=== PATIENT | male | born 1940 | race Caucasian/White ===

== ENCOUNTER → 2018-01-29 08:19 | Outpatient (CLI) | payer OTHER, MEDICARE, SELFPAY ==
[2018-01-29 09:31] LABS: Add Manual Diff / Slide Review NO; Basophils Percent Auto 0.6 % (0-2); Eosinophils Percent Auto 3.2 % (2-4); Hematocrit 37.9 % (41-53); Hemoglobin 12.8 g/dL (13.5-17.5); Lymphocytes Percent Auto 26.1 % (25-40); Mean Corpuscular HGB Conc 33.8 % (30-36); Mean Corpuscular Hemoglobin 30.3 PG (26-34); Mean Corpuscular Volume 89.8 fL (80-100); Monocytes Percent Auto 11.2 % (3-14); Neutrophils Absolute Auto 2600 /uL (3000-5900); Neutrophils Percent Auto 58.9 % (50-75); Platelet Count 194 X10^3/uL (150-400); Red Blood Cell Count 4.22 X10^6/uL (4.5-5.9); Red Cell Distribution Width 12.7 % (11.6-14.8); White Blood Cell Count 4.4 X10^3/uL (4.5-11.0)
[2018-01-29 09:43] LABS: Alanine Aminotransferase 31 IU/L (21-72); Albumin 4.2 g/dL (3.5-5.0); Albumin Globulin Ratio 1.6 (1.0-2.8); Alkaline Phosphatase 63 U/L (38-126); Aspartate Aminotransferase 31 IU/L (17-59); Bilirubin Total 0.7 mg/dL (0.2-1.3); Blood Urea Nitrogen 21 mg/dL (9-20); Calcium 9.4 mg/dL (8.4-10.2); Carbon Dioxide 33 mmol/L (22-32); Chloride 101 mmol/L (98-107); Cholesterol 160 mg/dL (140-199); Estimated Glomerular Filt Rate > 60.0 mL/min (>60); Globulin 2.7 g/dL (1.7-4.1); Glucose 90 mg/dL (80-110); HDL Cholesterol 40 mg/dL (40-60); HEMOLYSIS < 15 (0-50); LDL Cholesterol Calculated 93 mg/dL (<100); Potassium 4.2 mmol/L (3.4-5.1); Sodium 141 mmol/L (137-145); Total Protein 6.9 g/dL (6.3-8.2); Triglycerides 136 mg/dL (35-150)
[2018-01-29 10:58] LABS: TSH w/ Reflex to FT4 2.87 uIU/mL (0.47-4.68)
== END ==
PROVIDERS: PCP Family Medicine; Visit Provider Family Medicine
DX: E78.5 Hyperlipidemia, unspecified (principal); R97.20 Elevated prostate specific antigen [PSA]
CPT/HCPCS: 36415; 80053; 80061; 84443; 85025

== ENCOUNTER → 2018-03-11 11:38 | Outpatient (CLI) | payer OTHER, SELFPAY ==
--- NOTE | 2018-03-11 11:43 | DI.RAD.S_ITS ---
PROCEDURE: XR SHOULDER RT MIN 2V INDICATIONS: pain TECHNIQUE: 3 views of the shoulder were acquired. COMPARISON: None. FINDINGS: Bones: No fractures or dislocations. No suspicious bony lesions. Visualized ribs appear intact. Soft tissues: No suspicious soft tissue calcifications. IMPRESSION: Moderate a.c. joint osteoarthritis, mild glenohumeral joint osteoarthritis, no trauma found. Dictated by: Rosalino Orellana M.D. on 03/11/2018 at 12:26 Approved by: Rosalino Orellana M.D. on 03/11/2018 at 12:27
== END ==
PROVIDERS: Family Provider Family Medicine; PCP Family Medicine; Visit Provider Family Medicine
DX: R97.20 Elevated prostate specific antigen [PSA] (principal)
CPT/HCPCS: 36415; 73030; G0103

== ENCOUNTER → 2018-06-13 11:15 | Outpatient (CLI) | payer OTHER, SELFPAY ==
[2018-06-17 14:45] LABS: PSA Free % 27 % (calc) (> 25); PSA, Total 4.5 ng/mL (< 4.1)
== END ==
PROVIDERS: PCP Family Medicine; Visit Provider Family Medicine
DX: R97.20 Elevated prostate specific antigen [PSA] (principal)
CPT/HCPCS: 36415; 84153; 84154

== ENCOUNTER → 2019-02-27 10:53 | Outpatient (CLI) | payer OTHER, SELFPAY ==
[2019-02-27 11:18] LABS: Add Manual Diff / Slide Review NO; Basophils Absolute Auto 0 /uL (0-100); Basophils Percent Auto 0.9 % (0-2); Eosinophils Absolute Auto 200 /uL (0-450); Eosinophils Percent Auto 4.1 % (2-4); Hematocrit 39.9 % (41-53); Hemoglobin 13.4 g/dL (13.5-17.5); Lymphocytes Absolute Auto 1000 /uL (1100-4500); Mean Corpuscular HGB Conc 33.6 % (30-36); Mean Corpuscular Volume 89.2 fL (80-100); Monocytes Absolute Auto 400 /uL (0-900); Monocytes Percent Auto 8.9 % (3-14); Neutrophils Absolute Auto 2500 /uL (1500-7000); Neutrophils Percent Auto 61.1 % (50-75); Platelet Count 195 X10^3/uL (150-400); Red Blood Cell Count 4.47 X10^6/uL (4.5-5.9); Red Cell Distribution Width 12.9 % (11.6-14.8)
[2019-02-27 11:33] LABS: Alanine Aminotransferase 25 IU/L (21-72); Albumin 4.3 g/dL (3.5-5.0); Albumin Globulin Ratio 1.4 (1.0-2.8); Alkaline Phosphatase 74 U/L (38-126); Aspartate Aminotransferase 30 IU/L (17-59); Bilirubin Total 0.8 mg/dL (0.2-1.3); Blood Urea Nitrogen 19 mg/dL (9-20); Calcium 9.4 mg/dL (8.4-10.2); Carbon Dioxide 27 mmol/L (22-32); Chloride 104 mmol/L (98-107); Cholesterol 155 mg/dL (140-199); Estimated Glomerular Filt Rate > 60.0 mL/min (>60); Glucose 106 mg/dL (80-110); HDL Cholesterol 39 mg/dL (40-60); HEMOLYSIS < 15 (0-50); LDL Cholesterol Calculated 87 mg/dL (<100); Potassium 4.2 mmol/L (3.4-5.1); Sodium 142 mmol/L (137-145); Total Protein 7.3 g/dL (6.3-8.2); Triglycerides 144 mg/dL (35-150)
[2019-02-27 12:02] LABS: Prostate Specific Antigen 3.87 ng/mL (0.10-4.00)
[2019-02-27 12:16] LABS: Thyroid Stimulating Hormone 2.58 uIU/mL (0.47-4.68)
== END ==
PROVIDERS: PCP Family Medicine; Visit Provider Family Medicine
DX: E78.5 Hyperlipidemia, unspecified (principal); R97.20 Elevated prostate specific antigen [PSA]; Z13.0 Encounter for screening for diseases of the blood and blood-forming organs and certain disorders involving the immune mechanism; Z13.1 Encounter for screening for diabetes mellitus; Z13.220 Encounter for screening for lipoid disorders; Z13.6 Encounter for screening for cardiovascular disorders; Z87.898 Personal history of other specified conditions
CPT/HCPCS: 36415; 80053; 80061; 84153; 84443; 85025

== ENCOUNTER → 2019-05-26 12:07 | Outpatient (CLI) | payer OTHER, SELFPAY | PROVIDERS: PCP Family Medicine; Visit Provider Physician Assistant | DX: J02.9 Acute pharyngitis, unspecified (principal) | CPT/HCPCS: 87070 ==

== ENCOUNTER → 2019-06-02 14:50 | Outpatient (CLI) | payer OTHER, SELFPAY | PROVIDERS: PCP Family Medicine; Visit Provider Family Medicine | DX: Z01.83 Encounter for blood typing (principal); Z71.84 Encounter for health counseling related to travel | CPT/HCPCS: 36415; 86850; 86900; 86901 ==

== ENCOUNTER → 2019-07-16 16:31 | Outpatient (CLI) | payer OTHER, SELFPAY ==
--- NOTE | 2019-07-16 16:33 | DI.MRI.S_ITS ---
PROCEDURE: MR HEAD/BRAIN WO CON INDICATIONS: tremor TECHNIQUE: Non-contrast axial T1 spin echo, axial T2 fast spin echo, sagittal and axial FLAIR, coronal T2 fast spin echo, axial gradient echo, axial diffusion and ADC through the brain. COMPARISON: None. FINDINGS: Image quality: Excellent. CSF spaces: Ventricles are within normal limits for size, and slightly prominent on the left than on the right. This degree of asymmetry is considered to be in normal physiologic limits. Basal cisterns are patent. No extra-axial fluid collections. Brain: No intracranial bleeds or mass effects. There is cerebral volume loss for age. There are periventricular and deep white matter chronic small vessel ischemic changes. Brainstem appears normal. Diffusion-weighted images show no acute ischemic insults. No chronic ischemic insults. Normal intravascular flow voids are present. Skull and face: Calvarial bone marrow is normal in signal. Orbits are normal. Sinuses: Sinuses and mastoids are clear. IMPRESSION: Unremarkable intracranial study for age, yet without an imaging explanation for the patient's presenting history of tremor. Note is made of age-appropriate brain parenchymal volume loss and chronic small vessel ischemic changes. Dictated by: Douglas Teran M.D. on 07/16/2019 at 16:56 Approved by: Douglas Teran M.D. on 07/16/2019 at 16:57
== END ==
PROVIDERS: PCP Family Medicine; Visit Provider Family Medicine
DX: G25.0 Essential tremor (principal)
CPT/HCPCS: 70551

== ENCOUNTER 2019-09-01 12:57 | Emergency (ER) | payer OTHER, SELFPAY ==
[2019-09-01 13:09] VITALS: BP 131/69; PULSE 74; RESP 18; TEMP 36.8; O2SAT 95
--- NOTE | 2019-09-01 13:19 | ED_ITS ---
HPI - General Adult General Chief complaint: Abdominal Pain Stated complaint: 'very sore stomach' Time Seen by Provider: 09/01/19 13:11 Source: patient Mode of arrival: Ambulatory Limitations: no limitations History of Present Illness HPI narrative: 79-year-old male with a prior history of a bowel obstruction. This was several years ago. He stated that he did not have surgery for it. He states that last evening while he was having dinner started to have lower abdominal pain. Worsened throughout the night and actually got bad enough that he had to go sit in a recliner this morning. Head is since ?eased up ?somewhat. He attempted to contact his primary provider this morning in the office told him to come into the emergency department. He states that it feels very similar to his prior history of a bowel obstruction. No urinary symptoms. Has not had a bowel movement since the symptoms started. Is still passing flatus. Nausea no vomiting. Related Data Home Medications Medication Instructions Recorded Confirmed aspirin 81 mg PO DAILY #0 01/23/11 09/01/19 multivitamin 1 tab PO DAILY #0 01/23/11 09/01/19 PreserVision AREDS-2 1 cap PO DAILY #0 08/18/12 09/01/19 vitamin E 400 unit PO DAILY #0 08/18/12 09/01/19 citalopram 20 mg PO DAILY 09/01/19 09/01/19 fluticasone propionate [Flonase 1 spray INTRANASAL BEDTIME 09/01/19 09/01/19 Allergy Relief] lansoprazole 30 mg PO BID 09/01/19 09/01/19 primidone 50 - 250 mg PO BEDTIME 09/01/19 09/01/19 simvastatin [Zocor] 20 mg PO DAILY 09/01/19 09/01/19 Allergies Allergy/AdvReac Type Severity Reaction Status Date / Time No Known Drug Allergies Allergy Unverified 08/03/19 10:04 Review of Systems Constitutional Constitutional: Denies fever(s) Cardiovascular Cardiovascular: Denies chest pain and Denies dyspnea Respiratory Respiratory: Denies dyspnea Gastrointestinal Gastrointestinal: Reports abdominal pain, Reports nausea and Denies vomiting Genitourinary Genitourinary: Denies dysuria Integumentary/Breasts Skin/Breast: Denies lesions and Denies rash Neurologic Neurologic: Denies behavioral changes Psychiatric Psychiatric: Denies behavioral changes Hematologic/Lymphatic Hematologic/Lymphatic: Denies easy bleeding and Denies easy bruising Patient History Medical History Anemia (Chronic) Chicken pox (Resolved) Depression (Chronic) Fractures (Chronic ~1961) Measles (Resolved) Mumps (Resolved) Surgical History (Updated 02/10/18 @ 23:08 by Sybil Kruger) Anesthesia (Resolved) History of sinus surgery (Resolved ~2006) History of third molar tooth extraction (~1979) Melanoma (Chronic ~1977) Status post colonoscopy (~2010) Status post colonoscopy (~2013) Family History (Updated 01/10/15 @ 00:00 by Conversion Provider) Brother Age: 83 Cancer Father Cancer Heart disease Hypertension Mother Heart disease High cholesterol Macular degeneration Osteoporosis Grandmother Cancer Sister Cancer Sister Age: 80 Macular degeneration Grandfather No problems noted. Social History Smoking Status: Never smoker Smoking Status: Never smoker alcohol intake frequency: 0-2 drinks per day Exam Initial Vital Signs Initial Vital Signs: Vital Signs Temperature 98.3 F 09/01/19 13:09 Pulse Rate 74 09/01/19 13:09 Respiratory Rate 18 09/01/19 13:09 Blood Pressure 131/69 09/01/19 13:09 Pulse Oximetry 95 09/01/19 13:09 Const General: cooperative and comfortable Limitations: mental status not altered Resp Effort & Inspection: normal respiratory effort Auscultation: clear to auscultation bilaterally Cardio Rate: regular rate Rhythm: regular rhythm GI Inspection: non-distended Palpation: soft, No firm and tender (Bilateral lower abdomen) Skin Lesions: no lesions Rashes: no rashes Neuro General: alert and awake Cognition: normal cognition Speech: speech normal Extrem General: normal to inspection and capillary refill normal Psych Appearance: grossly normal and well kempt Scores GCS Jose R coma scale eye opening: Spontaneous Jose R coma scale verbal response: Orientated Kerens coma scale motor response: Obey commands Jose R coma scale total score: 15 Course Orders Ordered: ED Orders 09/01/19 13:20 CT abdomen pelvis w con Stat 09/01/19 13:50 Complete Blood Count AUTO DIFF Stat Comprehensive Metabolic Panel Stat Lactate (Lactic Acid) Stat Lipase Stat Discontinued Medications Sodium Chloride (Normal Saline 0.9%) 1,000 mls @ 1,000 mls/hr IV BOLUS ONE Stop: 09/01/19 14:18 Last Infusion: 09/01/19 15:19 Dose: 0 mls/hr Documented by: Admin: 09/01/19 14:17 Dose: 1,000 mls/hr Documented by: MOODY Vital Signs Vital signs: Vital Signs - 8 hr 09/01/19 13:09 09/01/19 15:13 09/01/19 16:21 Temperature 98.3 F 98.4 F Pulse Rate 64 65 Pulse Rate [Right] 74 Respiratory Rate 18 16 14 Blood Pressure [Left Arm] 131/69 119/63 125/72 Pulse Oximetry 95 95 96 Medical Decision Making Lab Data Lab results reviewed: Yes I reviewed the patient's lab results. Result diagrams: 09/01/19 13:50 09/01/19 13:50 Labs: Lab Results 09/01/19 09/01/19 09/01/19 Range/Units 13:50 13:50 13:50 WBC 5.5 (4.5-11.0) X10^3/uL RBC 4.51 (4.5-5.9) X10^6/uL Hgb 13.7 (13.5-17.5) g/dL Hct 40.9 L (41-53) % MCV 90.7 (80-100) fL MCH 30.5 (26-34) PG MCHC 33.6 (30-36) % RDW 13.2 (11.6-14.8) % Plt Count 207 (150-400) X10^3/uL Neut % (Auto) 79.9 H (50-75) % Lymph % (Auto) 10.3 L (25-40) % [place] % (Auto) 9.3 (3-14) % Eos % (Auto) 0.1 L (2-4) % Baso % (Auto) 0.4 (0-2) % Neut # (Auto) 4400 (8395-7263) /uL Lymph # (Auto) 600 L (8754-1670) /uL [place] # (Auto) 500 (0-900) /uL Eos # (Auto) 0 (0-450) /uL Baso # (Auto) 0 (0-100) /uL Sodium 142 (137-145) mmol/L Potassium 4.1 (3.4-5.1) mmol/L Chloride 104 (98-107) mmol/L Carbon Dioxide 30 (22-32) mmol/L BUN 16 (9-20) mg/dL Creatinine 1.00 (0.66-1.25) mg/dL Estimated GFR > 60.0 (>60) mL/min BUN/Creatinine Ratio 16.0 (6-22) Glucose 132 H (80-110) mg/dL Lactate 1.2 (0.7-2.1) mmol/L Calcium 9.4 (8.4-10.2) mg/dL Total Bilirubin 0.4 (0.2-1.3) mg/dL AST 43 (17-59) IU/L ALT 24 (<50) IU/L Alkaline Phosphatase 68 (38-126) U/L Total Protein 7.2 (6.3-8.2) g/dL Albumin 4.2 (3.5-5.0) g/dL Globulin 3.0 (1.7-4.1) g/dL Albumin/Globulin Ratio 1.4 (1.0-2.8) Lipase 24 (23-300) U/L Imaging Data CT scan - abdomen/pelvis: Radiologist's Impression: [place] [address] CT Scan Report Signed Patient: Blair Olguin LMR#: [id number] : 2Acct:[id number] Age/Sex: 79 / MDate of Service: 09/01/19 Loc: ED Accession Number: [id number] Procedure: CT abdomen pelvis w con Ordering Provider: Krishna Corey D.O. PROCEDURE: CT ABDOMEN PELVIS W CON INDICATIONS: Lower abdominal pain with history of obstruction TECHNIQUE: After the administration of intravenous contrast, 5 mm thick sections acquired from the diaphragm to the symphysis. 5 mm coronal and sagittal reformats were acquired. For radiation dose reduction, the following was used: automated exposure control, adjustment of mA and/or kV according to patient size. COMPARISON: [facility], CT, CT-IVP, 01/26/2011, 10:56. [facility], CT, ABDOMEN/PELVIS WITH CONTRAST, 03/27/2017, 22:22. FINDINGS: Image quality: Excellent. ABDOMEN: Lung bases: Nodular opacity in the left upper lobe inferiorly measuring approximately 7 x 5 mm, (3/2). Mild dependent atelectasis. Heart size is normal. Solid organs: Liver is normal in size and enhancement. Trace fluid adjacent to the liver, (09/11). Gallbladder is unremarkable. Biliary system is non dilated. Pancreas enhances normally. Spleen is normal in size and enhancement. Left adrenal nodule measuring 1 cm, (2), remotely 1 cm in March 2017. This is mildly increa sed in size compared to 2011 where it measured 7 mm and less than 10 Hounsfield units and is most compatible with a benign adenoma. No nodule the right. Kidneys demonstrate normal size and enhancement, without hydronephrosis. Peritoneum and bowel: Small bowel obstruction with a transition point in the mid lower abdomen involving the ileum, (). This is adjacent to a patulous loop of bowel with an air-fluid level. There is a small volume of free fluid in the pelvis. The stomach is mildly distended with fluid. There is liquid stool contents in the splenic flexure. The colon is mostly decompressed. The appendix is probably identified and is normal in caliber. Nodes and vessels: No retroperitoneal or mesenteric adenopathy by size criteria. Aorta and inferior vena cava are normal in size. Miscellaneous: No ventral hernias. PELVIS: Genitourinary: Bladder wall thickness is normal. Miscellaneous: Small bilateral fat containing inguinal hernias. Bones: No suspicious bony lesions. L1 and L4 compression fractures are unchanged. IMPRESSION: 1. Small bowel obstruction with transition point in the ileum in the mid lower abdomen. Small volume of intra-abdominal fluid is likely reactive. No pneumoperitoneum. 2. Left upper lobe pulmonary nodule with a mean diameter of 7 mm. -Followup chest CT in 3 months is recommended. If the patient has a significant history of smoking, recommend CT of the chest on a nonemergent basis to further evaluate the entire lung parenchyma. Comment: Findings were discussed with Krishna Corey at the time of dictation. Dictated by: Aquilino Sauceda M.D. on 09/01/2019 at 14:52 Approved by: Aquilino Sauceda M.D. on 09/01/2019 at 15:09 MDM Narrative Medical decision making narrative: Patient's lactate and white blood cell count unremarkable. CT scan does show a small bowel obstruction. Patient states he has just slight nausea but no vomiting. Required no nausea or pain medication. There was also finding of an incidental left-sided pulmonary nodule. I did discuss this with the patient and his . Radiology recommended a repeat CT scan in 3 months. I did tell the patient this. They both expressed understanding and agreement. I did discuss the case with Dr. Woodard. We did discuss the initial CT report. Dr. Woodard thought that given the CT report that the patient would most likely need admitted and surgical intervention. The hospital was full at the time. We did discuss with administration whether not we should transfer the patient. The decision was made to keep the patient here at the hospital. Dr. Woodard then reviewed the CT scan and evaluated the patient. He stated that he did not think given the patient's history and physic al in his review of the CT scan that this was a bowel obstruction. He was more concerned that this was potentially a enteritis/gastritis. The patient did recently return from [facility]. Patient did not have white count. Normal lactate. Has not had any vomiting. Dr. Woodard seemed to think this was more concerning for gastritis. Dr. Woodard was okay with the patient going home. I also feel that it is not unreasonable to send the patient home given his clinical presentation. The patient his for okay with going home. They were given strict return precautions. Expressed understanding and agreement. Discharge Plan Departure Patient Disposition: Home Clinical Impression: Incidental lung nodule, > 3mm and < 8mm, Enteritis Admit Date/Time: 09/01/19 17:26 Admit Provider: Misha Woodard
[2019-09-01 14:03] LABS: Add Manual Diff / Slide Review NO; Basophils Absolute Auto 0 /uL (0-100); Basophils Percent Auto 0.4 % (0-2); Eosinophils Absolute Auto 0 /uL (0-450); Eosinophils Percent Auto 0.1 % (2-4); Hematocrit 40.9 % (41-53); Hemoglobin 13.7 g/dL (13.5-17.5); Lymphocytes Absolute Auto 600 /uL (1100-4500); Lymphocytes Percent Auto 10.3 % (25-40); Mean Corpuscular HGB Conc 33.6 % (30-36); Mean Corpuscular Hemoglobin 30.5 PG (26-34); Mean Corpuscular Volume 90.7 fL (80-100); Monocytes Absolute Auto 500 /uL (0-900); Monocytes Percent Auto 9.3 % (3-14); Neutrophils Absolute Auto 4400 /uL (1500-7000); Neutrophils Percent Auto 79.9 % (50-75); Platelet Count 207 X10^3/uL (150-400); Red Blood Cell Count 4.51 X10^6/uL (4.5-5.9); Red Cell Distribution Width 13.2 % (11.6-14.8); White Blood Cell Count 5.5 X10^3/uL (4.5-11.0)
[2019-09-01 14:13] LABS: Lactate (Lactic Acid) 1.2 mmol/L (0.7-2.1)
[2019-09-01 14:14] LABS: Alanine Aminotransferase 24 IU/L (<50); Albumin 4.2 g/dL (3.5-5.0); Albumin Globulin Ratio 1.4 (1.0-2.8); Alkaline Phosphatase 68 U/L (38-126); Aspartate Aminotransferase 43 IU/L (17-59); Bilirubin Total 0.4 mg/dL (0.2-1.3); Blood Urea Nitrogen 16 mg/dL (9-20); Calcium 9.4 mg/dL (8.4-10.2); Carbon Dioxide 30 mmol/L (22-32); Chloride 104 mmol/L (98-107); Estimated Glomerular Filt Rate > 60.0 mL/min (>60); Glucose 132 mg/dL (80-110); HEMOLYSIS < 15 (0-50); Lipase 24 U/L (23-300); Potassium 4.1 mmol/L (3.4-5.1); Sodium 142 mmol/L (137-145); Total Protein 7.2 g/dL (6.3-8.2)
[2019-09-01] MEDS: SODIUM CHLORIDE 0.9% 1,000 ML 1000 ML IV (14:17)
[2019-09-01 15:13] VITALS: BP 119/63; PULSE 64; RESP 16; TEMP 36.9; O2SAT 95
[2019-09-01 16:21] VITALS: BP 125/72; PULSE 65; RESP 14; O2SAT 96
--- NOTE | 2019-09-01 18:03 | PM.CN ---
History of Present Illness Consult details Date Patient Seen: 09/01/19 Time Patient Seen: 18:07 Chief complaint: 'very sore stomach' Narrative: This is a 79-year-old male who return from [facility] 2 days ago with mild abdominal pain. He has left upper quadrant tenderness, mild nausea no vomiting is passing gas and having episodes of occasional diarrhea. He underwent a CT in the emergency room which demonstrates a possible small bowel obstruction with a transition point. It also demonstrates air and stool within the colon. No prior abdominal surgery. Last oral intake was 9:00 p.m. 08/31. No history of coronary artery disease, valvular disease, arrhythmia, peripheral vascular disease, diabetes, stroke, pulmonary or renal insufficiency. They are a nonsmoker and not on anticoagulation. Meds Home Medications and Allergies Home Medications Medication Instructions Recorded Confirmed Type aspirin 81 mg PO DAILY #0 01/23/11 09/01/19 History multivitamin 1 tab PO DAILY #0 01/23/11 09/01/19 History PreserVision AREDS-2 1 cap PO DAILY #0 08/18/12 09/01/19 History vitamin E 400 unit PO DAILY #0 08/18/12 09/01/19 History citalopram 20 mg PO DAILY 09/01/19 09/01/19 History fluticasone propionate [Flonase 1 spray INTRANASAL BEDTIME 09/01/19 09/01/19 History Allergy Relief] lansoprazole 30 mg PO BID 09/01/19 09/01/19 History primidone 50 - 250 mg PO BEDTIME 09/01/19 09/01/19 History simvastatin [Zocor] 20 mg PO DAILY 09/01/19 09/01/19 History Allergies Allergy/AdvReac Type Severity Reaction Status Date / Time No Known Drug Allergies Allergy Unverified 08/03/19 10:04 Review of Systems Review of Systems Narrative: A 10 point review of systems is negative except as noted in the HPI Exam Vital Signs (past 8 hours): - 09/01/19 13:09 09/01/19 15:13 09/01/19 16:21 Temperature 98.3 F 98.4 F Pulse Rate 64 65 Pulse Rate [Right] 74 Respiratory Rate 18 16 14 Blood Pressure [Left Arm] 131/69 119/63 125/72 Pulse Oximetry 95 95 96 Oxygen Delivery Method Room Air Narrative Exam Narrative: General-no acute distress, well nourished HEENT-moist mucous membranes, no scleral icterus Neck-supple, no lymphadenopathy Chest- non labored respirations, clear to auscultation bilaterally Cardiac-regular rate no peripheral edema Abdomen-soft, mildly tender left upper quadrant, no peritonitis nondistended Extremities-warm, well perfused Neurological-alert and oriented, no focal deficits Objective Labs Result Diagrams: 09/01/19 13:50 09/01/19 13:50 Labs: Laboratory Results - last 24 hr 09/01/19 09/01/19 09/01/19 13:50 13:50 13:50 WBC 5.5 RBC 4.51 Hgb 13.7 Hct 40.9 L MCV 90.7 MCH 30.5 MCHC 33.6 RDW 13.2 Plt Count 207 Neut % (Auto) 79.9 H Lymph % (Auto) 10.3 L [place] % (Auto) 9.3 Eos % (Auto) 0.1 L Baso % (Auto) 0.4 Neut # (Auto) 4400 Lymph # (Auto) 600 L [place] # (Auto) 500 Eos # (Auto) 0 Baso # (Auto) 0 Sodium 142 Potassium 4.1 Chloride 104 Carbon Dioxide 30 BUN 16 Creatinine 1.00 Estimated GFR > 60.0 BUN/Creatinine Ratio 16.0 Glucose 132 H Lactate 1.2 Calcium 9.4 Total Bilirubin 0.4 AST 43 ALT 24 Alkaline Phosphatase 68 Total Protein 7.2 Albumin 4.2 Globulin 3.0 Albumin/Globulin Ratio 1.4 Lipase 24 Assessment & Plan Assessment and plan (1) Gastroenteritis: Current visit: Yes Status: Acute Assessment & Plan narrative: 79-year-old male with no prior abdominal surgery returns from [facility] 2 days ago with gastroenteritis. A CT performed in the emergency room today demonstrated a possible small bowel obstruction. I reviewed the CT personally it demonstrates mild dilated loops of small bowel with possible transition point no free fluid and air and stool within the colon. Laboratory studies, white blood cell count 5 creatinine 1.0 lactic acid 1.2. He is passing flatus and having diarrhea. I do not believe is clinical pictures consistent with a true small-bowel obstruction inspected and this more likely represents gastroenteritis. I recommended that he receive a diet, fluid resuscitation and anti emetics. Surgical intervention is not indicated at this time.
[2019-09-01 18:16] VITALS: BP 126/68
== END 2019-09-01 18:20 | disposition home or self-care (01) ==
LOC: ED 17:12 → AC 17:31
PROVIDERS: Emergency Provider Emergency Medicine; PCP Family Medicine; Referring Provider Emergency Medicine
DX: R91.1 Solitary pulmonary nodule (principal); K52.9 Noninfective gastroenteritis and colitis, unspecified
CPT/HCPCS: 36415; 74177; 80053; 83605; 83690; 85025; 96360; 99284; Q9967

== ENCOUNTER → 2019-11-25 08:58 | Outpatient (CLI) | payer OTHER, SELFPAY ==
[2019-11-25 09:26] LABS: BUN Creatinine Ratio 20.2 (6-22); Blood Urea Nitrogen 18 mg/dL (9-20); Calcium 9.4 mg/dL (8.4-10.2); Carbon Dioxide 29 mmol/L (22-32); Chloride 103 mmol/L (98-107); Estimated Glomerular Filt Rate > 60.0 mL/min (>60); Glucose 98 mg/dL (80-110); HEMOLYSIS < 15 (0-50); Potassium 4.5 mmol/L (3.4-5.1); Sodium 139 mmol/L (137-145)
--- NOTE | 2019-11-25 10:06 | DI.CT.S_ITS ---
PROCEDURE: CT CHEST W CON INDICATIONS: abnormal prior CT; left upper lobe nodule TECHNIQUE: After the administration of intravenous contrast, 5 mm thick sections acquired from the pulmonary apices to the posterior costophrenic angles. 1 mm axial lung, 5 mm thick coronal and sagittal reformats and 7 mm axial MIP were acquired. For radiation dose reduction, the following was used: automated exposure control, adjustment of mA and/or kV according to patient size. COMPARISON: [facility], CT, CT-IVP, 01/26/2011, 10:56. [facility], CT, ABDOMEN/PELVIS WITH CONTRAST, 09/01/2012, 9:54. [facility], CT, ABDOMEN/PELVIS WITH CONTRAST, 03/27/2017, 22:22. [facility], CT, CT ABDOMEN PELVIS W CON, 09/01/2019, 14:15. FINDINGS: Image quality: Excellent. Lungs and pleura: No acute air space opacities. The focal radiodensity previously identified within the left upper lobe on CT scanning 09/01/19 is better visualized, appears triangular, and has a maximal dimension of 8 mm as was previously the case. It is located near the anterior pleural surface of the mid left chest. It is currently best seen on series 3 image 187. No pleural effusions or pneumothorax. Central and peripheral airways are patent and normal in caliber. Mediastinum: Heart size is normal. No pericardial effusion. No mediastinal or hilar adenopathy by size criteria. Thoracic aorta and central pulmonary arteries are normal in size. Esophagus is normal in caliber. No hiatal hernia. Bones and chest wall: No suspicious bony lesions. No vertebral body compression fractures. No axillary or supraclavicular adenopathy by size criteria. Thyroid gland appears normal. Abdomen: Visualized upper abdominal solid organs appear normal. Upper abdominal bowel loops are normal in caliber. IMPRESSION: 1. The prior CT scanning of the abdomen included portion of the lung bases within which at the left upper lobe inferiorly a small triangular 8mm maximal dimension radiodensity was seen. The prior CT for reference was 09/01/19. No definite change has developed over the prior 3 months. No new lesion is seen elsewhere. A followup noncontrast CT scan of the chest in 12 months is recommended to confirm stability of appearance over time. 2. No adenopathy found. No acute disease identified. Dictated by: Rosalino Orellana M.D. on 11/25/2019 at 10:39 Approved by: Rosalino Orellana M.D. on 11/25/2019 at 10:47
== END ==
PROVIDERS: PCP Family Medicine; Referring Provider Family Medicine; Visit Provider Family Medicine
DX: Z01.812 Encounter for preprocedural laboratory examination (principal); R91.1 Solitary pulmonary nodule
CPT/HCPCS: 36415; 71260; 80048; Q9967

== ENCOUNTER → 2019-12-18 13:38 | Outpatient (CLI) | payer OTHER, SELFPAY ==
[2019-12-20 07:49] LABS: COVID19 Sendout Not Detected (Not Detect)
== END ==
PROVIDERS: PCP Family Medicine; Visit Provider Physician Assistant
DX: Z01.818 Encounter for other preprocedural examination (principal)
CPT/HCPCS: 87635

== ENCOUNTER 2019-12-21 08:49 | Day surgery (SDC) | payer OTHER, SELFPAY ==
[2019-12-21 08:55] VITALS: BP 137/66; PULSE 66; RESP 16; TEMP 36.5; O2SAT 99; BMI 25.6
[2019-12-21] MEDS: LACTATED RINGERS 1,000 ML 200 ML IV (09:21)
--- NOTE | 2019-12-21 09:27 | PM.PREOP ---
Pre-operative Note COVID-19 COVID-19 status: Negative Result date/Date tested (Pos, Neg/Pending): 12/18/19 Interval Note History & Physical reviewed/Exam performed by Physician: Yes Changes to H&P: No ASA Class (for procedural sedation): II
[2019-12-21] MEDS: MIDAZOLAM 5 MG/5 ML VIAL IV (10:09)
[2019-12-21] MEDS: fentaNYL 250 MCG/5 ML INJ IV (10:10)
--- NOTE | 2019-12-21 10:35 | PM.OP.ENDO ---
Operative Date/Time/Diagnoses Date of procedure: 12/21/19 Time of procedure: 10:35 Pre-op diagnosis: colon cancer screening Post-op diagnosis: same Procedure & Clinicians Study performed: colonoscopy Same procedure as scheduled: Yes Indications: 79M with change in recent bowel habits presents for colorectal cancer screening Surgeon: Misha Woodard Procedure Notes SCOAP/Timeout: performed Procedure in detail: Patient placed in left lateral decubitus position. Time out was performed. Procedural sedation was administered with Versed and Fentanyl. A rectal exam demonstrated no external hemorrhoids no internal masses. Colonoscopy scope was placed into the rectum and advanced through the colon to the cecum. The ileocecal valve was identified. The scope was then slowly withdrawn examining colon thoroughly in all directions. The colonoscopy was notable for the following 1. Sigmoid diverticulosis 2. No masses or polyps 3. Quality of prep fair Scope withdrawal time: 6 Sedation minutes: 24 Findings: diverticulosis Specimen(s): none sent Complications: none Impression: Diverticulosis Post-procedure Recommendations: Colonscopy in 10 years Disposition: same day surgery
[2019-12-21 10:38] VITALS: BP 124/59; PULSE 63; RESP 18; TEMP 36.2; O2SAT 96
[2019-12-21 10:41] VITALS: BP 114/64; PULSE 58; RESP 15; O2SAT 94
[2019-12-21 10:46] VITALS: BP 127/69; PULSE 61; RESP 16; TEMP 36.6; O2SAT 96
[2019-12-21 11:42] VITALS: BP 125/64; PULSE 56; RESP 16; TEMP 36.8; O2SAT 95
== END 2019-12-21 11:13 | disposition home or self-care (01) ==
PROVIDERS: PCP Family Medicine; Referring Provider Surgery; Visit Provider Surgery
PROC: 0DJD8ZZ Inspection of Lower Intestinal Tract, Via Natural or Artificial Opening Endoscopic (ICD-10-PCS; CPT 45378; principal; 2019-12-21 10:00)
DX: K57.30 Diverticulosis of large intestine without perforation or abscess without bleeding (principal)
CPT/HCPCS: 45378; 99152; J2250; J3010

== ENCOUNTER → 2020-02-15 10:08 | Outpatient (CLI) | payer OTHER, SELFPAY ==
--- NOTE | 2020-02-15 | DI.US.S_ITS ---
PROCEDURE: US SOFT TISSUE HEAD AND NECK INDICATIONS: MID POSTERIOR NECK LUMP TECHNIQUE: Real-time scanning was performed of the neck region of interest, with image documentation. COMPARISON: None. FINDINGS: 2.0 x 1.4 x 1.7 cm a vascular, complex rounded subcutaneous soft tissue mass corresponding to the palpable abnormality. There appears to be a track anteriorly to the skin surface. IMPRESSION: Findings suspicious for epidermoid inclusion cyst. Consider dermatology consultation. Dictated by: Diogo DE LOS SANTOS Interpreted: Braeden Lund MD on 02/15/2020 at 10:52 Approved by: Braeden Lund M.D. on 02/15/2020 at 11:04
== END ==
PROVIDERS: PCP Family Medicine; Referring Provider Psychiatry & Neurology Neurology; Visit Provider Psychiatry & Neurology Neurology
DX: R22.1 Localized swelling, mass and lump, neck (principal)
CPT/HCPCS: 76536

== ENCOUNTER → 2020-03-16 10:09 | Outpatient (CLI) | payer OTHER, SELFPAY ==
[2020-03-16 11:52] LABS: Blood Urea Nitrogen 24 mg/dL (9-20); Calcium 9.3 mg/dL (8.4-10.2); Carbon Dioxide 32 mmol/L (22-32); Chloride 102 mmol/L (98-107); Cholesterol 173 mg/dL (140-199); Estimated Glomerular Filt Rate > 60.0 mL/min (>60); Glucose 92 mg/dL (80-110); HDL Cholesterol 44 mg/dL (40-60); HEMOLYSIS < 15 (0-50); LDL Cholesterol Calculated 102 mg/dL (<100); Potassium 4.7 mmol/L (3.4-5.1); Sodium 138 mmol/L (137-145); Triglycerides 137 mg/dL (35-150)
[2020-03-16 12:20] LABS: Prostate Specific Antigen Scrn 3.49 ng/mL (0.1-4.0)
== END ==
PROVIDERS: PCP Family Medicine; Referring Provider Family Medicine; Visit Provider Family Medicine
DX: Z13.220 Encounter for screening for lipoid disorders (principal); Z13.6 Encounter for screening for cardiovascular disorders; R97.20 Elevated prostate specific antigen [PSA]
CPT/HCPCS: 36415; 80048; 80061; G0103

== ENCOUNTER → 2020-05-06 08:46 | Outpatient (CLI) | payer OTHER, SELFPAY ==
[2020-05-07 06:31] LABS: COVID19 Sendout Not Detected (Not Detect)
== END ==
PROVIDERS: PCP Family Medicine; Visit Provider Physician Assistant
DX: Z11.59 Encounter for screening for other viral diseases (principal)
CPT/HCPCS: 87635

== ENCOUNTER 2020-05-09 07:27 | Day surgery (SDC) | payer OTHER, SELFPAY ==
[2020-05-06 08:10] VITALS: BMI 26.4
[2020-05-09] VITALS (8 sets, daily range): BP systolic 127–157; BP diastolic 63–80; PULSE 18–85; RESP 13–20; TEMP 36–37; O2SAT 94–98; BMI 25.7
--- NOTE | 2020-05-09 | PATH_ITS ---
[facility] Accession Number: [id number] . 01 Material submitted: . neck - NECK CYST . 01 Diagnosis: Neck, Excision: Epidermal inclusion cyst. MRV 05/12/2020 0936 Local . 01 Electronically signed: . Chandra Herrera MD, Dermatopathologist NPI- [id number] . 01 Gross description: . The specimen is received in formalin, labeled neck cyst and consists of a 2.5 x 2.0 x 2.0 cm agustin-white cyst, which is inked blue, and sectioned to reveal a agustin-white friable material within the cyst. A liability claims representative section is submitted in cassette A1. ([id number]) /[facility] 05/10/2020 1741 Local . 01 Pathologist provided ICD-10: L72.0 . 01 CPT . 432862 Performed at: [address] [facility] [facility], [place], [place] [id number] MD Yoshi Bunn MD Phone: [phone]
--- NOTE | 2020-05-09 08:01 | PM.HP.1 ---
History of Present Illness History of Present Illness Date Patient Seen: 05/09/20 Time Patient Seen: 08:01 Chief complaint: SEBACEOUS CYST EXCISION Narrative: Patient is gentleman here for removal of a large cyst mass on his posterior neck Patient History Medical History Anemia (Chronic) Arthritis (Acute) Bowel obstruction (Acute) Chicken pox (Resolved) Depression (Chronic) Diverticulosis (Acute) Fractures (Chronic ~1961) GERD (gastroesophageal reflux disease) (Acute) Measles (Resolved) Mumps (Resolved) Sinus drainage (Acute) TIA (transient ischemic attack) (Acute) Surgical History Anesthesia (Resolved) History of sinus surgery (Resolved ~2006) History of third molar tooth extraction (~1979) Melanoma (Chronic ~1977) Status post colonoscopy (~2010) Status post colonoscopy (~2013) Family & Social History Family History Brother Age: 84 Cancer Father Cancer Heart disease Hypertension Mother Heart disease High cholesterol Macular degeneration Osteoporosis Grandmother Cancer Sister Cancer Sister Age: 81 Macular degeneration Grandfather No problems noted. Social History: household members spouse Tobacco & Substance use: Tobacco type cigarettes Smoking Status Former smoker alcohol intake current alcohol intake frequency 0-2 drinks per day Substance Use Type does not use Meds Home Medications and Allergies Home Medications Medication Instructions Recorded Confirmed Type aspirin 81 mg PO DAILY #0 01/23/11 05/09/20 History multivitamin 1 tab PO DAILY #0 01/23/11 05/09/20 History vit C,V-Ch-ybivk-lutein-zeaxan 1 tab PO DAILY #0 08/18/12 05/09/20 History [PreserVision AREDS-2] vitamin E 400 unit PO DAILY #0 08/18/12 05/09/20 History fluticasone propionate [Flonase 2 spray INTRANASAL BEDTIME 09/01/19 05/09/20 History Allergy Relief] citalopram 20 mg tablet 20 mg PO DAILY #90 tab 03/18/20 05/09/20 Rx lansoprazole 30 mg capsule,delayed 30 mg PO BID #180 cap 03/18/20 05/09/20 Rx release primidone 50 mg tablet 300 mg PO BEDTIME #180 tab 03/18/20 05/09/20 Rx simvastatin 20 mg tablet 20 mg PO DAILY #90 tab 03/18/20 05/09/20 Rx Allergies Allergy/AdvReac Type Severity Reaction Status Date / Time No Known Drug Allergies Allergy Verified 04/06/20 13:37 Review of Systems Review of Systems ROS: Yes All systems reviewed with the patient and are negative except as otherwise documented Exam Vital Signs (past 8 hours): - 05/09/20 07:45 Temperature 96.8 F L Pulse Rate 73 Respiratory Rate 16 Blood Pressure 157/80 H Pulse Oximetry 98 Oxygen Delivery Method Room Air Narrative Exam Narrative: Mass posterior midline neck near hairline and below. Measures about 6 by 4cm. No redness or tenderness. Lungs are clear to auscultation no rales or rhonchi heart regular rate and rhythm no murmur gallop no nodes felt neck or supraclavicular areas. Assessment & Plan Assessment and plan (1) Neck mass: Problem details: Will proceed to excision. I have discussed it with him risks of bleeding infection recurrence discussed. Status: Acute
--- NOTE | 2020-05-09 08:05 | PM.PREOP ---
Pre-operative Note COVID-19 COVID-19 status: Negative Result date/Date tested (Pos, Neg/Pending): 05/06/20 Interval Note History & Physical reviewed/Exam performed by Physician: Yes Changes to H&P: No
[2020-05-09] MEDS: LACTATED RINGERS 1,000 ML 42 ML IV (08:10)
[2020-05-09] MEDS: FAMOTIDINE 20 MG/50 ML PIGGYBACK 200 MG IV (08:25)
[2020-05-09] MEDS: CEFAZOLIN 2 GM/100 ML FROZ.PIGGY IV (08:31)
--- NOTE | 2020-05-09 08:55 | SUR.OPER ---
Prone on padded OR bed, head in foam head support, gel chest rolls, gel pad under knees, pillow under lower legs, toes free of pressure, right arm secured on padded arm boards at <90 degrees abduction, left arm tucked at side. Safety belt at thigh.
[2020-05-09] MEDS: BUPIVACAINE 0.5% (PF) VIAL 30 ML INJ (08:58)
--- NOTE | 2020-05-09 09:27 | P.OP_ITS ---
Operative Date/Time/Diagnoses Date of procedure: 05/09/20 Time of procedure: 09:28 Pre-op diagnosis: Mass posterior neck Post-op diagnosis: same (Appeared to be a sebaceous cyst clinically larger than the actual cyst which measured 3 x 2 cm) Procedure & Clinicians Procedure: Excision mass neck (cyst) Same procedure as scheduled: Yes Indications: Symptomatic mass posterior neck Surgeon: Karthik King Click Yes if Unassisted: Yes Anesthesia Type: General Operative Notes Findings: Will circumscribed cystic mass removed intact Closure Type: primary Specimen(s): other (Mass) Prosthetic devices, grafts, tissues, transplants, or devices: None Estimated Blood Loss (mL): 5 Blood products transfused: none Procedure in detail: The patient underwent general endotracheal anesthesia on his stretcher. He was then flipped prone with appropriate padding and prepped and draped in the usual fashion. Local anesthetic was infiltrated over the mass and in a field block fashion around it. Incision was made over top of it and carried down level the mass. It appeared to be a classic sebaceous cysts that was well circumscribed. I dissected it out from surrounding structures and removed it. Cautery was used to control any bleeding. The wound was irrigated and local anesthetic was infiltrated. Subcu was closed with interrupted 3 0 Vicryl. The skin was closed running 4 0 Vicryl subcuticular stitch and Steri- Strips. Dressing was applied the patient was flipped back onto his stretcher extubated and taken recovery room good condition. Complications: none Post-operative Condition: stable Disposition: PACU
--- NOTE | 2020-05-09 13:39 | SUR.PHASEII ---
Spoke with Dr King re: dressing. Per , pt to remove outer dressing including tegaderm and telfa in 2 days and to leave steristrips. Pt allowed to shower after dressing removed. Instructed pt and and they acknowledeged understanding of this plan.
== END 2020-05-09 10:27 | disposition home or self-care (01) ==
PROVIDERS: PCP Family Medicine; Referring Provider Family Medicine; Visit Provider Specialist
PROC: (CPT 11426; principal; 2020-05-09 08:45)
DX: K21.9 Gastro-esophageal reflux disease without esophagitis (principal); L72.0 Epidermal cyst; D64.9 Anemia, unspecified; Z86.73 Personal history of transient ischemic attack (TIA), and cerebral infarction without residual deficits
CPT/HCPCS: 11426; 12042; J0330; J0690; J1100; J2405; J2704; J3010

== ENCOUNTER → 2020-08-09 16:24 | Outpatient (CLI) | payer OTHER, SELFPAY ==
--- NOTE | 2020-08-09 16:26 | DI.RAD.S_ITS ---
PROCEDURE: XR FOOT RT MIN 3V INDICATIONS: pain/injury, r/o fracture TECHNIQUE: <<3 3 views of the foot were acquired. COMPARISON: [facility], , FOOT 3V RIGHT, 08/18/2012, 14:25. FINDINGS: Bones: No acute fractures or dislocations. There is a corticated ossicle adjacent to the cuboid, most likely an accessory ossicle (os perineum). There is moderate degenerative joint disease at multiple interphalangeal joints. Soft tissues: No tibiotalar joint effusion. Achilles tendon appears normal. IMPRESSION: No acute osseous abnormalities. Dictated by: Angel Eric M.D. on 08/09/2020 at 16:53 Approved by: Anegl Eric M.D. on 08/09/2020 at 16:57
== END ==
PROVIDERS: PCP Family Medicine; Referring Provider Physician Assistant; Visit Provider Physician Assistant
DX: M79.671 Pain in right foot (principal); M19.071 Primary osteoarthritis, right ankle and foot
CPT/HCPCS: 73630

== ENCOUNTER → 2020-12-26 13:12 | Outpatient (CLI) | payer OTHER, SELFPAY ==
--- NOTE | 2020-12-26 13:21 | DI.CT.S_ITS ---
PROCEDURE: CT CHEST WO CON INDICATIONS: 1 yr f/u nodule TECHNIQUE: Noncontrast 2.0-2.5 mm thick sections acquired from the pulmonary apices to the posterior costophrenic angles. 7 mm thick axial MIP and 5 mm coronal and sagittal reformats were then acquired. A low radiation dose technique was utilized. COMPARISON: [facility], CT, CT ABDOMEN PELVIS W CON, 09/01/2019, 14:15. [facility], CT, CT CHEST W CON, 11/25/2019, 10:06. FINDINGS: Image quality: Diagnostic, given the low radiation dose technique. Lungs and pleura: Unchanged appearance of 8 mm nodule seen in the subpleural lingula image 194/3. Mediastinum: Heart size is normal. Mild coronary calcification. No pericardial effusion. No mediastinal adenopathy by size criteria. Thoracic aorta and central pulmonary arteries are normal in size. Esophagus is normal in caliber. No hiatal hernia. Bones and chest wall: Mild L1 compression fracture is noted, chronic and unchanged. Thyroid unremarkable Abdomen: Visualized upper abdomen solid organs and bowel loops appear normal in the absence of contrast. IMPRESSION: Overall, no interval change in 8 mm subpleural lingular pulmonary nodule, which is encouraging however recommend definitive follow-up with additional CT chest in 1 year. Fleischner Society criteria for SOLID lung nodule followup. Nodule size (mm)Low-risk patientHigh-risk patient<6 (single or multiple)No routine followup.Optional CT at 12 months. 6-8 (single or multiple)CT at 6-12 months, then optional CT at 18-24 mo.CT at 6-12 months, then CT at 18-24 months. >8 (single)CT at 3 months, PET-CT, or biopsy. Same as for low-risk pts. >8 (multiple)CT at 3-6 months, then optional CT at 18-24 mo.CT at 3-6 months, then CT at 18-24 months. Fleischner Society criteria for SUB-SOLID lung nodule followup. Solitary pure ground-glass nodules<6 mm (ground glass or part solid)No followup needed. 6 mm or larger (ground glass)CT at 6-12 months to confirm persistence, then CT every 2 years until 5 years.6 mm or larger (part solid)CT at 3-6 months to confirm persistence, then annual CT until 5 years if unchanged and solid component remains <6 mm. Multiple sub-solid nodules<6 mmCT at 3-6 months, then CT consider at 2 & 4 years for high risk patients. [address] at 3-6 months. Subsequent management based on most suspicious lesions. Recommendations do not apply to lung cancer screening, patients with immunosuppression, or patients with known primary cancer. Dictated by: Willie Chou M.D. on 12/26/2020 at 14:02 Approved by: Willie Chou M.D. on 12/26/2020 at 14:13
== END ==
PROVIDERS: PCP Family Medicine; Referring Provider Family Medicine; Visit Provider Family Medicine
DX: R91.1 Solitary pulmonary nodule (principal); R13.10 Dysphagia, unspecified; I25.10 Atherosclerotic heart disease of native coronary artery without angina pectoris
CPT/HCPCS: 71250

== ENCOUNTER → 2020-12-27 10:13 | Outpatient (CLI) | payer OTHER, SELFPAY ==
--- NOTE | 2020-12-27 | DI.RAD.S_ITS ---
PROCEDURE: FL BARIUM SWALLOW W SPEECH INDICATIONS: RECOMMENDED BY COMMUNITY SPEECH EVAL COMPARISON: TECHNIQUE: Examination was conducted in conjunction with speech pathology per standard protocol. In the lateral projection, filming was performed of the patient swallowing. AP projection filming may also be performed with patient swallowing. COMPARISON: [facility], , BARIUM SWALLOW, 12/27/2011, 8:23. FINDINGS: Function: The oral preparatory phase appears normal, with proper containment. The subsequent oral propulsive phase and pharyngeal phase appear normal except for presence of retention of barium at the esophageal introitus, which cleared predominantly with a single additional swallow. Thicker barium material passed more efficiently through this area, and transit through the esophagus into the gastric lumen was normal. Specifically, the esophageal phase of swallowing also appear normal with all proffered substances. No laryngotracheal penetration or aspiration. No pathologic vallecular pooling. Morphology: No cricopharyngeal bar is identified. No cervical esophageal webs. No Zenker's diverticulum. No strictures. IMPRESSION: Delayed passage of thin and intermediate thickness liquid barium at the esophageal introitus, normal passage of thick barium material through this area. No penetration or aspiration seen. Normal passage of barium material through the esophagus into the gastric lumen. Please also refer to the dedicated speech therapy swallowing evaluation report which will be independently generated. Dictated by: Rosalino Orellana M.D. on 12/27/2020 at 12:14 Approved by: Rosalino Orellana M.D. on 12/27/2020 at 12:17
--- NOTE | 2020-12-27 13:43 | ST.SWALLOW ---
Visit Care Team Role Provider Type David Saucedo MD Primary Care Provider Physician Referring Provider Specialty: Family Practice Address: [address] [place] [address], [id number] Email: [email or web address] Attending Provider Speech Therapist Specialty: Speech Therapy Address: Phone: Fax: Email: ST Modified Barium Swallow Study ANIMAL ASSISTANT Modified Barium Swallow Study Start: 12/27/20 18:01 Freq: Status: Active Protocol: Document 12/27/20 18:01 WENCESLAO (Rec: 12/27/20 18:10 WENCESLAO [id number]) Modified Barium Swallow Study Total Time Visit Start Time 10:30 Visit Stop Time 11:00 Total Visit Minutes [address] López Rea Reason for Referral Dysphagia: Recommendation by ANIMAL ASSISTANT at community swallow screening Setting Setting Outpatient Care Patient Information Identification Type Name,ID Card Patient History The pt is a 80-yr-old male known to this ANIMAL ASSISTANT from the community. He attended an [facility] swallow screening event in November and reported frequent coughing and sticking sensation in throat with oral intake. He had experienced one serious choking episode that was alarming to him. MBSS was recommended for thorough evaluation of swallow. Significant PMHx includes essential tremor, TIA, hiatal hernia, diverticulosis, and long history of GERD. Subjective Observations The pt arrived on time, was seated in fluoroscopy chair and informed of procedure details. Pt consented to procedure and provided case history. No changes in complaints and no additional significant choking episodes since he was seen for the swallow screen in November. Patient Positioning Position View Lat-A/P Imaging Lateral View Textures Administered Trials Presented Thin Liquid via Spoon,Thin Liquid via Cup,[place] Liquid via Spoon,[place] Liquid via Cup,Honey Liquid via Spoon, Dysphagia Blenderized Textures ,Regular Textures Oral Phase Source: MBSIMP (TM) (C) Bolus Specific Scoring Grid Lip Closure No Impairment (WNL) Tongue Control During Bolus Hold No Impairment (WNL) Bolus Prep/Mastication No Impairment (WNL) Bolus Transport/Lingual Motion No Impairment (WNL) Oral Residue Mild Impairment Residue Clearing WFL Nasal Regurgitation No Additional Oral Phase Observations Oral Peripheral Exam: Symmetrical features WNL of strength, coordination and ROM . Minimal facial and lingual tremor noted consistent with essential tremor diagnosis. Pt has complete natural dentition in good condition. Trace to mild oral residue was noted to escape to vallecula post-swallow. Remaining oral residue cleared with subsequent swallow. Pharyngeal Phase Source: MBSIMP (TM) (C) Bolus Specific Scoring Grid Delayed Initiation of Pharyngeal Swallow Yes: Escape as far as pyriform sinuses; liquid greater than solids Soft Palate Elevation No Impairment (WNL) Tongue Base Strength/Range of Motion Moderate Impairment Residue Along the Tongue Base Yes Clearance of Residue Along Tongue Base WFL Laryngeal Elevation No Impairment (WNL) Anterior Hyoid Movement Moderate Impairment Epiglottic Range of Motion No Impairment (WNL) Vallecular Residue Yes Clearance of Vallecular Residue Moderate Impairment Laryngeal Vestibular Closure WFL Pharyngeal Stripping Wave Mild Impairment Posterior Pharyngeal Wall Residue Yes: Trace to mild Clearance of Posterior Pharyngeal Wall WFL Residue Upper Esophageal Sphincter Opening Moderate Impairment Residue in the Pyriform Sinuses Yes: Moderate-severe Clearance of Residue in the Pyriform Moderate Impairment Sinuses Esophageal Clearance Upright Position WFL Pharyngoesophageal Backflow Observed No Additional Pharyngeal Phase Observations No penetration or aspiration was observed. Mild-moderate residue in the vallecula and moderate-severe residue in pyriform sinuses with both solids and liquids increase the pt's risk of aspiration and would account for his sticking sensation. Minimal anterior hyolaryngeal excursion was observed, resulting in reduced extension and duration of UES opening and contributing to residue in pyriform sinuses, right side greater than left as observed in A/P view. This required multiple swallows to clear. A/P View Textures Administered Trials Presented [place] Liquid via Cup, Dysphagia Blenderized Textures ,Barium Tablet A/P View Observations Pharyngeal Contraction No Impairment (WNL) Residue Observed Valleculae Right,Valleculae Left,Pyriform Sinus Right, Pyriform Sinus Left Esophageal Function No Impairment (WNL) Esophageal Clearance Upright Position No Impairment (WNL) Clinical Impressions Dysphagia Type Mild Oropharyngeal Dysphagia Findings The pt presents with mild oropharyngeal dysphagia. Oral impairments include mildly weak back of tongue and reduced control to prevent early spillage of boluses to pharynx prior to onset of swallow. Mildly reduced sensation may also contribute to delayed swallow trigger. Pharyngeal dysphagia is secondary to reduced hyolaryngeal anterior excursion and extent and duration of UES opening. Additionally, base of tongue weakness and reduced pharyngeal stripping wave are present. Impairments result in mild to moderately severe pharyngeal residue, particularly in pyriform sinuses, that present risk of aspiration post-swallow. Clearance of this residue requires multiple swallows that were not seen to fully clear the pharynx. No laryngeal penetration or tracheal aspiration were observed; however, the pt is at moderate to high risk of aspiration d/t limited pharyngeal clearance with each swallow. Rehabilitation Potential Good Patient Appropriate for Therapy Yes Recommendations Diet Liquids Order Thin Diet Order Regular Medication Recommendation As Tolerated Aspiration Precautions Recommended Precautions Upright at 90 Degrees,Small Bites/Sips,Effortful Swallow, Double Swallow Treatment Plan Therapy Recommendations Outpatient Speech Therapy Compensatory Strategies Recommendations Sitting Upright (90 deg), Double Swallow,Small Bites and Sips Short Term Goals 1. The pt will verbalize understanding of swallow impairments following education including video review of MBSS. 2. The pt will perform exercises independently to improve strength, coordination and ROM of swallow musculature to improve oral containment, reduce pharyngeal residue, and reduce risk of aspiration. 3. The pt will follow safe swallow strategies independently to reduce risk of aspiration. Medical Assistant Goals 1. The pt will demonstrate swallow function/safety WNL to safely tolerate least restrictive diet.
== END ==
PROVIDERS: PCP Family Medicine; Referring Provider Family Medicine; Visit Provider Massage Therapist
DX: R13.10 Dysphagia, unspecified (principal)
CPT/HCPCS: 74230; 92611

== ENCOUNTER → 2021-03-16 09:36 | Outpatient (CLI) | payer OTHER, SELFPAY ==
[2021-03-16 10:46] LABS: Add Manual Diff / Slide Review NO; Basophils Absolute Auto 0 /uL (0-100); Eosinophils Absolute Auto 200 /uL (0-450); Eosinophils Percent Auto 4.6 % (2-4); Hematocrit 40.1 % (41-53); Hemoglobin 13.4 g/dL (13.5-17.5); Lymphocytes Absolute Auto 900 /uL (1100-4500); Lymphocytes Percent Auto 25.7 % (25-40); Mean Corpuscular HGB Conc 33.5 % (30-36); Mean Corpuscular Hemoglobin 30.5 PG (26-34); Monocytes Absolute Auto 400 /uL (0-900); Monocytes Percent Auto 11.1 % (3-14); Neutrophils Absolute Auto 2000 /uL (1500-7000); Neutrophils Percent Auto 57.6 % (50-75); Platelet Count 199 X10^3/uL (150-400); Red Blood Cell Count 4.41 X10^6/uL (4.5-5.9); Red Cell Distribution Width 12.7 % (11.6-14.8); White Blood Cell Count 3.5 X10^3/uL (4.5-11.0)
[2021-03-16 10:56] LABS: Alanine Aminotransferase 29 IU/L (<50); Albumin 4.5 g/dL (3.5-5.0); Albumin Globulin Ratio 1.8 (1.0-2.8); Alkaline Phosphatase 78 U/L (38-126); Aspartate Aminotransferase 35 IU/L (17-59); Bilirubin Total 0.5 mg/dL (0.2-1.3); Blood Urea Nitrogen 20 mg/dL (9-20); Calcium 9.4 mg/dL (8.4-10.2); Carbon Dioxide 29 mmol/L (22-32); Chloride 103 mmol/L (98-107); Cholesterol 206 mg/dL (140-199); Estimated Glomerular Filt Rate > 60.0 mL/min (>60); Globulin 2.5 g/dL (1.7-4.1); Glucose 89 mg/dL (80-110); HDL Cholesterol 47 mg/dL (40-60); HEMOLYSIS < 15 (0-50); LDL Cholesterol Calculated 124 mg/dL (<100); Potassium 4.5 mmol/L (3.4-5.1); Sodium 140 mmol/L (137-145); Triglycerides 173 mg/dL (35-150)
[2021-03-16 11:22] LABS: Prostate Specific Antigen Scrn 4.19 ng/mL (0.1-4.0)
== END ==
PROVIDERS: PCP Family Medicine; Referring Provider Family Medicine; Visit Provider Family Medicine
DX: R97.20 Elevated prostate specific antigen [PSA] (principal); E78.2 Mixed hyperlipidemia; G45.9 Transient cerebral ischemic attack, unspecified; Z12.5 Encounter for screening for malignant neoplasm of prostate
CPT/HCPCS: 36415; 80053; 80061; 85025; G0103

== ENCOUNTER → 2021-07-20 10:13 | Outpatient (CLI) | payer OTHER, SELFPAY ==
[2021-07-20 11:28] LABS: COVID19 -Nasal RAPID Negative (Negative)
== END ==
PROVIDERS: PCP Family Medicine; Visit Provider Nurse Practitioner Family
DX: Z20.822 Contact with and (suspected) exposure to COVID-19 (principal)
CPT/HCPCS: 87635

== ENCOUNTER → 2021-08-28 07:57 | Outpatient (CLI) | payer OTHER, SELFPAY ==
--- NOTE | 2021-09-13 11:03 | P.HOLT.S_ITS ---
Biodiesel Production Technician Report Referral & Results Date Patient Seen: 08/28/21 Requesting provider: David Saucedo Indication: PACs Duration of monitoring (days): 7 Diary information: There were 0 patient events to review Data: Minimum heart rate identified was 48 beats per minute at 04:41 on 08/29/2021 Maximum sinus heart rate was 108 beats per minute at 14:36 on 08/28/2021 Maximum overall heart rate was 156 beats per minute at 02:38 on 08/29/2021 during a run of SVT There was 1 run of nonsustained monomorphic ventricular tachycardia that was 7 beats in duration There were 5 runs of SVT the fastest being the 4 beat run at 156 noted above and the longest lasting 6 beats at a rate of 109 beats per minute which suggest more atrial tachycardia than true SVT Approximately 2% of identified beats were supraventricular ectopic in origin which would classify them as occasional Less than 1% of identified beats were ventricular ectopic in origin which would classify them as rare There were no pauses or atrial fibrillation identified 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
== END ==
PROVIDERS: PCP Family Medicine; Referring Provider Family Medicine; Visit Provider Family Medicine
DX: I49.1 Atrial premature depolarization (principal)
CPT/HCPCS: 93242; 93244

== ENCOUNTER → 2022-04-04 15:30 | Outpatient (CLI) | payer OTHER, SELFPAY ==
--- NOTE | 2022-04-04 15:33 | DI.RAD.S_ITS ---
PROCEDURE: XR KNEE RT 3V INDICATIONS: right knee strain TECHNIQUE: 3 views of the knee were acquired. COMPARISON: [facility], , KNEE 3V RIGHT, 10/05/2008, 11:05. FINDINGS: Bones: No fractures or dislocations. No suspicious bony lesions. Mild tricompartmental knee joint degeneration. Soft tissues: Trace joint effusion. No suspicious soft tissue calcifications. IMPRESSION: 1. No acute osseous abnormalities. 2. Mild degenerative joint disease. Dictated by: Angel Eric M.D. on 04/04/2022 at 17:24 Approved by: Angel Eric M.D. on 04/04/2022 at 17:27
== END ==
PROVIDERS: PCP Family Medicine; Referring Provider Nurse Practitioner Family; Visit Provider Nurse Practitioner Family
DX: S86.911A Strain of unspecified muscle(s) and tendon(s) at lower leg level, right leg, initial encounter (principal); M17.11 Unilateral primary osteoarthritis, right knee; X58.XXXA Exposure to other specified factors, initial encounter
CPT/HCPCS: 73562

== ENCOUNTER → 2022-04-13 10:46 | Outpatient (CLI) | payer OTHER, SELFPAY ==
[2022-04-13 11:45] LABS: Add Manual Diff / Slide Review NO; Basophils Absolute Auto 0 /uL (0-100); Basophils Percent Auto 0.8 % (0-2); Eosinophils Absolute Auto 100 /uL (0-450); Hematocrit 38.7 % (41-53); Hemoglobin 12.9 g/dL (13.5-17.5); Lymphocytes Absolute Auto 1000 /uL (1100-4500); Lymphocytes Percent Auto 28.2 % (25-40); Mean Corpuscular HGB Conc 33.5 % (30-36); Mean Corpuscular Hemoglobin 30.5 PG (26-34); Mean Corpuscular Volume 91.3 fL (80-100); Monocytes Absolute Auto 300 /uL (0-900); Monocytes Percent Auto 9.2 % (3-14); Neutrophils Absolute Auto 2200 /uL (1500-7000); Neutrophils Percent Auto 59.8 % (50-75); Platelet Count 233 X10^3/uL (150-400); Red Blood Cell Count 4.24 X10^6/uL (4.5-5.9); Red Cell Distribution Width 13.1 % (11.6-14.8); White Blood Cell Count 3.7 X10^3/uL (4.5-11.0)
[2022-04-13 12:08] LABS: Alanine Aminotransferase 27 IU/L (<50); Albumin Globulin Ratio 1.3 (1.0-2.8); Alkaline Phosphatase 101 U/L (38-126); Aspartate Aminotransferase 28 IU/L (17-59); BUN Creatinine Ratio 22.5 (6-22); Bilirubin Total 0.4 mg/dL (0.2-1.3); Blood Urea Nitrogen 20 mg/dL (9-20); Calcium 9.1 mg/dL (8.4-10.2); Carbon Dioxide 31 mmol/L (22-32); Chloride 102 mmol/L (98-107); Cholesterol 187 mg/dL (140-199); Estimated Glomerular Filt Rate > 60 mL/min (>60); Globulin 3.2 g/dL (1.7-4.1); Glucose 98 mg/dL (80-110); HDL Cholesterol 37 mg/dL (40-60); HEMOLYSIS < 15 (0-50); LDL Cholesterol Calculated 119 mg/dL (<100); Potassium 4.2 mmol/L (3.4-5.1); Sodium 140 mmol/L (137-145); Total Protein 7.2 g/dL (6.3-8.2); Triglycerides 157 mg/dL (35-150)
[2022-04-13 12:34] LABS: Prostate Specific Antigen Scrn 5.22 ng/mL (0.1-4.0)
[2022-04-13 12:35] LABS: TSH w/ Reflex to FT4 2.58 uIU/mL (0.47-4.68)
[2022-04-13 17:04] LABS: Creatinine Urine Random 140.7 mg/dL
[2022-04-13 17:09] LABS: Microalbumi Creatinin Ratio Ur 7.1 ug/mg CR (<30)
== END ==
PROVIDERS: PCP Family Medicine; Referring Provider Family Medicine; Visit Provider Family Medicine
DX: E78.2 Mixed hyperlipidemia (principal); G25.0 Essential tremor; R00.1 Bradycardia, unspecified; R97.20 Elevated prostate specific antigen [PSA]; Z12.5 Encounter for screening for malignant neoplasm of prostate
CPT/HCPCS: 36415; 80053; 80061; 82043; 82570; 84443; 85025; G0103

== ENCOUNTER → 2022-05-08 12:11 | Outpatient (CLI) | payer OTHER, SELFPAY ==
--- NOTE | 2022-05-08 12:13 | DI.MRI.S_ITS ---
PROCEDURE: MR KNEE RT WO CON INDICATIONS: eval right knee pain TECHNIQUE: Noncontrast sagittal PD fast spin echo and T2 fast spin echo with fat saturation, sagittal 3-D FLASH with fat saturation; coronal T1 spin echo and PD fast spin echo with fat saturation, and axial PD fast spin echo with fat saturation through the knee. COMPARISON: [facility], CR, XR KNEE RT 3V, 04/04/2022, 15:33. FINDINGS: Image quality: Excellent. Menisci: Oblique tear is seen involving body and posterior horn of medial meniscus extending to inferior articulating surface. Peripheral displacement of medial meniscus bowing medial collateral ligament is also seen. Lateral meniscus is intact. The meniscal root ligaments appear intact. Cruciate ligaments: The anterior and posterior cruciate ligaments appear intact. Medial structures: Low to moderate grade medial collateral ligament sprain/partial-thickness tear is seen. The posterior oblique ligament, semimembranosus tendon insertions, oblique popliteal ligament, and meniscocapsular junction appear intact. Visualized portions of the pes anserinus tendons appear normal. No abnormal bursal fluid. Lateral structures: The lateral collateral ligament, long and short heads of the biceps femoris tendon appear intact. The popliteus tendon appears normal; the popliteofibular ligament appears intact. Iliotibial band appears normal. Anterior structures: The quadriceps and patellar tendons appear intact. Patellar alignment is normal. No femoral trochlear dysplasia or ventral trochlear prominence. No edema in the infrapatellar fat pad. Bones and cartilage: There is extensive marrow edema involving distal femoral shaft and lateral femoral condyle extending to intercondylar notch. Subcortical linear hypointense signal is seen in weight-bearing portion of lateral femoral condyle concerning for subcortical fractures. [id number] tricompartmental osteoarthritis and chondromalacia is seen. No other area of abnormal marrow signal. Joint space: There is small knee joint fluid. No Rodriguez's cyst. Normal appearing synovial plicae are incidentally noted. IMPRESSION: 1. Suggestion of subcortical fractures involving weight-bearing portion of lateral femoral condyle with extensive marrow edema extending to visualized distal femoral shaft. No cortical disruption. No other area of abnormal marrow signal. Moderate tricompartmental osteoarthritis and chondromalacia. Small joint fluid. 2. Oblique tear involving body and posterior horn of medial meniscus extending to inferior articulating surface. Peripheral displacement of medial meniscus bowing medial collateral ligament. No evidence of focal lateral meniscal tear. 3. Cruciate ligaments are intact. Low to moderate grade MCL sprain/partial-thickness tear. Dictated by: Braeden Lund M.D. on 05/08/2022 at 14:23 Approved by: Braeden Lund M.D. on 05/08/2022 at 14:26
== END ==
PROVIDERS: PCP Family Medicine; Referring Provider Family Medicine; Visit Provider Family Medicine
DX: S83.241A Other tear of medial meniscus, current injury, right knee, initial encounter (principal); S83.411A Sprain of medial collateral ligament of right knee, initial encounter; M17.11 Unilateral primary osteoarthritis, right knee; M94.261 Chondromalacia, right knee; M25.561 Pain in right knee
CPT/HCPCS: 73721

== ENCOUNTER 2022-06-19 13:45 | Outpatient (RCR) | payer OTHER, SELFPAY ==
--- NOTE | 2022-05-23 15:08 | PT.OIE ---
Current Diagnoses Other meniscus derangements, posterior horn of lateral meniscus, right knee (05/23/22) Pain in right knee (05/23/22) Past Medical History (Last Updated 05/22/22 @ 09:08 by Glen Mackey MD) Anemia Arthritis Bowel obstruction BPH w/o urinary obs/LUTS Chicken pox Depression Diverticulosis Elevated PSA Foot contusion Fractures (~1961) GERD (gastroesophageal reflux disease) Hx of neurological disease Hx of squamous cell carcinoma of skin Measles Mumps Sinus drainage TIA (transient ischemic attack) Past Surgical History (Last Reviewed 05/22/22 @ 09:05 by Glen Mackey MD) Anesthesia History of sinus surgery (~2006) History of third molar tooth extraction (~1979) Hx of circumcision Hx of vasectomy Melanoma (~1977) Status post colonoscopy (~2010) Status post colonoscopy (~2013) Visit Care Team Role Provider Type David Saucedo MD Attending Provider Physician Primary Care Provider Referring Provider Specialty: [facility] Practice Address: [address] [place] [address] Email: [email or web address] Physical Therapy Initial Evaluation PT-OP-A Visit Information Start: 05/23/22 14:35 Freq: Status: Active Protocol: Document 05/23/22 13:45 DCW (Rec: 05/23/22 14:40 DCW [id number]) Out-Patient Physical Therapy Visit Information Visit Information Visit Type Initial Evaluation Visit Start Time 13:45 Visit Stop Time 14:30 Total Visit Minutes 45 Visit Number 1 Number of SENIOR CLINICAL DATA MANAGER Visits 0 Evaluation Information Evaluation Date 05/23/22 PT-OP-B Current Condition Start: 05/23/22 14:35 Freq: Status: Active Protocol: Document 05/23/22 13:45 DCW (Rec: 05/23/22 15:08 DCW [id number]) Current Condition History of Current Condition Onset Date S/p seven weeks Current Complaints Mild R knee pain History of Current Condition Pt is a 81 year old male presenting with a seven week history of knee pain. Pt reports he was walking around his bed and got his foot caught in the comforter, resulting in him twisting his knee. Reports initially he had fairly significant pain, was struggling with ascending/ descending stairs, had to use a step-to pattern, but in the mean time he has felt better, and is now almost normal with his stairs, with only occasional mild pain. Pt only finds some lingering pain and difficulty when trying to put on his sock in the morning, or when kneeling he feels mild discomfort. Prior Treatments and Tests R Knee MRI: IMPRESSION: 1. Suggestion of subcortical fractures involving weight- bearing portion of lateral femoral condyle with extensive marrow edema extending to visualized distal femoral shaft. No cortical disruption . No other area of abnormal marrow signal. Moderate tricompartmental osteoarthritis and chondromalacia. Small joint fluid. 2. Oblique tear involving body and posterior horn of medial meniscus extending to inferior articulating surface. Peripheral displacement of medial meniscus bowing medial collateral ligament. No evidence of focal laterl meniscal tear. 3. Cruciate ligaments are intact. Low to moderate grade MCL sprain/ partial-thickness tear. per Braeden Lund M.D. on 05/08/2022 Future Testing and Treatments Planned Has scheduled Ortho appointment next week Treatment Goals Patient/Caregiver Goals I want to get my knee back to operating at the level it was previously. PT-OP-C Subjective Start: 05/23/22 14:35 Freq: Status: Active Protocol: Document 05/23/22 13:45 DCW (Rec: 05/23/22 14:40 DCW [id number]) OP-PT Subjective Patient Comments Patient Comments It's a whole lot better than it was six weeks ago. I'm pretty much going up the stairs normally now. Patient Reported Progress Improving OP-PT Pain Assessment Pain Assessment Grid Paper Pain Assessment Grid Completed Yes Location Right Lateral Knee Intensity 1 Scale Used Numeric (0 - 10) PT-OP-F Manual Assessment Start: 05/23/22 14:35 Freq: Status: Active Protocol: Document 05/23/22 13:45 DCW (Rec: 05/23/22 14:49 DCW [id number]) Manual Assessments Soft Tissue Assessment Soft Tissue Mobility Assessment Tenderness to palpation 1/4: Complaint of pain along right lateral joint line Joint Mobility Assessment Joint Mobility Assessment Joint mobility and ROM WNL, no complaints of pain with motion PT-OP-K Range of Motion Start: 05/23/22 14:35 Freq: Status: Active Protocol: Document 05/23/22 13:45 DCW (Rec: 05/23/22 14:49 DCW [id number]) Knee Goniometric Range of Motion Knee Right Knee ROM WFL Yes Patient Position Supine Flexion Active (degrees) 120 Flexion Passive (degrees) 130 Extension Active (degrees) 0 Extension Passive (degrees) 0 Left Knee ROM WFL Yes Patient Position Supine Flexion Active (degrees) 118 Flexion Passive (degrees) 134 Extension Active (degrees) 0 Extension Passive (degrees) 0 PT-OP-L Special Tests Start: 05/23/22 14:35 Freq: Status: Active Protocol: Document 05/23/22 13:45 DCW (Rec: 05/23/22 14:49 DCW [id number]) Special Tests Knee Special Tests Varus- 0 Degrees Test Results Negative Valgus- 0 Degrees Test Results Negative Patellar Grind Test Test Results Negative Patella Tap Test Results Positive R Tamia Test Test Results Negative Anterior Draw Test Results Negative PT-OP-M Strength Start: 05/23/22 14:35 Freq: Status: Active Protocol: Document 05/23/22 13:45 DCW (Rec: 05/23/22 14:49 DCW [id number]) Knee Strength Knee Manual Muscle Testing Right Flexion (S2) 4+ Good+ Extension (L3) 4+ Good+ Left Flexion (S2) 5 Normal Extension (L3) 5 Normal Ankle/Foot Strength Ankle and Foot Manual Muscle Testing Right Dorsiflexion (L4) 5 Normal Plantarflexion (S1) 5 Normal Left Dorsiflexion (L4) 5 Normal Plantarflexion (S1) 5 Normal PT-OP-Q Treatments Start: 05/23/22 14:35 Freq: Status: Active Protocol: Document 05/23/22 13:45 DCW (Rec: 05/23/22 14:41 DCW [id number]) Therapeutic Exercises Standing Exercises Hip Abduction Standing Exercise Name Hip Abduction Side right Resistance Lv 3 Hip Extension Standing Exercise Name Hip Extension Side right Resistance Lv 3 TKE Standing Exercise Name TKE Side right Resistance Lv 3 PT-OP-T Assessment and Plan Start: 05/23/22 14:35 Freq: Status: Active Protocol: Document 05/23/22 13:45 DCW (Rec: 05/23/22 15:08 DCW [id number]) Physical Therapy Assessment Rehab Potential Rehabilitation Potential Excellent Evaluation Complexity Number of Personal Factors/Comorbidities 1-2 Number of Body Systems Impaired 1-2 Clinical Presentation at Evaluation Stable Impairments Impairments Edema,Pain,Strength Goals Two Impairment Pt experiences lateral knee pain with ascending/descending stairs Regulatory Compliance Officer Goal (LTG) Pt to ascend and descend 12 stairs with a step-through gait pattern without pain for one straight week. LTG Duration 07/04/22 One Impairment Pt does not have an appropriate home exercise program Short Term Goal (STG) Pt to be independent and compliant with an appropriate HEP STG Duration 06/13/22 Assessment Summary Assessment Pt presents with signs and symptoms consistent with referring diagnosis. Recent MRI shows a tear of the posterior horn of the right medial meniscus, as well as possible subcortical fractures in the lateral femoral condyle. Pt overall has improved greatly since initial injury seven weeks ago, and has largely returned to normal . Pt will likely benefit from skilled therapy focusing on improving pain-free mobility and mild LE strengthening, however pt will not likely require extended course of therapy, has he is already approaching return to normal function. May reassess pt needs following appointment with ortho. Physical Therapy Plan Frequency and Duration Frequency of Treatment 1-2x/week Duration of treatment (weeks) 6 Plan of Care Start Date 05/23/22 Plan of Care End Date 07/04/22 Therapeutic Interventions Therapeutic Interventions Aquatic Therapy,Home Exercise Program,Joint Mobilizations, Manual Therapy,Neuromuscular Re-education,Patient/Caregiver Education,Self-Care/Home Management,Soft Tissue Mobilization,Taping, Therapeutic Activities, Therapeutic Exercises Modalities Cold Pack/Ice Massage,Hot Packs,Ultrasound Next Visit Focus/Plan Next Note Type Treatment Note Next Visit Plan R knee strengthening, Taping/ stabilization of joint
--- NOTE | 2022-05-23 15:08 | PT.OPPOC ---
Physical, Occupational & Speech Therapy At [facility] Current Diagnoses Other meniscus derangements, posterior horn of lateral meniscus, right knee (05/23/22) Pain in right knee (05/23/22) Visit Care Team Role Provider Type David Saucedo MD Attending Provider Physician Primary Care Provider Referring Provider Specialty: Family Practice Address: [address] [place] [address], [facility] Email: [email or web address] Plan Of Care PT-OP-T Assessment and Plan Start: 05/23/22 14:35 Freq: Status: Active Protocol: Document 05/23/22 13:45 DCW (Rec: 05/23/22 15:08 DCW [id number]) Physical Therapy Assessment Rehab Potential Rehabilitation Potential Excellent Evaluation Complexity Number of Personal Factors/Comorbidities 1-2 Number of Body Systems Impaired 1-2 Clinical Presentation at Evaluation Stable Impairments Impairments Edema,Pain,Strength Goals Two Impairment Pt experiences lateral knee pain with ascending/descending stairs Support Architect Goal (LTG) Pt to ascend and descend 12 stairs with a step-through gait pattern without pain for one straight week. LTG Duration 07/04/22 One Impairment Pt does not have an appropriate home exercise program Short Term Goal (STG) Pt to be independent and compliant with an appropriate HEP STG Duration 06/13/22 Assessment Summary Assessment Pt presents with signs and symptoms consistent with referring diagnosis. Recent MRI shows a tear of the posterior horn of the right medial meniscus, as well as possible subcortical fractures in the lateral femoral condyle. Pt overall has improved greatly since initial injury seven weeks ago, and has largely returned to normal . Pt will likely benefit from skilled therapy focusing on improving pain-free mobility and mild LE strengthening, however pt will not likely require extended course of therapy, has he is already approaching return to normal function. May reassess pt needs following appointment with ortho. Physical Therapy Plan Frequency and Duration Frequency of Treatment 1-2x/week Duration of treatment (weeks) 6 Plan of Care Start Date 05/23/22 Plan of Care End Date 07/04/22 Therapeutic Interventions Therapeutic Interventions Aquatic Therapy,Home Exercise Program,Joint Mobilizations, Manual Therapy,Neuromuscular Re-education,Patient/Caregiver Education,Self-Care/Home Management,Soft Tissue Mobilization,Taping, Therapeutic Activities, Therapeutic Exercises Modalities Cold Pack/Ice Massage,Hot Packs,Ultrasound Next Visit Focus/Plan Next Note Type Treatment Note Next Visit Plan R knee strengthening, Taping/ stabilization of joint Plan of Care Dates Plan of Care Start Date 05/23/22 Plan of Care End Date 07/04/22 Electronically Signed by: Eitan Yoder, PT 05/23/22 0538 If you are in agreement with this Plan of Care, please return a signed and dated copy. I have reviewed this Plan of Care and certify that the skilled therapy services above are required to meet the patient?s needs. Physician Signature Date Printed Name and Credentials Clinical Instructor Signature Printed Name and Credentials
--- NOTE | 2022-05-25 10:33 | PT.OTN ---
Current Diagnoses Other meniscus derangements, posterior horn of lateral meniscus, right knee (05/25/22) Pain in right knee (05/25/22) Physical Therapy Treatment Note PT-OP-A Visit Information Start: 05/23/22 14:35 Freq: Status: Active Protocol: Document 05/25/22 09:50 DCW (Rec: 05/25/22 10:33 DCW [id number]) Out-Patient Physical Therapy Visit Information Visit Information Visit Type Treatment Note Visit Start Time 09:50 Visit Stop Time 10:30 Total Visit Minutes 40 Visit Number 2 Number of HOP SEPARATOR Visits 0 Evaluation Information Evaluation Date 05/23/22 PT-OP-B Current Condition Start: 05/23/22 14:35 Freq: Status: Active Protocol: Document 05/23/22 13:45 DCW (Rec: 05/23/22 15:08 DCW [id number]) Current Condition History of Current Condition Onset Date S/p seven weeks Current Complaints Mild R knee pain History of Current Condition Pt is a 81 year old male presenting with a seven week history of knee pain. Pt reports he was walking around his bed and got his foot caught in the comforter, resulting in him twisting his knee. Reports initially he had fairly significant pain, was struggling with ascending/ descending stairs, had to use a step-to pattern, but in the mean time he has felt better, and is now almost normal with his stairs, with only occasional mild pain. Pt only finds some lingering pain and difficulty when trying to put on his sock in the morning, or when kneeling he feels mild discomfort. Prior Treatments and Tests R Knee MRI: IMPRESSION: 1. Suggestion of subcortical fractures involving weight- bearing portion of lateral femoral condyle with extensive marrow edema extending to visualized distal femoral shaft. No cortical disruption . No other area of abnormal marrow signal. Moderate tricompartmental osteoarthritis and chondromalacia. Small joint fluid. 2. Oblique tear involving body and posterior horn of medial meniscus extending to inferior articulating surface. Peripheral displacement of medial meniscus bowing medial collateral ligament. No evidence of focal laterl meniscal tear. 3. Cruciate ligaments are intact. Low to moderate grade MCL sprain/ partial-thickness tear. per Braeden Lund M.D. on 05/08/2022 Future Testing and Treatments Planned Has scheduled Ortho appointment next week Treatment Goals Patient/Caregiver Goals I want to get my knee back to operating at the level it was previously. PT-OP-C Subjective Start: 05/23/22 14:35 Freq: Status: Active Protocol: Document 05/25/22 09:50 DCW (Rec: 05/25/22 10:33 DCW [id number]) OP-PT Subjective Patient Comments Patient Comments Something rolled under the counter yesterday, and I squatted down to get it. That hurt! PT-OP-F Manual Assessment Start: 05/23/22 14:35 Freq: Status: Active Protocol: Document 05/23/22 13:45 DCW (Rec: 05/23/22 14:49 DCW [id number]) Manual Assessments Soft Tissue Assessment Soft Tissue Mobility Assessment Tenderness to palpation 07/18: Complaint of pain along right lateral joint line Joint Mobility Assessment Joint Mobility Assessment Joint mobility and ROM WNL, no complaints of pain with motion PT-OP-K Range of Motion Start: 05/23/22 14:35 Freq: Status: Active Protocol: Document 05/23/22 13:45 DCW (Rec: 05/23/22 14:49 DCW [id number]) Knee Goniometric Range of Motion Knee Right Knee ROM WFL Yes Patient Position Supine Flexion Active (degrees) 120 Flexion Passive (degrees) 130 Extension Active (degrees) 0 Extension Passive (degrees) 0 Left Knee ROM WFL Yes Patient Position Supine Flexion Active (degrees) 118 Flexion Passive (degrees) 134 Extension Active (degrees) 0 Extension Passive (degrees) 0 PT-OP-L Special Tests Start: 05/23/22 14:35 Freq: Status: Active Protocol: Document 05/23/22 13:45 DCW (Rec: 05/23/22 14:49 DCW [id number]) Special Tests Knee Special Tests Varus- 0 Degrees Test Results Negative Valgus- 0 Degrees Test Results Negative Patellar Grind Test Test Results Negative Patella Tap Test Results Positive R Tamia Test Test Results Negative Anterior Draw Test Results Negative PT-OP-M Strength Start: 05/23/22 14:35 Freq: Status: Active Protocol: Document 05/23/22 13:45 DCW (Rec: 05/23/22 14:49 DCW [id number]) Knee Strength Knee Manual Muscle Testing Right Flexion (S2) 4+ Good+ Extension (L3) 4+ Good+ Left Flexion (S2) 5 Normal Extension (L3) 5 Normal Ankle/Foot Strength Ankle and Foot Manual Muscle Testing Right Dorsiflexion (L4) 5 Normal Plantarflexion (S1) 5 Normal Left Dorsiflexion (L4) 5 Normal Plantarflexion (S1) 5 Normal PT-OP-Q Treatments Start: 05/23/22 14:35 Freq: Status: Active Protocol: Document 05/25/22 09:50 DCW (Rec: 05/25/22 10:33 DCW [id number]) Cardio Equipment Recumbent Elliptical (Biodex) Duration (Minutes) 5 Resistance 3 Seat Position 10 Gym Equipment Shuttle Recovery Unilateral Squats Resistance 37# Bilateral Squats Resistance 75# Therapeutic Exercises Sitting Exercises Hamstring Curl Sitting Exercise Name HS curl Side bilateral Resistance Lv 2 LAQ Sitting Exercise Name LAQ Side bilateral Resistance 5# Standing Exercises Step-ups Standing Exercise Name Step-ups Side bilateral Equipment Used 6 step Lunge Standing Exercise Name Lunge Side bilateral Equipment Used // bars Squats Standing Exercise Name Mini-squats Equipment Used @rail Reps/Minutes x10 Therapeutic Activity Therapeutic Activity Squatting Edu Comments Squat, kneel, golfer's pick-up PT-OP-T Assessment and Plan Start: 05/23/22 14:35 Freq: Status: Active Protocol: Document 05/25/22 09:50 DCW (Rec: 05/25/22 10:33 DCW [id number]) Physical Therapy Assessment Impairments Impairments Edema,Pain,Strength Goals Two Impairment Pt experiences lateral knee pain with ascending/descending stairs Shipping Technician Goal (LTG) Pt to ascend and descend 12 stairs with a step-through gait pattern without pain for one straight week. LTG Duration 07/04/22 One Impairment Pt does not have an appropriate home exercise program Short Term Goal (STG) Pt to be independent and compliant with an appropriate HEP STG Duration 06/13/22 Assessment Summary Assessment Pt tolerated treatment very well today, slightly more tender with movement today after hurting his knee while squatting yesterday. Reviewed some strategies for squatting and picking up items today Physical Therapy Plan Frequency and Duration Frequency of Treatment 1-2x/week Duration of treatment (weeks) 6 Plan of Care Start Date 05/23/22 Plan of Care End Date 07/04/22 Therapeutic Interventions Therapeutic Interventions Aquatic Therapy,Home Exercise Program,Joint Mobilizations, Manual Therapy,Neuromuscular Re-education,Patient/Caregiver Education,Self-Care/Home Management,Soft Tissue Mobilization,Taping, Therapeutic Activities, Therapeutic Exercises Modalities Cold Pack/Ice Massage,Hot Packs,Ultrasound Next Visit Focus/Plan Next Note Type Treatment Note Next Visit Plan R knee strengthening, Taping/ stabilization of joint
--- NOTE | 2022-05-29 14:30 | PT.OTN ---
Current Diagnoses Other meniscus derangements, posterior horn of lateral meniscus, right knee (05/29/22) Pain in right knee (05/29/22) Physical Therapy Treatment Note PT-OP-A Visit Information Start: 05/23/22 14:35 Freq: Status: Active Protocol: Document 05/29/22 13:45 SP (Rec: 05/29/22 14:55 SP [id number]) Out-Patient Physical Therapy Visit Information Visit Information Visit Type Treatment Note Visit Start Time 13:45 Visit Stop Time 14:30 Total Visit Minutes 45 Visit Number 3 Number of TREE SCOUT Visits 1 Evaluation Information Evaluation Date 05/23/22 PT-OP-B Current Condition Start: 05/23/22 14:35 Freq: Status: Active Protocol: Document 05/23/22 13:45 DCW (Rec: 05/23/22 15:08 DCW [id number]) Current Condition History of Current Condition Onset Date S/p seven weeks Current Complaints Mild R knee pain History of Current Condition Pt is a 81 year old male presenting with a seven week history of knee pain. Pt reports he was walking around his bed and got his foot caught in the comforter, resulting in him twisting his knee. Reports initially he had fairly significant pain, was struggling with ascending/ descending stairs, had to use a step-to pattern, but in the mean time he has felt better, and is now almost normal with his stairs, with only occasional mild pain. Pt only finds some lingering pain and difficulty when trying to put on his sock in the morning, or when kneeling he feels mild discomfort. Prior Treatments and Tests R Knee MRI: IMPRESSION: 1. Suggestion of subcortical fractures involving weight- bearing portion of lateral femoral condyle with extensive marrow edema extending to visualized distal femoral shaft. No cortical disruption . No other area of abnormal marrow signal. Moderate tricompartmental osteoarthritis and chondromalacia. Small joint fluid. 2. Oblique tear involving body and posterior horn of medial meniscus extending to inferior articulating surface. Peripheral displacement of medial meniscus bowing medial collateral ligament. No evidence of focal laterl meniscal tear. 3. Cruciate ligaments are intact. Low to moderate grade MCL sprain/ partial-thickness tear. per Braeden Lund M.D. on 05/08/2022 Future Testing and Treatments Planned Has scheduled Ortho appointment next week Treatment Goals Patient/Caregiver Goals I want to get my knee back to operating at the level it was previously. PT-OP-C Subjective Start: 05/23/22 14:35 Freq: Status: Active Protocol: Document 05/29/22 13:45 SP (Rec: 05/29/22 14:55 SP [id number]) OP-PT Subjective Patient Comments Patient Comments Pt reported felt like got a good effort work in thighs last tx. PT-OP-F Manual Assessment Start: 05/23/22 14:35 Freq: Status: Active Protocol: Document 05/23/22 13:45 DCW (Rec: 05/23/22 14:49 DCW [id number]) Manual Assessments Soft Tissue Assessment Soft Tissue Mobility Assessment Tenderness to palpation 1/: Complaint of pain along right lateral joint line Joint Mobility Assessment Joint Mobility Assessment Joint mobility and ROM WNL, no complaints of pain with motion PT-OP-K Range of Motion Start: 05/23/22 14:35 Freq: Status: Active Protocol: Document 05/23/22 13:45 DCW (Rec: 05/23/22 14:49 DCW [id number]) Knee Goniometric Range of Motion Knee Right Knee ROM WFL Yes Patient Position Supine Flexion Active (degrees) 120 Flexion Passive (degrees) 130 Extension Active (degrees) 0 Extension Passive (degrees) 0 Left Knee ROM WFL Yes Patient Position Supine Flexion Active (degrees) 118 Flexion Passive (degrees) 134 Extension Active (degrees) 0 Extension Passive (degrees) 0 PT-OP-L Special Tests Start: 05/23/22 14:35 Freq: Status: Active Protocol: Document 05/23/22 13:45 DCW (Rec: 05/23/22 14:49 DCW [id number]) Special Tests Knee Special Tests Varus- 0 Degrees Test Results Negative Valgus- 0 Degrees Test Results Negative Patellar Grind Test Test Results Negative Patella Tap Test Results Positive R Tamia Test Test Results Negative Anterior Draw Test Results Negative PT-OP-M Strength Start: 05/23/22 14:35 Freq: Status: Active Protocol: Document 05/23/22 13:45 DCW (Rec: 05/23/22 14:49 DCW [id number]) Knee Strength Knee Manual Muscle Testing Right Flexion (S2) 4+ Good+ Extension (L3) 4+ Good+ Left Flexion (S2) 5 Normal Extension (L3) 5 Normal Ankle/Foot Strength Ankle and Foot Manual Muscle Testing Right Dorsiflexion (L4) 5 Normal Plantarflexion (S1) 5 Normal Left Dorsiflexion (L4) 5 Normal Plantarflexion (S1) 5 Normal PT-OP-Q Treatments Start: 05/23/22 14:35 Freq: Status: Active Protocol: Document 05/29/22 13:45 SP (Rec: 05/29/22 14:55 SP [id number]) Cardio Equipment Recumbent Elliptical (Biodex) Duration (Minutes) 5 Resistance 3 (4-5 next tx) Seat Position 9 Other 60 RPM, good breath with mask 669 steps Gym Equipment Shuttle Recovery Unilateral Squats Details cued slow eccentric control Resistance 37# Shuttle Recovery Platform Stable Reps/Time 2x15 alternating LEs Bilateral Squats Details cued slow eccentric control Resistance 75# Shuttle Recovery Platform Stable Reps/Time x20 Therapeutic Exercises Sitting Exercises Hamstring Curl Sitting Exercise Name HS curl Side bilateral Resistance Lv 2 (lev 3 next tx) Equipment Used therapist anchored Reps/Minutes x20 Comments good form and effort LAQ Sitting Exercise Name LAQ Side bilateral Resistance 5# Reps/Minutes x20 Comments good form/effort, tiring last 5 reps Standing Exercises Step-ups Standing Exercise Name Step-ups: fwd, bk, side stepping Side bilateral Resistance 5# leg wt Equipment Used 6 step Reps/Minutes x 10 reps each direction Comments cued core fac and slow descent improved stability TKE Standing Exercise Name TKE Side right Resistance Lv 3 (L4 next tx) Equipment Used therapist anchored today Reps/Minutes x20 reps Comments good form Other Exercises resisted side stepping Other Exercise Name added in PT Resistance GTB Reps/Minutes 20 ft x2 laps Comments cued core, posturing, slow eccentric side step, foot clearance Neuro Re-Education Treatment Balance Activities hurdles Details receiprocal stepping firm, uneven surface Equipment 6 hurdles, 2 foam oval cushions, 2 pods Reps/Duration 3 laps, step to receiprocal stepping, then added uneven surface Comments cued slower pacing, foot clearance, PT-OP-T Assessment and Plan Start: 05/23/22 14:35 Freq: Status: Active Protocol: Document 05/29/22 13:45 SP (Rec: 05/29/22 14:55 SP [id number]) Physical Therapy Assessment Goals Two Impairment Pt experiences lateral knee pain with ascending/descending stairs Inspector General Goal (LTG) Pt to ascend and descend 12 stairs with a step-through gait pattern without pain for one straight week. LTG Duration 07/04/22 One Impairment Pt does not have an appropriate home exercise program Short Term Goal (STG) Pt to be independent and compliant with an appropriate HEP STG Duration 06/13/22 Assessment Summary Assessment Pt responded well to ther ex, was able to tolerate increase reps on shuttle recovery and step up/downs multiple directons without UE support, improved stability post cues for posturing, core facilitation and slow eccentric control side stepping. Physical Therapy Plan Frequency and Duration Frequency of Treatment 1-2x/week Duration of treatment (weeks) 6 Plan of Care Start Date 05/23/22 Plan of Care End Date 07/04/22 Therapeutic Interventions Therapeutic Interventions Aquatic Therapy,Home Exercise Program,Joint Mobilizations, Manual Therapy,Neuromuscular Re-education,Patient/Caregiver Education,Self-Care/Home Management,Soft Tissue Mobilization,Taping, Therapeutic Activities, Therapeutic Exercises Modalities Cold Pack/Ice Massage,Hot Packs,Ultrasound Next Visit Focus/Plan Next Note Type Treatment Note Next Visit Plan Assess response to uneven hurdles, added resistance/reps . POC: R knee strengthening, Taping/stabilization of joint
--- NOTE | 2022-06-01 14:31 | PT.OTN ---
Current Diagnoses Other meniscus derangements, posterior horn of lateral meniscus, right knee (06/01/22) Pain in right knee (06/01/22) Physical Therapy Treatment Note PT-OP-A Visit Information Start: 05/23/22 14:35 Freq: Status: Active Protocol: Document 06/01/22 13:49 DCW (Rec: 06/01/22 14:31 DCW [id number]) Out-Patient Physical Therapy Visit Information Visit Information Visit Type Treatment Note Visit Start Time 13:49 Visit Stop Time 14:30 Total Visit Minutes 41 Visit Number 4 Number of MERCHANDISING INTERN Visits 0 Evaluation Information Evaluation Date 05/23/22 PT-OP-B Current Condition Start: 05/23/22 14:35 Freq: Status: Active Protocol: Document 05/23/22 13:45 DCW (Rec: 05/23/22 15:08 DCW [id number]) Current Condition History of Current Condition Onset Date S/p seven weeks Current Complaints Mild R knee pain History of Current Condition Pt is a 81 year old male presenting with a seven week history of knee pain. Pt reports he was walking around his bed and got his foot caught in the comforter, resulting in him twisting his knee. Reports initially he had fairly significant pain, was struggling with ascending/ descending stairs, had to use a step-to pattern, but in the mean time he has felt better, and is now almost normal with his stairs, with only occasional mild pain. Pt only finds some lingering pain and difficulty when trying to put on his sock in the morning, or when kneeling he feels mild discomfort. Prior Treatments and Tests R Knee MRI: IMPRESSION: 1. Suggestion of subcortical fractures involving weight- bearing portion of lateral femoral condyle with extensive marrow edema extending to visualized distal femoral shaft. No cortical disruption . No other area of abnormal marrow signal. Moderate tricompartmental osteoarthritis and chondromalacia. Small joint fluid. 2. Oblique tear involving body and posterior horn of medial meniscus extending to inferior articulating surface. Peripheral displacement of medial meniscus bowing medial collateral ligament. No evidence of focal laterl meniscal tear. 3. Cruciate ligaments are intact. Low to moderate grade MCL sprain/ partial-thickness tear. per Braeden Lund M.D. on 05/08/2022 Future Testing and Treatments Planned Has scheduled Ortho appointment next week Treatment Goals Patient/Caregiver Goals I want to get my knee back to operating at the level it was previously. PT-OP-C Subjective Start: 05/23/22 14:35 Freq: Status: Active Protocol: Document 06/01/22 13:49 DCW (Rec: 06/01/22 14:31 DCW [id number]) OP-PT Subjective Patient Comments Patient Comments Pt admits he almost squatted down again today, but caught himself before he went too far . PT-OP-F Manual Assessment Start: 05/23/22 14:35 Freq: Status: Active Protocol: Document 05/23/22 13:45 DCW (Rec: 05/23/22 14:49 DCW [id number]) Manual Assessments Soft Tissue Assessment Soft Tissue Mobility Assessment Tenderness to palpation 07/18: Complaint of pain along right lateral joint line Joint Mobility Assessment Joint Mobility Assessment Joint mobility and ROM WNL, no complaints of pain with motion PT-OP-K Range of Motion Start: 05/23/22 14:35 Freq: Status: Active Protocol: Document 05/23/22 13:45 DCW (Rec: 05/23/22 14:49 DCW [id number]) Knee Goniometric Range of Motion Knee Right Knee ROM WFL Yes Patient Position Supine Flexion Active (degrees) 120 Flexion Passive (degrees) 130 Extension Active (degrees) 0 Extension Passive (degrees) 0 Left Knee ROM WFL Yes Patient Position Supine Flexion Active (degrees) 118 Flexion Passive (degrees) 134 Extension Active (degrees) 0 Extension Passive (degrees) 0 PT-OP-L Special Tests Start: 05/23/22 14:35 Freq: Status: Active Protocol: Document 05/23/22 13:45 DCW (Rec: 05/23/22 14:49 DCW [id number]) Special Tests Knee Special Tests Varus- 0 Degrees Test Results Negative Valgus- 0 Degrees Test Results Negative Patellar Grind Test Test Results Negative Patella Tap Test Results Positive R Tamia Test Test Results Negative Anterior Draw Test Results Negative PT-OP-M Strength Start: 05/23/22 14:35 Freq: Status: Active Protocol: Document 05/23/22 13:45 DCW (Rec: 05/23/22 14:49 DCW [id number]) Knee Strength Knee Manual Muscle Testing Right Flexion (S2) 4+ Good+ Extension (L3) 4+ Good+ Left Flexion (S2) 5 Normal Extension (L3) 5 Normal Ankle/Foot Strength Ankle and Foot Manual Muscle Testing Right Dorsiflexion (L4) 5 Normal Plantarflexion (S1) 5 Normal Left Dorsiflexion (L4) 5 Normal Plantarflexion (S1) 5 Normal PT-OP-Q Treatments Start: 05/23/22 14:35 Freq: Status: Active Protocol: Document 06/01/22 13:49 DCW (Rec: 06/01/22 14:31 DCW [id number]) Cardio Equipment Recumbent Elliptical (Biodex) Duration (Minutes) 5 Resistance 5 Seat Position 10 Gym Equipment Shuttle Recovery Unilateral Squats Details cued slow eccentric control Resistance 37# Shuttle Recovery Platform Stable Reps/Time 2x15 alternating LEs Bilateral Squats Details cued slow eccentric control Resistance 75# Shuttle Recovery Platform Stable Reps/Time x20 Shuttle Balance Red Details WBOS, Staggered, Lateral weight shift Therapeutic Exercises Standing Exercises Step-ups Standing Exercise Name Step-ups: fwd, lateral Side bilateral Equipment Used 6 step Reps/Minutes x 10 reps each direction Comments cued core fac and slow descent improved stability TKE Standing Exercise Name TKE Side right Resistance Lv 4 Equipment Used therapist anchored today Reps/Minutes x20 reps Comments good form Other Exercises resisted side stepping Other Exercise Name added in PT Resistance GTB Reps/Minutes 20 ft x2 laps Comments cued core, posturing, slow eccentric side step, foot clearance Neuro Re-Education Treatment Balance Activities hurdles Details hurdles/foam Equipment 6 hurdles Reps/Duration 3 laps, step to receiprocal stepping with uneven surface PT-OP-T Assessment and Plan Start: 05/23/22 14:35 Freq: Status: Active Protocol: Document 06/01/22 13:49 DCW (Rec: 06/01/22 14:31 DCW [id number]) Physical Therapy Assessment Impairments Impairments Edema,Pain,Strength Goals Two Impairment Pt experiences lateral knee pain with ascending/descending stairs Process Control Technician Goal (LTG) Pt to ascend and descend 12 stairs with a step-through gait pattern without pain for one straight week. LTG Duration 07/04/22 One Impairment Pt does not have an appropriate home exercise program Short Term Goal (STG) Pt to be independent and compliant with an appropriate HEP STG Duration 06/13/22 Assessment Summary Assessment Pt continues to do well with therapeutic exercise, adjusted quickly to new challenges today, especially shuttle balance. Physical Therapy Plan Frequency and Duration Frequency of Treatment 1-2x/week Duration of treatment (weeks) 6 Plan of Care Start Date 05/23/22 Plan of Care End Date 07/04/22 Therapeutic Interventions Therapeutic Interventions Aquatic Therapy,Home Exercise Program,Joint Mobilizations, Manual Therapy,Neuromuscular Re-education,Patient/Caregiver Education,Self-Care/Home Management,Soft Tissue Mobilization,Taping, Therapeutic Activities, Therapeutic Exercises Modalities Cold Pack/Ice Massage,Hot Packs,Ultrasound Next Visit Focus/Plan Next Note Type Treatment Note Next Visit Plan Assess response to uneven hurdles, added resistance/reps . POC: R knee strengthening, Taping/stabilization of joint
--- NOTE | 2022-06-05 14:28 | PT.OTN ---
Current Diagnoses Other meniscus derangements, posterior horn of lateral meniscus, right knee (06/05/22) Pain in right knee (06/05/22) Physical Therapy Treatment Note PT-OP-A Visit Information Start: 05/23/22 14:35 Freq: Status: Active Protocol: Document 06/05/22 13:50 TS (Rec: 06/05/22 14:32 TS [id number]) Out-Patient Physical Therapy Visit Information Visit Information Visit Type Treatment Note Visit Note MAXA Marvin lead treatment under the supervision and direction of KEYUR Cherry Visit Start Time 13:50 Visit Stop Time 14:28 Total Visit Minutes 38 Visit Number 5 Number of RN NEW GRAD Visits 1 PT-OP-B Current Condition Start: 05/23/22 14:35 Freq: Status: Active Protocol: Document 05/23/22 13:45 DCW (Rec: 05/23/22 15:08 DCW [id number]) Current Condition History of Current Condition Onset Date S/p seven weeks Current Complaints Mild R knee pain History of Current Condition Pt is a 81 year old male presenting with a seven week history of knee pain. Pt reports he was walking around his bed and got his foot caught in the comforter, resulting in him twisting his knee. Reports initially he had fairly significant pain, was struggling with ascending/ descending stairs, had to use a step-to pattern, but in the mean time he has felt better, and is now almost normal with his stairs, with only occasional mild pain. Pt only finds some lingering pain and difficulty when trying to put on his sock in the morning, or when kneeling he feels mild discomfort. Prior Treatments and Tests R Knee MRI: IMPRESSION: 1. Suggestion of subcortical fractures involving weight- bearing portion of lateral femoral condyle with extensive marrow edema extending to visualized distal femoral shaft. No cortical disruption . No other area of abnormal marrow signal. Moderate tricompartmental osteoarthritis and chondromalacia. Small joint fluid. 2. Oblique tear involving body and posterior horn of medial meniscus extending to inferior articulating surface. Peripheral displacement of medial meniscus bowing medial collateral ligament. No evidence of focal laterl meniscal tear. 3. Cruciate ligaments are intact. Low to moderate grade MCL sprain/ partial-thickness tear. per Braeden Lund M.D. on 05/08/2022 Future Testing and Treatments Planned Has scheduled Ortho appointment next week Treatment Goals Patient/Caregiver Goals I want to get my knee back to operating at the level it was previously. PT-OP-C Subjective Start: 05/23/22 14:35 Freq: Status: Active Protocol: Document 06/05/22 13:50 TS (Rec: 06/05/22 14:32 TS [id number]) OP-PT Subjective Patient Comments Patient Comments Pt reports he has mild discomfort in his R knee at times but not very painful. PT-OP-F Manual Assessment Start: 05/23/22 14:35 Freq: Status: Active Protocol: Document 05/23/22 13:45 DCW (Rec: 05/23/22 14:49 DCW [id number]) Manual Assessments Soft Tissue Assessment Soft Tissue Mobility Assessment Tenderness to palpation 07/18: Complaint of pain along right lateral joint line Joint Mobility Assessment Joint Mobility Assessment Joint mobility and ROM WNL, no complaints of pain with motion PT-OP-K Range of Motion Start: 05/23/22 14:35 Freq: Status: Active Protocol: Document 05/23/22 13:45 DCW (Rec: 05/23/22 14:49 DCW [id number]) Knee Goniometric Range of Motion Knee Right Knee ROM WFL Yes Patient Position Supine Flexion Active (degrees) 120 Flexion Passive (degrees) 130 Extension Active (degrees) 0 Extension Passive (degrees) 0 Left Knee ROM WFL Yes Patient Position Supine Flexion Active (degrees) 118 Flexion Passive (degrees) 134 Extension Active (degrees) 0 Extension Passive (degrees) 0 PT-OP-L Special Tests Start: 05/23/22 14:35 Freq: Status: Active Protocol: Document 05/23/22 13:45 DCW (Rec: 05/23/22 14:49 DCW [id number]) Special Tests Knee Special Tests Varus- 0 Degrees Test Results Negative Valgus- 0 Degrees Test Results Negative Patellar Grind Test Test Results Negative Patella Tap Test Results Positive R Tamia Test Test Results Negative Anterior Draw Test Results Negative PT-OP-M Strength Start: 05/23/22 14:35 Freq: Status: Active Protocol: Document 05/23/22 13:45 DCW (Rec: 05/23/22 14:49 DCW [id number]) Knee Strength Knee Manual Muscle Testing Right Flexion (S2) 4+ Good+ Extension (L3) 4+ Good+ Left Flexion (S2) 5 Normal Extension (L3) 5 Normal Ankle/Foot Strength Ankle and Foot Manual Muscle Testing Right Dorsiflexion (L4) 5 Normal Plantarflexion (S1) 5 Normal Left Dorsiflexion (L4) 5 Normal Plantarflexion (S1) 5 Normal PT-OP-Q Treatments Start: 05/23/22 14:35 Freq: Status: Active Protocol: Document 06/05/22 13:50 TS (Rec: 06/05/22 14:32 TS [id number]) Cardio Equipment Recumbent Elliptical (Biodex) Duration (Minutes) 5 Resistance 5 Seat Position 10 Other 60RPM, 827 steps Gym Equipment Shuttle Recovery Unilateral Squats Resistance 37# Shuttle Recovery Platform Stable Reps/Time 2x15 alternating LEs Bilateral Squats Resistance 75# Shuttle Recovery Platform Stable Reps/Time x15, feeling more fatigued than previous session Neuro Re-Education Treatment Balance Activities Squat ball/cone transfer Equipment Pods, yoga mat, hurdles Comments Pt increased R trunk rotation when reaching with left arm. SLS Equipment Handrail Comments LLE- 18s, RLE- 30s, near handrail for support if needed . Tandem Walk Details HT's, BWD walk Surface flat Equipment // bars Reps/Duration 8x10' laps Comments Occasional LOB, contact rail for recovery hurdles Details hurdles/foam Equipment 5 hurdles, oval and square foam Reps/Duration laps, step to receiprocal stepping with uneven surface Comments Foot contact on delmy requiruing [place] for LOB. Cues for slwo pacing and balance on SLS before advancing. PT-OP-T Assessment and Plan Start: 05/23/22 14:35 Freq: Status: Active Protocol: Document 06/05/22 13:50 TS (Rec: 06/05/22 14:32 TS [id number]) Physical Therapy Assessment Goals Two Impairment Pt experiences lateral knee pain with ascending/descending stairs Prison Goal (LTG) Pt to ascend and descend 12 stairs with a step-through gait pattern without pain for one straight week. LTG Duration 07/04/22 One Impairment Pt does not have an appropriate home exercise program Short Term Goal (STG) Pt to be independent and compliant with an appropriate HEP STG Duration 06/13/22 Assessment Summary Assessment Pt required cues during hurdles to slow pacing and find SLS balance before advancing over next delmy for safety with balance. Pt was challenged with tandem walk requiring contact with rails for LOB's recovery. Pt demonstrates greater RLE balance in SLS up to 30 secs than LLE 18 secs. Pt will benefit from continued intervention to improve SLS balance for stair progression. Physical Therapy Plan Frequency and Duration Frequency of Treatment 1-2x/week Duration of treatment (weeks) 6 Plan of Care Start Date 05/23/22 Plan of Care End Date 07/04/22 Therapeutic Interventions Therapeutic Interventions Aquatic Therapy,Home Exercise Program,Joint Mobilizations, Manual Therapy,Neuromuscular Re-education,Patient/Caregiver Education,Self-Care/Home Management,Soft Tissue Mobilization,Taping, Therapeutic Activities, Therapeutic Exercises Modalities Cold Pack/Ice Massage,Hot Packs,Ultrasound Next Visit Focus/Plan Next Note Type Treatment Note Next Visit Plan Next visit continue to progress balance activities, shuttle balance with EC, HT's, staggered stance, NBOS.
--- NOTE | 2022-06-11 11:56 | PT.OTN ---
Current Diagnoses Other meniscus derangements, posterior horn of lateral meniscus, right knee (06/11/22) Pain in right knee (06/11/22) Physical Therapy Treatment Note PT-OP-A Visit Information Start: 05/23/22 14:35 Freq: Status: Active Protocol: Document 06/11/22 11:15 DCW (Rec: 06/11/22 11:56 DCW [id number]) Out-Patient Physical Therapy Visit Information Visit Information Visit Type Treatment Note Visit Start Time 11:15 Visit Stop Time 12:00 Total Visit Minutes 45 Visit Number 6 Number of INTENSIVE CARE AMBULANCE PARAMEDIC Visits 0 Evaluation Information Evaluation Date 05/23/22 PT-OP-B Current Condition Start: 05/23/22 14:35 Freq: Status: Active Protocol: Document 05/23/22 13:45 DCW (Rec: 05/23/22 15:08 DCW [id number]) Current Condition History of Current Condition Onset Date S/p seven weeks Current Complaints Mild R knee pain History of Current Condition Pt is a 81 year old male presenting with a seven week history of knee pain. Pt reports he was walking around his bed and got his foot caught in the comforter, resulting in him twisting his knee. Reports initially he had fairly significant pain, was struggling with ascending/ descending stairs, had to use a step-to pattern, but in the mean time he has felt better, and is now almost normal with his stairs, with only occasional mild pain. Pt only finds some lingering pain and difficulty when trying to put on his sock in the morning, or when kneeling he feels mild discomfort. Prior Treatments and Tests R Knee MRI: IMPRESSION: 1. Suggestion of subcortical fractures involving weight- bearing portion of lateral femoral condyle with extensive marrow edema extending to visualized distal femoral shaft. No cortical disruption . No other area of abnormal marrow signal. Moderate tricompartmental osteoarthritis and chondromalacia. Small joint fluid. 2. Oblique tear involving body and posterior horn of medial meniscus extending to inferior articulating surface. Peripheral displacement of medial meniscus bowing medial collateral ligament. No evidence of focal laterl meniscal tear. 3. Cruciate ligaments are intact. Low to moderate grade MCL sprain/ partial-thickness tear. per Braeden Lund M.D. on 05/08/2022 Future Testing and Treatments Planned Has scheduled Ortho appointment next week Treatment Goals Patient/Caregiver Goals I want to get my knee back to operating at the level it was previously. PT-OP-C Subjective Start: 05/23/22 14:35 Freq: Status: Active Protocol: Document 06/11/22 11:15 DCW (Rec: 06/11/22 11:56 DCW [id number]) OP-PT Subjective Patient Comments Patient Comments Pt notes that the knee is feeling okay. Admits some of his exercises last week got to it a little bit. PT-OP-F Manual Assessment Start: 05/23/22 14:35 Freq: Status: Active Protocol: Document 05/23/22 13:45 DCW (Rec: 05/23/22 14:49 DCW [id number]) Manual Assessments Soft Tissue Assessment Soft Tissue Mobility Assessment Tenderness to palpation 07/18: Complaint of pain along right lateral joint line Joint Mobility Assessment Joint Mobility Assessment Joint mobility and ROM WNL, no complaints of pain with motion PT-OP-K Range of Motion Start: 05/23/22 14:35 Freq: Status: Active Protocol: Document 05/23/22 13:45 DCW (Rec: 05/23/22 14:49 DCW [id number]) Knee Goniometric Range of Motion Knee Right Knee ROM WFL Yes Patient Position Supine Flexion Active (degrees) 120 Flexion Passive (degrees) 130 Extension Active (degrees) 0 Extension Passive (degrees) 0 Left Knee ROM WFL Yes Patient Position Supine Flexion Active (degrees) 118 Flexion Passive (degrees) 134 Extension Active (degrees) 0 Extension Passive (degrees) 0 PT-OP-L Special Tests Start: 05/23/22 14:35 Freq: Status: Active Protocol: Document 05/23/22 13:45 DCW (Rec: 05/23/22 14:49 DCW [id number]) Special Tests Knee Special Tests Varus- 0 Degrees Test Results Negative Valgus- 0 Degrees Test Results Negative Patellar Grind Test Test Results Negative Patella Tap Test Results Positive R Tamia Test Test Results Negative Anterior Draw Test Results Negative PT-OP-M Strength Start: 05/23/22 14:35 Freq: Status: Active Protocol: Document 05/23/22 13:45 DCW (Rec: 05/23/22 14:49 DCW [id number]) Knee Strength Knee Manual Muscle Testing Right Flexion (S2) 4+ Good+ Extension (L3) 4+ Good+ Left Flexion (S2) 5 Normal Extension (L3) 5 Normal Ankle/Foot Strength Ankle and Foot Manual Muscle Testing Right Dorsiflexion (L4) 5 Normal Plantarflexion (S1) 5 Normal Left Dorsiflexion (L4) 5 Normal Plantarflexion (S1) 5 Normal PT-OP-Q Treatments Start: 05/23/22 14:35 Freq: Status: Active Protocol: Document 06/11/22 11:15 DCW (Rec: 06/11/22 11:56 DCW [id number]) Cardio Equipment Recumbent Elliptical (Biodex) Duration (Minutes) 5 Resistance 6 Seat Position 9 Gym Equipment Shuttle Recovery Unilateral Squats Resistance 37# Shuttle Recovery Platform Stable Reps/Time 2x15 alternating LEs Bilateral Squats Resistance 75# Shuttle Recovery Platform Stable Reps/Time x15, feeling more fatigued than previous session Shuttle Balance Red Details WBOS, Staggered, Lateral weight shift Therapeutic Exercises Standing Exercises Hip Abduction Standing Exercise Name Hip Abduction Side right Resistance Lv 5 Hip Extension Standing Exercise Name Hip Extension Side right Resistance Lv 5 TKE Standing Exercise Name TKE Side right Resistance Lv 5 Reps/Minutes x20 reps Comments good form Neuro Re-Education Treatment Balance Activities Tandem Walk Details HT's, BWD walk Surface flat Equipment // bars Comments Occasional LOB, contact rail for recovery hurdles Details hurdles/foam Equipment 6 hurdles Reps/Duration 3 laps, step to receiprocal stepping with uneven surface PT-OP-T Assessment and Plan Start: 05/23/22 14:35 Freq: Status: Active Protocol: Document 06/11/22 11:15 DCW (Rec: 06/11/22 11:56 DCW [id number]) Physical Therapy Assessment Impairments Impairments Edema,Pain,Strength Goals Two Impairment Pt experiences lateral knee pain with ascending/descending stairs First Calender Worker Goal (LTG) Pt to ascend and descend 12 stairs with a step-through gait pattern without pain for one straight week. LTG Duration 07/04/22 One Impairment Pt does not have an appropriate home exercise program Short Term Goal (STG) Pt to be independent and compliant with an appropriate HEP STG Duration 06/13/22 Assessment Summary Assessment Pt progressing well, minimal discomfort with any activities today, still struggling a bit with balance challenges. Physical Therapy Plan Frequency and Duration Frequency of Treatment 1-2x/week Duration of treatment (weeks) 6 Plan of Care Start Date 05/23/22 Plan of Care End Date 07/04/22 Therapeutic Interventions Therapeutic Interventions Aquatic Therapy,Home Exercise Program,Joint Mobilizations, Manual Therapy,Neuromuscular Re-education,Patient/Caregiver Education,Self-Care/Home Management,Soft Tissue Mobilization,Taping, Therapeutic Activities, Therapeutic Exercises Modalities Cold Pack/Ice Massage,Hot Packs,Ultrasound Next Visit Focus/Plan Next Note Type Treatment Note Next Visit Plan Next visit continue to progress balance activities, shuttle balance with EC, HT's, staggered stance, NBOS.
--- NOTE | 2022-06-19 14:17 | PT.OTN ---
Current Diagnoses Other meniscus derangements, posterior horn of lateral meniscus, right knee (06/19/22) Pain in right knee (06/19/22) Physical Therapy Treatment Note PT-OP-A Visit Information Start: 05/23/22 14:35 Freq: Status: Active Protocol: Document 06/19/22 13:46 DCW (Rec: 06/19/22 14:17 DCW [id number]) Out-Patient Physical Therapy Visit Information Visit Information Visit Type Discharge Summary Visit Start Time 13:46 Visit Stop Time 14:15 Total Visit Minutes 29 Visit Number 7 Number of RESTAURANT HOURLY MANAGER Visits 0 Evaluation Information Evaluation Date 05/23/22 PT-OP-B Current Condition Start: 05/23/22 14:35 Freq: Status: Active Protocol: Document 05/23/22 13:45 DCW (Rec: 05/23/22 15:08 DCW [id number]) Current Condition History of Current Condition Onset Date S/p seven weeks Current Complaints Mild R knee pain History of Current Condition Pt is a 81 year old male presenting with a seven week history of knee pain. Pt reports he was walking around his bed and got his foot caught in the comforter, resulting in him twisting his knee. Reports initially he had fairly significant pain, was struggling with ascending/ descending stairs, had to use a step-to pattern, but in the mean time he has felt better, and is now almost normal with his stairs, with only occasional mild pain. Pt only finds some lingering pain and difficulty when trying to put on his sock in the morning, or when kneeling he feels mild discomfort. Prior Treatments and Tests R Knee MRI: IMPRESSION: 1. Suggestion of subcortical fractures involving weight- bearing portion of lateral femoral condyle with extensive marrow edema extending to visualized distal femoral shaft. No cortical disruption . No other area of abnormal marrow signal. Moderate tricompartmental osteoarthritis and chondromalacia. Small joint fluid. 2. Oblique tear involving body and posterior horn of medial meniscus extending to inferior articulating surface. Peripheral displacement of medial meniscus bowing medial collateral ligament. No evidence of focal laterl meniscal tear. 3. Cruciate ligaments are intact. Low to moderate grade MCL sprain/ partial-thickness tear. per Braeden Lund M.D. on 05/08/2022 Future Testing and Treatments Planned Has scheduled Ortho appointment next week Treatment Goals Patient/Caregiver Goals I want to get my knee back to operating at the level it was previously. PT-OP-C Subjective Start: 05/23/22 14:35 Freq: Status: Active Protocol: Document 06/19/22 13:46 DCW (Rec: 06/19/22 14:17 DCW [id number]) OP-PT Subjective Patient Comments Patient Comments Pt feels like overall he's been doing better, was working on the stairs of his spiritism this morning, and had a little discomfort, but it was in a different place than usual, so it might just be old age. PT-OP-F Manual Assessment Start: 05/23/22 14:35 Freq: Status: Active Protocol: Document 05/23/22 13:45 DCW (Rec: 05/23/22 14:49 DCW [id number]) Manual Assessments Soft Tissue Assessment Soft Tissue Mobility Assessment Tenderness to palpation 07/18: Complaint of pain along right lateral joint line Joint Mobility Assessment Joint Mobility Assessment Joint mobility and ROM WNL, no complaints of pain with motion PT-OP-K Range of Motion Start: 05/23/22 14:35 Freq: Status: Active Protocol: Document 05/23/22 13:45 DCW (Rec: 05/23/22 14:49 DCW [id number]) Knee Goniometric Range of Motion Knee Right Knee ROM WFL Yes Patient Position Supine Flexion Active (degrees) 120 Flexion Passive (degrees) 130 Extension Active (degrees) 0 Extension Passive (degrees) 0 Left Knee ROM WFL Yes Patient Position Supine Flexion Active (degrees) 118 Flexion Passive (degrees) 134 Extension Active (degrees) 0 Extension Passive (degrees) 0 PT-OP-L Special Tests Start: 05/23/22 14:35 Freq: Status: Active Protocol: Document 05/23/22 13:45 DCW (Rec: 05/23/22 14:49 DCW [id number]) Special Tests Knee Special Tests Varus- 0 Degrees Test Results Negative Valgus- 0 Degrees Test Results Negative Patellar Grind Test Test Results Negative Patella Tap Test Results Positive R Tamia Test Test Results Negative Anterior Draw Test Results Negative PT-OP-M Strength Start: 05/23/22 14:35 Freq: Status: Active Protocol: Document 05/23/22 13:45 DCW (Rec: 05/23/22 14:49 DCW [id number]) Knee Strength Knee Manual Muscle Testing Right Flexion (S2) 4+ Good+ Extension (L3) 4+ Good+ Left Flexion (S2) 5 Normal Extension (L3) 5 Normal Ankle/Foot Strength Ankle and Foot Manual Muscle Testing Right Dorsiflexion (L4) 5 Normal Plantarflexion (S1) 5 Normal Left Dorsiflexion (L4) 5 Normal Plantarflexion (S1) 5 Normal PT-OP-Q Treatments Start: 05/23/22 14:35 Freq: Status: Active Protocol: Document 06/19/22 13:46 DCW (Rec: 06/19/22 14:17 DCW [id number]) Cardio Equipment Recumbent Elliptical (Biodex) Duration (Minutes) 5 Resistance 8 Seat Position 9 Gym Equipment Shuttle Recovery Unilateral Squats Resistance 50# Shuttle Recovery Platform Stable Reps/Time 2x15 alternating LEs Bilateral Squats Resistance 87# Shuttle Recovery Platform Stable Reps/Time x20 Therapeutic Exercises Standing Exercises Hip Abduction Standing Exercise Name Hip Abduction Side bilateral Resistance Blue Hip Extension Standing Exercise Name Hip Extension Side bilateral Resistance Blue Gait Training Gait Activity Stairs Description Ascend/descend waiting room stairs Device Used None Comments Step-over, no railing. Neuro Re-Education Treatment Balance Activities SLS Equipment Handrail Tandem Walk Details HT's, BWD walk Surface flat Equipment // bars Comments Occasional LOB, contact rail for recovery PT-OP-T Assessment and Plan Start: 05/23/22 14:35 Freq: Status: Active Protocol: Document 06/19/22 13:46 DCW (Rec: 06/19/22 14:17 [facility] [id number]) Physical Therapy Assessment Goals Two Impairment Pt experiences lateral knee pain with ascending/descending stairs Cadmium Liquor Maker Goal (LTG) Pt to ascend and descend 12 stairs with a step-through gait pattern without pain for one straight week. LTG Duration Met One Impairment Pt does not have an appropriate home exercise program Short Term Goal (STG) Pt to be independent and compliant with an appropriate HEP STG Duration Met Progress Towards Goals Progress Towards Goals Goals Met Assessment Summary Assessment Pt has met all goals, is largely feeling much better, no further complaints in his right knee. Pt appropriate for discharge at this time. Physical Therapy Plan Frequency and Duration Frequency of Treatment 1-2x/week Duration of treatment (weeks) 6 Plan of Care Start Date 05/23/22 Plan of Care End Date 07/04/22 Therapeutic Interventions Therapeutic Interventions Aquatic Therapy,Home Exercise Program,Joint Mobilizations, Manual Therapy,Neuromuscular Re-education,Patient/Caregiver Education,Self-Care/Home Management,Soft Tissue Mobilization,Taping, Therapeutic Activities, Therapeutic Exercises Modalities Cold Pack/Ice Massage,Hot Packs,Ultrasound Discharge Physical Therapy Discharge Reasons Goals Met Next Visit Focus/Plan Next Note Type Discharge Summary
== END 2022-06-21 13:46 | disposition home or self-care (01) ==
LOC: PHYS 13:45
PROVIDERS: PCP Family Medicine; Referring Provider Family Medicine; Visit Provider Family Medicine
DX: M25.561 Pain in right knee (principal); M23.351 Other meniscus derangements, posterior horn of lateral meniscus, right knee
CPT/HCPCS: 97110; 97112; 97161; 97535

== ENCOUNTER → 2022-07-02 10:23 | Outpatient (CLI) | payer OTHER, SELFPAY ==
[2022-07-04 08:23] LABS: PSA Free % 27.7 % (.); PSA, Total 4.8 ng/mL (0.0-4.0)
== END ==
PROVIDERS: PCP Family Medicine; Referring Provider Specialist; Visit Provider Specialist
DX: R97.20 Elevated prostate specific antigen [PSA] (principal)
CPT/HCPCS: 36415; 84153; 84154

== ENCOUNTER → 2022-07-19 10:50 | Outpatient (CLI) | payer OTHER, SELFPAY ==
--- NOTE | 2022-07-19 10:51 | DI.MRI.S_ITS ---
PROCEDURE: MR PELIS WO/W CON INDICATIONS: BPH TECHNIQUE: Coronal HASTE, axial T1 FSE with fat saturation, 3-plane nonbreath-hold T2 FSE. After the administration of contrast, dynamic axial, delayed axial and coronal VIBE or 2-D FLASH with fat saturation through the pelvis. Optional diffusion weighted imaging and ADC may be performed. COMPARISON: CT, CT ABDOMEN PELVIS W CON, 09/01/2019, 14:15. FINDINGS: Image quality: Diffusion weighted and dynamic contrast enhanced images are diagnostic. Prostate: Gland size is 5.3 x 4.7 x 4 cm; ellipsoid gland volume is 52 mL. No significant foci of intrinsic T1 hyperintensity to suggest hemorrhage. Multiple BPH nodules. Lesion size(s): Lesion 1: 1.1 x 1 cm, (11/24). Lesion 2: 1.2 x 1.1 cm, (11/23). Lesion location(s) (sector): Lesion 1: Right mid gland transitional zone anterior. Lesion 2: Left mid gland transitional zone. Lesion description: Lesion 1: Oval Lesion 2: Oval T2 weighted imaging (T2WI) morphology score: Lesion 1: 3 Lesion 2: 3 Diffusion weighted imaging (DWI) morphology score: Lesion 1: 3 Lesion 2: 3 Dynamic contrast enhancement (DCE): Lesion 1: Present Lesion 2: Present Lesion PI-RADS score: Lesion 1: PI-RADS 3 Lesion 2: PI-RADS 3 Genitourinary system: Bladder wall thickness is normal. Distal ureters are non distended. Bowel and peritoneum: No pathologic free pelvic fluid. Inferior colon and small bowel loops are normal in caliber. Normal appendix. Nodes and vessels: No pelvic or inguinal adenopathy by size criteria. Iliac vessels are normal in caliber. Soft tissues: Fat containing left inguinal hernia. Small bilateral hydroceles. Bones: Marrow demonstrates normal overall signal, without lesions to suggest metastases. IMPRESSION: 1. Prostatomegaly with multiple BPH nodules. 2. Right mid gland transitional zone observation measuring 1.1 cm. PI-RADS 3. This could represent a BPH nodule. 3. Left mid gland transitional zone observation measuring 1.2 cm. PI-RADS 3. This could represent a BPH nodule. 4. No enlarged lymph nodes. 5. Fat containing left inguinal hernia. Dictated by: Aquilino Sauceda M.D. on 07/19/2022 at 14:01 Approved by: Aquilino Sauceda M.D. on 07/19/2022 at 14:13
== END ==
PROVIDERS: PCP Family Medicine; Referring Provider Specialist; Visit Provider Specialist
DX: N40.0 Benign prostatic hyperplasia without lower urinary tract symptoms (principal); N40.2 Nodular prostate without lower urinary tract symptoms; K40.90 Unilateral inguinal hernia, without obstruction or gangrene, not specified as recurrent
CPT/HCPCS: 72197

== ENCOUNTER → 2022-07-23 10:42 | Outpatient (CLI) | payer OTHER, SELFPAY ==
[2022-07-23 11:51] LABS: Hematocrit 39.2 % (41-53); Hemoglobin 13.3 g/dL (13.5-17.5); Mean Corpuscular HGB Conc 33.9 % (30-36); Mean Corpuscular Hemoglobin 30.9 PG (26-34); Mean Corpuscular Volume 91.1 fL (80-100); Platelet Count 231 X10^3/uL (150-400); Red Blood Cell Count 4.31 X10^6/uL (4.5-5.9); Red Cell Distribution Width 13.3 % (11.6-14.8); White Blood Cell Count 3.6 X10^3/uL (4.5-11.0)
[2022-07-23 12:05] LABS: HEMOLYSIS < 15 (0-50); Iron 96 ug/dL (49-181)
[2022-07-23 12:07] LABS: Lactate Dehydrogenase 176 U/L (120-246)
[2022-07-23 12:09] LABS: Neutrophils Absolute Manual 2016 /uL (3000-5900); RBC Morphology Normal Morphology; Total Cells Counted 100
[2022-07-23 12:16] LABS: Percent Iron Saturation 45 % (20-50); Total Iron Binding Capacity 212 ug/dL (261-462); Transferrin 169 mg/dL (206-381)
[2022-07-23 12:39] LABS: Ferritin 59 ng/mL (18-464)
[2022-07-23 13:11] LABS: Folate 18.7 ng/mL (2.76-20.0); Vitamin B12 497 pg/mL (239-931)
== END ==
PROVIDERS: PCP Family Medicine; Referring Provider Family Medicine; Visit Provider Family Medicine
DX: D64.9 Anemia, unspecified (principal); D72.819 Decreased white blood cell count, unspecified
CPT/HCPCS: 36415; 82607; 82728; 82746; 83540; 83550; 83615; 85025; 85045

== ENCOUNTER → 2022-10-16 16:14 | Outpatient (CLI) | payer OTHER, SELFPAY ==
--- NOTE | 2022-10-16 16:18 | DI.RAD.S_ITS ---
PROCEDURE: XR FOOT LT MIN 3V INDICATIONS: left mid foot and 3rd and 4th toe pain after fall TECHNIQUE: 3 views of the foot were acquired. COMPARISON: [facility], CR, XR FOOT RT MIN 3V, 08/09/2020, 16:25. FINDINGS: Bones: There is nondisplaced lucency at the base of the 4th proximal phalanx. No intra-articular extension. Nondisplaced lucency is also present at the base of the 5th proximal phalanx. No intra-articular extension. Soft tissues: No tibiotalar joint effusion. Achilles tendon appears normal. IMPRESSION: Nondisplaced fractures at the proximal phalanx of the 4th and 5th digits. Dictated by: Dunia Cerna M.D. on 10/16/2022 at 16:50 Approved by: Dunia Cerna M.D. on 10/16/2022 at 16:51
== END ==
PROVIDERS: PCP Family Medicine; Referring Provider Physician Assistant; Visit Provider Physician Assistant
DX: S92.515A Nondisplaced fracture of proximal phalanx of left lesser toe(s), initial encounter for closed fracture (principal); M79.672 Pain in left foot; X58.XXXA Exposure to other specified factors, initial encounter
CPT/HCPCS: 73630

== ENCOUNTER 2023-06-18 14:45 | Day surgery (SDC) | payer OTHER, SELFPAY ==
--- NOTE | 2023-06-18 | PATH_ITS ---
[facility] Accession Number: [id number] No. of containers..01 Tissue . 01 Material submitted: . cecum - CECAL POLYPS . 01 Diagnosis: Cecum, Polyps: Tubular adenomas. MRV 06/26/2023 1744 Local . 01 Electronically signed: . Jo Lassiter MD, Pathologist NPI- [id number] . 01 Gross description: . CECAL POLYPS : Received in formalin are multiple fragment(s) of agustin, soft tissue measuring 0.1 x 0.1 x 0.1 cm to 0.9 x 0.7 x 0.3 cm submitted entirely in 1 cassette(s) /LACY 06/19/2023 1834 Local . 01 Pathologist provided ICD-10: D12.0 . 01 CPT . 295118 Specimen Comment: A courtesy copy of this report has been sent to [phone] Performed at: 01 [facility] [address] [place] [address], [place], [place] [id number] MD Yoshi Bunn MD Phone: [phone]
[2023-06-18] MEDS: LACTATED RINGERS 1,000 ML 42 ML IV (15:03)
[2023-06-18 15:08] VITALS: BP 159/78; PULSE 84; RESP 18; TEMP 36.2; O2SAT 97; BMI 25.8
--- NOTE | 2023-06-18 15:36 | PM.PREOP ---
Pre-operative Note COVID-19 COVID-19 status: Not tested Interval Note History & Physical reviewed/Exam performed by Physician: Yes Changes to H&P: No ASA Class (for procedural sedation): III
--- NOTE | 2023-06-18 16:09 | P.OP.COLON_ITS ---
Operative Date/Time/Diagnoses Date of procedure: 06/18/23 Time of procedure: 16:09 Pre-op diagnosis: Rectal bleeding Post-op diagnosis: same Procedure & Clinicians Study performed: Colonoscopy Same procedure as scheduled: Yes Surgeon: Pierre Fuentes Procedure Notes Procedure in detail: Surgeon: Pierre Fuentes MD Anesthesia: Kavya Jc CRNA Procedure: The patient was brought to the endoscopy suite, placed in left lateral decubitus position. The patient was connected to monitoring devices. A time-out was performed. Sedation was administered. Once the patient was adequately sedated, a digital rectal exam was performed and was normal. The scope was then inserted and advanced to the cecum where the appendiceal orifice was identified and photographed. The scope was then slowly withdrawn over greater than 6 minutes. The mucosa was thoroughly inspected. There were 2 smal l polyps in the cecum, both less than 7 mm and both removed with a cold snare. The scope was retroflexed in the rectum. There were some mild internal hemorrhoids. No other abnormalities were seen. The scope was straightened and removed. The patient was awakened and brought to recovery. Scope withdrawal time: 9 minutes Sedation time: 20 minutes EBL: 3 mL Findings: 2 small polyps in the cecum Post-procedure Disposition: PACU
[2023-06-18 16:10] VITALS: BP 107/50; PULSE 61; RESP 12; TEMP 36.2; O2SAT 96
[2023-06-18 16:13] VITALS: BP 110/54; PULSE 59; RESP 13; O2SAT 96
[2023-06-18 16:18] VITALS: BP 115/58; PULSE 59; RESP 13; O2SAT 96
[2023-06-18 16:25] VITALS: BP 118/58; PULSE 59; RESP 16; O2SAT 96
[2023-06-18 16:30] VITALS: BP 128/76; PULSE 64; RESP 16; TEMP 36.1; O2SAT 97
== END 2023-06-18 16:50 | disposition home or self-care (01) ==
PROVIDERS: Family Provider Family Medicine; PCP Family Medicine; Referring Provider Surgery; Visit Provider Surgery
PROC: 0DJD8ZZ Inspection of Lower Intestinal Tract, Via Natural or Artificial Opening Endoscopic (ICD-10-PCS; CPT 45378; principal; 2023-06-18 16:00)
DX: K62.5 Hemorrhage of anus and rectum (principal); K64.8 Other hemorrhoids
CPT/HCPCS: 45385; J2704

== ENCOUNTER → 2023-08-14 15:21 | Outpatient (CLI) | payer OTHER, SELFPAY ==
--- NOTE | 2023-08-14 15:23 | DI.RAD.S_ITS ---
PROCEDURE: XR FOOT LT MIN 3V INDICATIONS: Left foot pain TECHNIQUE: 3 views of the foot were acquired. COMPARISON: None FINDINGS: Bones: No fractures or dislocations. No suspicious bony lesions. Degenerative changes of the 1st metatarsophalangeal joint. Soft tissues: Soft tissue swelling of the dorsum of the foot of unknown etiology. 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 on 08/14/2023 at 16:35 Approved by: Karthik Cui M.D. on 08/14/2023 at 16:37
--- NOTE | 2023-08-14 15:23 | DI.RAD.S_ITS ---
PROCEDURE: XR ANKLE LT MIN 3V INDICATIONS: Left ankle pain TECHNIQUE: 3 views of the ankle were acquired. COMPARISON: None. FINDINGS: Bones: No fractures or dislocations. Ankle mortise is normally aligned. No suspicious bony lesions. Soft tissues: Soft tissue swelling about the ankle. IMPRESSION: Diffuse soft tissue swelling with no osseous abnormality of the ankle seen Dictated by: Karthik Cui M.D. on 08/14/2023 at 16:37 Approved by: Karthik Cui M.D. on 08/14/2023 at 16:38
== END ==
PROVIDERS: Family Provider Family Medicine; PCP Family Medicine; Referring Provider Nurse Practitioner Family; Visit Provider Nurse Practitioner Family
DX: M19.072 Primary osteoarthritis, left ankle and foot (principal); M79.672 Pain in left foot; M25.572 Pain in left ankle and joints of left foot; R79.89 Other specified abnormal findings of blood chemistry
CPT/HCPCS: 73610; 73630

== ENCOUNTER 2023-08-29 09:45 | Outpatient (RCR) | payer OTHER, SELFPAY ==
--- NOTE | 2023-07-01 16:24 | PT.OIE ---
Current Diagnoses Pain in left knee (07/01/23) Difficulty in walking, not elsewhere classified (07/01/23) Weakness (07/01/23) Past Medical History (Last Reviewed 06/10/23 @ 14:12 by Domingo Renner RN) Anemia Arthritis Bowel obstruction BPH w/o urinary obs/LUTS Chicken pox Depression Diverticulosis Elevated PSA Foot contusion Fractures (~1961) GERD (gastroesophageal reflux disease) Hx of neurological disease Hx of squamous cell carcinoma of skin Measles Mumps Sinus drainage TIA (transient ischemic attack) Past Surgical History (Last Reviewed 06/10/23 @ 14:12 by Domingo Renner RN) Anesthesia History of sinus surgery (~2006) History of third molar tooth extraction (~1979) Hx of circumcision Hx of vasectomy Melanoma (~1977) Status post colonoscopy (~2010) Status post colonoscopy (~2013) Visit Care Team Role Provider Type David Saucedo MD Attending Provider Physician Family Provider Primary Care Provider Referring Provider Specialty: Family Practice Address: [address] [place] [address] Email: [email or web address] Physical Therapy Initial Evaluation PT-OP-A Visit Information Start: 06/30/23 09:01 Freq: Status: Active Protocol: Document 07/01/23 15:10 [facility] (Rec: 07/01/23 16:21 [facility] [id number]) Out-Patient Physical Therapy Visit Information Visit Information Visit Type Initial Evaluation Visit Start Time 15:15 Visit Stop Time 16:03 Total Visit Minutes 48 Visit Number 1 Evaluation Information Evaluation Date 07/01/23 PT-OP-B Current Condition Start: 06/30/23 09:01 Freq: Status: Active Protocol: Document 07/01/23 15:10 [facility] (Rec: 07/01/23 16:21 [facility] [id number]) Current Condition History of Current Condition Onset Date 4 months Current Complaints L knee pain, stacy shoulder pain History of Current Condition No known injury, gradual onset left knee pain. Noticed cant put knee on bed first as gets into bed as was his usual method and can't just bend knee up when puts on socks and shoes due to pain with bending knee. Some increase in pain with going up stairs suprapetaller region. History rior right knee pain, x-rays in April 2022 showed moderate arthritis, states pain gradually went away. NO treatment for left knee pain, just modification of activities. 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 PT-OP-C Subjective Start: 06/30/23 09:01 Freq: Status: Active Protocol: Document 07/01/23 15:10 [facility] (Rec: 07/01/23 16:21 [facility] [id number]) Patient Questionnaires Lower Extremity Functional Scale LEFS Score 61 OP-PT Pain Assessment Pain Assessment Grid Paper Pain Assessment Grid Completed Yes Location left knee Intensity 3 Frequency Frequent Pain Aggravating Factors ADL's,Stair Climbing Pain Alleviating Factors Inactivity PT-OP-G Mobility & Gait Start: 06/30/23 09:01 Freq: Status: Active Protocol: Document 07/01/23 15:10 [facility] (Rec: 07/01/23 16:21 [facility] [id number]) OP Gait Assessment Gait Gait Assistance Required: Independent Assistive Devices Assistive Device None Gait Deviations General Gait Pattern Antalgic Stair Climbing Evaluation Evaluation Level of Assist On Stairs Independent Devices Stair Climbing Assistive Devices Left Railing,Right Railing Technique/Endurance Stair Climbing Direction Ascend and Descend Stair Climbing Technique Step Over Step Comments Stair Climbing Comments painful PT-OP-H Neuro Start: 06/30/23 09:01 Freq: Status: Active Protocol: Document 07/01/23 15:10 [facility] (Rec: 07/01/23 16:21 [facility] [id number]) Sensation Evaluation Gross Sensation Gross Sensation WNL PT-OP-J Posture/Palpation/Skin Start: 06/30/23 09:01 Freq: Status: Active Protocol: Document 07/01/23 15:10 [facility] (Rec: 07/01/23 16:21 [facility] [id number]) Posture Evaluation Position Standing Weight Distribution Weight Shifted Right Knee Posture (L) Neutral Ankle/Foot Posture (R) Pronated,(R) Forefoot Abducted Foot Arch (L) Low Arch,(R) Low Arch Palpation Assessment Location left knee Palpation Findings Edema,Tenderness PT-OP-K Range of Motion Start: 06/30/23 09:01 Freq: Status: Active Protocol: Document 07/01/23 15:10 [facility] (Rec: 07/01/23 16:21 [facility] [id number]) Hip Goniometric Range of Motion Hip Left Hip ROM WFL Yes Flexion w/Knee Flexed 110 Straight Leg Raise 50 Right Hip ROM WFL Yes Flexion w/Knee Flexed 110 Straight Leg Raise 55 Knee Goniometric Range of Motion Knee Left Knee ROM WFL No Flexion Active (degrees) 105 Flexion Passive (degrees) 110 Extension Active (degrees) 0 Right Knee ROM WFL Yes Knee ROM Limitations Knee ROM Limitations Soft Tissue Tightness,Pain, Swelling Ankle and Foot Goniometric Range of Motion Ankle and Foot stacy Dorsiflexion with Knee Flexed 5 Dorsiflexion with Knee Extended 0 PT-OP-L Special Tests Start: 06/30/23 09:01 Freq: Status: Active Protocol: Document 07/01/23 15:10 [facility] (Rec: 07/01/23 16:21 [facility] [id number]) Special Tests Knee Special Tests Varus- 0 Degrees Test Results neg Valgus- 0 Degrees Test Results Negative Patellar Grind Test Test Results Negative Patella Tap Test Results Negative Tamia Test Test Results Negative Anterior Draw Test Results Negative PT-OP-M Strength Start: 06/30/23 09:01 Freq: Status: Active Protocol: Document 07/01/23 15:10 [facility] (Rec: 07/01/23 16:21 [facility] [id number]) Hip Strength Hip Manual Muscle Testing Left Flexion (L2) 4- Good- Extension (S1) 4 Good Abduction 4 Good External Rotation 4- Good- Internal Rotation 4 Good Right Flexion (L2) 4+ Good+ Extension (S1) 4 Good Abduction 4+ Good+ External Rotation 4- Good- Internal Rotation 4+ Good+ Knee Strength Knee Manual Muscle Testing Left Flexion (S2) 4+ Good+ Extension (L3) 4+ Good+ Right Flexion (S2) 5 Normal Extension (L3) 5 Normal Ankle/Foot Strength Ankle and Foot Manual Muscle Testing Left Dorsiflexion (L4) 4+ Good+ Plantarflexion (S1) 4+ Good+ Right Dorsiflexion (L4) 5 Normal Plantarflexion (S1) 5 Normal PT-OP-Q Treatments Start: 06/30/23 09:01 Freq: Status: Active Protocol: Document 07/01/23 15:10 [facility] (Rec: 07/01/23 16:21 [facility] [id number]) Self-Care/Home Management Treatment Education Patient Education Home Exercise Program,Pain Management Other Education issued written HEP PT-OP-R Modalities Start: 06/30/23 09:01 Freq: Status: Active Protocol: Document 07/01/23 15:10 [facility] (Rec: 07/01/23 16:21 [facility] [id number]) Hot Pack/Cold Pack Treatment Cold Pack Location left knee Patient Position Hooklying Treatment Duration (minutes) 10 PT-OP-T Assessment and Plan Start: 06/30/23 09:01 Freq: Status: Active Protocol: Document 07/01/23 15:10 [facility] (Rec: 07/01/23 16:21 [facility] [id number]) Physical Therapy Assessment Rehab Potential Rehabilitation Potential Good Evaluation Complexity Number of Personal Factors/Comorbidities 1-2 Number of Body Systems Impaired 3 Clinical Presentation at Evaluation Stable Impairments Impairments Activity Tolerance,Gait,Soft Tissue Mobility,Strength Goals Three Impairment muscle imbalances Impairment tightness in quads, hamstrings , weakness piriformis Short Term Goal (STG) Patient to be instructed in HEP for purposes of addressing muscle imbalances left LE STG Duration 08/01/23 Oil Treater Goal (LTG) Patient to be independent and compliant with HEP and demonstrate 5/5 muscle strength left hi and knee and improved quad and hamstring length to WNL LTG Duration 09/01/23 Two Impairment antalgic gait, left knee pain with stairs Short Term Goal (STG) patient will be able to walk on level surfaces without limp STG Duration 08/01/23 Mcc Goal (LTG) patient will be able to ascend and descend stairs without pain or limp One Impairment unable to perform usual ADL's without inc pain Mcc Goal (LTG) Patient will be able to get into bed and don shoes and socks without an increase in left knee pain LTG Duration 09/01/23 Assessment Summary Assessment Patient presents to PT with function-limiting pain left knee, no known cause. Ligamentous and meniscal testing negative. Has increased pain with end-range flexion, mild edema left knee, muscle imbalances. He has prior right knee pain and left toe fractures which could be possible cause due to compensation. Feel he would benefit from skilled PT to decrease the pain and swelling , and improve muscle flexibility and strength to allow him to return to gait and ADL's without pain. POC was discussed and patient was in agreement. Physical Therapy Plan Frequency and Duration Frequency of Treatment 2x/Week Duration of treatment (weeks) 8 Plan of Care Start Date 07/01/23 Plan of Care End Date 09/01/23 Therapeutic Interventions Therapeutic Interventions Gait Training,Home Exercise Program,Manual Therapy, Neuromuscular Re-education, Patient/Caregiver Education, Self-Care/Home Management,Soft Tissue Mobilization,Taping, Therapeutic Activities, Therapeutic Exercises Modalities Cold Pack/Ice Massage,Electric Stimulation,Hot Packs, Ultrasound Next Visit Focus/Plan Next Note Type Treatment Note Next Visit Plan Review, ther ex for flexibility and strengthening left knee and hip. Squats in front of mirror for visual feedback. Ice, possibly IFES to end treatment.
--- NOTE | 2023-07-01 16:24 | PT.OPPOC ---
Physical, Occupational & Speech Therapy At [facility] Current Diagnoses Pain in left knee (07/01/23) Difficulty in walking, not elsewhere classified (07/01/23) Weakness (07/01/23) Visit Care Team Role Provider Type David Saucedo MD Attending Provider Physician Family Provider Primary Care Provider Referring Provider Specialty: Family Practice Address: [address] [place] [address], [facility] Email: [email or web address] Plan Of Care PT-OP-T Assessment and Plan Start: 06/30/23 09:01 Freq: Status: Active Protocol: Document 07/01/23 15:10 [facility] (Rec: 07/01/23 16:21 [facility] [id number]) Physical Therapy Assessment Rehab Potential Rehabilitation Potential Good Evaluation Complexity Number of Personal Factors/Comorbidities 1-2 Number of Body Systems Impaired 3 Clinical Presentation at Evaluation Stable Impairments Impairments Activity Tolerance,Gait,Soft Tissue Mobility,Strength Goals Three Impairment muscle imbalances Impairment tightness in quads, hamstrings , weakness piriformis Short Term Goal (STG) Patient to be instructed in HEP for purposes of addressing muscle imbalances left LE STG Duration 08/01/23 Retail Product Advisor Goal (LTG) Patient to be independent and compliant with HEP and demonstrate 5/5 muscle strength left hi and knee and improved quad and hamstring length to WNL LTG Duration 09/01/23 Two Impairment antalgic gait, left knee pain with stairs Short Term Goal (STG) patient will be able to walk on level surfaces without limp STG Duration 08/01/23 Group Home Goal (LTG) patient will be able to ascend and descend stairs without pain or limp One Impairment unable to perform usual ADL's without inc pain Retail Product Advisor Goal (LTG) Patient will be able to get into bed and don shoes and socks without an increase in left knee pain LTG Duration 09/01/23 Assessment Summary Assessment Patient presents to PT with function-limiting pain left knee, no known cause. Ligamentous and meniscal testing negative. Has increased pain with end-range flexion, mild edema left knee, muscle imbalances. He has prior right knee pain and left toe fractures which could be possible cause due to compensation. Feel he would benefit from skilled PT to decrease the pain and swelling , and improve muscle flexibility and strength to allow him to return to gait and ADL's without pain. POC was discussed and patient was in agreement. Physical Therapy Plan Frequency and Duration Frequency of Treatment 2x/Week Duration of treatment (weeks) 8 Plan of Care Start Date 07/01/23 Plan of Care End Date 09/01/23 Therapeutic Interventions Therapeutic Interventions Gait Training,Home Exercise Program,Manual Therapy, Neuromuscular Re-education, Patient/Caregiver Education, Self-Care/Home Management,Soft Tissue Mobilization,Taping, Therapeutic Activities, Therapeutic Exercises Modalities Cold Pack/Ice Massage,Electric Stimulation,Hot Packs, Ultrasound Next Visit Focus/Plan Next Note Type Treatment Note Next Visit Plan Review, ther ex for flexibility and strengthening left knee and hip. Squats in front of mirror for visual feedback. Ice, possibly IFES to end treatment. Plan of Care Dates Plan of Care Start Date 07/01/23 Plan of Care End Date 09/01/23 Electronically Signed by: Halie Wagner, PT 07/01/23 5065 If you are in agreement with this Plan of Care, please return a signed and dated copy. I have reviewed this Plan of Care and certify that the skilled therapy services above are required to meet the patient?s needs. Physician Signature Date Printed Name and Credentials Clinical Instructor Signature Printed Name and Credentials
--- NOTE | 2023-07-04 16:16 | PT.OTN ---
Current Diagnoses Pain in left knee (07/04/23) Difficulty in walking, not elsewhere classified (07/04/23) Weakness (07/04/23) Physical Therapy Treatment Note PT-OP-A Visit Information Start: 06/30/23 09:01 Freq: Status: Active Protocol: Document 07/04/23 15:18 [facility] (Rec: 07/04/23 16:14 [facility] [id number]) Out-Patient Physical Therapy Visit Information Visit Information Visit Type Treatment Note Visit Start Time 15:18 Visit Stop Time 16:00 Total Visit Minutes 42 Visit Number 2 Evaluation Information Evaluation Date 07/01/23 PT-OP-B Current Condition Start: 06/30/23 09:01 Freq: Status: Active Protocol: Document 07/04/23 15:18 [facility] (Rec: 07/04/23 16:14 [facility] [id number]) Current Condition History of Current Condition Onset Date 4 months Current Complaints L knee pain, stacy shoulder pain History of Current Condition No known injury, gradual onset left knee pain. Noticed cant put knee on bed first as gets into bed as was his usual method and can't just bend knee up when puts on socks and shoes due to pain with bending knee. Some increase in pain with going up stairs suprapetaller region. History prior right knee pain, x-rays in April 2022 showed moderate arthritis, states pain gradually went away. NO treatment for left knee pain, just modification of activities. Doesn't do any regular exercise except gardening Prior Treatments and Tests October 2022 fractured 4th and 5th phalanges s/p fall April 2022: moderate arthritis, PT-OP-C Subjective Start: 06/30/23 09:01 Freq: Status: Active Protocol: Document 07/04/23 15:18 [facility] (Rec: 07/04/23 16:14 [facility] [id number]) OP-PT Subjective Patient Comments Patient Comments Increase in knee pain when crawling around on the floor to put [employer] skirt under the tree. Has a few questions with exercises. PT-OP-G Mobility & Gait Start: 06/30/23 09:01 Freq: Status: Active Protocol: Document 07/01/23 15:10 [facility] (Rec: 07/01/23 16:21 [facility] [id number]) OP Gait Assessment Gait Gait Assistance Required: Independent Assistive Devices Assistive Device None Gait Deviations General Gait Pattern Antalgic Stair Climbing Evaluation Evaluation Level of Assist On Stairs Independent Devices Stair Climbing Assistive Devices Left Railing,Right Railing Technique/Endurance Stair Climbing Direction Ascend and Descend Stair Climbing Technique Step Over Step Comments Stair Climbing Comments painful PT-OP-H Neuro Start: 06/30/23 09:01 Freq: Status: Active Protocol: Document 07/01/23 15:10 [facility] (Rec: 07/01/23 16:21 [facility] [id number]) Sensation Evaluation Gross Sensation Gross Sensation WNL PT-OP-J Posture/Palpation/Skin Start: 06/30/23 09:01 Freq: Status: Active Protocol: Document 07/01/23 15:10 [facility] (Rec: 07/01/23 16:21 [facility] [id number]) Posture Evaluation Position Standing Weight Distribution Weight Shifted Right Knee Posture (L) Neutral Ankle/Foot Posture (R) Pronated,(R) Forefoot Abducted Foot Arch (L) Low Arch,(R) Low Arch Palpation Assessment Location left knee Palpation Findings Edema,Tenderness PT-OP-K Range of Motion Start: 06/30/23 09:01 Freq: Status: Active Protocol: Document 07/01/23 15:10 [facility] (Rec: 07/01/23 16:21 [facility] [id number]) Hip Goniometric Range of Motion Hip Left Hip ROM WFL Yes Flexion w/Knee Flexed 110 Straight Leg Raise 50 Right Hip ROM WFL Yes Flexion w/Knee Flexed 110 Straight Leg Raise 55 Knee Goniometric Range of Motion Knee Left Knee ROM WFL No Flexion Active (degrees) 105 Flexion Passive (degrees) 110 Extension Active (degrees) 0 Right Knee ROM WFL Yes Knee ROM Limitations Knee ROM Limitations Soft Tissue Tightness,Pain, Swelling Ankle and Foot Goniometric Range of Motion Ankle and Foot stacy Dorsiflexion with Knee Flexed 5 Dorsiflexion with Knee Extended 0 PT-OP-L Special Tests Start: 06/30/23 09:01 Freq: Status: Active Protocol: Document 07/01/23 15:10 [facility] (Rec: 07/01/23 16:21 [facility] [id number]) Special Tests Knee Special Tests Varus- 0 Degrees Test Results neg Valgus- 0 Degrees Test Results Negative Patellar Grind Test Test Results Negative Patella Tap Test Results Negative Tamia Test Test Results Negative Anterior Draw Test Results Negative PT-OP-M Strength Start: 06/30/23 09:01 Freq: Status: Active Protocol: Document 07/01/23 15:10 [facility] (Rec: 07/01/23 16:21 [facility] [id number]) Hip Strength Hip Manual Muscle Testing Left Flexion (L2) 4- Good- Extension (S1) 4 Good Abduction 4 Good External Rotation 4- Good- Internal Rotation 4 Good Right Flexion (L2) 4+ Good+ Extension (S1) 4 Good Abduction 4+ Good+ External Rotation 4- Good- Internal Rotation 4+ Good+ Knee Strength Knee Manual Muscle Testing Left Flexion (S2) 4+ Good+ Extension (L3) 4+ Good+ Right Flexion (S2) 5 Normal Extension (L3) 5 Normal Ankle/Foot Strength Ankle and Foot Manual Muscle Testing Left Dorsiflexion (L4) 4+ Good+ Plantarflexion (S1) 4+ Good+ Right Dorsiflexion (L4) 5 Normal Plantarflexion (S1) 5 Normal PT-OP-Q Treatments Start: 06/30/23 09:01 Freq: Status: Active Protocol: Document 07/04/23 15:18 [facility] (Rec: 07/04/23 16:14 [facility] [id number]) Cardio Equipment Bicycle (Upright) Duration (Minutes) 6 Resistance 5 Seat Position 6 Other cues for circular motion LE's Gym Equipment Shuttle Recovery Unilateral Squats Details next session Bilateral Squats Details next session Shuttle Balance Red Comments consider next session Therapeutic Exercises Supine Exercises SAQ Reps/Minutes 10x5 SLR Reps/Minutes 5 x 2 bridge Reps/Minutes 10x5 Prone Exercises quad stretch Equipment Used strap Reps/Minutes 2x30 Sidelying Exercises clamshell Reps/Minutes 10x5 Sitting Exercises hamstring curl Comments next session HS stretch Reps/Minutes 2x30 Comments cues for long spine Standing Exercises chair squats Comments next session Gait Training Gait Activity resisted walk Description fwd,side,back Comments next session Self-Care/Home Management Treatment Education Patient Education Home Exercise Program,Pain Management Other Education issued updated H0 PT-OP-R Modalities Start: 06/30/23 09:01 Freq: Status: Active Protocol: Document 07/01/23 15:10 [facility] (Rec: 07/01/23 16:21 [facility] [id number]) Hot Pack/Cold Pack Treatment Cold Pack Location left knee Patient Position Hooklying Treatment Duration (minutes) 10 PT-OP-T Assessment and Plan Start: 06/30/23 09:01 Freq: Status: Active Protocol: Document 07/04/23 15:18 [facility] (Rec: 07/04/23 16:14 [facility] [id number]) Physical Therapy Assessment Impairments Impairments Activity Tolerance,Gait,Soft Tissue Mobility,Strength Goals Three Impairment muscle imbalances Impairment tightness in quads, hamstrings , weakness piriformis Short Term Goal (STG) Patient to be instructed in HEP for purposes of addressing muscle imbalances left LE STG Duration 08/01/23 Practice Professional Goal (LTG) Patient to be independent and compliant with HEP and demonstrate 5/5 muscle strength left hi and knee and improved quad and hamstring length to WNL LTG Duration 09/01/23 Two Impairment antalgic gait, left knee pain with stairs Short Term Goal (STG) patient will be able to walk on level surfaces without limp STG Duration 08/01/23 Penitentiary Goal (LTG) patient will be able to ascend and descend stairs without pain or limp LTG Duration 09/01/23 One Impairment unable to perform usual ADL's without inc pain Practice Professional Goal (LTG) Patient will be able to get into bed and don shoes and socks without an increase in left knee pain LTG Duration 09/01/23 Assessment Summary Assessment After review patient demonstrated good understanding of ex issued at al. Progressed HEP non- weight-bearing today. If tolerates well will progress to weight-bearing including squats. Physical Therapy Plan Frequency and Duration Frequency of Treatment 2x/Week Duration of treatment (weeks) 8 Plan of Care Start Date 07/01/23 Plan of Care End Date 09/01/23 Therapeutic Interventions Therapeutic Interventions Gait Training,Home Exercise Program,Manual Therapy, Neuromuscular Re-education, Patient/Caregiver Education, Self-Care/Home Management,Soft Tissue Mobilization,Taping, Therapeutic Activities, Therapeutic Exercises Modalities Cold Pack/Ice Massage,Electric Stimulation,Hot Packs, Ultrasound Next Visit Focus/Plan Next Note Type Treatment Note Next Visit Plan Review ther ex for flexibility and strengthening left knee and hip. Progress ther ex as tolerated. Ice, possibly IFES to end treatment as needed. Consider kinesiotape if indicated.
--- NOTE | 2023-07-10 16:06 | PT.OTN ---
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 Noticed cant put knee on bed first as gets into bed as was his usual method and can't just bend knee up when puts on socks and shoes due to pain with bending knee. Some increase in pain with going up stairs suprapetaller region. History prior right knee pain, x-rays in April 2022 showed moderate arthritis, states pain gradually went away. NO treatment for left knee pain, just modification of activities. Doesn't do any regular exercise except gardening Prior Treatments and Tests October 2022 fractured 4th and 5th phalanges s/p fall April 2022: moderate arthritis, PT-OP-C Subjective Start: 06/30/23 09:01 Freq: Status: Active Protocol: Document 07/10/23 13:53 (Rec: 07/10/23 14:35 [id number]) OP-PT Subjective Patient Comments Patient Comments Pt reports he has been too busy to fit in exercises, but other than that nothing new to report. PT-OP-G Mobility & Gait Start: 06/30/23 09:01 Freq: Status: Active Protocol: Document 07/01/23 15:10 SAK (Rec: 07/01/23 16:21 SAK [id number]) OP Gait Assessment Gait Gait Assistance Required: Independent Assistive Devices Assistive Device None Gait Deviations General Gait Pattern Antalgic Stair Climbing Evaluation Evaluation Level of Assist On Stairs Independent Devices Stair Climbing Assistive Devices Left Railing,Right Railing Technique/Endurance Stair Climbing Direction Ascend and Descend Stair Climbing Technique Step Over Step Comments Stair Climbing Comments painful PT-OP-H Neuro Start: 06/30/23 09:01 Freq: Status: Active Protocol: Document 07/01/23 15:10 [facility] (Rec: 07/01/23 16:21 [facility] [id number]) Sensation Evaluation Gross Sensation Gross Sensation WNL PT-OP-J Posture/Palpation/Skin Start: 06/30/23 09:01 Freq: Status: Active Protocol: Document 07/01/23 15:10 [facility] (Rec: 07/01/23 16:21 [facility] [id number]) Posture Evaluation Position Standing Weight Distribution Weight Shifted Right Knee Posture (L) Neutral Ankle/Foot Posture (R) Pronated,(R) Forefoot Abducted Foot Arch (L) Low Arch,(R) Low Arch Palpation Assessment Location left knee Palpation Findings Edema,Tenderness PT-OP-K Range of Motion Start: 06/30/23 09:01 Freq: Status: Active Protocol: Document 07/01/23 15:10 [facility] (Rec: 07/01/23 16:21 [facility] [id number]) Hip Goniometric Range of Motion Hip Left Hip ROM WFL Yes Flexion w/Knee Flexed 110 Straight Leg Raise 50 Right Hip ROM WFL Yes Flexion w/Knee Flexed 110 Straight Leg Raise 55 Knee Goniometric Range of Motion Knee Left Knee ROM WFL No Flexion Active (degrees) 105 Flexion Passive (degrees) 110 Extension Active (degrees) 0 Right Knee ROM WFL Yes Knee ROM Limitations Knee ROM Limitations Soft Tissue Tightness,Pain, Swelling Ankle and Foot Goniometric Range of Motion Ankle and Foot stacy Dorsiflexion with Knee Flexed 5 Dorsiflexion with Knee Extended 0 PT-OP-L Special Tests Start: 06/30/23 09:01 Freq: Status: Active Protocol: Document 07/01/23 15:10 [facility] (Rec: 07/01/23 16:21 [facility] [id number]) Special Tests Knee Special Tests Varus- 0 Degrees Test Results neg Valgus- 0 Degrees Test Results Negative Patellar Grind Test Test Results Negative Patella Tap Test Results Negative Tamia Test Test Results Negative Anterior Draw Test Results Negative PT-OP-M Strength Start: 06/30/23 09:01 Freq: Status: Active Protocol: Document 07/01/23 15:10 [facility]AK (Rec: 07/01/23 16:21 [facility]AK [id number]) Hip Strength Hip Manual Muscle Testing Left Flexion (L2) 4- Good- Extension (S1) 4 Good Abduction 4 Good External Rotation 4- Good- Internal Rotation 4 Good Right Flexion (L2) 4+ Good+ Extension (S1) 4 Good Abduction 4+ Good+ External Rotation 4- Good- Internal Rotation 4+ Good+ Knee Strength Knee Manual Muscle Testing Left Flexion (S2) 4+ Good+ Extension (L3) 4+ Good+ Right Flexion (S2) 5 Normal Extension (L3) 5 Normal Ankle/Foot Strength Ankle and Foot Manual Muscle Testing Left Dorsiflexion (L4) 4+ Good+ Plantarflexion (S1) 4+ Good+ Right Dorsiflexion (L4) 5 Normal Plantarflexion (S1) 5 Normal PT-OP-Q Treatments Start: 06/30/23 09:01 Freq: Status: Active Protocol: Document 07/10/23 13:53 [facility] (Rec: 07/10/23 14:35 SW [id number]) Cardio Equipment Bicycle (Upright) Duration (Minutes) 6 Resistance 5 Seat Position 6 Other cues for circular motion LE's Therapeutic Exercises Supine Exercises SAQ Supine Exercise Name SAQ Reps/Minutes 10x5 SLR Supine Exercise Name SLR Reps/Minutes 5 x 2 Comments cues for activation of quad prior to lift, no compensation in back bridge Supine Exercise Name Bridge Reps/Minutes 10x5 Comments cues for glute engagement prior to ascending Prone Exercises quad stretch Equipment Used strap Reps/Minutes 2x30 Sidelying Exercises clamshell Reps/Minutes 10x5 Comments cues to eliminate compensation in LB, tactile cues for targeted muscles Sitting Exercises hamstring curl Sitting Exercise Name HS curl Resistance minimal Equipment Used therapist assist Reps/Minutes x10 HS stretch Reps/Minutes 2x30 Comments cues for long spine Standing Exercises chair squats Standing Exercise Name Chair squats Side bilateral Equipment Used mat table Reps/Minutes x10 Comments verbal cues for mechanics, hip hinge PT-OP-R Modalities Start: 06/30/23 09:01 Freq: Status: Active Protocol: Document 07/01/23 15:10 SAK (Rec: 07/01/23 16:21 SAK [id number]) Hot Pack/Cold Pack Treatment Cold Pack Location left knee Patient Position Hooklying Treatment Duration (minutes) 10 PT-OP-T Assessment and Plan Start: 06/30/23 09:01 Freq: Status: Active Protocol: Document 07/10/23 13:53 (Rec: 07/10/23 14:35 [id number]) Physical Therapy Assessment Goals Three Impairment muscle imbalances Impairment tightness in quads, hamstrings , weakness piriformis Short Term Goal (STG) Patient to be instructed in HEP for purposes of addressing muscle imbalances left LE STG Duration 08/01/23 Operations Leader Goal (LTG) Patient to be independent and compliant with HEP and demonstrate 5/5 muscle strength left hi and knee and improved quad and hamstring length to WNL LTG Duration 09/01/23 Two Impairment antalgic gait, left knee pain with stairs Short Term Goal (STG) patient will be able to walk on level surfaces without limp STG Duration 08/01/23 Operations Leader Goal (LTG) patient will be able to ascend and descend stairs without pain or limp LTG Duration 09/01/23 One Impairment unable to perform usual ADL's without inc pain Fpc Goal (LTG) Patient will be able to get into bed and don shoes and socks without an increase in left knee pain LTG Duration 09/01/23 Assessment Summary Assessment Reviewed HEP exercises, pt demonstrated good carryover requiring minimal cueing for targeted muscles during exercises. Pt unable to initiate consistant HEP, d/t busy with family in town, plans to be more consistant when family leaves. Initiated sit to stands in session today , pt required verbal cues for mechanics and alignment, improved with repetition, tolerated well without increase in symptoms in L knee . Initiated HS curls for mm strengthening, minimal resistance applied to challenge pt. Pt tolerated session well, without increased in symptoms throuhout session, plan to assess pt tolerance next session and progress as able. Physical Therapy Plan Frequency and Duration Frequency of Treatment 2x/Week Duration of treatment (weeks) 8 Plan of Care Start Date 07/01/23 Plan of Care End Date 09/01/23 Therapeutic Interventions Therapeutic Interventions Gait Training,Home Exercise Program,Manual Therapy, Neuromuscular Re-education, Patient/Caregiver Education, Self-Care/Home Management,Soft Tissue Mobilization,Taping, Therapeutic Activities, Therapeutic Exercises Modalities Cold Pack/Ice Massage,Electric Stimulation,Hot Packs, Ultrasound Next Visit Focus/Plan Next Note Type Treatment Note Next Visit Plan Review ther ex for flexibility and strengthening left knee and hip. Progress ther ex as tolerated. Ice, possibly IFES to end treatment as needed. Consider kinesiotape if indicated.
--- NOTE | 2023-07-17 15:38 | PT.OTN ---
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 Noticed cant put knee on bed first as gets into bed as was his usual method and can't just bend knee up when puts on socks and shoes due to pain with bending knee. Some increase in pain with going up stairs suprapetaller region. History prior right knee pain, x-rays in April 2022 showed moderate arthritis, states pain gradually went away. NO treatment for left knee pain, just modification of activities. Doesn't do any regular exercise except gardening Prior Treatments and Tests October 2022 fractured 4th and 5th phalanges s/p fall April 2022: moderate arthritis, PT-OP-C Subjective Start: 06/30/23 09:01 Freq: Status: Active Protocol: Document 07/17/23 14:28 [facility] (Rec: 07/17/23 15:38 [facility] [id number]) OP-PT Subjective Patient Comments Patient Comments Doing the exercises some at home, not as good as I should be. Pain has decreased, though some pain proximal to kneecap when going up stairs last night. Overall improving . Patient Reported Progress Improving PT-OP-G Mobility & Gait Start: 06/30/23 09:01 Freq: Status: Active Protocol: Document 07/01/23 15:10 SAK (Rec: 07/01/23 16:21 [facility] [id number]) OP Gait Assessment Gait Gait Assistance Required: Independent Assistive Devices Assistive Device None Gait Deviations General Gait Pattern Antalgic Stair Climbing Evaluation Evaluation Level of Assist On Stairs Independent Devices Stair Climbing Assistive Devices Left Railing,Right Railing Technique/Endurance Stair Climbing Direction Ascend and Descend Stair Climbing Technique Step Over Step Comments Stair Climbing Comments painful PT-OP-H Neuro Start: 06/30/23 09:01 Freq: Status: Active Protocol: Document 07/01/23 15:10 [facility] (Rec: 07/01/23 16:21 [facility] [id number]) Sensation Evaluation Gross Sensation Gross Sensation WNL PT-OP-J Posture/Palpation/Skin Start: 06/30/23 09:01 Freq: Status: Active Protocol: Document 07/01/23 15:10 [facility] (Rec: 07/01/23 16:21 [facility] [id number]) Posture Evaluation Position Standing Weight Distribution Weight Shifted Right Knee Posture (L) Neutral Ankle/Foot Posture (R) Pronated,(R) Forefoot Abducted Foot Arch (L) Low Arch,(R) Low Arch Palpation Assessment Location left knee Palpation Findings Edema,Tenderness PT-OP-K Range of Motion Start: 06/30/23 09:01 Freq: Status: Active Protocol: Document 07/01/23 15:10 [facility] (Rec: 07/01/23 16:21 [facility] [id number]) Hip Goniometric Range of Motion Hip Left Hip ROM WFL Yes Flexion w/Knee Flexed 110 Straight Leg Raise 50 Right Hip ROM WFL Yes Flexion w/Knee Flexed 110 Straight Leg Raise 55 Knee Goniometric Range of Motion Knee Left Knee ROM WFL No Flexion Active (degrees) 105 Flexion Passive (degrees) 110 Extension Active (degrees) 0 Right Knee ROM WFL Yes Knee ROM Limitations Knee ROM Limitations Soft Tissue Tightness,Pain, Swelling Ankle and Foot Goniometric Range of Motion Ankle and Foot stacy Dorsiflexion with Knee Flexed 5 Dorsiflexion with Knee Extended 0 PT-OP-L Special Tests Start: 06/30/23 09:01 Freq: Status: Active Protocol: Document 07/01/23 15:10 [facility] (Rec: 07/01/23 16:21 [facility] [id number]) Special Tests Knee Special Tests Varus- 0 Degrees Test Results neg Valgus- 0 Degrees Test Results Negative Patellar Grind Test Test Results Negative Patella Tap Test Results Negative Tamia Test Test Results Negative Anterior Draw Test Results Negative PT-OP-M Strength Start: 06/30/23 09:01 Freq: Status: Active Protocol: Document 07/01/23 15:10 [facility] (Rec: 07/01/23 16:21 [facility] [id number]) Hip Strength Hip Manual Muscle Testing Left Flexion (L2) 4- Good- Extension (S1) 4 Good Abduction 4 Good External Rotation 4- Good- Internal Rotation 4 Good Right Flexion (L2) 4+ Good+ Extension (S1) 4 Good Abduction 4+ Good+ External Rotation 4- Good- Internal Rotation 4+ Good+ Knee Strength Knee Manual Muscle Testing Left Flexion (S2) 4+ Good+ Extension (L3) 4+ Good+ Right Flexion (S2) 5 Normal Extension (L3) 5 Normal Ankle/Foot Strength Ankle and Foot Manual Muscle Testing Left Dorsiflexion (L4) 4+ Good+ Plantarflexion (S1) 4+ Good+ Right Dorsiflexion (L4) 5 Normal Plantarflexion (S1) 5 Normal PT-OP-Q Treatments Start: 06/30/23 09:01 Freq: Status: Active Protocol: Document 07/17/23 14:28 [facility] (Rec: 07/17/23 15:38 [facility] [id number]) Cardio Equipment Bicycle (Upright) Duration (Minutes) 7 Resistance 5 Seat Position 6-7 Other cues for circular motion LE's Gym Equipment Cable Column (Body Solid) hamstring curl Resistance 40 Reps/Time 10 Shuttle Recovery Unilateral Squats Resistance 37 Shuttle Recovery Platform Stable Reps/Time 10x Bilateral Squats Resistance 62 Shuttle Recovery Platform Stable Reps/Time 12x Shuttle Balance Red Details WBOS f/b and side balance and wt shifts Reps/Duration 5 min Therapeutic Exercises Supine Exercises SAQ Supine Exercise Name SAQ Equipment Used towel roll Reps/Minutes 10x5 Standing Exercises chair squats Comments review next session Gait Training Gait Activity resisted walk Description fwd,side,back Surface L1 TB Distance/Duration 10 ft x 2 Treatment Focus neutral LE alignment, slow and controlled Self-Care/Home Management Treatment Education Other Education want fatigue but not pain with strengthening exercises PT-OP-R Modalities Start: 06/30/23 09:01 Freq: Status: Active Protocol: Document 07/17/23 14:28 [facility] (Rec: 07/17/23 15:38 [facility] [id number]) Hot Pack/Cold Pack Treatment Cold Pack Location left knee Patient Position Hooklying Treatment Duration (minutes) 10 Patient Tolerance Good PT-OP-T Assessment and Plan Start: 06/30/23 09:01 Freq: Status: Active Protocol: Document 07/17/23 14:28 [facility] (Rec: 07/17/23 15:38 [facility] [id number]) Physical Therapy Assessment Goals Three Impairment muscle imbalances Impairment tightness in quads, hamstrings , weakness piriformis Short Term Goal (STG) Patient to be instructed in HEP for purposes of addressing muscle imbalances left LE STG Duration 08/01/23 Resizer Operator Goal (LTG) Patient to be independent and compliant with HEP and demonstrate 5/5 muscle strength left hi and knee and improved quad and hamstring length to WNL LTG Duration 09/01/23 Two Impairment antalgic gait, left knee pain with stairs Short Term Goal (STG) patient will be able to walk on level surfaces without limp STG Duration 08/01/23 Resizer Operator Goal (LTG) patient will be able to ascend and descend stairs without pain or limp LTG Duration 09/01/23 One Impairment unable to perform usual ADL's without inc pain Senior Living Goal (LTG) Patient will be able to get into bed and don shoes and socks without an increase in left knee pain LTG Duration 09/01/23 Progress Towards Goals Progress Towards Goals Progressing Toward Goals Assessment Summary Assessment Good progress despite limited compliance to HEP with holidays, patient reports will be able to increase compliance now that holidays over. Good tolerance to addition of hamstring curl machine and shuttle leg press, plus resisted sidestep. Physical Therapy Plan Frequency and Duration Frequency of Treatment 2x/Week Duration of treatment (weeks) 8 Plan of Care Start Date 07/01/23 Plan of Care End Date 09/01/23 Therapeutic Interventions Therapeutic Interventions Gait Training,Home Exercise Program,Manual Therapy, Neuromuscular Re-education, Patient/Caregiver Education, Self-Care/Home Management,Soft Tissue Mobilization,Taping, Therapeutic Activities, Therapeutic Exercises Modalities Cold Pack/Ice Massage,Electric Stimulation,Hot Packs, Ultrasound Next Visit Focus/Plan Next Note Type Treatment Note Next Visit Plan Continue to progress strengthening and flexibility exercises as tolerated. Assess response to last PT session with addition of ex. Step-ups fwd and lateral as tolerated.
--- NOTE | 2023-07-22 16:34 | PT.OTN ---
Current Diagnoses Pain in left knee (07/22/23) Difficulty in walking, not elsewhere classified (07/22/23) Weakness (07/22/23) Physical Therapy Treatment Note PT-OP-A Visit Information Start: 06/30/23 09:01 Freq: Status: Active Protocol: Document 07/22/23 14:30 SAK (Rec: 07/22/23 15:20 [facility] [id number]) Out-Patient Physical Therapy Visit Information Visit Information Visit Type Treatment Note Visit Start Time 14:31 Visit Stop Time 15:20 Total Visit Minutes 49 Visit Number 5 Number of [employer] Visits 0 PT-OP-B Current Condition Start: 06/30/23 09:01 Freq: Status: Active Protocol: Document 07/22/23 14:30 SAK (Rec: 07/22/23 15:20 [facility] [id number]) Current Condition History of Current Condition Onset Date 4 months Current Complaints L knee pain, stacy shoulder pain History of Current Condition No known injury, gradual onset left knee pain. Noticed cant put knee on bed first as gets into bed as was his usual method and can't just bend knee up when puts on socks and shoes due to pain with bending knee. Some increase in pain with going up stairs suprapetaller region. History prior right knee pain, x-rays in April 2022 showed moderate arthritis, states pain gradually went away. NO treatment for left knee pain, just modification of activities. Doesn't do any regular exercise except gardening Prior Treatments and Tests October 2022 fractured 4th and 5th phalanges s/p fall April 2022: moderate arthritis, PT-OP-C Subjective Start: 06/30/23 09:01 Freq: Status: Active Protocol: Document 07/22/23 14:30 SAK (Rec: 07/22/23 15:20 [facility] [id number]) OP-PT Subjective Patient Comments Patient Comments c/o muscle soreness throughout LE's not inc pain Doing HEP. Will be flying out of town this Saturday for 2 week vacation. 1 more PT visit this week. Patient Reported Progress Improving PT-OP-G Mobility & Gait Start: 06/30/23 09:01 Freq: Status: Active Protocol: Document 07/01/23 15:10 SAK (Rec: 07/01/23 16:21 [facility] [id number]) OP Gait Assessment Gait Gait Assistance Required: Independent Assistive Devices Assistive Device None Gait Deviations General Gait Pattern Antalgic Stair Climbing Evaluation Evaluation Level of Assist On Stairs Independent Devices Stair Climbing Assistive Devices Left Railing,Right Railing Technique/Endurance Stair Climbing Direction Ascend and Descend Stair Climbing Technique Step Over Step Comments Stair Climbing Comments painful PT-OP-H Neuro Start: 06/30/23 09:01 Freq: Status: Active Protocol: Document 07/01/23 15:10 [facility] (Rec: 07/01/23 16:21 [facility] [id number]) Sensation Evaluation Gross Sensation Gross Sensation WNL PT-OP-J Posture/Palpation/Skin Start: 06/30/23 09:01 Freq: Status: Active Protocol: Document 07/01/23 15:10 [facility] (Rec: 07/01/23 16:21 [facility] [id number]) Posture Evaluation Position Standing Weight Distribution Weight Shifted Right Knee Posture (L) Neutral Ankle/Foot Posture (R) Pronated,(R) Forefoot Abducted Foot Arch (L) Low Arch,(R) Low Arch Palpation Assessment Location left knee Palpation Findings Edema,Tenderness PT-OP-K Range of Motion Start: 06/30/23 09:01 Freq: Status: Active Protocol: Document 07/01/23 15:10 [facility] (Rec: 07/01/23 16:21 [facility] [id number]) Hip Goniometric Range of Motion Hip Left Hip ROM WFL Yes Flexion w/Knee Flexed 110 Straight Leg Raise 50 Right Hip ROM WFL Yes Flexion w/Knee Flexed 110 Straight Leg Raise 55 Knee Goniometric Range of Motion Knee Left Knee ROM WFL No Flexion Active (degrees) 105 Flexion Passive (degrees) 110 Extension Active (degrees) 0 Right Knee ROM WFL Yes Knee ROM Limitations Knee ROM Limitations Soft Tissue Tightness,Pain, Swelling Ankle and Foot Goniometric Range of Motion Ankle and Foot stacy Dorsiflexion with Knee Flexed 5 Dorsiflexion with Knee Extended 0 PT-OP-L Special Tests Start: 06/30/23 09:01 Freq: Status: Active Protocol: Document 07/01/23 15:10 [facility] (Rec: 07/01/23 16:21 [facility] [id number]) Special Tests Knee Special Tests Varus- 0 Degrees Test Results neg Valgus- 0 Degrees Test Results Negative Patellar Grind Test Test Results Negative Patella Tap Test Results Negative Tamia Test Test Results Negative Anterior Draw Test Results Negative PT-OP-M Strength Start: 06/30/23 09:01 Freq: Status: Active Protocol: Document 07/01/23 15:10 SAK (Rec: 07/01/23 16:21 [facility] [id number]) Hip Strength Hip Manual Muscle Testing Left Flexion (L2) 4- Good- Extension (S1) 4 Good Abduction 4 Good External Rotation 4- Good- Internal Rotation 4 Good Right Flexion (L2) 4+ Good+ Extension (S1) 4 Good Abduction 4+ Good+ External Rotation 4- Good- Internal Rotation 4+ Good+ Knee Strength Knee Manual Muscle Testing Left Flexion (S2) 4+ Good+ Extension (L3) 4+ Good+ Right Flexion (S2) 5 Normal Extension (L3) 5 Normal Ankle/Foot Strength Ankle and Foot Manual Muscle Testing Left Dorsiflexion (L4) 4+ Good+ Plantarflexion (S1) 4+ Good+ Right Dorsiflexion (L4) 5 Normal Plantarflexion (S1) 5 Normal PT-OP-Q Treatments Start: 06/30/23 09:01 Freq: Status: Active Protocol: Document 07/22/23 14:30 SAK (Rec: 07/22/23 15:20 [facility] [id number]) Cardio Equipment Bicycle (Upright) Duration (Minutes) 8 Resistance 6 Seat Position 6 Other cues for circular motion LE's Gym Equipment Shuttle Recovery Unilateral Squats Resistance 37 Shuttle Recovery Platform Stable Reps/Time 10x Bilateral Squats Resistance 62 Shuttle Recovery Platform Stable Reps/Time 10x2 Shuttle Balance Red Details WBOS f/b and side balance and wt shifts Reps/Duration 5 min Therapeutic Exercises Supine Exercises HS stretch Reps/Minutes 2x30 Comments manual bridge Supine Exercise Name Bridge; stacy and unil Side bilateral Reps/Minutes 10x5 Comments cues for glute engagement prior to ascending Sidelying Exercises clamshell Equipment Used L1 TB Reps/Minutes 10x5 Comments cues to eliminate compensation in LB, tactile cues for targeted muscles Standing Exercises calf stretch Equipment Used BEN Reps/Minutes 2x30 Gait Training Gait Activity resisted walk Description fwd,side,back Surface L1 TB Distance/Duration 10 ft x 2 Treatment Focus neutral LE alignment, slow and controlled PT-OP-R Modalities Start: 06/30/23 09:01 Freq: Status: Active Protocol: Document 07/22/23 14:30 SAK (Rec: 07/22/23 15:20 [facility] [id number]) Hot Pack/Cold Pack Treatment Cold Pack Location left knee Patient Position Hooklying Treatment Duration (minutes) 10 Patient Tolerance Good PT-OP-T Assessment and Plan Start: 06/30/23 09:01 Freq: Status: Active Protocol: Document 07/22/23 14:30 [facility] (Rec: 07/22/23 15:20 [facility] [id number]) Physical Therapy Assessment Goals Three Impairment muscle imbalances Impairment tightness in quads, hamstrings , weakness piriformis Short Term Goal (STG) Patient to be instructed in HEP for purposes of addressing muscle imbalances left LE STG Duration 08/01/23 Technical Editor Goal (LTG) Patient to be independent and compliant with HEP and demonstrate 5/5 muscle strength left hi and knee and improved quad and hamstring length to WNL LTG Duration 09/01/23 Two Impairment antalgic gait, left knee pain with stairs Short Term Goal (STG) patient will be able to walk on level surfaces without limp STG Duration 08/01/23 Half-Way Goal (LTG) patient will be able to ascend and descend stairs without pain or limp LTG Duration 09/01/23 One Impairment unable to perform usual ADL's without inc pain Technical Editor Goal (LTG) Patient will be able to get into bed and don shoes and socks without an increase in left knee pain LTG Duration 09/01/23 Progress Towards Goals Progress Towards Goals Progressing Toward Goals Assessment Summary Assessment Good tolerance for progression to single leg bridge and adding TB resistance to clamshell. Improved compliance to HEP Physical Therapy Plan Frequency and Duration Frequency of Treatment 2x/Week Duration of treatment (weeks) 8 Plan of Care Start Date 07/01/23 Plan of Care End Date 09/01/23 Therapeutic Interventions Therapeutic Interventions Gait Training,Home Exercise Program,Manual Therapy, Neuromuscular Re-education, Patient/Caregiver Education, Self-Care/Home Management,Soft Tissue Mobilization,Taping, Therapeutic Activities, Therapeutic Exercises Modalities Cold Pack/Ice Massage,Electric Stimulation,Hot Packs, Ultrasound Next Visit Focus/Plan Next Note Type Treatment Note Next Visit Plan add single leg bridge to HEP. Try fwd and lat step-ups. Continue strengthenig and flexibility ex with possible addition of IT band stretch.
--- NOTE | 2023-08-21 15:34 | PT.OTN ---
Current Diagnoses Pain in left knee (08/21/23) Difficulty in walking, not elsewhere classified (08/21/23) Weakness (08/21/23) Physical Therapy Treatment Note PT-OP-A Visit Information Start: 06/30/23 09:01 Freq: Status: Active Protocol: Document 08/21/23 14:33 SAK (Rec: 08/21/23 15:34 [facility] [id number]) Out-Patient Physical Therapy Visit Information Visit Information Visit Type Treatment Note Visit Start Time 14:37 Visit Stop Time 15:17 Visit Number 6 Number of MANAGER SIMULATION Visits 0 PT-OP-B Current Condition Start: 06/30/23 09:01 Freq: Status: Active Protocol: Document 08/21/23 14:33 SAK (Rec: 08/21/23 15:34 [facility] [id number]) Current Condition History of Current Condition Onset Date 4 months Current Complaints L knee pain, stacy shoulder pain History of Current Condition No known injury, gradual onset left knee pain. Noticed cant put knee on bed first as gets into bed as was his usual method and can't just bend knee up when puts on socks and shoes due to pain with bending knee. Some increase in pain with going up stairs suprapetaller region. History prior right knee pain, x-rays in April 2022 showed moderate arthritis, states pain gradually went away. NO treatment for left knee pain, just modification of activities. Doesn't do any regular exercise except gardening Prior Treatments and Tests October 2022 fractured 4th and 5th phalanges s/p fall April 2022: moderate arthritis, PT-OP-C Subjective Start: 06/30/23 09:01 Freq: Status: Active Protocol: Document 08/21/23 14:33 [facility] (Rec: 08/21/23 15:34 [facility] [id number]) OP-PT Subjective Patient Comments Patient Comments Reports re-aggravated his left foot, not sure how except maybe wearing his sandals. AFter 4 days wore his sandals minimally and hasn't necessarily gotten better but hasn't gotten worse. States he feels set back mentally. PT-OP-G Mobility & Gait Start: 06/30/23 09:01 Freq: Status: Active Protocol: Document 07/01/23 15:10 SAK (Rec: 07/01/23 16:21 [facility] [id number]) OP Gait Assessment Gait Gait Assistance Required: Independent Assistive Devices Assistive Device None Gait Deviations General Gait Pattern Antalgic Stair Climbing Evaluation Evaluation Level of Assist On Stairs Independent Devices Stair Climbing Assistive Devices Left Railing,Right Railing Technique/Endurance Stair Climbing Direction Ascend and Descend Stair Climbing Technique Step Over Step Comments Stair Climbing Comments painful PT-OP-H Neuro Start: 06/30/23 09:01 Freq: Status: Active Protocol: Document 07/01/23 15:10 [facility] (Rec: 07/01/23 16:21 [facility] [id number]) Sensation Evaluation Gross Sensation Gross Sensation WNL PT-OP-J Posture/Palpation/Skin Start: 06/30/23 09:01 Freq: Status: Active Protocol: Document 07/01/23 15:10 [facility] (Rec: 07/01/23 16:21 [facility] [id number]) Posture Evaluation Position Standing Weight Distribution Weight Shifted Right Knee Posture (L) Neutral Ankle/Foot Posture (R) Pronated,(R) Forefoot Abducted Foot Arch (L) Low Arch,(R) Low Arch Palpation Assessment Location left knee Palpation Findings Edema,Tenderness PT-OP-K Range of Motion Start: 06/30/23 09:01 Freq: Status: Active Protocol: Document 07/01/23 15:10 [facility] (Rec: 07/01/23 16:21 [facility] [id number]) Hip Goniometric Range of Motion Hip Left Hip ROM WFL Yes Flexion w/Knee Flexed 110 Straight Leg Raise 50 Right Hip ROM WFL Yes Flexion w/Knee Flexed 110 Straight Leg Raise 55 Knee Goniometric Range of Motion Knee Left Knee ROM WFL No Flexion Active (degrees) 105 Flexion Passive (degrees) 110 Extension Active (degrees) 0 Right Knee ROM WFL Yes Knee ROM Limitations Knee ROM Limitations Soft Tissue Tightness,Pain, Swelling Ankle and Foot Goniometric Range of Motion Ankle and Foot stacy Dorsiflexion with Knee Flexed 5 Dorsiflexion with Knee Extended 0 PT-OP-L Special Tests Start: 06/30/23 09:01 Freq: Status: Active Protocol: Document 07/01/23 15:10 [facility]AK (Rec: 07/01/23 16:21 [facility] [id number]) Special Tests Knee Special Tests Varus- 0 Degrees Test Results neg Valgus- 0 Degrees Test Results Negative Patellar Grind Test Test Results Negative Patella Tap Test Results Negative Tamia Test Test Results Negative Anterior Draw Test Results Negative PT-OP-M Strength Start: 06/30/23 09:01 Freq: Status: Active Protocol: Document 07/01/23 15:10 [facility] (Rec: 07/01/23 16:21 [facility] [id number]) Hip Strength Hip Manual Muscle Testing Left Flexion (L2) 4- Good- Extension (S1) 4 Good Abduction 4 Good External Rotation 4- Good- Internal Rotation 4 Good Right Flexion (L2) 4+ Good+ Extension (S1) 4 Good Abduction 4+ Good+ External Rotation 4- Good- Internal Rotation 4+ Good+ Knee Strength Knee Manual Muscle Testing Left Flexion (S2) 4+ Good+ Extension (L3) 4+ Good+ Right Flexion (S2) 5 Normal Extension (L3) 5 Normal Ankle/Foot Strength Ankle and Foot Manual Muscle Testing Left Dorsiflexion (L4) 4+ Good+ Plantarflexion (S1) 4+ Good+ Right Dorsiflexion (L4) 5 Normal Plantarflexion (S1) 5 Normal PT-OP-Q Treatments Start: 06/30/23 09:01 Freq: Status: Active Protocol: Document 08/21/23 14:33 [facility] (Rec: 08/21/23 15:34 [facility] [id number]) Therapeutic Exercises Supine Exercises ankle pumps Reps/Minutes 10x HS stretch Reps/Minutes 2x30 Comments manual SAQ Supine Exercise Name SAQ Equipment Used bolster Reps/Minutes 10x5 SLR Supine Exercise Name SLR Reps/Minutes 5 x 2 Comments cues for activation of quad prior to lift, no compensation in back Sidelying Exercises hip abducdtion Reps/Minutes 10x Gait Training Gait Activity resisted walk Comments held due to ankle pain Manual Therapy Treatment Taping left ankle Treatment Focus edema reduction Type of Tape kinesiotape Skin Inspection intact Comments 2 fan strips popliteal fossa to foot one med and one lat Self-Care/Home Management Treatment Education Patient Education Home Exercise Program,Pain Management Other Education obtain compression socks 20-30 mm Hg pressure at [facility] PT-OP-R Modalities Start: 06/30/23 09:01 Freq: Status: Active Protocol: Document 07/22/23 14:30 [facility] (Rec: 07/22/23 15:20 [facility] [id number]) Hot Pack/Cold Pack Treatment Cold Pack Location left knee Patient Position Hooklying Treatment Duration (minutes) 10 Patient Tolerance Good PT-OP-T Assessment and Plan Start: 06/30/23 09:01 Freq: Status: Active Protocol: Document 08/21/23 14:33 [facility] (Rec: 08/21/23 15:34 [facility] [id number]) Physical Therapy Assessment Goals Three Impairment muscle imbalances Impairment tightness in quads, hamstrings , weakness piriformis Short Term Goal (STG) Patient to be instructed in HEP for purposes of addressing muscle imbalances left LE STG Duration 08/01/23 Shelter Goal (LTG) Patient to be independent and compliant with HEP and demonstrate 5/5 muscle strength left hi and knee and improved quad and hamstring length to WNL LTG Duration 09/01/23 Two Impairment antalgic gait, left knee pain with stairs Short Term Goal (STG) patient will be able to walk on level surfaces without limp STG Duration 08/01/23 Shelter Goal (LTG) patient will be able to ascend and descend stairs without pain or limp LTG Duration 09/01/23 One Impairment unable to perform usual ADL's without inc pain Shelter Goal (LTG) Patient will be able to get into bed and don shoes and socks without an increase in left knee pain LTG Duration 09/01/23 Assessment Summary Assessment Treatment limited by worsened left ankle swelling with c/o pain and notable limping. Has had swelling for a long time but worsened with vacation, likely due to long flight, pressure change. Recommended patient obtain compression stockings 20-30 mm Hg pressure at [facility]. Knee pain overall better. Physical Therapy Plan Frequency and Duration Frequency of Treatment 2x/Week Duration of treatment (weeks) 8 Plan of Care Start Date 07/01/23 Plan of Care End Date 09/01/23 Therapeutic Interventions Therapeutic Interventions Gait Training,Home Exercise Program,Manual Therapy, Neuromuscular Re-education, Patient/Caregiver Education, Self-Care/Home Management,Soft Tissue Mobilization,Taping, Therapeutic Activities, Therapeutic Exercises Modalities Cold Pack/Ice Massage,Electric Stimulation,Hot Packs, Ultrasound Next Visit Focus/Plan Next Note Type Treatment Note Next Visit Plan If ankle can tolerate add single leg bridge to HEP. Try fwd and lat step-ups. Continue strengthenig and flexibility ex with possible addition of IT band stretch.
--- NOTE | 2023-08-26 14:30 | PT.OTN ---
Current Diagnoses Pain in left knee (08/26/23) Difficulty in walking, not elsewhere classified (08/26/23) Weakness (08/26/23) Physical Therapy Treatment Note PT-OP-A Visit Information Start: 06/30/23 09:01 Freq: Status: Active Protocol: Document 08/26/23 13:49 SP (Rec: 08/26/23 14:35 SP [id number]) Out-Patient Physical Therapy Visit Information Visit Information Visit Type Treatment Note Visit Start Time 13:49 Visit Stop Time 14:30 Visit Number 7 Number of DEWAXER Visits 1 Evaluation Information Evaluation Date 07/01/23 PT-OP-B Current Condition Start: 06/30/23 09:01 Freq: Status: Active Protocol: Document 08/21/23 14:33 SAK (Rec: 08/21/23 15:34 SAK [id number]) Current Condition History of Current Condition Onset Date 4 months Current Complaints L knee pain, stacy shoulder pain History of Current Condition No known injury, gradual onset left knee pain. Noticed cant put knee on bed first as gets into bed as was his usual method and can't just bend knee up when puts on socks and shoes due to pain with bending knee. Some increase in pain with going up stairs suprapetaller region. History prior right knee pain, x-rays in April 2022 showed moderate arthritis, states pain gradually went away. NO treatment for left knee pain, just modification of activities. Doesn't do any regular exercise except gardening Prior Treatments and Tests October 2022 fractured 4th and 5th phalanges s/p fall April 2022: moderate arthritis, PT-OP-C Subjective Start: 06/30/23 09:01 Freq: Status: Active Protocol: Document 08/26/23 13:49 SP (Rec: 08/26/23 14:35 SP [id number]) OP-PT Subjective Patient Comments Patient Comments Pt reports his foot felt much better after last tx. He went to [employer] and got a compression stocking for L leg , doesn't solve problem but helps support. He reports tends to descend slight turned to relieve L ankle pain. PT-OP-G Mobility & Gait Start: 06/30/23 09:01 Freq: Status: Active Protocol: Document 07/01/23 15:10 SAK (Rec: 07/01/23 16:21 SAK [id number]) OP Gait Assessment Gait Gait Assistance Required: Independent Assistive Devices Assistive Device None Gait Deviations General Gait Pattern Antalgic Stair Climbing Evaluation Evaluation Level of Assist On Stairs Independent Devices Stair Climbing Assistive Devices Left Railing,Right Railing Technique/Endurance Stair Climbing Direction Ascend and Descend Stair Climbing Technique Step Over Step Comments Stair Climbing Comments painful PT-OP-H Neuro Start: 06/30/23 09:01 Freq: Status: Active Protocol: Document 07/01/23 15:10 [facility] (Rec: 07/01/23 16:21 [facility] [id number]) Sensation Evaluation Gross Sensation Gross Sensation WNL PT-OP-J Posture/Palpation/Skin Start: 06/30/23 09:01 Freq: Status: Active Protocol: Document 07/01/23 15:10 [facility] (Rec: 07/01/23 16:21 [facility] [id number]) Posture Evaluation Position Standing Weight Distribution Weight Shifted Right Knee Posture (L) Neutral Ankle/Foot Posture (R) Pronated,(R) Forefoot Abducted Foot Arch (L) Low Arch,(R) Low Arch Palpation Assessment Location left knee Palpation Findings Edema,Tenderness PT-OP-K Range of Motion Start: 06/30/23 09:01 Freq: Status: Active Protocol: Document 07/01/23 15:10 [facility] (Rec: 07/01/23 16:21 [facility] [id number]) Hip Goniometric Range of Motion Hip Left Hip ROM WFL Yes Flexion w/Knee Flexed 110 Straight Leg Raise 50 Right Hip ROM WFL Yes Flexion w/Knee Flexed 110 Straight Leg Raise 55 Knee Goniometric Range of Motion Knee Left Knee ROM WFL No Flexion Active (degrees) 105 Flexion Passive (degrees) 110 Extension Active (degrees) 0 Right Knee ROM WFL Yes Knee ROM Limitations Knee ROM Limitations Soft Tissue Tightness,Pain, Swelling Ankle and Foot Goniometric Range of Motion Ankle and Foot stacy Dorsiflexion with Knee Flexed 5 Dorsiflexion with Knee Extended 0 PT-OP-L Special Tests Start: 06/30/23 09:01 Freq: Status: Active Protocol: Document 07/01/23 15:10 SAK (Rec: 07/01/23 16:21 [facility] [id number]) Special Tests Knee Special Tests Varus- 0 Degrees Test Results neg Valgus- 0 Degrees Test Results Negative Patellar Grind Test Test Results Negative Patella Tap Test Results Negative Tamia Test Test Results Negative Anterior Draw Test Results Negative PT-OP-M Strength Start: 06/30/23 09:01 Freq: Status: Active Protocol: Document 07/01/23 15:10 SAK (Rec: 07/01/23 16:21 SAK [id number]) Hip Strength Hip Manual Muscle Testing Left Flexion (L2) 4- Good- Extension (S1) 4 Good Abduction 4 Good External Rotation 4- Good- Internal Rotation 4 Good Right Flexion (L2) 4+ Good+ Extension (S1) 4 Good Abduction 4+ Good+ External Rotation 4- Good- Internal Rotation 4+ Good+ Knee Strength Knee Manual Muscle Testing Left Flexion (S2) 4+ Good+ Extension (L3) 4+ Good+ Right Flexion (S2) 5 Normal Extension (L3) 5 Normal Ankle/Foot Strength Ankle and Foot Manual Muscle Testing Left Dorsiflexion (L4) 4+ Good+ Plantarflexion (S1) 4+ Good+ Right Dorsiflexion (L4) 5 Normal Plantarflexion (S1) 5 Normal PT-OP-Q Treatments Start: 06/30/23 09:01 Freq: Status: Active Protocol: Document 08/26/23 13:49 SP (Rec: 08/26/23 14:35 SP [id number]) Therapeutic Exercises Supine Exercises ankle pumps Side left Reps/Minutes 10x Comments sock doffed, good Ktaping check not need replace SAQ Supine Exercise Name SAQ Equipment Used bolster Reps/Minutes 10x5 SLR Supine Exercise Name SLR Reps/Minutes 8 x2 Comments cues for activation of quad prior to lift, no compensation in back or HS bridge Supine Exercise Name Bridge: stacy and unil Side bilateral Reps/Minutes 8 reps stacy, 7 reps unilateral Comments cues for glute engagement prior to ascending, ft closer buttock dec HS recr Sitting Exercises self STMs Sitting Exercise Name added to HEP: quad, HS, ITB, calf Side bilateral Equipment Used rolling pin Reps/Minutes 2 min total Comments good easy massage Standing Exercises resisted side stepping Standing Exercise Name added to HEP Side bilateral Resistance TB #2 at ankles Equipment Used near rail not needed Reps/Minutes 10 ft x 3 laps Comments good form, hip abd tiring lat step down Standing Exercise Name trialed in PT Side bilateral Equipment Used 4step, PRN rail R LE, light contact during LLE, Reps/Minutes x10 Comments reported tension discomfort last 2 reps HS curl Standing Exercise Name initiated inPT Side bilateral Resistance AROM Reps/Minutes 2x10 Comments good pacing calf stretch Equipment Used BEN Reps/Minutes x30 Comments good gastroc chair squats Standing Exercise Name sit stands- ADDED TO hep Resistance AROM Equipment Used arms front Reps/Minutes x10 Comments cued slower eccentric control PT-OP-R Modalities Start: 06/30/23 09:01 Freq: Status: Active Protocol: Document 07/22/23 14:30 SAK (Rec: 07/22/23 15:20 SAK [id number]) Hot Pack/Cold Pack Treatment Cold Pack Location left knee Patient Position Hooklying Treatment Duration (minutes) 10 Patient Tolerance Good PT-OP-T Assessment and Plan Start: 06/30/23 09:01 Freq: Status: Active Protocol: Document 08/26/23 13:49 SP (Rec: 08/26/23 14:35 SP [id number]) Physical Therapy Assessment Goals Three Impairment muscle imbalances Impairment tightness in quads, hamstrings , weakness piriformis Short Term Goal (STG) Patient to be instructed in HEP for purposes of addressing muscle imbalances left LE STG Duration 08/01/23 Membership Sales Representative Goal (LTG) Patient to be independent and compliant with HEP and demonstrate 5/5 muscle strength left hi and knee and improved quad and hamstring length to WNL LTG Duration 09/01/23 Two Impairment antalgic gait, left knee pain with stairs Short Term Goal (STG) patient will be able to walk on level surfaces without limp STG Duration 08/01/23 Senior Living Goal (LTG) patient will be able to ascend and descend stairs without pain or limp LTG Duration 09/01/23 One Impairment unable to perform usual ADL's without inc pain Membership Sales Representative Goal (LTG) Patient will be able to get into bed and don shoes and socks without an increase in left knee pain LTG Duration 09/01/23 Assessment Summary Assessment Pt L calf/ankle skin intact/ coloring. Good feedback muscle tiring hip abd and overall work during ther ex. Stated L calf seemed stronger stretch on L than R but no adverse affect. Added STS and resisted side stepping to HEP for carryover safe performing with almost no cuing required, verbalized will continue at home with addition ex. Physical Therapy Plan Frequency and Duration Frequency of Treatment 2x/Week Duration of treatment (weeks) 8 Plan of Care Start Date 12/18/23 Plan of Care End Date 09/01/23 Therapeutic Interventions Therapeutic Interventions Gait Training,Home Exercise Program,Manual Therapy, Neuromuscular Re-education, Patient/Caregiver Education, Self-Care/Home Management,Soft Tissue Mobilization,Taping, Therapeutic Activities, Therapeutic Exercises Modalities Cold Pack/Ice Massage,Electric Stimulation,Hot Packs, Ultrasound Next Visit Focus/Plan Next Note Type Treatment Note Next Visit Plan Recheck HEP. Check L ankle ktaping and swelling reduction . POC: Continue strengthenig and flexibility ex with possible addition of IT band stretch.
--- NOTE | 2023-08-29 10:42 | PT.OTN ---
Current Diagnoses Pain in left knee (08/29/23) Difficulty in walking, not elsewhere classified (08/29/23) Weakness (08/29/23) Physical Therapy Treatment Note PT-OP-A Visit Information Start: 06/30/23 09:01 Freq: Status: Active Protocol: Document 08/29/23 09:47 [facility] (Rec: 08/29/23 10:42 [facility] [id number]) Out-Patient Physical Therapy Visit Information Visit Information Visit Type Treatment Note Visit Start Time 09:47 Visit Stop Time 10:32 Visit Number 8 Number of CLERICAL INVESTIGATOR Visits 0 Evaluation Information Evaluation Date 07/01/23 PT-OP-B Current Condition Start: 06/30/23 09:01 Freq: Status: Active Protocol: Document 08/29/23 09:47 [facility] (Rec: 08/29/23 10:42 [facility] [id number]) Current Condition History of Current Condition Onset Date 4 months Current Complaints L knee pain, stacy shoulder pain History of Current Condition No known injury, gradual onset left knee pain. Noticed cant put knee on bed first as gets into bed as was his usual method and can't just bend knee up when puts on socks and shoes due to pain with bending knee. Some increase in pain with going up stairs suprapetaller region. History prior right knee pain, x-rays in April 2022 showed moderate arthritis, states pain gradually went away. NO treatment for left knee pain, just modification of activities. Doesn't do any regular exercise except gardening Prior Treatments and Tests October 2022 fractured 4th and 5th phalanges s/p fall April 2022: moderate arthritis, PT-OP-C Subjective Start: 06/30/23 09:01 Freq: Status: Active Protocol: Document 08/29/23 09:47 [facility] (Rec: 08/29/23 10:42 [facility] [id number]) OP-PT Subjective Patient Comments Patient Comments eports overall better states exercise from last session with left foot up on stair, bothered his left foot (step PT-OP-G Mobility & Gait Start: 06/30/23 09:01 Freq: Status: Active Protocol: Document 07/01/23 15:10 SAK (Rec: 07/01/23 16:21 [facility] [id number]) OP Gait Assessment Gait Gait Assistance Required: Independent Assistive Devices Assistive Device None Gait Deviations General Gait Pattern Antalgic Stair Climbing Evaluation Evaluation Level of Assist On Stairs Independent Devices Stair Climbing Assistive Devices Left Railing,Right Railing Technique/Endurance Stair Climbing Direction Ascend and Descend Stair Climbing Technique Step Over Step Comments Stair Climbing Comments painful PT-OP-H Neuro Start: 06/30/23 09:01 Freq: Status: Active Protocol: Document 07/01/23 15:10 [facility] (Rec: 07/01/23 16:21 [facility] [id number]) Sensation Evaluation Gross Sensation Gross Sensation WNL PT-OP-J Posture/Palpation/Skin Start: 06/30/23 09:01 Freq: Status: Active Protocol: Document 07/01/23 15:10 [facility] (Rec: 07/01/23 16:21 [facility] [id number]) Posture Evaluation Position Standing Weight Distribution Weight Shifted Right Knee Posture (L) Neutral Ankle/Foot Posture (R) Pronated,(R) Forefoot Abducted Foot Arch (L) Low Arch,(R) Low Arch Palpation Assessment Location left knee Palpation Findings Edema,Tenderness PT-OP-K Range of Motion Start: 06/30/23 09:01 Freq: Status: Active Protocol: Document 07/01/23 15:10 [facility] (Rec: 07/01/23 16:21 [facility] [id number]) Hip Goniometric Range of Motion Hip Left Hip ROM WFL Yes Flexion w/Knee Flexed 110 Straight Leg Raise 50 Right Hip ROM WFL Yes Flexion w/Knee Flexed 110 Straight Leg Raise 55 Knee Goniometric Range of Motion Knee Left Knee ROM WFL No Flexion Active (degrees) 105 Flexion Passive (degrees) 110 Extension Active (degrees) 0 Right Knee ROM WFL Yes Knee ROM Limitations Knee ROM Limitations Soft Tissue Tightness,Pain, Swelling Ankle and Foot Goniometric Range of Motion Ankle and Foot stacy Dorsiflexion with Knee Flexed 5 Dorsiflexion with Knee Extended 0 PT-OP-L Special Tests Start: 06/30/23 09:01 Freq: Status: Active Protocol: Document 07/01/23 15:10 [facility] (Rec: 07/01/23 16:21 [facility] [id number]) Special Tests Knee Special Tests Varus- 0 Degrees Test Results neg Valgus- 0 Degrees Test Results Negative Patellar Grind Test Test Results Negative Patella Tap Test Results Negative Tamia Test Test Results Negative Anterior Draw Test Results Negative PT-OP-M Strength Start: 06/30/23 09:01 Freq: Status: Active Protocol: Document 07/01/23 15:10 [facility] (Rec: 07/01/23 16:21 [facility] [id number]) Hip Strength Hip Manual Muscle Testing Left Flexion (L2) 4- Good- Extension (S1) 4 Good Abduction 4 Good External Rotation 4- Good- Internal Rotation 4 Good Right Flexion (L2) 4+ Good+ Extension (S1) 4 Good Abduction 4+ Good+ External Rotation 4- Good- Internal Rotation 4+ Good+ Knee Strength Knee Manual Muscle Testing Left Flexion (S2) 4+ Good+ Extension (L3) 4+ Good+ Right Flexion (S2) 5 Normal Extension (L3) 5 Normal Ankle/Foot Strength Ankle and Foot Manual Muscle Testing Left Dorsiflexion (L4) 4+ Good+ Plantarflexion (S1) 4+ Good+ Right Dorsiflexion (L4) 5 Normal Plantarflexion (S1) 5 Normal PT-OP-Q Treatments Start: 06/30/23 09:01 Freq: Status: Active Protocol: Document 08/29/23 09:47 [facility] (Rec: 08/29/23 10:42 [facility] [id number]) Cardio Equipment Recumbent Elliptical ([employer]) Duration (Minutes) 5 Resistance 6 Seat Position 9 Therapeutic Exercises Supine Exercises ankle pumps Side left Reps/Minutes 10x Comments sock doffed, good Ktaping check not need replace HS stretch Reps/Minutes 2x30 Comments manual SAQ Supine Exercise Name SAQ Equipment Used bolster Reps/Minutes 10x5 SLR Supine Exercise Name SLR Reps/Minutes 8 x2 Comments cues for activation of quad prior to lift, no compensation in back or HS bridge Supine Exercise Name Bridge: stacy and unil Side bilateral Reps/Minutes 10 reps stacy, 10 reps unilateral Comments cues for glute engagement prior to ascending, ft closer buttock dec HS recr Sidelying Exercises hip abducdtion Reps/Minutes 10x clamshell Equipment Used L2 TB Reps/Minutes 10x5 Comments cues to eliminate compensation in LB, tactile cues for targeted muscles Standing Exercises resisted side stepping Standing Exercise Name added to HEP Side bilateral Resistance TB #2 at ankles Equipment Used near rail not needed Reps/Minutes 10 ft x 3 laps Comments good form, hip abd tiring lat step down Comments held due to pain after las session HS curl Side bilateral Resistance AROM Reps/Minutes 2x10 Comments good pacing calf stretch Equipment Used BEN Reps/Minutes x30 Comments good gastroc chair squats Standing Exercise Name sit stands Resistance AROM Equipment Used arms front Reps/Minutes x10 Comments cued slower eccentric control Manual Therapy Treatment Other Other Manual Treatments MMT and ROM measurements stacy LE's Self-Care/Home Management Treatment Education Other Education good fit, patient wearing consistently and improving donning ability. PT-OP-R Modalities Start: 06/30/23 09:01 Freq: Status: Active Protocol: Document 07/22/23 14:30 [facility] (Rec: 07/22/23 15:20 [facility] [id number]) Hot Pack/Cold Pack Treatment Cold Pack Location left knee Patient Position Hooklying Treatment Duration (minutes) 10 Patient Tolerance Good PT-OP-T Assessment and Plan Start: 06/30/23 09:01 Freq: Status: Active Protocol: Document 08/29/23 09:47 SAK (Rec: 08/29/23 10:42 [facility] [id number]) Physical Therapy Assessment Goals Three Impairment muscle imbalances Impairment tightness in quads, hamstrings , weakness piriformis Short Term Goal (STG) Patient to be instructed in HEP for purposes of addressing muscle imbalances left LE STG Duration 08/01/23 Half-Way Goal (LTG) Patient to be independent and compliant with HEP and demonstrate 5/5 muscle strength left hi and knee and improved quad and hamstring length to WNL 08/29/23: LTG Duration 09/01/23 Two Impairment antalgic gait, left knee pain with stairs Short Term Goal (STG) patient will be able to walk on level surfaces without limp STG Duration goal met Half-Way Goal (LTG) patient will be able to ascend and descend stairs without pain or limp 08/29/23: still sideways some but due to foot pain, following up with physician regarding foot pain soon, anticipates may return to PT. LTG Duration 09/01/23 One Impairment unable to perform usual ADL's without inc pain Groundwater Monitoring Technician Goal (LTG) Patient will be able to get into bed and don shoes and socks without an increase in left knee pain 08/29/23: good goal progress LTG Duration 09/01/23 Assessment Summary Assessment Patient has made good progress , requests discharge from PT at this time. Most PT goals achieved. WEaring compression stocking left. Min to no knee pain. Mostly limited by foot and ankle pain, will be seeing his doctor, may be back for PT for foot/ankle. Physical Therapy Plan Discharge Physical Therapy Discharge Reasons Patient Request Discharge Comments most goals achieved. Patient compliant to HEP
--- NOTE | 2023-08-29 16:00 | PT.OPDS ---
Current Diagnoses Pain in left knee (08/29/23) Difficulty in walking, not elsewhere classified (08/29/23) Weakness (08/29/23) Visit Care Team Role Provider Type David Saucedo MD Attending Provider Physician Family Provider Primary Care Provider Referring Provider Specialty: Family Practice Address: [address] [place] [address], [facility] Email: [email or web address] Visit Number Visit Number [phone] Discharge Summary PT-OP-B Current Condition Start: 06/30/23 09:01 Freq: Status: Active Protocol: Document 08/29/23 09:47 [facility] (Rec: 08/29/23 10:42 [facility] [id number]) Current Condition History of Current Condition Onset Date 4 months Current Complaints L knee pain, stacy shoulder pain History of Current Condition No known injury, gradual onset left knee pain. Noticed cant put knee on bed first as gets into bed as was his usual method and can't just bend knee up when puts on socks and shoes due to pain with bending knee. Some increase in pain with going up stairs suprapetaller region. History prior right knee pain, x-rays in April 2022 showed moderate arthritis, states pain gradually went away. NO treatment for left knee pain, just modification of activities. Doesn't do any regular exercise except gardening Prior Treatments and Tests October 2022 fractured 4th and 5th phalanges s/p fall April 2022: moderate arthritis, PT-OP-C Subjective Start: 06/30/23 09:01 Freq: Status: Active Protocol: Document 08/29/23 09:47 [facility] (Rec: 08/29/23 10:42 [facility] [id number]) OP-PT Subjective Patient Comments Patient Comments eports overall better states exercise from last session with left foot up on stair, bothered his left foot (step PT-OP-G Mobility & Gait Start: 06/30/23 09:01 Freq: Status: Active Protocol: Document 07/01/23 15:10 [facility] (Rec: 07/01/23 16:21 [facility] [id number]) OP Gait Assessment Gait Gait Assistance Required: Independent Assistive Devices Assistive Device None Gait Deviations General Gait Pattern Antalgic Stair Climbing Evaluation Evaluation Level of Assist On Stairs Independent Devices Stair Climbing Assistive Devices Left Railing,Right Railing Technique/Endurance Stair Climbing Direction Ascend and Descend Stair Climbing Technique Step Over Step Comments Stair Climbing Comments painful PT-OP-H Neuro Start: 06/30/23 09:01 Freq: Status: Active Protocol: Document 07/01/23 15:10 [facility] (Rec: 07/01/23 16:21 [facility] [id number]) Sensation Evaluation Gross Sensation Gross Sensation WNL PT-OP-J Posture/Palpation/Skin Start: 06/30/23 09:01 Freq: Status: Active Protocol: Document 07/01/23 15:10 [facility] (Rec: 07/01/23 16:21 [facility] [id number]) Posture Evaluation Position Standing Weight Distribution Weight Shifted Right Knee Posture (L) Neutral Ankle/Foot Posture (R) Pronated,(R) Forefoot Abducted Foot Arch (L) Low Arch,(R) Low Arch Palpation Assessment Location left knee Palpation Findings Edema,Tenderness PT-OP-K Range of Motion Start: 06/30/23 09:01 Freq: Status: Active Protocol: Document 07/01/23 15:10 [facility] (Rec: 07/01/23 16:21 [facility] [id number]) Hip Goniometric Range of Motion Hip Left Hip ROM WFL Yes Flexion w/Knee Flexed 110 Straight Leg Raise 50 Right Hip ROM WFL Yes Flexion w/Knee Flexed 110 Straight Leg Raise 55 Knee Goniometric Range of Motion Knee Left Knee ROM WFL No Flexion Active (degrees) 105 Flexion Passive (degrees) 110 Extension Active (degrees) 0 Right Knee ROM WFL Yes Knee ROM Limitations Knee ROM Limitations Soft Tissue Tightness,Pain, Swelling Ankle and Foot Goniometric Range of Motion Ankle and Foot stacy Dorsiflexion with Knee Flexed 5 Dorsiflexion with Knee Extended 0 PT-OP-L Special Tests Start: 06/30/23 09:01 Freq: Status: Active Protocol: Document 07/01/23 15:10 [facility] (Rec: 07/01/23 16:21 [facility] [id number]) Special Tests Knee Special Tests Varus- 0 Degrees Test Results neg Valgus- 0 Degrees Test Results Negative Patellar Grind Test Test Results Negative Patella Tap Test Results Negative Tamia Test Test Results Negative Anterior Draw Test Results Negative PT-OP-M Strength Start: 06/30/23 09:01 Freq: Status: Active Protocol: Document 07/01/23 15:10 [facility] (Rec: 07/01/23 16:21 [facility] [id number]) Hip Strength Hip Manual Muscle Testing Left Flexion (L2) 4- Good- Extension (S1) 4 Good Abduction 4 Good External Rotation 4- Good- Internal Rotation 4 Good Right Flexion (L2) 4+ Good+ Extension (S1) 4 Good Abduction 4+ Good+ External Rotation 4- Good- Internal Rotation 4+ Good+ Knee Strength Knee Manual Muscle Testing Left Flexion (S2) 4+ Good+ Extension (L3) 4+ Good+ Right Flexion (S2) 5 Normal Extension (L3) 5 Normal Ankle/Foot Strength Ankle and Foot Manual Muscle Testing Left Dorsiflexion (L4) 4+ Good+ Plantarflexion (S1) 4+ Good+ Right Dorsiflexion (L4) 5 Normal Plantarflexion (S1) 5 Normal PT-OP-T Assessment and Plan Start: 06/30/23 09:01 Freq: Status: Active Protocol: Document 08/29/23 09:47 [facility] (Rec: 08/29/23 10:42 [facility] [id number]) Physical Therapy Assessment Goals Three Impairment muscle imbalances Impairment tightness in quads, hamstrings , weakness piriformis Short Term Goal (STG) Patient to be instructed in HEP for purposes of addressing muscle imbalances left LE STG Duration 08/01/23 Lawn Service Supervisor Goal (LTG) Patient to be independent and compliant with HEP and demonstrate 5/5 muscle strength left hi and knee and improved quad and hamstring length to WNL 08/29/23: LTG Duration 09/01/23 Two Impairment antalgic gait, left knee pain with stairs Short Term Goal (STG) patient will be able to walk on level surfaces without limp STG Duration goal met [facility] Goal (LTG) patient will be able to ascend and descend stairs without pain or limp 08/29/23: still sideways some but due to foot pain, following up with physician regarding foot pain soon, anticipates may return to PT. LTG Duration 09/01/23 One Impairment unable to perform usual ADL's without inc pain Lawn Service Supervisor Goal (LTG) Patient will be able to get into bed and don shoes and socks without an increase in left knee pain 08/29/23: good goal progress LTG Duration 09/01/23 Assessment Summary Assessment Patient has made good progress , requests discharge from PT at this time. Most PT goals achieved. WEaring compression stocking left. Min to no knee pain. Mostly limited by foot and ankle pain, will be seeing his doctor, may be back for PT for foot/ankle. Physical Therapy Plan Discharge Physical Therapy Discharge Reasons Patient Request Discharge Comments most goals achieved. Patient compliant to HEP
== END 2023-10-18 10:32 | disposition home or self-care (01) ==
LOC: PHYS 09:45
PROVIDERS: Family Provider Family Medicine; PCP Family Medicine; Referring Provider Family Medicine; Visit Provider Family Medicine
DX: M25.562 Pain in left knee (principal); R26.2 Difficulty in walking, not elsewhere classified; R53.1 Weakness
CPT/HCPCS: 97110; 97140; 97162; 97535

== ENCOUNTER → 2023-09-12 12:41 | Outpatient (CLI) | payer OTHER, SELFPAY ==
[2023-09-12 13:47] LABS: Add Manual Diff / Slide Review NO; Basophils Absolute Auto 0 /uL (0-100); Basophils Percent Auto 0.7 % (0-2); Eosinophils Absolute Auto 200 /uL (0-450); Eosinophils Percent Auto 4.2 % (2-4); Hematocrit 38.9 % (41-53); Hemoglobin 13.1 g/dL (13.5-17.5); Lymphocytes Absolute Auto 1100 /uL (1100-4500); Lymphocytes Percent Auto 24.3 % (25-40); Mean Corpuscular HGB Conc 33.8 % (30-36); Mean Corpuscular Hemoglobin 30.8 PG (26-34); Mean Corpuscular Volume 91.4 fL (80-100); Monocytes Absolute Auto 500 /uL (0-900); Monocytes Percent Auto 10.5 % (3-14); Neutrophils Absolute Auto 2700 /uL (1500-7000); Neutrophils Percent Auto 60.3 % (50-75); Platelet Count 197 X10^3/uL (150-400); Red Blood Cell Count 4.26 X10^6/uL (4.5-5.9); Red Cell Distribution Width 12.7 % (11.6-14.8); White Blood Cell Count 4.5 X10^3/uL (4.5-11.0)
[2023-09-12 13:59] LABS: Alanine Aminotransferase 36 IU/L (<50); Albumin 4.1 g/dL (3.5-5.0); Albumin Globulin Ratio 1.3 (1.0-2.8); Alkaline Phosphatase 87 U/L (38-126); Aspartate Aminotransferase 35 IU/L (17-59); BUN Creatinine Ratio 20.6 (6-22); Bilirubin Total 0.4 mg/dL (0.2-1.3); Blood Urea Nitrogen 21 mg/dL (9-20); Calcium 9.1 mg/dL (8.4-10.2); Carbon Dioxide 31 mmol/L (22-32); Chloride 108 mmol/L (98-107); Estimated Glomerular Filt Rate > 60 mL/min (>60); Globulin 3.2 g/dL (1.7-4.1); Glucose 82 mg/dL (80-110); HEMOLYSIS < 15 (0-50); Potassium 4.4 mmol/L (3.4-5.1); Sodium 140 mmol/L (137-145); Total Protein 7.3 g/dL (6.3-8.2)
[2023-09-12 14:15] LABS: Free T4, Direct Thyroxine 0.76 ng/dL (0.78-2.19)
[2023-09-12 14:29] LABS: Thyroid Stimulating Hormone 2.27 uIU/mL (0.47-4.68)
== END ==
PROVIDERS: Family Provider Family Medicine; PCP Family Medicine; Referring Provider Psychiatry & Neurology Neurology; Visit Provider Psychiatry & Neurology Neurology
DX: Z51.81 Encounter for therapeutic drug level monitoring (principal); R20.9 Unspecified disturbances of skin sensation
CPT/HCPCS: 36415; 80053; 84439; 84443; 85025

== ENCOUNTER → 2023-11-11 11:25 | Outpatient (CLI) | payer OTHER, SELFPAY ==
[2023-11-11 12:23] LABS: Add Manual Diff / Slide Review NO; Basophils Absolute Auto 0 /uL (0-100); Basophils Percent Auto 0.9 % (0-2); Eosinophils Absolute Auto 100 /uL (0-450); Eosinophils Percent Auto 3.4 % (2-4); Hematocrit 38.8 % (41-53); Lymphocytes Absolute Auto 900 /uL (1100-4500); Lymphocytes Percent Auto 26.3 % (25-40); Mean Corpuscular HGB Conc 33.4 % (30-36); Mean Corpuscular Hemoglobin 30.8 PG (26-34); Mean Corpuscular Volume 92.4 fL (80-100); Monocytes Absolute Auto 400 /uL (0-900); Monocytes Percent Auto 9.8 % (3-14); Neutrophils Absolute Auto 2100 /uL (1500-7000); Neutrophils Percent Auto 59.6 % (50-75); Platelet Count 216 X10^3/uL (150-400); White Blood Cell Count 3.6 X10^3/uL (4.5-11.0)
[2023-11-11 12:42] LABS: Alanine Aminotransferase 34 IU/L (<50); Albumin 4.3 g/dL (3.5-5.0); Albumin Globulin Ratio 1.5 (1.0-2.8); Alkaline Phosphatase 92 U/L (38-126); Aspartate Aminotransferase 33 IU/L (17-59); BUN Creatinine Ratio 20.4 (6-22); Bilirubin Total 0.3 mg/dL (0.2-1.3); Blood Urea Nitrogen 19 mg/dL (9-20); C-Reactive Protein Quant < 0.5 mg/dL (<1.0); Calcium 9.1 mg/dL (8.4-10.2); Carbon Dioxide 26 mmol/L (22-32); Chloride 110 mmol/L (98-107); Cholesterol 164 mg/dL (140-199); Estimated Glomerular Filt Rate > 60 mL/min (>60); Globulin 2.9 g/dL (1.7-4.1); Glucose 101 mg/dL (80-110); HDL Cholesterol 44 mg/dL (40-60); HEMOLYSIS < 15 (0-50); LDL Cholesterol Calculated 95 mg/dL (<100); Potassium 4.1 mmol/L (3.4-5.1); Sodium 140 mmol/L (137-145); Total Protein 7.2 g/dL (6.3-8.2); Triglycerides 124 mg/dL (35-150)
[2023-11-11 12:45] LABS: Erythrocyte Sedimentation Rate 9 MM/HR (0-15)
[2023-11-11 13:11] LABS: TSH w/ Reflex to FT4 2.78 uIU/mL (0.47-4.68)
[2023-11-12 08:56] LABS: Apolipoprotein B 89 mg/dL (<90)
== END ==
LOC: LAB 11:26
PROVIDERS: Family Provider Family Medicine; PCP Family Medicine; Referring Provider Family Medicine; Visit Provider Family Medicine
DX: E78.2 Mixed hyperlipidemia (principal); M79.672 Pain in left foot; R20.2 Paresthesia of skin; I73.9 Peripheral vascular disease, unspecified; I73.00 Raynaud's syndrome without gangrene
CPT/HCPCS: 36415; 80053; 80061; 82172; 84443; 85025; 85651; 86038; 86140

== ENCOUNTER → 2023-11-18 10:20 | Outpatient (CLI) | payer OTHER, SELFPAY ==
--- NOTE | 2023-11-18 10:21 | DI.CT.S_ITS ---
PROCEDURE: CT ANGIO ABD AORTA RUNOFF INDICATIONS: cold right hand and right foot TECHNIQUE: After the administration of intravenous contrast, 2.5 mm sections acquired from T12 to the feet, with optional delayed image acquisition from the knees to the feet. 3-dimensional maximum intensity projection (MIP) coronal and sagittal reformats, and/or 3-dimensional volume rendering reformatting was then performed. For radiation dose reduction, the following was used: automated exposure control. COMPARISON: None. FINDINGS: Image Quality: Diagnostic. Abdominal aorta: Widely patent without significant plaque. No aneurysm or dissection. 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 SMA is patent. LITO is patent. Bilateral renal arteries are patent. Right lower extremity: Common iliac, external iliac, common femoral, SFA, popliteal, and 3 runoff vessels are widely patent. Note is made of a right popliteal fossa Rodriguez cyst. Left lower extremity: Wide patency on the left, as well. Lower Chest: Mild aneurysmal dilatation of the ascending aorta, measuring 4.2 cm. Prominent right pulmonary artery, measuring 3.0 cm may potentially indicate a degree of pulmonary arterial hypertension. ABDOMEN: Liver: No solid mass. Gallbladder: No radiopaque gallstones or wall thickening. Biliary ducts: No biliary dilation. Pancreas: No ductal dilation. Spleen: Size is within normal limits. Adrenal Glands: No adrenal nodules. Kidneys and Ureters: No hydronephrosis. No solid mass. No complex renal cystic lesion which requires follow up. Stomach and Bowel: Normal colonic caliber, without significant wall thickening. Peritoneum: No abnormal intraperitoneal fluid. No free air. Ventral Wall: No hernia. Abdominal Nodes: No retroperitoneal or mesenteric adenopathy by size criteria. Vessels: Aorta and inferior vena cava are normal in size. PELVIS: Pelvic Organs: Prostate is enlarged.. Bladder: Decompressed with mild bladder wall thickening. Pelvic Nodes: No enlarged lymph nodes. Miscellaneous: At least moderate sized fat containing left inguinal hernia. Small fat containing right inguinal hernia. Bones: No aggressive osseous abnormality. Old compressions of L1 and L4. No acute compressions. IMPRESSION: 1. Wide patency of the abdominal aorta, iliacs, and bilateral lower extremity runoff arterial vessels. 2. Incidental note made of a Rodriguez cyst in the right popliteal fossa. 3. Mild aneurysmal dilatation of the ascending aorta incidentally noted. 4. 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 5. Bilateral inguinal hernias, left greater than right. 6. Old osteoporotic compression fractures. 7. Prostatomegaly, mild bladder wall thickening. Dictated by: Adam Angeles M.D. on 11/18/2023 at 11:59 Approved by: Adam Angeles M.D. on 11/18/2023 at 12:10
== END ==
PROVIDERS: Family Provider Family Medicine; PCP Family Medicine; Referring Provider Family Medicine; Visit Provider Family Medicine
DX: I73.9 Peripheral vascular disease, unspecified (principal); I77.810 Thoracic aortic ectasia; I77.4 Celiac artery compression syndrome; R20.2 Paresthesia of skin; K40.20 Bilateral inguinal hernia, without obstruction or gangrene, not specified as recurrent; N40.0 Benign prostatic hyperplasia without lower urinary tract symptoms; M71.21 Synovial cyst of popliteal space [Baker], right knee; Z87.310 Personal history of (healed) osteoporosis fracture
CPT/HCPCS: 75635; Q9967

== ENCOUNTER → 2023-11-20 15:40 | Outpatient (CLI) | payer OTHER, SELFPAY ==
--- NOTE | 2023-11-20 15:42 | DI.RAD.S_ITS ---
PROCEDURE: XR FOOT LT MIN 3V INDICATIONS: LT FOOT PAIN TECHNIQUE: 3 views of the foot were acquired. COMPARISON: [facility], , XR FOOT LT MIN 3V, 08/14/2023, 15:22. FINDINGS: Bones: No fractures or dislocations. No suspicious bony lesions. There is an overall appearance decreased bone mineral density. Midfoot degenerative changes are present. 1st MTP joint degenerative change is most prominent. Otherwise, scattered IP degenerative changes. Soft tissues: No tibiotalar joint effusion. Achilles tendon appears normal. IMPRESSION: IP and 1st MTP arthritic change. Dictated by: Dunia Cerna M.D. on 11/20/2023 at 21:16 Approved by: Dunia Cerna M.D. on 11/20/2023 at 21:17
== END ==
PROVIDERS: Family Provider Family Medicine; PCP Family Medicine; Referring Provider Podiatrist; Visit Provider Podiatrist
DX: M79.672 Pain in left foot (principal)
CPT/HCPCS: 73630

== ENCOUNTER → 2023-12-16 12:17 | Outpatient (CLI) | payer OTHER, SELFPAY ==
[2023-12-16 13:10] LABS: Add Manual Diff / Slide Review NO; Basophils Absolute Auto 0 /uL (0-100); Basophils Percent Auto 0.6 % (0-2); Eosinophils Absolute Auto 100 /uL (0-450); Eosinophils Percent Auto 2.9 % (2-4); Hematocrit 39.6 % (41-53); Hemoglobin 13.2 g/dL (13.5-17.5); Lymphocytes Absolute Auto 900 /uL (1100-4500); Lymphocytes Percent Auto 24.5 % (25-40); Mean Corpuscular HGB Conc 33.4 % (30-36); Mean Corpuscular Hemoglobin 31.1 PG (26-34); Mean Corpuscular Volume 93.1 fL (80-100); Monocytes Absolute Auto 300 /uL (0-900); Monocytes Percent Auto 8.3 % (3-14); Neutrophils Absolute Auto 2500 /uL (1500-7000); Neutrophils Percent Auto 63.7 % (50-75); Platelet Count 202 X10^3/uL (150-400); Red Blood Cell Count 4.26 X10^6/uL (4.5-5.9); Red Cell Distribution Width 12.9 % (11.6-14.8); White Blood Cell Count 3.8 X10^3/uL (4.5-11.0)
[2023-12-16 13:33] LABS: HEMOLYSIS < 15 (0-50); Iron 85 ug/dL (49-181)
[2023-12-16 13:43] LABS: Percent Iron Saturation 38 % (20-50); Total Iron Binding Capacity 225 ug/dL (261-462); Transferrin 167 mg/dL (206-381)
[2023-12-16 14:08] LABS: Prostate Specific Antigen Scrn 5.24 ng/mL (0.1-4.0)
[2023-12-16 14:12] LABS: Ferritin 47 ng/mL (18-464)
== END ==
PROVIDERS: Family Provider Family Medicine; PCP Family Medicine; Referring Provider Family Medicine; Visit Provider Family Medicine
DX: R97.20 Elevated prostate specific antigen [PSA] (principal); D64.9 Anemia, unspecified; Z12.5 Encounter for screening for malignant neoplasm of prostate
CPT/HCPCS: 36415; 82728; 83540; 83550; 85025; G0103

== ENCOUNTER → 2023-12-23 14:57 | Outpatient (CLI) | payer OTHER, SELFPAY ==
--- NOTE | 2023-12-23 14:58 | DI.RAD.S_ITS ---
PROCEDURE: XR HAND LT MIN 3V INDICATIONS: left hand swelling TECHNIQUE: 3 views of the hand(s) acquired. COMPARISON: None. FINDINGS: Bones: No fractures or dislocations. Carpal bones are normally aligned. No suspicious bony lesions. Interphalangeal joint space narrowing with osteophytosis. Soft tissues: No suspicious soft tissue calcifications. IMPRESSION: No acute bony abnormality. Moderate interphalangeal osteoarthritis. Dictated by: Daniel Jo M.D. on 12/23/2023 at 15:56 Approved by: Daniel Jo M.D. on 12/23/2023 at 15:56
[2023-12-23 15:42] LABS: C-Reactive Protein Quant < 0.5 mg/dL (<1.0); Uric Acid 5.1 mg/dL (3.5-8.5)
[2023-12-23 16:00] LABS: Rheumatoid Factor < 8.6 IU/mL (<12.0)
[2023-12-23 16:10] LABS: Erythrocyte Sedimentation Rate 9 MM/HR (0-15)
[2023-12-24 22:36] LABS: CCP Antibodies IgG/IgA 13 units (0-19)
== END ==
PROVIDERS: Family Provider Family Medicine; PCP Family Medicine; Referring Provider Family Medicine; Visit Provider Family Medicine
DX: M19.042 Primary osteoarthritis, left hand (principal); M79.89 Other specified soft tissue disorders; R97.20 Elevated prostate specific antigen [PSA]; D64.9 Anemia, unspecified; G25.0 Essential tremor; E78.2 Mixed hyperlipidemia
CPT/HCPCS: 36415; 73130; 84550; 85651; 86140; 86200; 86430

== ENCOUNTER 2024-02-26 06:43 | Day surgery (SDC) | payer OTHER, SELFPAY ==
[2024-02-24 12:31] VITALS: BMI 27.3
--- NOTE | 2024-02-25 09:24 | P.HP_ITS ---
History of Present Illness History of Present Illness Date Patient Seen: 02/26/24 Time Patient Seen: 07:30 Chief complaint: Lap Jose Cruz inguinal hernia repair Narrative: 83M here for bilateral lap inguinal hernia repair. No interval change in health. [facility] Medical History Leukopenia Ascending aortic aneurysm Elevated PSA BPH w/o urinary obs/LUTS Hx of neurological disease Hx of squamous cell carcinoma of skin Foot contusion TIA (transient ischemic attack) Bowel obstruction Diverticulosis GERD (gastroesophageal reflux disease) Arthritis Sinus drainage Depression Fractures (~1961) Mumps Measles Chicken pox Anemia Surgical History History of surgery (05/09/20) Hx of vasectomy Hx of circumcision Anesthesia History of sinus surgery (~2006) Melanoma (~1977) Status post colonoscopy (~2013) Status post colonoscopy (~2010) History of third molar tooth extraction (~1979) Family History Brother Age: 88 Cancer Father Cancer Heart disease Hypertension Mother Heart disease High cholesterol Macular degeneration Osteoporosis Grandmother Cancer Sister Cancer Sister Age: 85 Macular degeneration Grandfather No problems noted. Social History marital status: number of children: 2 household members: spouse occupational status: previously employed Smoking Status: Former smoker alcohol intake: current substance use type: does not use caffeine: Yes Type(s) of exercise: independent ambulation and other frequency: 3-4 times per week duration: > 90 minutes/day Meds Home Medications and Allergies Home Medications Medication Instructions Recorded Confirmed Type aspirin 81 mg tablet,delayed 81 mg PO DAILY ##0 01/23/11 02/26/24 History release multivitamin 1 tab PO DAILY ##0 01/23/11 02/26/24 History vit C 250 mg-vit E 90 mg-zinc 40 1 tab PO DAILY ##0 08/18/12 02/26/24 History mg-copper 1 [id number] capsule (PreserVision AREDS-2) vitamin E 268 mg (400 unit) capsule 400 unit PO DAILY ##0 08/18/12 02/26/24 History fluticasone propionate 50 2 spray intranasal BEDTIME 09/01/19 02/26/24 History mcg/actuation nasal spray,suspension (Flonase Allergy Relief) propranolol 10 mg tablet 10 mg PO ONCE 04/04/22 02/26/24 History primidone 250 mg tablet 750 mg PO ONCE 06/10/23 02/26/24 History topiramate 25 mg tablet 25 mg PO BID 06/10/23 02/26/24 History lansoprazole 30 mg capsule,delayed 30 mg PO DAILY #180 caps 10/15/23 02/26/24 Rx release atorvastatin 40 mg tablet 40 mg PO BEDTIME #90 tabs 02/14/24 02/26/24 Rx citalopram 20 mg tablet See Rx Instructions .Route 02/14/24 02/26/24 Rx .COMPLEX #90 tabs Allergies Allergy/AdvReac Type Severity Reaction Status Date / Time No Known Drug Allergies Allergy Verified 02/26/24 07:21 Exam Narrative Exam Narrative: Gen-Elderly man alert and oriented Abdomen-Soft non tender Assessment & Plan Assessment and plan (1) Bilateral inguinal hernia: Qualifiers: Obstruction and gangrene presence: without obstruction or gangrene Recurrence: non-recurrent Qualified Code(s): K40.20 - Bilateral inguinal hernia, without obstruction or gangrene, not specified as recurrent Status: Acute Assessment & Plan narrative: 83M with symptomatic bilateral inguinal hernia here for elective laparoscopic repair. Overview of the operation the risks benefits and alternatives once again reviewed. Questions answered and he provides consent to proceed. Time-Based Coding :: [TOTAL MINUTES] spent with patient and on the chart (including review of chart, obtaining history, exam, reviewing outside data, placing orders, documenting exam and treatment plan, and counseling patient) on [DATE].
[2024-02-26] VITALS (8 sets, daily range): BP systolic 137–152; BP diastolic 58–78; PULSE 61–83; RESP 12–144; TEMP 35.7–36.4; O2SAT 94–99; BMI 27.3; BMI 26.1
[2024-02-26] MEDS: LACTATED RINGERS 1,000 ML 21 ML IV ×2 (07:05→08:34)
--- NOTE | 2024-02-26 07:24 | EKG_ITS ---
[address] [address] Test Date: 2024-02-26 Pat Name: Blair Olguin Department: Room: Gender: Male Custom Dressmaker: Chandler HOLLIDAY : 1940 Requested By: Order Number: [id number] Reading MD: Wander Rubin MD Measurements Intervals [place] Rate: 55 P: 46 HI: 174 QRS: 30 QRSD: 88 T: 47 QT: 412 QTc: 394 Interpretive Statements Sinus bradycardia with premature supraventricular complexes Electronically Signed On 02-26-2024 10:57:20 PDT by Wander Rubin MD
[2024-02-26] MEDS: CEFAZOLIN 2 GM/100 ML PREMIX 100 ML IV (07:51)
[2024-02-26] MEDS: ACETAMINOPHEN IV 1,000 MG/100 ML VIAL 400 MG IV (08:11)
--- NOTE | 2024-02-26 08:15 | SUR.OPER ---
Supine on padded OR bed, head on pillow, arms padded and tucked at sides, legs uncrossed, safety belt at thigh, tape over blanket over lower legs .
[2024-02-26] MEDS: BUPIVACAINE 0.25% (PF) VIAL 30 ML INJ (08:19)
--- NOTE | 2024-02-26 09:33 | PM.OP.1 ---
Operative Date/Time/Diagnoses Date of procedure: 02/26/24 Time of procedure: 09:33 Pre-op diagnosis: Bilateral inguinal hernia Post-op diagnosis: same Procedure & Clinicians Procedure: Laparoscopic repair of bilateral inguinal hernia Same procedure as scheduled: Yes Indications: Symptomatic reducible bilateral inguinal hernia Surgeon: Misah Woodard Technical Operations Vice President: Thiago Harvey Anesthesia Type: General Operative Notes Findings: Bilateral direct defects only Specimen(s): none sent Estimated Blood Loss (mL): 10 Procedure in detail: The patient was brought to the operating room and placed supine on the table. Bilateral sequential compression devices were applied. General anesthesia was induced and they were intubated with an endotracheal tube. A staley cath was placed in sterile fashion. They received 2 g Ancef prior to skin incision. They were prepped and draped in sterile fashion. A time out was performed to ensure the correct patient, procedure and necessary equipment within the operating room. The skin was infiltrated with 0.25% bupivicaine. A 1 cm supra umbilical midline incision was made. The fascia was sharply incised and the abdomen entered traumatically. A 10mm balloon port was placed and pneumoperitoneum was established at 15mm Hg. Inspection of the abdomen demonstrated no evidence of injury upon entry. Two 5 mm ports were then placed under direct visualization in the right and left lower quadrant lateral to the rectus muscle. A right and left direct hernias were observed. There were adhesions between the sigmoid colon and the left pelvic side wall which were carefully dissected. Starting on the left side the peritoneum 4 cm superior to the deep inguinal ring between the medial umbilical ligament and the anterior superior iliac spine was incised. The medial preperitoneal dissection was carried out into the space of Retzius bluntly, the bladder was swept inferiorly, the pubis and Bob's ligament were identified. Next attention was turned towards the lateral aspect of the peritoneal flap. The preperitoneal fat with the testicular vessels was carefully dissected off the inferior peritoneal flap. The cord was carefully inspected there was no indirect defect. The attachements to the direct hernia sac were divided and the direct defect was reduced. A large Bard 3D Max mesh was then placed into the abdomen and positioned such that the myopectineal orifice was completely covered with good overlap on all sides. The peritoneal flap was then repositioned back to its original position and a running V lock suture was used to close the peritoneum such that no bowel could herniate into the preperitoneal space. The area was examined for hemostasis. Next the right side was addressed. The peritoneum 4 cm superior to the deep inguinal ring between the medial umbilical ligament and the anterior superior iliac spine was incised. The medial preperitoneal dissection was carried out into the space of Retzius bluntly, the bladder was swept inferiorly, the pubis and Bob's ligament were identified. Next attention was turned towards the lateral aspect of the peritoneal flap. The preperitoneal fat with the testicular vessels was carefully dissected off the inferior peritoneal flap. The cord was carefully inspected there was no evidence of indirect defect or cord lipoma. The attachements to the direct hernia sac were divided and the direct defect was reduced. A large Bard 3D Max mesh was then placed into the abdomen and positioned such that the myopectineal orifice was completely covered with good overlap on all sides. The peritoneal flap was then repositioned back to its original position and a running V lock suture was used to close the peritoneum such that no bowel could herniate into the preperitoneal space. The area was examined for hemostasis. The 5mm trocars were removed under direct visualization and pneumoperitoneum was deflated through the umbilical trocar, The fascia at the umbilicus was closed with 0-Vicryl in figure of 8 fashion, skin closed with 4-0 Monocyl followed by Dermabond. The sponge and instrument count at the end of the case was correct. Both testicles were entirely within the scrotum at the end of the case. The patient emerged from anesthsia was extubated and transferred to recovery in stable condition. Complications: none Post-operative Condition: stable Disposition: same day surgery
[2024-02-26] MEDS: OXYCODONE IR 5 MG TABLET PO (09:52)
== END 2024-02-26 10:31 | disposition home or self-care (01) ==
PROVIDERS: Family Provider Family Medicine; PCP Family Medicine; Referring Provider Surgery; Visit Provider Surgery
PROC: 0YQ64ZZ Repair Left Inguinal Region, Percutaneous Endoscopic Approach (ICD-10-PCS; CPT 49650; principal; 2024-02-26 07:45)
DX: K40.20 Bilateral inguinal hernia, without obstruction or gangrene, not specified as recurrent (principal)
CPT/HCPCS: 49650; 93005; 93010; J0136; J0330; J0690; J1100; J1885; J2405; J2704; J3010

== ENCOUNTER → 2024-06-25 10:20 | Outpatient (CLI) | payer OTHER, SELFPAY ==
--- NOTE | 2024-06-25 10:23 | DI.RAD.S_ITS ---
PROCEDURE: XR SHOULDER RT MIN 2V INDICATIONS: increasing pain for 3 weeks, decreased ROM TECHNIQUE: 3 views of the shoulder were acquired. COMPARISON: [facility], CR, XR SHOULDER RT MIN 2V, 03/11/2018, 11:35. FINDINGS: Bones: No fractures or dislocations. No suspicious bony lesions. Visualized ribs appear intact. Soft tissues: No suspicious soft tissue calcifications. IMPRESSION: No acute bony abnormality. Approved by: Franklin Riley M.D. on 06/25/2024 at 19:53
--- NOTE | 2024-06-25 10:23 | DI.RAD.S_ITS ---
PROCEDURE: XR SHOULDER LT MIN 2V INDICATIONS: increasing pain for 3 weeks, decreased ROM TECHNIQUE: 3 views of the shoulder were acquired. COMPARISON: [facility], CR, XR SHOULDER RT MIN 2V, 03/11/2018, 11:35. FINDINGS: Bones: No fractures or dislocations. No suspicious bony lesions. Visualized ribs appear intact. Soft tissues: No suspicious soft tissue calcifications. IMPRESSION: Mild AC joint arthritic changes Approved by: Franklin Riley M.D. on 06/25/2024 at 19:52
== END ==
LOC: RAD 10:22
PROVIDERS: Family Provider Family Medicine; PCP Family Medicine; Referring Provider Nurse Practitioner Family; Visit Provider Nurse Practitioner Family
DX: M25.511 Pain in right shoulder (principal); M25.512 Pain in left shoulder
CPT/HCPCS: 73030

== ENCOUNTER → 2024-07-21 15:24 | Outpatient (CLI) | payer OTHER, SELFPAY ==
--- NOTE | 2024-07-21 15:25 | DI.RAD.S_ITS ---
PROCEDURE: XR KNEE LT 3V INDICATIONS: Left knee pain TECHNIQUE: 3 views of the knee were acquired. COMPARISON: [facility], CR, XR KNEE RT 3V, 04/04/2022, 15:33. FINDINGS: Bones: No fractures or dislocations. No suspicious bony lesions. Soft tissues: Moderate joint effusion. No suspicious soft tissue calcifications. IMPRESSION: Moderate effusion. No visualized acute fracture or dislocation. However, if clinical concern and/or pain persist, short interval imaging followup in 7-10 days is recommended, as occult injury cannot be definitively excluded. Dictated by: Dunia Cerna M.D. on 07/21/2024 at 15:53 Approved by: Dunia Cerna M.D. on 07/21/2024 at 15:53
== END ==
PROVIDERS: Family Provider Family Medicine; PCP Family Medicine; Referring Provider Physician Assistant Surgical; Visit Provider Physician Assistant Surgical
DX: M25.462 Effusion, left knee (principal); M25.562 Pain in left knee
CPT/HCPCS: 73562

== ENCOUNTER 2024-07-29 09:45 | Outpatient (RCR) | payer OTHER, SELFPAY ==
--- NOTE | 2024-07-27 15:39 | PT.OIE ---
Current Diagnoses Pain in right shoulder (07/27/24) Pain in left shoulder (07/27/24) Stiffness of right shoulder, not elsewhere classified (07/27/24) Stiffness of left shoulder, not elsewhere classified (07/27/24) Other lack of coordination (07/27/24) Weakness (07/27/24) Past Medical History (Last Reviewed 02/26/24 @ 07:31 by Msiha Woodard MD) Anemia Arthritis Ascending aortic aneurysm Bowel obstruction BPH w/o urinary obs/LUTS Chicken pox Depression Diverticulosis Elevated PSA Foot contusion Fractures (~1961) GERD (gastroesophageal reflux disease) Hx of neurological disease Hx of squamous cell carcinoma of skin Leukopenia Measles Mumps Sinus drainage TIA (transient ischemic attack) Past Surgical History (Last Reviewed 02/26/24 @ 07:31 by Misha Woodard MD) Anesthesia History of sinus surgery (~2006) History of surgery (05/09/20) History of third molar tooth extraction (~1979) Hx of circumcision Hx of vasectomy Melanoma (~1977) Status post colonoscopy (~2010) Status post colonoscopy (~2013) Visit Care Team Role Provider Type David Saucedo MD Family Provider Physician Primary Care Provider Specialty: Family Practice Address: [address] [place] [address] Email: [email or web address] LeeP- Attending Provider Advanced Education Program Manager Referring Provider Specialty: [facility] Address: [address] [place] [address], [facility] Phone: Fax: Email: [email or web address] Physical Therapy Initial Evaluation PT-OP-A Visit Information Start: 07/27/24 07:28 Freq: Status: Active Protocol: Document 07/27/24 09:02 NM (Rec: 07/27/24 09:45 NM [id number]) Out-Patient Physical Therapy Visit Information Visit Information Visit Type Initial Evaluation Visit Start Time 09:02 Visit Stop Time 09:45 Visit Number 07/29 Evaluation Information Evaluation Date 07/27/24 Precautions Precautions essential tremors RUE, neck PT-OP-B Current Condition Start: 07/27/24 07:28 Freq: Status: Active Protocol: Document 07/27/24 09:02 NM (Rec: 07/27/24 09:45 NM [id number]) Current Condition History of Current Condition Current Complaints pain, limited ROM, difficulty with dressing and ADLS History of Current Condition Pt reports B shoulder pain, L> R. States chronic, due to arthritis. Has been occurring for less than a year. He denies a specific WINNIE. Shoulder pain does not wake him up but he is not sleeping well at night likely due to pain; lies on R>L sides, more comfortable with reaching across body while sleeping. 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 Denies numbness and tingling. He states that he fell in April 2024. He reports that he has had trouble with his balance, thinks that it might have set it off (shoulder pain). Pt thinks that he fell on his L shoulder following working in the yard (on a hill), tumbled down the hill; he had to get new glasses due to scratching glasses and hitting head, did not follow up with PCP. He is concerned about falling, states that he has had several other instances of needing to lean on objects or grab objects. He does not use an AD . He also reports that he will be getting a referral for his knee, states started hurting when waking up after [place] , no known WINNIE. He is currently going to [facility] for hand L therapy due to arthritis. He is currently seeing a neurologist for a workup due to essential tremors; possible PD or other parkinsonian. R hand/neck more affected by tremors, as is his is voice. Currently taking medications for PD despite no dx. Prior Treatments and Tests Radiographs 06/2024 L shoulder : Impression- Mild AC joint arthritic changes. Current Functional Impairments (Reported) Functional Limitations- ADL's donning shirts/jackets L>R, reaching into cupboard (e.g. for glasses) jose luis about 90-100 deg, lifting ADLs PT-OP-C Subjective Start: 07/27/24 07:28 Freq: Status: Active Protocol: Document 07/27/24 09:02 NM (Rec: 07/27/24 09:45 NM [id number]) OP-PT Subjective Patient Comments Patient Comments Pt consents to participate in PT evaluation Patient Questionnaires Quick Dash- Upper Extremity Quick Dash UE Score 36.4% impairment OP-PT Pain Assessment Location R shoulder Pain Location Details lateral shoulder Intensity 2 Scale Used Numeric (0 - 10) Description Aching Pain Aggravating Factors Position,ADL's,Activity, Lifting Other Pain Alleviating Factors repositioning, voltaren L shoulder Pain Location Details lateral shoulder Intensity 6 Scale Used Numeric (0 - 10) Description Aching Pain Aggravating Factors Position,ADL's,Activity, Exercise,Lifting Other Pain Aggravating Factors reaching Other Pain Alleviating Factors repositioning, voltaren PT-OP-E Functional Tests Start: 07/27/24 07:28 Freq: Status: Active Protocol: Document 07/27/24 09:02 NM (Rec: 07/27/24 09:45 NM [id number]) Functional Tests Apley's Scratch Test Action 1- Left contraleral clavicle Action 1- Right contralateral clavicle/AC Joint Action 2- Left C7; painful Action 2- Right C7 Action 3- Left T12; painful Action 3- Right T10 PT-OP-F Manual Assessment Start: 07/27/24 07:28 Freq: Status: Active Protocol: Document 07/27/24 09:02 NM (Rec: 07/27/24 09:45 NM [id number]) Manual Assessments Soft Tissue Assessment Soft Tissue Mobility Assessment Increased resistrictions at pec, periscapulars, rotator cuff B (L>R) Joint Mobility Assessment Joint Mobility Assessment Limited cervico-thoracic spine mobility, thus limiting rib mobility. Elevated R shoulder and scapula, less AROM on L side. PROM R shoulder motion limited bony end feel, PROM L shoulder motion empty end feel and limited GHJ/ACJ mobility Other Manual Assessments Other Manual Assessments Thoracic spine ROM limited globally especially into extension and rotation PT-OP-G Mobility & Gait Start: 07/27/24 07:28 Freq: Status: Active Protocol: Document 07/27/24 09:02 NM (Rec: 07/27/24 11:08 NM [id number]) OP Mobility Evaluation Transfers Sit to Stand requires BUE to assist with STS, needs close SBA - CGA to stabilize OP Gait Assessment Gait Gait Assistance Required: Standby Assistance Distance (Feet) 150 Assistive Devices Assistive Device None Gait Deviations General Gait Pattern Decreased Stride Length, Decreased Feet Clearance, Flexed Trunk Comments Gait Comments Limited trunk rotation and arm swing, very stiff thoracic spine, kyphotic PT-OP-J Posture/Palpation/Skin Start: 07/27/24 07:28 Freq: Status: Active Protocol: Document 07/27/24 09:02 NM (Rec: 07/27/24 11:08 NM [id number]) Posture Evaluation Position Sitting Head/C-Spine Posture Forward Head T-Spine Posture Increased Kyphosis Shoulder Posture (L) Rounded,(R) Rounded,(L) Forward,(R) Forward,(R) Elevated Scapula Posture (R) Elevated,(L) Depressed,(R) Tipped Palpation Assessment Location Shoulders Palpation Details Tenderness over L posterior cuff and lateral shoulder, AC jt Tenderness over R AC jt B post cuff and periscapular tightness PT-OP-K Range of Motion Start: 07/27/24 07:28 Freq: Status: Active Protocol: Document 07/27/24 09:02 NM (Rec: 07/27/24 09:45 NM [id number]) Shoulder Goniometric Range of Motion Shoulder Right Flexion 142 Extension 46 Abduction 135 Comments PROM: 150 deg flex, 140 deg abd, 70 deg ER ad 0 deg abd and 45 deg abd Left Flexion 142 Extension 50 Abduction 96 Comments PROM: 145 flex, 120 abd, 50 deg ER in 0 abd and 45 deg abd PT-OP-L Special Tests Start: 07/27/24 07:28 Freq: Status: Active Protocol: Document 07/27/24 09:02 NM (Rec: 07/27/24 09:45 NM [id number]) Special Tests Shoulder Special Tests AC Joint Compression Test Results + B (L>R) Moraes Marquis Impingement Test Results + L Hornblowers Sign Test Results - B Lift-Off Rotator Cuff Test Results + L Empty Can Test Results + Comments L>R (pain> weakness) PT-OP-M Strength Start: 07/27/24 07:28 Freq: Status: Active Protocol: Document 07/27/24 09:02 NM (Rec: 07/27/24 09:45 NM [id number]) Scapula Strength Scapula Manual Muscle Testing Right Elevation (C4) 3+ Fair+ Adduction 3+ Fair+ Abduction 3+ Fair+ Depression 3+ Fair+ Left Elevation (C4) 3+ Fair+ Adduction 3+ Fair+ Abduction 3+ Fair+ Depression 3+ Fair+ Comments limited also by ROM Shoulder Strength Shoulder Manual Muscle Testing Right Flexion 4- Good- Abduction (C5) 3+ Fair+ External Rotation 3+ Fair+ Internal Rotation 3+ Fair+ Comments pain with abduction Left Flexion 4- Good- Abduction (C5) 3+ Fair+ External Rotation 3+ Fair+ Internal Rotation 3+ Fair+ Comments pain with abduction, ER Elbow/Forearm Strength Elbow and Forearm Manual Muscle Testing Right Flexion (C6) 4 Good Extension (C7) 4 Good Left Flexion (C6) 4- Good- Extension (C7) 4- Good- PT-OP-Q Treatments Start: 07/27/24 07:28 Freq: Status: Active Protocol: Document 07/27/24 09:02 NM (Rec: 07/27/24 09:45 NM [id number]) Therapeutic Exercises Supine Exercises shoulder AAROM Supine Exercise Name w/ dowel: flex only Side bilateral Resistance AAROM Equipment Used edu to use broom or other small stick at home for HEP Reps/Minutes 20 ea w/ 3 hold at end range, edu to inc ROM merline Comments cueing for set up, hand position, form, execution into painfree ROM Sidelying Exercises open book Side bilateral Resistance AROM Reps/Minutes 8 ea Comments cued form, limit lumbar trunk rot; limited B PT-OP-T Assessment and Plan Start: 07/27/24 07:28 Freq: Status: Active Protocol: Document 07/27/24 09:02 NM (Rec: 07/27/24 09:45 NM [id number]) Physical Therapy Assessment Rehab Potential Rehabilitation Potential Fair Evaluation Complexity Clinical Presentation at Evaluation Stable Impairments Impairments Activity Tolerance,Balance, Functional Activities, Functional Mobility,Gait,Pain, Posture,ROM,Sensation,Soft Tissue Mobility,Strength, Transfers,Vestibular Other Concerns Age Related Concerns Hx of several falls Barriers to Rehabilitation PMH: arthritis, back pain, depression, surgery (hernia, melanoma, other skin cancer, sinus, vasectomy). Medications : promidone, proanolol, lansoprazole, citrlopram. Pt also has L knee pain that he is planning on getting a PT referral for in future Goals Four Impairment strength impaired B shoulders, limits lifting ability Short Term Goal (STG) Pt will improve B shoulder strength globally to at least 4/5 MMT in order to improve pt ability to lift objects into cabinets STG Duration 8 weeks Alarm Investigator Goal (LTG) Pt will report <3/10 pain in B shoulder when lifting 1-2# objects into cabinets or during ADLs LTG Duration 10 weeks Two Impairment B shoulder flexion ROM limited Alarm Investigator Goal (LTG) Pt will increase B shoulder flexion AROM to at least 145 deg in order to be able to reach into cabinets to perform ADLs. LTG Duration 10 weeks One Impairment pain reported with donning/ doffing shirts; quickdash 36.4 % impairment Alarm Investigator Goal (LTG) Pt will report that he is able to don/doff shirts and jackets with L shoulder pain < 6/10 LTG Duration 10 weeks Three Impairment L abduction ROM limited Impairment . Alf Goal (LTG) Pt will improve L abduction ROM >105 deg in order to improve ability to don shirts/ jackets LTG Duration 10 weeks Assessment Summary Assessment Pt is a 84 y.o. presenting with B shoulder pain beginning less than 1 year ago, worsening following a fall in April 2024. Left shoulder pain is worse than R shoulder pain. Pt has limitations in ROM and strength B, but is most restricted in L shoulder abduction, IR, and flexion. Pt has limitations in L shoulder PROM as well, in addition to global restrictions with trunk ROM and postural limitations. Pt has a hx of falls. He is also being currently seen by a neurologist for essential tremors. Pt's symptoms are most consistent with ROM/ strength limitations due to age and rotator cuff pathology , but also likely further restricted by posture, falls/ balance impairments, and decreased glenohumeral/AC joints and spinal mobility. He has had imaging of his L shoulder. PT educated pt on exam findings and plan of care . Pt would benefit from skilled PT for progressive mobility and strengthening, in addition to postural education in order to improve ability to perform ADLs/IADLs, decrease pain, and to improve quality of life. Physical Therapy Plan Frequency and Duration Frequency of Treatment 1-2x/wk Duration of treatment (weeks) 10 Plan of Care Start Date 07/27/24 Plan of Care End Date 10/09/24 Therapeutic Interventions Therapeutic Interventions Balance Training,Gait Training ,Home Exercise Program,Joint Mobilizations,Manual Therapy, Neuromuscular Re-education, Orthotic/Prosthetic Management ,Patient/Caregiver Education, Self-Care/Home Management, Sensory Integration,Soft Tissue Mobilization,Taping, Therapeutic Activities, Therapeutic Exercises Modalities Cold Pack/Ice Massage,Electric Stimulation,Hot Packs, Ultrasound Other Referrals/Consults Referrals/Consults Recommended Recommend future PT for balance and impairments related to essential tremor/ falls, possible USPDS Next Visit Focus/Plan Next Note Type Treatment Note Next Visit Plan TUG, review AAROM and open book Trial seated TS rot and ext vs at wall. miniband, ER/IR millie
--- NOTE | 2024-07-29 10:38 | PT.OTN ---
Current Diagnoses Pain in right shoulder (07/29/24) Pain in left shoulder (07/29/24) Stiffness of right shoulder, not elsewhere classified (07/29/24) Stiffness of left shoulder, not elsewhere classified (07/29/24) Other lack of coordination (07/29/24) Weakness (07/29/24) Physical Therapy Treatment Note PT-OP-A Visit Information Start: 07/27/24 07:28 Freq: Status: Active Protocol: Document 07/29/24 09:50 NM (Rec: 07/29/24 09:52 NM [id number]) Out-Patient Physical Therapy Visit Information Visit Information Visit Type Treatment Note Visit Start Time 09:51 Visit Stop Time 10:31 Visit Number 08/29 Evaluation Information Evaluation Date 07/27/24 Precautions Precautions essential tremors RUE, neck PT-OP-B Current Condition Start: 07/27/24 07:28 Freq: Status: Active Protocol: Document 07/27/24 09:02 NM (Rec: 07/27/24 09:45 NM [id number]) Current Condition History of Current Condition Current Complaints pain, limited ROM, difficulty with dressing and ADLS History of Current Condition Pt reports B shoulder pain, L> R. States chronic, due to arthritis. Has been occurring for less than a year. He denies a specific WINNIE. Shoulder pain does not wake him up but he is not sleeping well at night likely due to pain; lies on R>L sides, more comfortable with reaching across body while sleeping. 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 Denies numbness and tingling. He states that he fell in April 2024. He reports that he has had trouble with his balance, thinks that it might have set it off (shoulder pain). Pt thinks that he fell on his L shoulder following working in the yard (on a hill), tumbled down the hill; he had to get new glasses due to scratching glasses and hitting head, did not follow up with PCP. He is concerned about falling, states that he has had several other instances of needing to lean on objects or grab objects. He does not use an AD . He also reports that he will be getting a referral for his knee, states started hurting when waking up after [place] , no known WINNIE. He is currently going to [facility] for hand L therapy due to arthritis. He is currently seeing a neurologist for a workup due to essential tremors; possible PD or other parkinsonian. R hand/neck more affected by tremors, as is his is voice. Currently taking medications for PD despite no dx. Prior Treatments and Tests Radiographs 06/2024 L shoulder : Impression- Mild AC joint arthritic changes. Current Functional Impairments (Reported) Functional Limitations- ADL's donning shirts/jackets L>R, reaching into cupboard (e.g. for glasses) jose luis about 90-100 deg, lifting ADLs PT-OP-C Subjective Start: 07/27/24 07:28 Freq: Status: Active Protocol: Document 07/29/24 09:50 NM (Rec: 07/29/24 09:52 NM [id number]) OP-PT Subjective Patient Comments Patient Comments Pt reports that he wants to work only on his knee. Got a new referral. Requested to discharge from PT for shoulder in order to have knee treated . PT-OP-E Functional Tests Start: 07/27/24 07:28 Freq: Status: Active Protocol: Document 07/27/24 09:02 NM (Rec: 07/27/24 09:45 NM [id number]) Functional Tests Apley's Scratch Test Action 1- Left contraleral clavicle Action 1- Right contralateral clavicle/AC Joint Action 2- Left C7; painful Action 2- Right C7 Action 3- Left T12; painful Action 3- Right T10 PT-OP-F Manual Assessment Start: 07/27/24 07:28 Freq: Status: Active Protocol: Document 07/27/24 09:02 NM (Rec: 07/27/24 09:45 NM [id number]) Manual Assessments Soft Tissue Assessment Soft Tissue Mobility Assessment Increased resistrictions at pec, periscapulars, rotator cuff B (L>R) Joint Mobility Assessment Joint Mobility Assessment Limited cervico-thoracic spine mobility, thus limiting rib mobility. Elevated R shoulder and scapula, less AROM on L side. PROM R shoulder motion limited bony end feel, PROM L shoulder motion empty end feel and limited GHJ/ACJ mobility Other Manual Assessments Other Manual Assessments Thoracic spine ROM limited globally especially into extension and rotation PT-OP-G Mobility & Gait Start: 07/27/24 07:28 Freq: Status: Active Protocol: Document 07/27/24 09:02 NM (Rec: 07/27/24 11:08 NM [id number]) OP Mobility Evaluation Transfers Sit to Stand requires BUE to assist with STS, needs close SBA - CGA to stabilize OP Gait Assessment Gait Gait Assistance Required: Standby Assistance Distance (Feet) 150 Assistive Devices Assistive Device None Gait Deviations General Gait Pattern Decreased Stride Length, Decreased Feet Clearance, Flexed Trunk Comments Gait Comments Limited trunk rotation and arm swing, very stiff thoracic spine, kyphotic PT-OP-J Posture/Palpation/Skin Start: 07/27/24 07:28 Freq: Status: Active Protocol: Document 07/27/24 09:02 NM (Rec: 07/27/24 11:08 NM [id number]) Posture Evaluation Position Sitting Head/C-Spine Posture Forward Head T-Spine Posture Increased Kyphosis Shoulder Posture (L) Rounded,(R) Rounded,(L) Forward,(R) Forward,(R) Elevated Scapula Posture (R) Elevated,(L) Depressed,(R) Tipped Palpation Assessment Location Shoulders Palpation Details Tenderness over L posterior cuff and lateral shoulder, AC jt Tenderness over R AC jt B post cuff and periscapular tightness PT-OP-K Range of Motion Start: 07/27/24 07:28 Freq: Status: Active Protocol: Document 07/27/24 09:02 NM (Rec: 07/27/24 09:45 NM [id number]) Shoulder Goniometric Range of Motion Shoulder Right Flexion 142 Extension 46 Abduction 135 Comments PROM: 150 deg flex, 140 deg abd, 70 deg ER ad 0 deg abd and 45 deg abd Left Flexion 142 Extension 50 Abduction 96 Comments PROM: 145 flex, 120 abd, 50 deg ER in 0 abd and 45 deg abd PT-OP-L Special Tests Start: 07/27/24 07:28 Freq: Status: Active Protocol: Document 07/27/24 09:02 NM (Rec: 07/27/24 09:45 NM [id number]) Special Tests Shoulder Special Tests AC Joint Compression Test Results + B (L>R) Moraes Marquis Impingement Test Results + L Hornblowers Sign Test Results - B Lift-Off Rotator Cuff Test Results + L Empty Can Test Results + Comments L>R (pain> weakness) PT-OP-M Strength Start: 07/27/24 07:28 Freq: Status: Active Protocol: Document 07/27/24 09:02 NM (Rec: 07/27/24 09:45 NM [id number]) Scapula Strength Scapula Manual Muscle Testing Right Elevation (C4) 3+ Fair+ Adduction 3+ Fair+ Abduction 3+ Fair+ Depression 3+ Fair+ Left Elevation (C4) 3+ Fair+ Adduction 3+ Fair+ Abduction 3+ Fair+ Depression 3+ Fair+ Comments limited also by ROM Shoulder Strength Shoulder Manual Muscle Testing Right Flexion 4- Good- Abduction (C5) 3+ Fair+ External Rotation 3+ Fair+ Internal Rotation 3+ Fair+ Comments pain with abduction Left Flexion 4- Good- Abduction (C5) 3+ Fair+ External Rotation 3+ Fair+ Internal Rotation 3+ Fair+ Comments pain with abduction, ER Elbow/Forearm Strength Elbow and Forearm Manual Muscle Testing Right Flexion (C6) 4 Good Extension (C7) 4 Good Left Flexion (C6) 4- Good- Extension (C7) 4- Good- PT-OP-Q Treatments Start: 07/27/24 07:28 Freq: Status: Active Protocol: Document 07/29/24 09:50 NM (Rec: 07/29/24 10:14 NM [id number]) Cardio Equipment Upper Body Ergometer (UBE) Duration (Minutes) 2 Seat Position 18 Height 3 Other warm up; 1 min fwd, 1 min bwd Therapeutic Exercises Sidelying Exercises open book Sidelying Exercise Name HEP review Side bilateral Resistance AROM Reps/Minutes 10 Comments cued form, limit lumbar trunk rot; limited B Sitting Exercises thoracic mobility Sitting Exercise Name not performed this session Standing Exercises lat stretch Standing Exercise Name on TM pole Side bilateral Reps/Minutes 2x30 Comments cued for execution isometrics Standing Exercise Name ER/IR isometric walkouts Side bilateral Resistance level 1 band Equipment Used towel roll between body/arm Reps/Minutes 8 ea Comments cued form, maintain //arm AAROM Standing Exercise Name flex, abd Side bilateral Equipment Used dowel Reps/Minutes 5 ea Comments cued for form Manual Therapy Treatment Consent Patient gave verbal consent for manual Yes treatment Soft Tissue Mobilization R shoulder Body Location periscapulars, post cuff, lat, LS, UT Mobilization Type Rolling,Strumming Intensity/Depth Moderate Body Position Sidelying Comments Fewer restrictions than L side L shoulder Body Location periscapulars, post cuff, lat, LS, UT Mobilization Type Rolling,Strumming Intensity/Depth Moderate Body Position Sidelying Comments Trigger points at rhomboids, LS, UT, post cuff. Tenderness along teres, lat, subscapular area. Reduced but not resolved with manual treatment Joint Mobilizations scapular Joint B Direction retraction/adduction Grade II Body Position Sidelying Reps/Duration 10 Comments Reduced adduction R shoulder Joint GHJ Direction PA, inf Grade III Body Position Hooklying Reps/Duration 10 ea L shoulder Joint GHJ Direction AP, inf Grade III Body Position Hooklying Reps/Duration 10 ea Comments Improved mobility with mobilization; monitored for pain PT-OP-T Assessment and Plan Start: 07/27/24 07:28 Freq: Status: Active Protocol: Document 07/29/24 09:50 NM (Rec: 07/29/24 09:52 NM [id number]) Physical Therapy Assessment Goals Four Impairment strength impaired B shoulders, limits lifting ability Short Term Goal (STG) Pt will improve B shoulder strength globally to at least 4/5 MMT in order to improve pt ability to lift objects into cabinets STG Duration 8 weeks Half-Way Goal (LTG) Pt will report <3/10 pain in B shoulder when lifting 1-2# objects into cabinets or during ADLs LTG Duration 10 weeks Two Impairment B shoulder flexion ROM limited Rn Security Goal (LTG) Pt will increase B shoulder flexion AROM to at least 145 deg in order to be able to reach into cabinets to perform ADLs. LTG Duration 10 weeks One Impairment pain reported with donning/ doffing shirts; quickdash 36.4 % impairment Half-Way Goal (LTG) Pt will report that he is able to don/doff shirts and jackets with L shoulder pain < 6/10 LTG Duration 10 weeks Three Impairment L abduction ROM limited Impairment . Rn Security Goal (LTG) Pt will improve L abduction ROM >105 deg in order to improve ability to don shirts/ jackets LTG Duration 10 weeks Progress Towards Goals Progress Comments Goals not met as pt requesting d/c 1 visit following evaluation Assessment Summary Assessment Pt tolerated session well. He reports at end of session that he could lie on his L shoulder longer today than before with no pain. Demos 150 deg B shoulder flexion. Continued with B shoulder AAROM for improved ROM, adding abduction. Cueing needed for correct execution, still demos more restrictions in abduction than flexion. Initiated B shoulder GHJ mobilizations and isometric walkouts for strengthening and to improve joint efficiency for overhead reaching. Pt continues to demonstrate poor thoracic mobility especially to R side, would benefit from further mobility training. Established maintenance program as pt requesting discharge from PT for shoulders in order to use referral for knee. Physical Therapy Plan Frequency and Duration Frequency of Treatment 1-2x/wk Duration of treatment (weeks) 10 Plan of Care Start Date 07/27/24 Plan of Care End Date 10/09/24 Therapeutic Interventions Therapeutic Interventions Balance Training,Gait Training ,Home Exercise Program,Joint Mobilizations,Manual Therapy, Neuromuscular Re-education, Orthotic/Prosthetic Management ,Patient/Caregiver Education, Self-Care/Home Management, Sensory Integration,Soft Tissue Mobilization,Taping, Therapeutic Activities, Therapeutic Exercises Modalities Cold Pack/Ice Massage,Electric Stimulation,Hot Packs, Ultrasound Other Referrals/Consults Referrals/Consults Recommended Recommend future PT for balance and impairments related to essential tremor/ falls, possible USPDS Discharge Physical Therapy Discharge Reasons Patient Request Discharge Comments Pt requesting discharge from PT today for shoulder referral as he is wanting to treat his knee instead despite recent evaluation. PT provided education to pt about following up with new referral for shoulder in future if desired and to follow up with PCP if symptoms return, change , or worsen. Provided maintenance program to address deficits with clear education to stop if pt's shoulder symptoms worsen. Next Visit Focus/Plan Next Note Type Discharge Summary Next Visit Plan discharge PT for shoulder
--- NOTE | 2024-07-29 15:47 | PT.OPDS ---
Current Diagnoses Pain in right shoulder (07/29/24) Pain in left shoulder (07/29/24) Stiffness of right shoulder, not elsewhere classified (07/29/24) Stiffness of left shoulder, not elsewhere classified (07/29/24) Other lack of coordination (07/29/24) Weakness (07/29/24) Visit Care Team Role Provider Type David Saucedo MD Family Provider Physician Primary Care Provider Specialty: [facility] Address: [address] [place] [id number] Email: [email or web address] BETY LeeP- Attending Provider Advanced Labor Arbitrator Referring Provider Specialty: [facility] Practice Address: [address] [place] [address], [id number] Phone: Fax: Email: [email or web address] Visit Number Visit Number 08/29 Discharge Summary PT-OP-B Current Condition Start: 07/27/24 07:28 Freq: Status: Active Protocol: Document 07/27/24 09:02 NM (Rec: 07/27/24 09:45 NM [id number]) Current Condition History of Current Condition Current Complaints pain, limited ROM, difficulty with dressing and ADLS History of Current Condition Pt reports B shoulder pain, L> R. States chronic, due to arthritis. Has been occurring for less than a year. He denies a specific WINNIE. Shoulder pain does not wake him up but he is not sleeping well at night likely due to pain; lies on R>L sides, more comfortable with reaching across body while sleeping. 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 Denies numbness and tingling. He states that he fell in April 2024. He reports that he has had trouble with his balance, thinks that it might have set it off (shoulder pain). Pt thinks that he fell on his L shoulder following working in the yard (on a hill), tumbled down the hill; he had to get new glasses due to scratching glasses and hitting head, did not follow up with PCP. He is concerned about falling, states that he has had several other instances of needing to lean on objects or grab objects. He does not use an AD . He also reports that he will be getting a referral for his knee, states started hurting when waking up after [place] , no known WINNIE. He is currently going to IR for hand L therapy due to arthritis. He is currently seeing a neurologist for a workup due to essential tremors; possible PD or other parkinsonian. R hand/neck more affected by tremors, as is his is voice. Currently taking medications for PD despite no dx. Prior Treatments and Tests Radiographs 06/2024 L shoulder : Impression- Mild AC joint arthritic changes. Current Functional Impairments (Reported) Functional Limitations- ADL's donning shirts/jackets L>R, reaching into cupboard (e.g. for glasses) jose luis about 90-100 deg, lifting ADLs PT-OP-C Subjective Start: 07/27/24 07:28 Freq: Status: Active Protocol: Document 07/29/24 09:50 NM (Rec: 07/29/24 09:52 NM [id number]) OP-PT Subjective Patient Comments Patient Comments Pt reports that he wants to work only on his knee. Got a new referral. Requested to discharge from PT for shoulder in order to have knee treated . PT-OP-E Functional Tests Start: 07/27/24 07:28 Freq: Status: Active Protocol: Document 07/27/24 09:02 NM (Rec: 07/27/24 09:45 NM [id number]) Functional Tests Apley's Scratch Test Action 1- Left contraleral clavicle Action 1- Right contralateral clavicle/AC Joint Action 2- Left C7; painful Action 2- Right C7 Action 3- Left T12; painful Action 3- Right T10 PT-OP-F Manual Assessment Start: 07/27/24 07:28 Freq: Status: Active Protocol: Document 07/27/24 09:02 NM (Rec: 07/27/24 09:45 NM [id number]) Manual Assessments Soft Tissue Assessment Soft Tissue Mobility Assessment Increased resistrictions at pec, periscapulars, rotator cuff B (L>R) Joint Mobility Assessment Joint Mobility Assessment Limited cervico-thoracic spine mobility, thus limiting rib mobility. Elevated R shoulder and scapula, less AROM on L side. PROM R shoulder motion limited bony end feel, PROM L shoulder motion empty end feel and limited GHJ/ACJ mobility Other Manual Assessments Other Manual Assessments Thoracic spine ROM limited globally especially into extension and rotation PT-OP-G Mobility & Gait Start: 07/27/24 07:28 Freq: Status: Active Protocol: Document 07/27/24 09:02 NM (Rec: 07/27/24 11:08 NM [id number]) OP Mobility Evaluation Transfers Sit to Stand requires BUE to assist with STS, needs close SBA - CGA to stabilize OP Gait Assessment Gait Gait Assistance Required: Standby Assistance Distance (Feet) 150 Assistive Devices Assistive Device None Gait Deviations General Gait Pattern Decreased Stride Length, Decreased Feet Clearance, Flexed Trunk Comments Gait Comments Limited trunk rotation and arm swing, very stiff thoracic spine, kyphotic PT-OP-J Posture/Palpation/Skin Start: 07/27/24 07:28 Freq: Status: Active Protocol: Document 07/27/24 09:02 NM (Rec: 07/27/24 11:08 NM [id number]) Posture Evaluation Position Sitting Head/C-Spine Posture Forward Head T-Spine Posture Increased Kyphosis Shoulder Posture (L) Rounded,(R) Rounded,(L) Forward,(R) Forward,(R) Elevated Scapula Posture (R) Elevated,(L) Depressed,(R) Tipped Palpation Assessment Location Shoulders Palpation Details Tenderness over L posterior cuff and lateral shoulder, AC jt Tenderness over R AC jt B post cuff and periscapular tightness PT-OP-K Range of Motion Start: 07/27/24 07:28 Freq: Status: Active Protocol: Document 07/27/24 09:02 NM (Rec: 07/27/24 09:45 NM [id number]) Shoulder Goniometric Range of Motion Shoulder Right Flexion 142 Extension 46 Abduction 135 Comments PROM: 150 deg flex, 140 deg abd, 70 deg ER ad 0 deg abd and 45 deg abd Left Flexion 142 Extension 50 Abduction 96 Comments PROM: 145 flex, 120 abd, 50 deg ER in 0 abd and 45 deg abd PT-OP-L Special Tests Start: 07/27/24 07:28 Freq: Status: Active Protocol: Document 07/27/24 09:02 NM (Rec: 07/27/24 09:45 NM [id number]) Special Tests Shoulder Special Tests AC Joint Compression Test Results + B (L>R) Moraes Marquis Impingement Test Results + L Hornblowers Sign Test Results - B Lift-Off Rotator Cuff Test Results + L Empty Can Test Results + Comments L>R (pain> weakness) PT-OP-M Strength Start: 07/27/24 07:28 Freq: Status: Active Protocol: Document 07/27/24 09:02 NM (Rec: 07/27/24 09:45 NM [id number]) Scapula Strength Scapula Manual Muscle Testing Right Elevation (C4) 3+ Fair+ Adduction 3+ Fair+ Abduction 3+ Fair+ Depression 3+ Fair+ Left Elevation (C4) 3+ Fair+ Adduction 3+ Fair+ Abduction 3+ Fair+ Depression 3+ Fair+ Comments limited also by ROM Shoulder Strength Shoulder Manual Muscle Testing Right Flexion 4- Good- Abduction (C5) 3+ Fair+ External Rotation 3+ Fair+ Internal Rotation 3+ Fair+ Comments pain with abduction Left Flexion 4- Good- Abduction (C5) 3+ Fair+ External Rotation 3+ Fair+ Internal Rotation 3+ Fair+ Comments pain with abduction, ER Elbow/Forearm Strength Elbow and Forearm Manual Muscle Testing Right Flexion (C6) 4 Good Extension (C7) 4 Good Left Flexion (C6) 4- Good- Extension (C7) 4- Good- PT-OP-T Assessment and Plan Start: 07/27/24 07:28 Freq: Status: Active Protocol: Document 07/29/24 09:50 NM (Rec: 07/29/24 09:52 NM [id number]) Physical Therapy Assessment Goals Four Impairment strength impaired B shoulders, limits lifting ability Short Term Goal (STG) Pt will improve B shoulder strength globally to at least 4/5 MMT in order to improve pt ability to lift objects into cabinets STG Duration 8 weeks Senior Operations Manager Goal (LTG) Pt will report <3/10 pain in B shoulder when lifting 1-2# objects into cabinets or during ADLs LTG Duration 10 weeks Two Impairment B shoulder flexion ROM limited Alf Goal (LTG) Pt will increase B shoulder flexion AROM to at least 145 deg in order to be able to reach into cabinets to perform ADLs. LTG Duration 10 weeks One Impairment pain reported with donning/ doffing shirts; quickdash 36.4 % impairment Alf Goal (LTG) Pt will report that he is able to don/doff shirts and jackets with L shoulder pain < 6/10 LTG Duration 10 weeks Three Impairment L abduction ROM limited Impairment . Alf Goal (LTG) Pt will improve L abduction ROM >105 deg in order to improve ability to don shirts/ jackets LTG Duration 10 weeks Progress Towards Goals Progress Comments Goals not met as pt requesting d/c 1 visit following evaluation Assessment Summary Assessment Pt tolerated session well. He reports at end of session that he could lie on his L shoulder longer today than before with no pain. Demos 150 deg B shoulder flexion. Continued with B shoulder AAROM for improved ROM, adding abduction. Cueing needed for correct execution, still demos more restrictions in abduction than flexion. Initiated B shoulder GHJ mobilizations and isometric walkouts for strengthening and to improve joint efficiency for overhead reaching. Pt continues to demonstrate poor thoracic mobility especially to R side, would benefit from further mobility training. Established maintenance program as pt requesting discharge from PT for shoulders in order to use referral for knee. Physical Therapy Plan Frequency and Duration Frequency of Treatment 1-2x/wk Duration of treatment (weeks) 10 Plan of Care Start Date 07/27/24 Plan of Care End Date 10/09/24 Therapeutic Interventions Therapeutic Interventions Balance Training,Gait Training ,Home Exercise Program,Joint Mobilizations,Manual Therapy, Neuromuscular Re-education, Orthotic/Prosthetic Management ,Patient/Caregiver Education, Self-Care/Home Management, Sensory Integration,Soft Tissue Mobilization,Taping, Therapeutic Activities, Therapeutic Exercises Modalities Cold Pack/Ice Massage,Electric Stimulation,Hot Packs, Ultrasound Other Referrals/Consults Referrals/Consults Recommended Recommend future PT for balance and impairments related to essential tremor/ falls, possible USPDS Discharge Physical Therapy Discharge Reasons Patient Request Discharge Comments Pt requesting discharge from PT today for shoulder referral as he is wanting to treat his knee instead despite recent evaluation. PT provided education to pt about following up with new referral for shoulder in future if desired and to follow up with PCP if symptoms return, change , or worsen. Provided maintenance program to address deficits with clear education to stop if pt's shoulder symptoms worsen. Next Visit Focus/Plan Next Note Type Discharge Summary Next Visit Plan discharge PT for shoulder
== END 2024-08-03 14:59 | disposition home or self-care (01) ==
LOC: PHYS 09:45
PROVIDERS: Family Provider Family Medicine; PCP Family Medicine; Referring Provider Nurse Practitioner Family; Visit Provider Nurse Practitioner Family
DX: M25.511 Pain in right shoulder (principal); M25.512 Pain in left shoulder; M25.612 Stiffness of left shoulder, not elsewhere classified; M25.611 Stiffness of right shoulder, not elsewhere classified; R53.1 Weakness; R27.8 Other lack of coordination
CPT/HCPCS: 97110; 97140; 97161

== ENCOUNTER → 2024-08-25 10:38 | Outpatient (CLI) | payer OTHER, SELFPAY ==
[2024-08-25 10:55] LABS: Add Manual Diff / Slide Review NO; Basophils Absolute Auto 0 /uL (0-100); Basophils Percent Auto 1.1 % (0-2); Eosinophils Absolute Auto 300 /uL (0-450); Eosinophils Percent Auto 5.9 % (2-4); Hematocrit 39.5 % (41-53); Hemoglobin 13.1 g/dL (13.5-17.5); Lymphocytes Absolute Auto 1200 /uL (1100-4500); Lymphocytes Percent Auto 28.8 % (25-40); Mean Corpuscular HGB Conc 33.2 % (30-36); Mean Corpuscular Hemoglobin 30.8 PG (26-34); Monocytes Absolute Auto 400 /uL (0-900); Monocytes Percent Auto 9.9 % (3-14); Neutrophils Absolute Auto 2300 /uL (1500-7000); Neutrophils Percent Auto 54.3 % (50-75); Platelet Count 217 X10^3/uL (150-400); Red Blood Cell Count 4.25 X10^6/uL (4.5-5.9); Red Cell Distribution Width 12.6 % (11.6-14.8); White Blood Cell Count 4.3 X10^3/uL (4.5-11.0)
[2024-08-25 11:24] LABS: Alanine Aminotransferase 33 IU/L (<50); Albumin 4.2 g/dL (3.5-5.0); Albumin Globulin Ratio 1.5 (1.0-2.8); Alkaline Phosphatase 111 U/L (38-126); Aspartate Aminotransferase 33 IU/L (17-59); BUN Creatinine Ratio 21.3 (6-22); Bilirubin Total 0.3 mg/dL (0.2-1.3); Blood Urea Nitrogen 20 mg/dL (9-20); Calcium 9.3 mg/dL (8.4-10.2); Carbon Dioxide 25 mmol/L (22-32); Chloride 107 mmol/L (98-107); Cholesterol 170 mg/dL (140-199); Estimated Glomerular Filt Rate > 60 mL/min (>60); Globulin 2.8 g/dL (1.7-4.1); Glucose 99 mg/dL (80-110); HDL Cholesterol 44 mg/dL (40-60); HEMOLYSIS 19 (0-50); LDL Cholesterol Calculated 99 mg/dL (<100); Potassium 4.3 mmol/L (3.4-5.1); Sodium 140 mmol/L (137-145); Triglycerides 136 mg/dL (35-150)
[2024-08-25 11:50] LABS: TSH w/ Reflex to FT4 3.54 uIU/mL (0.47-4.68)
[2024-08-25 11:51] LABS: Prostate Specific Antigen Scrn 6.07 ng/mL (0.1-4.0)
[2024-08-26 03:36] LABS: Apolipoprotein B 87 mg/dL (<90)
== END ==
PROVIDERS: Family Provider Family Medicine; PCP Family Medicine; Referring Provider Family Medicine; Visit Provider Family Medicine
DX: Z00.00 Encounter for general adult medical examination without abnormal findings (principal); Z12.5 Encounter for screening for malignant neoplasm of prostate; R00.1 Bradycardia, unspecified; G25.0 Essential tremor; M25.561 Pain in right knee; M25.562 Pain in left knee; G89.29 Other chronic pain; M25.511 Pain in right shoulder; M25.512 Pain in left shoulder
CPT/HCPCS: 36415; 80053; 80061; 82172; 84443; 85025; G0103

== ENCOUNTER 2024-10-20 13:45 | Outpatient (RCR) | payer OTHER, SELFPAY ==
--- NOTE | 2024-08-19 15:56 | PT.OIE ---
Addendum entered and electronically signed by Lucy Joseph, PT 08/24/24 15:39: send to PCP at pt request Original Note: Current Diagnoses Pain in left knee (08/19/24) Stiffness of left knee, not elsewhere classified (08/19/24) Stiffness of left ankle, not elsewhere classified (08/19/24) Difficulty in walking, not elsewhere classified (08/19/24) Unsteadiness on feet (08/19/24) Weakness (08/19/24) Past Medical History (Last Reviewed 02/26/24 @ 07:31 by Misha Woodard MD) Anemia Arthritis Ascending aortic aneurysm Bowel obstruction BPH w/o urinary obs/LUTS Chicken pox Depression Diverticulosis Elevated PSA Foot contusion Fractures (~1961) GERD (gastroesophageal reflux disease) Hx of neurological disease Hx of squamous cell carcinoma of skin Leukopenia Measles Mumps Sinus drainage TIA (transient ischemic attack) Past Surgical History (Last Reviewed 02/26/24 @ 07:31 by Misha Woodard MD) Anesthesia History of sinus surgery (~2006) History of surgery (05/09/20) History of third molar tooth extraction (~1979) Hx of circumcision Hx of vasectomy Melanoma (~1977) Status post colonoscopy (~2010) Status post colonoscopy (~2013) Visit Care Team Role Provider Type David Saucedo MD Family Provider Physician Primary Care Provider Referring Provider Specialty: [facility] Address: [address] [place] [address] Email: [email or web address] Attending Provider Advanced Platform Operations Director Specialty: [facility] Address: [address] [place] [address] Phone: Fax: Email: [email or web address] Physical Therapy Initial Evaluation PT-OP-A Visit Information Start: 08/19/24 12:59 Freq: Status: Active Protocol: Document 08/19/24 13:00 NM (Rec: 08/19/24 13:48 NM [id number]) Out-Patient Physical Therapy Visit Information Visit Information Visit Type Initial Evaluation Visit Start Time 13:01 Visit Stop Time 13:45 Visit Number 07/26 Evaluation Information Evaluation Date 08/19/24 Precautions Precautions essential tremor PT-OP-B Current Condition Start: 08/19/24 12:59 Freq: Status: Active Protocol: Document 08/19/24 13:00 NM (Rec: 08/19/24 13:48 NM [id number]) Current Condition History of Current Condition Onset Date 07/08/24 History of Current Condition Pt presents with L knee pain. He reports that he went to bed on [place]ura, which was fine; but woke up on morning with pain which has gotten progressively worse. Denies any specific WINNIE. Pt reports a little swelling in his L knee, states has not really resolved; swelling is more recent. Had xray on his knee about 2 weeks later in July, reports are clear and no indication of arthritis . Pt reports that he gets painful clicking in his L knee intermittently when he is trying to extend his knee. Has not noticed his knee giving out on him but states that he has wondered if it would. He states that he has to wait a few seconds before taking off to make sure his knee is under him. He reports minimal changes to balance or strenth . Worse with standing, walking , extension, stairs in home, knee flexion. Pt is seeing a neurologist for an essential tremor; taking 2 medications for tremors; being assessed for possible parkinson's but not formally diagnosed with anything. He reports that with limping, the muscles in his thighs are getting sore and it 's causing his L hip to also hurt when it did not previously. Reports that thinks that he thinks he was running a fever but thinks only his knee was inflamed. Pain makes it hard for pt to sleep due to knee pain; best position is on his L side ( worst position for his shoulder d/t pain) Prior Treatments and Tests hx of PT for same condition L knee radiograph 07/2024, Impression: Moderate effusion . No visualized acute fracture or dislocation. However, if clinical concern and/or pain persist, short interval imaging follow up in 7-10 days is recommended, as occult injury cannot be definitively excluded. Treatment Goals Patient/Caregiver Goals walk without a limp, be more involved in tenriism weekly service committee (currently unable to sweep steps, move debris to bin) PT-OP-C Subjective Start: 08/19/24 12:59 Freq: Status: Active Protocol: Document 08/19/24 13:00 NM (Rec: 08/19/24 13:48 NM [id number]) OP-PT Subjective Patient Comments Patient Comments Pt agrees to participate in PT evaluation Patient Questionnaires Lower Extremity Functional Scale LEFS Score 23/80 OP-PT Pain Assessment Location L knee Pain Location Details lateral knee, patellar tendon, medial knee, ITB, subpatellar , post Intensity 4 Scale Used Numeric (0 - 10) Description Aching,Dull,Sharp Description- Other worst: 7 Frequency Frequent Variations/Patterns swelling Pain Aggravating Factors ADL's,Activity,Exercise, Standing,Walking,Stair Climbing Pain Alleviating Factors Cold,Medication,Rest Home Pain Medication Use Pain Medications Used Yes: 2x/day ibuprofen PT-OP-E Functional Tests Start: 08/19/24 12:59 Freq: Status: Active Protocol: Document 08/19/24 13:00 NM (Rec: 08/19/24 16:51 NM [id number]) Functional Tests Squat Test Score 1 Comments STS transfer, pain in L knee, needs UE assist PT-OP-F Manual Assessment Start: 08/19/24 12:59 Freq: Status: Active Protocol: Document 08/19/24 13:00 NM (Rec: 08/19/24 16:51 NM [id number]) Manual Assessments Soft Tissue Assessment Soft Tissue Mobility Assessment Tightness and restriction of L hamstring, L ankle and hip Joint Mobility Assessment Joint Mobility Assessment Empty end feel. No increased pain with L knee ext overpressure but mild pain with L knee flexion with overpressure Crepitus present, decreased L patellar mobility globally with lateral tracking present PT-OP-G Mobility & Gait Start: 08/19/24 12:59 Freq: Status: Active Protocol: Document 08/19/24 13:00 NM (Rec: 08/19/24 16:51 NM [id number]) OP Gait Assessment Gait Gait Assistance Required: Independent Distance (Feet) 150 Gait Deviations General Gait Pattern Antalgic,Flexed Trunk,Step-to Gait Factors Limiting Gait Function Factors Limiting Gait Function Decreased Activity Tolerance, Decreased Strength,Limited Range of Motion,Pain Comments Gait Comments Decreased L stance time, antalgic PT-OP-J Posture/Palpation/Skin Start: 08/19/24 12:59 Freq: Status: Active Protocol: Document 08/19/24 13:00 NM (Rec: 08/19/24 16:51 NM [id number]) Posture Evaluation Position Standing Head/C-Spine Posture Forward Head T-Spine Posture Increased Kyphosis Shoulder Posture (L) Rounded,(R) Rounded Weight Distribution Decreased Wt.Bear on (L) Hip Posture (L) Externally Rotated,(R) Externally Rotated Knee Posture (L) Genu Valgus,(R) Genu Valgus Patellar Posture (L) Superior,(L) Laterally Tilted Palpation Assessment Location L knee Palpation Findings Edema,Soft Tissue Tightness Palpation Details Swelling present compared to RLE Tenderness posterior knee at hamstring, lateral knee worse near joint line, patella Warmer temperature than RLE, no redness Skin Assessment Circumference Measurement L knee Location at patella Measurement (Centimeters) 42 Comments R at patella 41 cm PT-OP-K Range of Motion Start: 08/19/24 12:59 Freq: Status: Active Protocol: Document 08/19/24 13:00 NM (Rec: 08/19/24 13:48 NM [id number]) Knee Goniometric Range of Motion Knee Right Flexion Active (degrees) 129 Extension Active (degrees) 2 Left Flexion Active (degrees) 110 Extension Active (degrees) 5 PT-OP-L Special Tests Start: 08/19/24 12:59 Freq: Status: Active Protocol: Document 08/19/24 13:00 NM (Rec: 08/20/24 08:47 NM [id number]) Special Tests Knee Special Tests Varus- 0 Degrees Test Results - Comments and - 25 deg Valgus- 0 Degrees Test Results - Comments and - 25 deg Patellar Grind Test Test Results + Tamia Test Test Results - Anterior Draw Test Results - PT-OP-M Strength Start: 08/19/24 12:59 Freq: Status: Active Protocol: Document 08/19/24 13:00 NM (Rec: 08/19/24 13:48 NM [id number]) Hip Strength Hip Manual Muscle Testing Right Flexion (L2) 4- Good- Extension (S1) 4- Good- Abduction 4- Good- Adduction 4 Good Left Flexion (L2) 4 Good Extension (S1) 4- Good- Abduction 4 Good Adduction 4 Good External Rotation 4 Good Internal Rotation 4 Good Comments pain with abd lateral knee Knee Strength Knee Manual Muscle Testing Right Flexion (S2) 4+ Good+ Extension (L3) 4+ Good+ Left Flexion (S2) 4- Good- Extension (L3) 4- Good- Comments pain with ext, flex Ankle/Foot Strength Ankle and Foot Manual Muscle Testing Right Dorsiflexion (L4) 4 Good Plantarflexion (S1) 4 Good Comments tested in sitting Left Dorsiflexion (L4) 4 Good Plantarflexion (S1) 4 Good Comments tested in sitting PT-OP-Q Treatments Start: 08/19/24 12:59 Freq: Status: Active Protocol: Document 08/19/24 13:00 NM (Rec: 08/19/24 13:48 NM [id number]) Therapeutic Exercises Supine Exercises SAQ Supine Exercise Name HEP Side left Equipment Used pillow under thigh Reps/Minutes 15 Comments c/ quad set; increased time needed for set up/correct form Prone Exercises hip extension Side bilateral Reps/Minutes 2 ea Comments cued to limit trunk comp hamstring curls Side left Reps/Minutes 5 Comments pain with initiation of movement Sitting Exercises hamstring stretch Sitting Exercise Name HEP Side left Equipment Used foot elevated on bolster Reps/Minutes 60 ea Comments reports good stretch; edu to maintain passive quad set Sitting Exercise Name HEP Side left Equipment Used towel roll under knee Reps/Minutes 20 -inc time needed for set up and correct form Comments PT verbal and tactile cues for form, pain free contraction PT-OP-T Assessment and Plan Start: 08/19/24 12:59 Freq: Status: Active Protocol: Document 08/19/24 13:00 NM (Rec: 08/19/24 16:51 NM [id number]) Physical Therapy Assessment Rehab Potential Rehabilitation Potential Good Evaluation Complexity Number of Personal Factors/Comorbidities 3 or More Number of Body Systems Impaired 3 Clinical Presentation at Evaluation Stable Impairments Impairments Activity Tolerance,Balance, Edema,Functional Activities, Functional Mobility,Gait, Integument,Pain,Posture,ROM, Sensation,Soft Tissue Mobility ,Strength,Transfers Other Concerns Age Related Concerns PMH: arthritis, back pain, depression, essential tremor. Surgeries: melanoma, sinus, skin cancer, tonsillectomy, hernia Goals Two Impairment L knee strength limited Short Term Goal (STG) Pt will increase L knee flex and ext strength to at least 4 +/5 STG Duration 10/09/24 Skilled Nursing Goal (LTG) Pt will be able to perform at least 8 stairs reciprocally with or without rails and knee pain <2/10 in order to improve household mobility LTG Duration 10/16/24 One Impairment L knee ROM limited (lack 5 deg ext, 110 deg flex) Skilled Nursing Goal (LTG) Pt will increase L knee flexion AROM to at least 120 deg and L knee ext AROM to lacking 2 deg of ext or less in order to improve ability to perform stairs and dressing ADLs LTG Duration 10/16/24 Three Impairment LEFS 23/80; pain and limp with ambulation Impairment ... Short Term Goal (STG) Pt will report that he is able to perform his service tasks for tenriism with <2/10 L knee pain STG Duration 10/09/24 Skilled Nursing Goal (LTG) Pt will demonstrate gait without limping and <2/10 pain to demo improved ADL tolerance LTG Duration 10/16/24 Assessment Summary Assessment Pt is a 71 y.o. presenting with L knee pain beginning in June 2024 without known WINNIE. Pain has progressively worsened and swelling is now present. Hx of successful PT for similar condition in 2022- 2023. Negative ligamentous instability tests. Pt has impairments in L knee ROM and strength. He reports difficulty with standing, ambulating, knee flexion, knee extension, sitting, sleeping, transfers, and stairs. L knee is tender to palpation along the lateral joint line, patella, and posterior knee near hamstrings. PT educated pt on exam findings and plan of care. Pt would benefit from skilled PT to improve L knee mobility and strength in order to improve ability to perform ADLs/IADLs and return to PLOF . Physical Therapy Plan Frequency and Duration Frequency of Treatment 2x/Week Duration of treatment (weeks) 8 Plan of Care Start Date 08/19/24 Plan of Care End Date 10/16/24 Therapeutic Interventions Therapeutic Interventions Balance Training,Gait Training ,Home Exercise Program,Joint Mobilizations,Manual Therapy, Neuromuscular Re-education, Orthotic/Prosthetic Management ,Patient/Caregiver Education, Self-Care/Home Management, Sensory Integration,Soft Tissue Mobilization,Taping, Therapeutic Activities, Therapeutic Exercises Modalities Cold Pack/Ice Massage,Electric Stimulation,Hot Packs, Ultrasound,Vasopneumatic Devices Next Visit Focus/Plan Next Note Type Treatment Note Next Visit Plan Review HEP Trial TKE. Add quad, HS, hip strengthening. Stretch ankle, hip, HS, trial quad stretch.
--- NOTE | 2024-08-19 15:57 | PT.OPPOC ---
Physical, Occupational & Speech Therapy At [facility] Current Diagnoses Pain in left knee (08/19/24) Stiffness of left knee, not elsewhere classified (08/19/24) Stiffness of left ankle, not elsewhere classified (08/19/24) Difficulty in walking, not elsewhere classified (08/19/24) Unsteadiness on feet (08/19/24) Weakness (08/19/24) Visit Care Team Role Provider Type David Saucedo MD Family Provider Physician Primary Care Provider Referring Provider Specialty: Family Practice Address: [address] [place] [address] Email: [email or web address] LeeP- Attending Provider Advanced Tiedown Operator Specialty: Family Practice Address: [address] [place] [address], [facility] Phone: Fax: Email: [email or web address] Plan Of Care PT-OP-B Current Condition Start: 08/19/24 12:59 Freq: Status: Active Protocol: Document 08/19/24 13:00 NM (Rec: 08/19/24 13:48 NM [id number]) Current Condition History of Current Condition Onset Date 07/08/24 History of Current Condition Pt presents with L knee pain. He reports that he went to bed on [place] laura, which was fine; but woke up on morning with pain which has gotten progressively worse. Denies any specific WINNIE. Pt reports a little swelling in his L knee, states has not really resolved; swelling is more recent. Had xray on his knee about 2 weeks later in July, reports are clear and no indication of arthritis . Pt reports that he gets painful clicking in his L knee intermittently when he is trying to extend his knee. Has not noticed his knee giving out on him but states that he has wondered if it would. He states that he has to wait a few seconds before taking off to make sure his knee is under him. He reports minimal changes to balance or strenth . Worse with standing, walking , extension, stairs in home, knee flexion. Pt is seeing a neurologist for an essential tremor; taking 2 medications for tremors; being assessed for possible parkinson's but not formally diagnosed with anything. He reports that with limping, the muscles in his thighs are getting sore and it 's causing his L hip to also hurt when it did not previously. Reports that thinks that he thinks he was running a fever but thinks only his knee was inflamed. Pain makes it hard for pt to sleep due to knee pain; best position is on his L side ( worst position for his shoulder d/t pain) Prior Treatments and Tests hx of PT for same condition L knee radiograph 07/2024, Impression: Moderate effusion . No visualized acute fracture or dislocation. However, if clinical concern and/or pain persist, short interval imaging follow up in 7-10 days is recommended, as occult injury cannot be definitively excluded. Treatment Goals Patient/Caregiver Goals walk without a limp, be more involved in taoism weekly service committee (currently unable to sweep steps, move debris to bin) PT-OP-T Assessment and Plan Start: 08/19/24 12:59 Freq: Status: Active Protocol: Document 08/19/24 13:00 NM (Rec: 08/19/24 16:51 NM [id number]) Physical Therapy Assessment Rehab Potential Rehabilitation Potential Good Evaluation Complexity Number of Personal Factors/Comorbidities 3 or More Number of Body Systems Impaired 3 Clinical Presentation at Evaluation Stable Impairments Impairments Activity Tolerance,Balance, Edema,Functional Activities, Functional Mobility,Gait, Integument,Pain,Posture,ROM, Sensation,Soft Tissue Mobility ,Strength,Transfers Other Concerns Age Related Concerns PMH: arthritis, back pain, depression, essential tremor. Surgeries: melanoma, sinus, skin cancer, tonsillectomy, hernia Goals Two Impairment L knee strength limited Short Term Goal (STG) Pt will increase L knee flex and ext strength to at least 4 +/5 STG Duration 10/09/24 Shredder Tender Peat Goal (LTG) Pt will be able to perform at least 8 stairs reciprocally with or without rails and knee pain <2/10 in order to improve household mobility LTG Duration 10/16/24 One Impairment L knee ROM limited (lack 5 deg ext, 110 deg flex) Snf Goal (LTG) Pt will increase L knee flexion AROM to at least 120 deg and L knee ext AROM to lacking 2 deg of ext or less in order to improve ability to perform stairs and dressing ADLs LTG Duration 10/16/24 Three Impairment LEFS 23/80; pain and limp with ambulation Impairment ... Short Term Goal (STG) Pt will report that he is able to perform his service tasks for taoism with <2/10 L knee pain STG Duration 10/09/24 Shredder Tender Peat Goal (LTG) Pt will demonstrate gait without limping and <2/10 pain to demo improved ADL tolerance LTG Duration 10/16/24 Assessment Summary Assessment Pt is a 71 y.o. presenting with L knee pain beginning in June 2024 without known WINNIE. Pain has progressively worsened and swelling is now present. Hx of successful PT for similar condition in 2022- 2023. Negative ligamentous instability tests. Pt has impairments in L knee ROM and strength. He reports difficulty with standing, ambulating, knee flexion, knee extension, sitting, sleeping, transfers, and stairs. L knee is tender to palpation along the lateral joint line, patella, and posterior knee near hamstrings. PT educated pt on exam findings and plan of care. Pt would benefit from skilled PT to improve L knee mobility and strength in order to improve ability to perform ADLs/IADLs and return to OF . Physical Therapy Plan Frequency and Duration Frequency of Treatment 2x/Week Duration of treatment (weeks) 8 Plan of Care Start Date 08/19/24 Plan of Care End Date 10/16/24 Therapeutic Interventions Therapeutic Interventions Balance Training,Gait Training ,Home Exercise Program,Joint Mobilizations,Manual Therapy, Neuromuscular Re-education, Orthotic/Prosthetic Management ,Patient/Caregiver Education, Self-Care/Home Management, Sensory Integration,Soft Tissue Mobilization,Taping, Therapeutic Activities, Therapeutic Exercises Modalities Cold Pack/Ice Massage,Electric Stimulation,Hot Packs, Ultrasound,Vasopneumatic Devices Next Visit Focus/Plan Next Note Type Treatment Note Next Visit Plan Review HEP Trial TKE. Add quad, HS, hip strengthening. Stretch ankle, hip, HS, trial quad stretch. Plan of Care Dates Plan of Care Start Date 08/19/24 Plan of Care End Date 10/16/24 Electronically Signed by: Lucy Joseph, PT 08/20/24 0849 If you are in agreement with this Plan of Care, please return a signed and dated copy. I have reviewed this Plan of Care and certify that the skilled therapy services above are required to meet the patient?s needs. Physician Signature Date Printed Name and Credentials Clinical Instructor Signature Printed Name and Credentials
--- NOTE | 2024-08-24 15:31 | PT.OTN ---
Current Diagnoses Pain in left knee (08/24/24) Stiffness of left knee, not elsewhere classified (08/24/24) Stiffness of left ankle, not elsewhere classified (08/24/24) Difficulty in walking, not elsewhere classified (08/24/24) Unsteadiness on feet (08/24/24) Weakness (08/24/24) Physical Therapy Treatment Note PT-OP-A Visit Information Start: 08/19/24 12:59 Freq: Status: Active Protocol: Document 08/24/24 14:33 NM (Rec: 08/24/24 15:31 NM [id number]) Out-Patient Physical Therapy Visit Information Visit Information Visit Type Treatment Note Visit Note present for session, pt ok with present Visit Start Time 14:35 Visit Stop Time 15:16 Visit Number 08/26 Evaluation Information Evaluation Date 08/19/24 Precautions Precautions essential tremor PT-OP-B Current Condition Start: 08/19/24 12:59 Freq: Status: Active Protocol: Document 08/19/24 13:00 NM (Rec: 08/19/24 13:48 NM [id number]) Current Condition History of Current Condition Onset Date 07/08/24 History of Current Condition Pt presents with L knee pain. He reports that he went to bed on laura, which was fine; but woke up on morning with pain which has gotten progressively worse. Denies any specific WINNIE. Pt reports a little swelling in his L knee, states has not really resolved; swelling is more recent. Had xray on his knee about 2 weeks later in July, reports are clear and no indication of arthritis . Pt reports that he gets painful clicking in his L knee intermittently when he is trying to extend his knee. Has not noticed his knee giving out on him but states that he has wondered if it would. He states that he has to wait a few seconds before taking off to make sure his knee is under him. He reports minimal changes to balance or strenth . Worse with standing, walking , extension, stairs in home, knee flexion. Pt is seeing a neurologist for an essential tremor; taking 2 medications for tremors; being assessed for possible parkinson's but not formally diagnosed with anything. He reports that with limping, the muscles in his thighs are getting sore and it 's causing his L hip to also hurt when it did not previously. Reports that thinks that he thinks he was running a fever but thinks only his knee was inflamed. Pain makes it hard for pt to sleep due to knee pain; best position is on his L side ( worst position for his shoulder d/t pain) Prior Treatments and Tests hx of PT for same condition L knee radiograph 07/2024, Impression: Moderate effusion . No visualized acute fracture or dislocation. However, if clinical concern and/or pain persist, short interval imaging follow up in 7-10 days is recommended, as occult injury cannot be definitively excluded. Treatment Goals Patient/Caregiver Goals walk without a limp, be more involved in [facility] weekly service committee (currently unable to sweep steps, move debris to bin) PT-OP-C Subjective Start: 08/19/24 12:59 Freq: Status: Active Protocol: Document 08/24/24 14:33 NM (Rec: 08/24/24 15:31 NM [id number]) OP-PT Subjective Patient Comments Patient Comments Pt reports that he walked almost normal on Saturday but reports that he is limping again. He reports 3-4/10. He states HEP going well but 3rd exercise is intereresting. On Saturday, pt reports that his knee bothered him, he felt a sharp pain when picking up a crate of coke, from low shelf. PT-OP-E Functional Tests Start: 08/19/24 12:59 Freq: Status: Active Protocol: Document 08/19/24 13:00 NM (Rec: 08/19/24 16:51 NM [id number]) Functional Tests Squat Test Score 1 Comments STS transfer, pain in L knee, needs UE assist PT-OP-F Manual Assessment Start: 08/19/24 12:59 Freq: Status: Active Protocol: Document 08/19/24 13:00 NM (Rec: 08/19/24 16:51 NM [id number]) Manual Assessments Soft Tissue Assessment Soft Tissue Mobility Assessment Tightness and restriction of L hamstring, L ankle and hip Joint Mobility Assessment Joint Mobility Assessment Empty end feel. No increased pain with L knee ext overpressure but mild pain with L knee flexion with overpressure Crepitus present, decreased L patellar mobility globally with lateral tracking present PT-OP-G Mobility & Gait Start: 08/19/24 12:59 Freq: Status: Active Protocol: Document 08/19/24 13:00 NM (Rec: 08/19/24 16:51 NM [id number]) OP Gait Assessment Gait Gait Assistance Required: Independent Distance (Feet) 150 Gait Deviations General Gait Pattern Antalgic,Flexed Trunk,Step-to Gait Factors Limiting Gait Function Factors Limiting Gait Function Decreased Activity Tolerance, Decreased Strength,Limited Range of Motion,Pain Comments Gait Comments Decreased L stance time, antalgic PT-OP-J Posture/Palpation/Skin Start: 08/19/24 12:59 Freq: Status: Active Protocol: Document 08/19/24 13:00 NM (Rec: 08/19/24 16:51 NM [id number]) Posture Evaluation Position Standing Head/C-Spine Posture Forward Head T-Spine Posture Increased Kyphosis Shoulder Posture (L) Rounded,(R) Rounded Weight Distribution Decreased Wt.Bear on (L) Hip Posture (L) Externally Rotated,(R) Externally Rotated Knee Posture (L) Genu Valgus,(R) Genu Valgus Patellar Posture (L) Superior,(L) Laterally Tilted Palpation Assessment Location L knee Palpation Findings Edema,Soft Tissue Tightness Palpation Details Swelling present compared to RLE Tenderness posterior knee at hamstring, lateral knee worse near joint line, patella Warmer temperature than RLE, no redness Skin Assessment Circumference Measurement L knee Location at patella Measurement (Centimeters) 42 Comments R at patella 41 cm PT-OP-K Range of Motion Start: 08/19/24 12:59 Freq: Status: Active Protocol: Document 08/19/24 13:00 NM (Rec: 08/19/24 13:48 NM [id number]) Knee Goniometric Range of Motion Knee Right Flexion Active (degrees) 129 Extension Active (degrees) 2 Left Flexion Active (degrees) 110 Extension Active (degrees) 5 PT-OP-L Special Tests Start: 08/19/24 12:59 Freq: Status: Active Protocol: Document 08/19/24 13:00 NM (Rec: 08/20/24 08:47 NM [id number]) Special Tests Knee Special Tests Varus- 0 Degrees Test Results - Comments and - 25 deg Valgus- 0 Degrees Test Results - Comments and - 25 deg Patellar Grind Test Test Results + Tamia Test Test Results - Anterior Draw Test Results - PT-OP-M Strength Start: 08/19/24 12:59 Freq: Status: Active Protocol: Document 08/19/24 13:00 NM (Rec: 08/19/24 13:48 NM [id number]) Hip Strength Hip Manual Muscle Testing Right Flexion (L2) 4- Good- Extension (S1) 4- Good- Abduction 4- Good- Adduction 4 Good Left Flexion (L2) 4 Good Extension (S1) 4- Good- Abduction 4 Good Adduction 4 Good External Rotation 4 Good Internal Rotation 4 Good Comments pain with abd lateral knee Knee Strength Knee Manual Muscle Testing Right Flexion (S2) 4+ Good+ Extension (L3) 4+ Good+ Left Flexion (S2) 4- Good- Extension (L3) 4- Good- Comments pain with ext, flex Ankle/Foot Strength Ankle and Foot Manual Muscle Testing Right Dorsiflexion (L4) 4 Good Plantarflexion (S1) 4 Good Comments tested in sitting Left Dorsiflexion (L4) 4 Good Plantarflexion (S1) 4 Good Comments tested in sitting PT-OP-Q Treatments Start: 08/19/24 12:59 Freq: Status: Active Protocol: Document 08/24/24 14:33 NM (Rec: 08/24/24 15:31 NM [id number]) Therapeutic Exercises Supine Exercises SLR Supine Exercise Name trialed in PT Side left Reps/Minutes 10x2- better TKE c/ cueing Comments challenging; cued quad set and maintain through ROM SAQ Supine Exercise Name HEP review Side left Equipment Used foam roller under knee Reps/Minutes 10 Comments lacking end range TKE Sitting Exercises hamstring stretch Sitting Exercise Name HEP review Side bilateral Equipment Used foot on stool Reps/Minutes 60 ea Comments c/ fwd lean; cued set up quad set Sitting Exercise Name HEP review Side left Equipment Used towel roll Reps/Minutes 10x2 Comments improve contraction Standing Exercises TKE Standing Exercise Name HEP Side left Resistance level 2 band Equipment Used PT holding band; edu on set up for home carryover Reps/Minutes 15x2 Comments pain free side steps Standing Exercise Name HEP Side bilateral Resistance level 2 band at thighs Equipment Used hand support on counter- B Reps/Minutes 10 x 5 ft ea direction Comments no pain; cued neutral foot position, tall posture Manual Therapy Treatment Consent Patient gave verbal consent for manual Yes treatment Soft Tissue Mobilization L knee Body Location adductors, hip flexors, quad, hamstring, calf Mobilization Type Rolling,Sustained Pressure, Other Body Position Supine Comments superficial for swelling mgmt, moderate intensity for trigger points and soft tissue restrictions of distal HS and quad. Joint Mobilizations L knee Joint patellar, tibiofemoral Direction sup/inf/med/lat, PA and AP c/ slight distraction Grade III Body Position Hooklying Reps/Duration 2x10 patellar, 2x30 ea Comments monitored for pain, increased discomfort at posterior knee with knee flexion Self-Care/Home Management Treatment Education Patient Education Pain Management Other Education Recommended cryotherapy post exercise for swelling and pain management PT-OP-T Assessment and Plan Start: 08/19/24 12:59 Freq: Status: Active Protocol: Document 08/24/24 14:33 NM (Rec: 08/24/24 15:31 NM [id number]) Physical Therapy Assessment Goals Two Impairment L knee strength limited Short Term Goal (STG) Pt will increase L knee flex and ext strength to at least 4 +/5 STG Duration 10/09/24 Anchorer Goal (LTG) Pt will be able to perform at least 8 stairs reciprocally with or without rails and knee pain <2/10 in order to improve household mobility LTG Duration 10/16/24 One Impairment L knee ROM limited (lack 5 deg ext, 110 deg flex) Anchorer Goal (LTG) Pt will increase L knee flexion AROM to at least 120 deg and L knee ext AROM to lacking 2 deg of ext or less in order to improve ability to perform stairs and dressing ADLs 08/24/24: lacking 3 deg ext LTG Duration 10/16/24 Three Impairment LEFS 23/80; pain and limp with ambulation Impairment ... 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 Session emphasis on improving quad and glute strength, in addition to L knee extension ROM. Pt has mild pain with end range ext and flexion; however, improved quad activation and fewer cues needed with quad set. Pt needs cueing for correct execution on SLR and TKE; good carryover for home. Education provided for pt and about PT expectations and current impairment and plan of care. Initiated manual treatment to decrease soft tissue limitations and to improve L knee mobility. Pt would benefit from skilled PT for progressive L knee mobility and strengthening to improve gait and ability to perform ADLs. Physical Therapy Plan Frequency and Duration Frequency of Treatment 2x/Week Duration of treatment (weeks) 8 Plan of Care Start Date 08/19/24 Plan of Care End Date 10/16/24 Therapeutic Interventions Therapeutic Interventions Balance Training,Gait Training ,Home Exercise Program,Joint Mobilizations,Manual Therapy, Neuromuscular Re-education, Orthotic/Prosthetic Management ,Patient/Caregiver Education, Self-Care/Home Management, Sensory Integration,Soft Tissue Mobilization,Taping, Therapeutic Activities, Therapeutic Exercises Modalities Cold Pack/Ice Massage,Electric Stimulation,Hot Packs, Ultrasound,Vasopneumatic Devices Next Visit Focus/Plan Next Note Type Treatment Note Next Visit Plan Review HEP as needed Knee flex and ext mobilization . Glute and quad strenght. Progress to LAQ, minisquat. Add quad, HS, hip strengthening. Stretch ankle, hip, HS, trial quad stretch.
--- NOTE | 2024-08-28 15:07 | PT.OTN ---
Current Diagnoses Pain in left knee (08/28/24) Stiffness of left knee, not elsewhere classified (08/28/24) Stiffness of left ankle, not elsewhere classified (08/28/24) Difficulty in walking, not elsewhere classified (08/28/24) Unsteadiness on feet (08/28/24) Weakness (08/28/24) Physical Therapy Treatment Note PT-OP-A Visit Information Start: 08/19/24 12:59 Freq: Status: Active Protocol: Document 08/28/24 13:01 NM (Rec: 08/28/24 15:07 NM [id number]) Out-Patient Physical Therapy Visit Information Visit Information Visit Type Treatment Note Visit Start Time 13:02 Visit Stop Time 13:42 Visit Number 09/23 Evaluation Information Evaluation Date 08/19/24 Precautions Precautions essential tremor PT-OP-B Current Condition Start: 08/19/24 12:59 Freq: Status: Active Protocol: Document 08/19/24 13:00 NM (Rec: 08/19/24 13:48 NM [id number]) Current Condition History of Current Condition Onset Date 07/08/24 History of Current Condition Pt presents with L knee pain. He reports that he went to bed on laura, which was fine; but woke up on morning with pain which has gotten progressively worse. Denies any specific WINNIE. Pt reports a little swelling in his L knee, states has not really resolved; swelling is more recent. Had xray on his knee about 2 weeks later in July, reports are clear and no indication of arthritis . Pt reports that he gets painful clicking in his L knee intermittently when he is trying to extend his knee. Has not noticed his knee giving out on him but states that he has wondered if it would. He states that he has to wait a few seconds before taking off to make sure his knee is under him. He reports minimal changes to balance or strenth . Worse with standing, walking , extension, stairs in home, knee flexion. Pt is seeing a neurologist for an essential tremor; taking 2 medications for tremors; being assessed for possible parkinson's but not formally diagnosed with anything. He reports that with limping, the muscles in his thighs are getting sore and it 's causing his L hip to also hurt when it did not previously. Reports that thinks that he thinks he was running a fever but thinks only his knee was inflamed. Pain makes it hard for pt to sleep due to knee pain; best position is on his L side ( worst position for his shoulder d/t pain) Prior Treatments and Tests hx of PT for same condition L knee radiograph 07/2024, Impression: Moderate effusion . No visualized acute fracture or dislocation. However, if clinical concern and/or pain persist, short interval imaging follow up in 7-10 days is recommended, as occult injury cannot be definitively excluded. Treatment Goals Patient/Caregiver Goals walk without a limp, be more involved in [facility] weekly service committee (currently unable to sweep steps, move debris to bin) PT-OP-C Subjective Start: 08/19/24 12:59 Freq: Status: Active Protocol: Document 08/28/24 13:01 NM (Rec: 08/28/24 15:07 NM [id number]) OP-PT Subjective Patient Comments Patient Comments Pt reports that his L quad is bothering him after this morning, due to laundry (had to kneel and squat). L knee feels the same, reports goes up and down. reports 3/10 pain in L knee and quad PT-OP-E Functional Tests Start: 08/19/24 12:59 Freq: Status: Active Protocol: Document 08/19/24 13:00 NM (Rec: 08/19/24 16:51 NM [id number]) Functional Tests Squat Test Score 1 Comments STS transfer, pain in L knee, needs UE assist PT-OP-F Manual Assessment Start: 08/19/24 12:59 Freq: Status: Active Protocol: Document 08/19/24 13:00 NM (Rec: 08/19/24 16:51 NM [id number]) Manual Assessments Soft Tissue Assessment Soft Tissue Mobility Assessment Tightness and restriction of L hamstring, L ankle and hip Joint Mobility Assessment Joint Mobility Assessment Empty end feel. No increased pain with L knee ext overpressure but mild pain with L knee flexion with overpressure Crepitus present, decreased L patellar mobility globally with lateral tracking present PT-OP-G Mobility & Gait Start: 08/19/24 12:59 Freq: Status: Active Protocol: Document 08/19/24 13:00 NM (Rec: 08/19/24 16:51 NM [id number]) OP Gait Assessment Gait Gait Assistance Required: Independent Distance (Feet) 150 Gait Deviations General Gait Pattern Antalgic,Flexed Trunk,Step-to Gait Factors Limiting Gait Function Factors Limiting Gait Function Decreased Activity Tolerance, Decreased Strength,Limited Range of Motion,Pain Comments Gait Comments Decreased L stance time, antalgic PT-OP-J Posture/Palpation/Skin Start: 08/19/24 12:59 Freq: Status: Active Protocol: Document 08/19/24 13:00 NM (Rec: 08/19/24 16:51 NM [id number]) Posture Evaluation Position Standing Head/C-Spine Posture Forward Head T-Spine Posture Increased Kyphosis Shoulder Posture (L) Rounded,(R) Rounded Weight Distribution Decreased Wt.Bear on (L) Hip Posture (L) Externally Rotated,(R) Externally Rotated Knee Posture (L) Genu Valgus,(R) Genu Valgus Patellar Posture (L) Superior,(L) Laterally Tilted Palpation Assessment Location L knee Palpation Findings Edema,Soft Tissue Tightness Palpation Details Swelling present compared to RLE Tenderness posterior knee at hamstring, lateral knee worse near joint line, patella Warmer temperature than RLE, no redness Skin Assessment Circumference Measurement L knee Location at patella Measurement (Centimeters) 42 Comments R at patella 41 cm PT-OP-K Range of Motion Start: 08/19/24 12:59 Freq: Status: Active Protocol: Document 08/19/24 13:00 NM (Rec: 08/19/24 13:48 NM [id number]) Knee Goniometric Range of Motion Knee Right Flexion Active (degrees) 129 Extension Active (degrees) 2 Left Flexion Active (degrees) 110 Extension Active (degrees) 5 PT-OP-L Special Tests Start: 08/19/24 12:59 Freq: Status: Active Protocol: Document 08/19/24 13:00 NM (Rec: 08/20/24 08:47 NM [id number]) Special Tests Knee Special Tests Varus- 0 Degrees Test Results - Comments and - 25 deg Valgus- 0 Degrees Test Results - Comments and - 25 deg Patellar Grind Test Test Results + Tamia Test Test Results - Anterior Draw Test Results - PT-OP-M Strength Start: 08/19/24 12:59 Freq: Status: Active Protocol: Document 08/19/24 13:00 NM (Rec: 08/19/24 13:48 NM [id number]) Hip Strength Hip Manual Muscle Testing Right Flexion (L2) 4- Good- Extension (S1) 4- Good- Abduction 4- Good- Adduction 4 Good Left Flexion (L2) 4 Good Extension (S1) 4- Good- Abduction 4 Good Adduction 4 Good External Rotation 4 Good Internal Rotation 4 Good Comments pain with abd lateral knee Knee Strength Knee Manual Muscle Testing Right Flexion (S2) 4+ Good+ Extension (L3) 4+ Good+ Left Flexion (S2) 4- Good- Extension (L3) 4- Good- Comments pain with ext, flex Ankle/Foot Strength Ankle and Foot Manual Muscle Testing Right Dorsiflexion (L4) 4 Good Plantarflexion (S1) 4 Good Comments tested in sitting Left Dorsiflexion (L4) 4 Good Plantarflexion (S1) 4 Good Comments tested in sitting PT-OP-Q Treatments Start: 08/19/24 12:59 Freq: Status: Active Protocol: Document 08/28/24 13:01 NM (Rec: 08/28/24 15:07 NM [id number]) Therapeutic Exercises Supine Exercises denice stretch Supine Exercise Name trialed for hip flexor/quad stretch Comments feels in knee; d/c due to knee pain bridge Side bilateral Resistance AROM > level 1 band at thighs Equipment Used c/ ppt Reps/Minutes 10 knee flexion Supine Exercise Name 1. repeated on ball, 2. heel slide AROM (HEP-no HO, on phone) Side bilateral Equipment Used orange guamanian ball Reps/Minutes 1. 60, 2. 10 Comments post manual tx; cued alignment Other Exercises self soft tissue mobilization Other Exercise Name quad, adductors, ITB, calf, HS - HEP (no HO) Side left Equipment Used rolling pin Reps/Minutes 2 min Manual Therapy Treatment Consent Patient gave verbal consent for manual Yes treatment Soft Tissue Mobilization L knee Body Location adductors, hip flexors, quad, hamstring, c Mobilization Type Rolling,Sustained Pressure, Other Comments sitting and supine. Restrictions and trigger points quad and adductors. Reduced with mobilization Education on use of rolling pin for self STM at home Joint Mobilizations L knee Joint patellar, tibiofemoral Direction sup/inf/med/lat, PA and AP c/ slight distraction Grade III Reps/Duration 2x10 patellar, 2x30 ea Comments Sitting and hooklying. monitored for pain, increased discomfort at posterior knee with knee flexion PT-OP-T Assessment and Plan Start: 08/19/24 12:59 Freq: Status: Active Protocol: Document 08/28/24 13:01 NM (Rec: 08/28/24 15:07 NM [id number]) Physical Therapy Assessment Goals Two Impairment L knee strength limited Short Term Goal (STG) Pt will increase L knee flex and ext strength to at least 4 +/5 STG Duration 10/09/24 [facility] Goal (LTG) Pt will be able to perform at least 8 stairs reciprocally with or without rails and knee pain <2/10 in order to improve household mobility LTG Duration 10/16/24 One Impairment L knee ROM limited (lack 5 deg ext, 110 deg flex) [employer] Goal (LTG) Pt will increase L knee flexion AROM to at least 120 deg and L knee ext AROM to lacking 2 deg of ext or less in order to improve ability to perform stairs and dressing ADLs 08/24/24: lacking 3 deg ext LTG Duration 10/16/24 Three Impairment LEFS 23/80; pain and limp with ambulation Impairment ... 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 Has 115 deg L knee flexion at end of session. Emphasis on promoting knee flexion this session. HEP update limited by website maintenance; added to HEP with video on pt phone. Initiated glute/hamstring strength with bridge. Cueing needed for form for all. Quad stretch and hip flexor stretch not tolerated. Good response to manual treatment today, less quad tightness. Educated on use of rolling pin at home for self management. Increased time needed for exercise due to modifications. Physical Therapy Plan Frequency and Duration Frequency of Treatment 2x/Week Duration of treatment (weeks) 8 Plan of Care Start Date 08/19/24 Plan of Care End Date 10/16/24 Therapeutic Interventions Therapeutic Interventions Balance Training,Gait Training ,Home Exercise Program,Joint Mobilizations,Manual Therapy, Neuromuscular Re-education, Orthotic/Prosthetic Management ,Patient/Caregiver Education, Self-Care/Home Management, Sensory Integration,Soft Tissue Mobilization,Taping, Therapeutic Activities, Therapeutic Exercises Modalities Cold Pack/Ice Massage,Electric Stimulation,Hot Packs, Ultrasound,Vasopneumatic Devices Next Visit Focus/Plan Next Note Type Treatment Note Next Visit Plan Review HEP as needed; HEP for heel slide, bridge. Cont knee flexion, trial hip flexor stretch, quad stretch, seated knee flex c/ HSC Knee flex and ext mobilization . Glute and quad strenght. Progress to LAQ, minisquat. Add quad, HS, hip strengthening. Stretch ankle, hip, HS, trial quad stretch.
--- NOTE | 2024-08-31 15:32 | PT.OTN ---
Current Diagnoses Pain in left knee (08/31/24) Stiffness of left knee, not elsewhere classified (08/31/24) Stiffness of left ankle, not elsewhere classified (08/31/24) Difficulty in walking, not elsewhere classified (08/31/24) Unsteadiness on feet (08/31/24) Weakness (08/31/24) Physical Therapy Treatment Note PT-OP-A Visit Information Start: 08/19/24 12:59 Freq: Status: Active Protocol: Document 08/31/24 14:33 NM (Rec: 08/31/24 15:32 NM [id number]) Out-Patient Physical Therapy Visit Information Visit Information Visit Type Treatment Note Visit Start Time 14:35 Visit Stop Time 15:25 Visit Number 10/27 Evaluation Information Evaluation Date 08/19/24 Precautions Precautions essential tremor PT-OP-B Current Condition Start: 08/19/24 12:59 Freq: Status: Active Protocol: Document 08/19/24 13:00 NM (Rec: 08/19/24 13:48 NM [id number]) Current Condition History of Current Condition Onset Date 07/08/24 History of Current Condition Pt presents with L knee pain. He reports that he went to bed on laura, which was fine; but woke up on morning with pain which has gotten progressively worse. Denies any specific WINNIE. Pt reports a little swelling in his L knee, states has not really resolved; swelling is more recent. Had xray on his knee about 2 weeks later in July, reports are clear and no indication of arthritis . Pt reports that he gets painful clicking in his L knee intermittently when he is trying to extend his knee. Has not noticed his knee giving out on him but states that he has wondered if it would. He states that he has to wait a few seconds before taking off to make sure his knee is under him. He reports minimal changes to balance or strenth . Worse with standing, walking , extension, stairs in home, knee flexion. Pt is seeing a neurologist for an essential tremor; taking 2 medications for tremors; being assessed for possible parkinson's but not formally diagnosed with anything. He reports that with limping, the muscles in his thighs are getting sore and it 's causing his L hip to also hurt when it did not previously. Reports that thinks that he thinks he was running a fever but thinks only his knee was inflamed. Pain makes it hard for pt to sleep due to knee pain; best position is on his L side ( worst position for his shoulder d/t pain) Prior Treatments and Tests hx of PT for same condition L knee radiograph 07/2024, Impression: Moderate effusion . No visualized acute fracture or dislocation. However, if clinical concern and/or pain persist, short interval imaging follow up in 7-10 days is recommended, as occult injury cannot be definitively excluded. Treatment Goals Patient/Caregiver Goals walk without a limp, be more involved in [employer] weekly service committee (currently unable to sweep steps, move debris to bin) PT-OP-C Subjective Start: 08/19/24 12:59 Freq: Status: Active Protocol: Document 08/31/24 14:33 NM (Rec: 08/31/24 15:32 NM [id number]) OP-PT Subjective Patient Comments Patient Comments Pt reports yesterday was not a good day, he reports that he had increased quad and knee pain. He reports 3-4/10 L knee pain and quad pain today. Pt states unsure if he did anything to cause it, just reports that it bother him. Pt reports that he did not do his exercises on Saturday. He reports that he does notice that he has had painful popping while walking 2x/in the past 2 weeks. PT-OP-E Functional Tests Start: 08/19/24 12:59 Freq: Status: Active Protocol: Document 08/19/24 13:00 NM (Rec: 08/19/24 16:51 NM [id number]) Functional Tests Squat Test Score 1 Comments STS transfer, pain in L knee, needs UE assist PT-OP-F Manual Assessment Start: 08/19/24 12:59 Freq: Status: Active Protocol: Document 08/19/24 13:00 NM (Rec: 08/19/24 16:51 NM [id number]) Manual Assessments Soft Tissue Assessment Soft Tissue Mobility Assessment Tightness and restriction of L hamstring, L ankle and hip Joint Mobility Assessment Joint Mobility Assessment Empty end feel. No increased pain with L knee ext overpressure but mild pain with L knee flexion with overpressure Crepitus present, decreased L patellar mobility globally with lateral tracking present PT-OP-G Mobility & Gait Start: 08/19/24 12:59 Freq: Status: Active Protocol: Document 08/19/24 13:00 NM (Rec: 08/19/24 16:51 NM [id number]) OP Gait Assessment Gait Gait Assistance Required: Independent Distance (Feet) 150 Gait Deviations General Gait Pattern Antalgic,Flexed Trunk,Step-to Gait Factors Limiting Gait Function Factors Limiting Gait Function Decreased Activity Tolerance, Decreased Strength,Limited Range of Motion,Pain Comments Gait Comments Decreased L stance time, antalgic PT-OP-J Posture/Palpation/Skin Start: 08/19/24 12:59 Freq: Status: Active Protocol: Document 08/19/24 13:00 NM (Rec: 08/19/24 16:51 NM [id number]) Posture Evaluation Position Standing Head/C-Spine Posture Forward Head T-Spine Posture Increased Kyphosis Shoulder Posture (L) Rounded,(R) Rounded Weight Distribution Decreased Wt.Bear on (L) Hip Posture (L) Externally Rotated,(R) Externally Rotated Knee Posture (L) Genu Valgus,(R) Genu Valgus Patellar Posture (L) Superior,(L) Laterally Tilted Palpation Assessment Location L knee Palpation Findings Edema,Soft Tissue Tightness Palpation Details Swelling present compared to RLE Tenderness posterior knee at hamstring, lateral knee worse near joint line, patella Warmer temperature than RLE, no redness Skin Assessment Circumference Measurement L knee Location at patella Measurement (Centimeters) 42 Comments R at patella 41 cm PT-OP-K Range of Motion Start: 08/19/24 12:59 Freq: Status: Active Protocol: Document 08/19/24 13:00 NM (Rec: 08/19/24 13:48 NM [id number]) Knee Goniometric Range of Motion Knee Right Flexion Active (degrees) 129 Extension Active (degrees) 2 Left Flexion Active (degrees) 110 Extension Active (degrees) 5 PT-OP-L Special Tests Start: 08/19/24 12:59 Freq: Status: Active Protocol: Document 08/19/24 13:00 NM (Rec: 08/20/24 08:47 NM [id number]) Special Tests Knee Special Tests Varus- 0 Degrees Test Results - Comments and - 25 deg Valgus- 0 Degrees Test Results - Comments and - 25 deg Patellar Grind Test Test Results + Tamia Test Test Results - Anterior Draw Test Results - PT-OP-M Strength Start: 08/19/24 12:59 Freq: Status: Active Protocol: Document 08/19/24 13:00 NM (Rec: 08/19/24 13:48 NM [id number]) Hip Strength Hip Manual Muscle Testing Right Flexion (L2) 4- Good- Extension (S1) 4- Good- Abduction 4- Good- Adduction 4 Good Left Flexion (L2) 4 Good Extension (S1) 4- Good- Abduction 4 Good Adduction 4 Good External Rotation 4 Good Internal Rotation 4 Good Comments pain with abd lateral knee Knee Strength Knee Manual Muscle Testing Right Flexion (S2) 4+ Good+ Extension (L3) 4+ Good+ Left Flexion (S2) 4- Good- Extension (L3) 4- Good- Comments pain with ext, flex Ankle/Foot Strength Ankle and Foot Manual Muscle Testing Right Dorsiflexion (L4) 4 Good Plantarflexion (S1) 4 Good Comments tested in sitting Left Dorsiflexion (L4) 4 Good Plantarflexion (S1) 4 Good Comments tested in sitting PT-OP-Q Treatments Start: 08/19/24 12:59 Freq: Status: Active Protocol: Document 08/31/24 14:33 NM (Rec: 08/31/24 15:32 NM [id number]) Therapeutic Exercises Supine Exercises hamstring stretch Side left Equipment Used c/ strap Reps/Minutes 2x60 Comments inc time needed for form, rest post stretching bridge Supine Exercise Name HEP Side bilateral Resistance level 2 band at thighs Reps/Minutes 10 Comments cued for ppt, scoot feet out so less knee flex SLR Side left Resistance AROM Reps/Minutes 10- cued for quad set Comments reports stretch in HS, pain in groin last set Standing Exercises calf stretch Standing Exercise Name gastrocnemius only Side bilateral Equipment Used 6 Reps/Minutes 2x30 ea Comments cued extensively for neutral foot; increased time for set up hip flexor stretch Standing Exercise Name 1. stairs, 2. staggered stance Side bilateral Equipment Used foot on 2nd set, c/ ppt; extensive cueing for neutral foot Reps/Minutes 2x30 ea Comments feels in appropriate portion of hip + calf; inc time for set up Manual Therapy Treatment Consent Patient gave verbal consent for manual Yes treatment Soft Tissue Mobilization L knee Body Location adductors, hip flexors, quad, hamstring, calf, pes anserine, MCL Mobilization Type Rolling,Sustained Pressure, Other Intensity/Depth Moderate Body Position Supine Comments Starting with L 124 deg, 8 deg ext. Lacking 5 deg end of session. Increased restrictions in medial hamstring and pes anserine, tenderness; reduced with manual tx but still restriced PT-OP-T Assessment and Plan Start: 08/19/24 12:59 Freq: Status: Active Protocol: Document 08/31/24 14:33 NM (Rec: 08/31/24 15:32 NM [id number]) Physical Therapy Assessment Goals Two Impairment L knee strength limited Short Term Goal (STG) Pt will increase L knee flex and ext strength to at least 4 +/5 STG Duration 10/09/24 Private Investigator Goal (LTG) Pt will be able to perform at least 8 stairs reciprocally with or without rails and knee pain <2/10 in order to improve household mobility LTG Duration 10/16/24 One Impairment L knee ROM limited (lack 5 deg ext, 110 deg flex) [employer] Goal (LTG) Pt will increase L knee flexion AROM to at least 120 deg and L knee ext AROM to lacking 2 deg of ext or less in order to improve ability to perform stairs and dressing ADLs 08/24/24: lacking 3 deg ext LTG Duration 10/16/24 Three Impairment LEFS 23/80; pain and limp with ambulation Impairment ... Short Term Goal (STG) Pt will report that he is able to perform his service tasks for [employer] with <2/10 L knee pain STG Duration 10/09/24 Prison Goal (LTG) Pt will demonstrate gait without limping and <2/10 pain to demo improved ADL tolerance LTG Duration 10/16/24 Assessment Summary Assessment Pt reports that he has less L knee pain, 2-3/10 at end of session. Improved L knee flexion to 124 deg at start of session; L knee ext improved from lacking 8 deg to lacking 5 deg at end of session. L hamstrings restricting ROM for gait, knee extension, in addition to pain. Better tolerance for hip stretching in standing; added calf stretch at stairs and supine hamstring stretch to improve muscle length. Increased time needed for all exercises for set up and correct execution, especially for neutral foot position. Pt would continue to benefit from skilled PT for progressive L knee flexibility and strengthening in order to improve pain management and mobility during ADLs. Physical Therapy Plan Frequency and Duration Frequency of Treatment 2x/Week Duration of treatment (weeks) 8 Plan of Care Start Date 08/19/24 Plan of Care End Date 10/16/24 Therapeutic Interventions Therapeutic Interventions Balance Training,Gait Training ,Home Exercise Program,Joint Mobilizations,Manual Therapy, Neuromuscular Re-education, Orthotic/Prosthetic Management ,Patient/Caregiver Education, Self-Care/Home Management, Sensory Integration,Soft Tissue Mobilization,Taping, Therapeutic Activities, Therapeutic Exercises Modalities Cold Pack/Ice Massage,Electric Stimulation,Hot Packs, Ultrasound,Vasopneumatic Devices Next Visit Focus/Plan Next Note Type Treatment Note Next Visit Plan Update HEP as needed. Progress from bridge to leg press vs elevated STS vs mini squat or wall squat to limit knee flexion ROM. Knee flex and ext joint mobilizations, improve HS length. Functional HS lengthening with bottoms up and deadlift. seated knee flex c/ HSC. glute and quad strength. Ankle DF mobilization Progress to LAQ, minisquat. Add quad, HS, hip strengthening.
--- NOTE | 2024-09-02 16:20 | PT.OTN ---
Current Diagnoses Pain in left knee (09/02/24) Stiffness of left knee, not elsewhere classified (09/02/24) Stiffness of left ankle, not elsewhere classified (09/02/24) Difficulty in walking, not elsewhere classified (09/02/24) Unsteadiness on feet (09/02/24) Weakness (09/02/24) Physical Therapy Treatment Note PT-OP-A Visit Information Start: 08/19/24 12:59 Freq: Status: Active Protocol: Document 09/02/24 12:55 AB (Rec: 09/02/24 16:20 AB [id number]) Out-Patient Physical Therapy Visit Information Visit Information Visit Type Treatment Note Visit Start Time 13:01 Visit Stop Time 13:47 Visit Number 11/26 Number of [employer]SPORTER RADIOLOGY Visits 1 Evaluation Information Evaluation Date 08/19/24 Precautions Precautions essential tremor PT-OP-B Current Condition Start: 08/19/24 12:59 Freq: Status: Active Protocol: Document 08/19/24 13:00 NM (Rec: 08/19/24 13:48 NM [id number]) Current Condition History of Current Condition Onset Date 07/08/24 History of Current Condition Pt presents with L knee pain. He reports that he went to bed on laura, which was fine; but woke up on morning with pain which has gotten progressively worse. Denies any specific WINNIE. Pt reports a little swelling in his L knee, states has not really resolved; swelling is more recent. Had xray on his knee about 2 weeks later in July, reports are clear and no indication of arthritis . Pt reports that he gets painful clicking in his L knee intermittently when he is trying to extend his knee. Has not noticed his knee giving out on him but states that he has wondered if it would. He states that he has to wait a few seconds before taking off to make sure his knee is under him. He reports minimal changes to balance or strenth . Worse with standing, walking , extension, stairs in home, knee flexion. Pt is seeing a neurologist for an essential tremor; taking 2 medications for tremors; being assessed for possible parkinson's but not formally diagnosed with anything. He reports that with limping, the muscles in his thighs are getting sore and it 's causing his L hip to also hurt when it did not previously. Reports that thinks that he thinks he was running a fever but thinks only his knee was inflamed. Pain makes it hard for pt to sleep due to knee pain; best position is on his L side ( worst position for his shoulder d/t pain) Prior Treatments and Tests hx of PT for same condition L knee radiograph 07/2024, Impression: Moderate effusion . No visualized acute fracture or dislocation. However, if clinical concern and/or pain persist, short interval imaging follow up in 7-10 days is recommended, as occult injury cannot be definitively excluded. Treatment Goals Patient/Caregiver Goals walk without a limp, be more involved in [employer] weekly service committee (currently unable to sweep steps, move debris to bin) PT-OP-C Subjective Start: 08/19/24 12:59 Freq: Status: Active Protocol: Document 09/02/24 12:55 AB (Rec: 09/02/24 16:20 AB [id number]) OP-PT Subjective Patient Comments Patient Comments Patient reports he is getting better, rates L knee pain 2-3/ 10 ambulating into session without device, slightly analgic gait. Lacking 8 deg ext to 131 deg flexion AROM left knee. Pt ascends 6 inch stairs with 2 rails step to pattern favoring L LE. PT-OP-E Functional Tests Start: 08/19/24 12:59 Freq: Status: Active Protocol: Document 08/19/24 13:00 NM (Rec: 08/19/24 16:51 NM [id number]) Functional Tests Squat Test Score 1 Comments STS transfer, pain in L knee, needs UE assist PT-OP-F Manual Assessment Start: 08/19/24 12:59 Freq: Status: Active Protocol: Document 08/19/24 13:00 NM (Rec: 08/19/24 16:51 NM [id number]) Manual Assessments Soft Tissue Assessment Soft Tissue Mobility Assessment Tightness and restriction of L hamstring, L ankle and hip Joint Mobility Assessment Joint Mobility Assessment Empty end feel. No increased pain with L knee ext overpressure but mild pain with L knee flexion with overpressure Crepitus present, decreased L patellar mobility globally with lateral tracking present PT-OP-G Mobility & Gait Start: 08/19/24 12:59 Freq: Status: Active Protocol: Document 08/19/24 13:00 NM (Rec: 08/19/24 16:51 NM [id number]) OP Gait Assessment Gait Gait Assistance Required: Independent Distance (Feet) 150 Gait Deviations General Gait Pattern Antalgic,Flexed Trunk,Step-to Gait Factors Limiting Gait Function Factors Limiting Gait Function Decreased Activity Tolerance, Decreased Strength,Limited Range of Motion,Pain Comments Gait Comments Decreased L stance time, antalgic PT-OP-J Posture/Palpation/Skin Start: 08/19/24 12:59 Freq: Status: Active Protocol: Document 08/19/24 13:00 NM (Rec: 08/19/24 16:51 NM [id number]) Posture Evaluation Position Standing Head/C-Spine Posture Forward Head T-Spine Posture Increased Kyphosis Shoulder Posture (L) Rounded,(R) Rounded Weight Distribution Decreased Wt.Bear on (L) Hip Posture (L) Externally Rotated,(R) Externally Rotated Knee Posture (L) Genu Valgus,(R) Genu Valgus Patellar Posture (L) Superior,(L) Laterally Tilted Palpation Assessment Location L knee Palpation Findings Edema,Soft Tissue Tightness Palpation Details Swelling present compared to RLE Tenderness posterior knee at hamstring, lateral knee worse near joint line, patella Warmer temperature than RLE, no redness Skin Assessment Circumference Measurement L knee Location at patella Measurement (Centimeters) 42 Comments R at patella 41 cm PT-OP-K Range of Motion Start: 08/19/24 12:59 Freq: Status: Active Protocol: Document 08/19/24 13:00 NM (Rec: 08/19/24 13:48 NM [id number]) Knee Goniometric Range of Motion Knee Right Flexion Active (degrees) 129 Extension Active (degrees) 2 Left Flexion Active (degrees) 110 Extension Active (degrees) 5 PT-OP-L Special Tests Start: 08/19/24 12:59 Freq: Status: Active Protocol: Document 08/19/24 13:00 NM (Rec: 08/20/24 08:47 NM [id number]) Special Tests Knee Special Tests Varus- 0 Degrees Test Results - Comments and - 25 deg Valgus- 0 Degrees Test Results - Comments and - 25 deg Patellar Grind Test Test Results + Tamia Test Test Results - Anterior Draw Test Results - PT-OP-M Strength Start: 08/19/24 12:59 Freq: Status: Active Protocol: Document 08/19/24 13:00 NM (Rec: 08/19/24 13:48 NM [id number]) Hip Strength Hip Manual Muscle Testing Right Flexion (L2) 4- Good- Extension (S1) 4- Good- Abduction 4- Good- Adduction 4 Good Left Flexion (L2) 4 Good Extension (S1) 4- Good- Abduction 4 Good Adduction 4 Good External Rotation 4 Good Internal Rotation 4 Good Comments pain with abd lateral knee Knee Strength Knee Manual Muscle Testing Right Flexion (S2) 4+ Good+ Extension (L3) 4+ Good+ Left Flexion (S2) 4- Good- Extension (L3) 4- Good- Comments pain with ext, flex Ankle/Foot Strength Ankle and Foot Manual Muscle Testing Right Dorsiflexion (L4) 4 Good Plantarflexion (S1) 4 Good Comments tested in sitting Left Dorsiflexion (L4) 4 Good Plantarflexion (S1) 4 Good Comments tested in sitting PT-OP-Q Treatments Start: 08/19/24 12:59 Freq: Status: Active Protocol: Document 09/02/24 12:55 AB (Rec: 09/02/24 16:20 AB [id number]) Gym Equipment Shuttle Recovery Unilateral Squats Details bilateral L with reports of peripat pain Resistance 37 Shuttle Recovery Platform Stable Reps/Time 8x R L X 5 then X X3 with fat pad manually unloaded, reports dec pain Bilateral Squats Resistance 62 Shuttle Recovery Platform Stable Reps/Time X16 Therapeutic Exercises Supine Exercises hamstring stretch Side left Equipment Used c/ strap Reps/Minutes 2x60 Comments Verbal cues for 60 sec hold SLR Side left Resistance AROM Reps/Minutes 10- cued for quad set Comments post manual and HS stretch, VC for keeping knee straight Standing Exercises calf stretch Standing Exercise Name gastrocnemius and soleus Side bilateral Equipment Used 6 Reps/Minutes 6 sec X 1 Comments verbal cues to avoid toeing out TKE Standing Exercise Name HEP Side left Resistance level 2 band Equipment Used with UE support, therapist holding band Reps/Minutes 15x Comments pain free Manual Therapy Treatment Consent Patient gave verbal consent for manual Yes treatment Soft Tissue Mobilization L knee Body Location adductors, hip flexors, quad, hamstring, calf, pes anserine, MCL Mobilization Type Rolling,Sustained Pressure, Other Intensity/Depth Moderate Body Position Supine Joint Mobilizations TC L Joint L ankle TC mob Direction AP Grade III Body Position Standing Reps/Duration X10 X 3 Comments Monitored for pain PT-OP-T Assessment and Plan Start: 08/19/24 12:59 Freq: Status: Active Protocol: Document 09/02/24 12:55 AB (Rec: 09/02/24 16:20 AB [id number]) Physical Therapy Assessment Goals Two Impairment L knee strength limited Short Term Goal (STG) Pt will increase L knee flex and ext strength to at least 4 +/5 STG Duration 10/09/24 Long-Term Goal (LTG) Pt will be able to perform at least 8 stairs reciprocally with or without rails and knee pain <2/10 in order to improve household mobility LTG Duration 10/16/24 One Impairment L knee ROM limited (lack 5 deg ext, 110 deg flex) Bobbin Winder Goal (LTG) Pt will increase L knee flexion AROM to at least 120 deg and L knee ext AROM to lacking 2 deg of ext or less in order to improve ability to perform stairs and dressing ADLs 08/24/24: lacking 3 deg ext LTG Duration 10/16/24 Three Impairment LEFS 23/80; pain and limp with ambulation Impairment ... Short Term Goal (STG) Pt will report that he is able to perform his service tasks for [employer] with <2/10 L knee pain STG Duration 10/09/24 Bobbin Winder Goal (LTG) Pt will demonstrate gait without limping and <2/10 pain to demo improved ADL tolerance LTG Duration 10/16/24 Assessment Summary Assessment AROM left knee extension lacking 6 deg extension post manual and exercise. Pt reports dec pain with fat pad manually unloaded single leg leg press L LE. Patient rates pain 1-2/10 L knee end of session. Physical Therapy Plan Frequency and Duration Frequency of Treatment 2x/Week Duration of treatment (weeks) 8 Plan of Care Start Date 08/19/24 Plan of Care End Date 10/16/24 Next Visit Focus/Plan Next Note Type Treatment Note Next Visit Plan Update HEP as needed. Progress from bridge to leg press vs elevated STS vs mini squat or wall squat to limit knee flexion ROM. Knee flex and ext joint mobilizations, improve HS length. Functional HS lengthening with bottoms up and deadlift. seated knee flex c/ HSC. glute and quad strength. Progress to LAQ, minisquat. Add quad, HS, hip strengthening.
--- NOTE | 2024-09-09 17:11 | PT.OTN ---
Current Diagnoses Pain in left knee (09/09/24) Stiffness of left knee, not elsewhere classified (09/09/24) Stiffness of left ankle, not elsewhere classified (09/09/24) Difficulty in walking, not elsewhere classified (09/09/24) Unsteadiness on feet (09/09/24) Weakness (09/09/24) Physical Therapy Treatment Note PT-OP-A Visit Information Start: 08/19/24 12:59 Freq: Status: Active Protocol: Document 09/09/24 10:36 NBM (Rec: 09/09/24 11:40 NBM [id number]) Out-Patient Physical Therapy Visit Information Visit Information Visit Type Treatment Note Visit Start Time 10:47 Visit Stop Time 11:37 Visit Number 12/27 Number of IRON POURER Visits 2 Evaluation Information Evaluation Date 08/19/24 Precautions Precautions essential tremor PT-OP-B Current Condition Start: 08/19/24 12:59 Freq: Status: Active Protocol: Document 08/19/24 13:00 NM (Rec: 08/19/24 13:48 NM [id number]) Current Condition History of Current Condition Onset Date 07/08/24 History of Current Condition Pt presents with L knee pain. He reports that he went to bed on laura, which was fine; but woke up on morning with pain which has gotten progressively worse. Denies any specific WINNIE. Pt reports a little swelling in his L knee, states has not really resolved; swelling is more recent. Had xray on his knee about 2 weeks later in July, reports are clear and no indication of arthritis . Pt reports that he gets painful clicking in his L knee intermittently when he is trying to extend his knee. Has not noticed his knee giving out on him but states that he has wondered if it would. He states that he has to wait a few seconds before taking off to make sure his knee is under him. He reports minimal changes to balance or strenth . Worse with standing, walking , extension, stairs in home, knee flexion. Pt is seeing a neurologist for an essential tremor; taking 2 medications for tremors; being assessed for possible parkinson's but not formally diagnosed with anything. He reports that with limping, the muscles in his thighs are getting sore and it 's causing his L hip to also hurt when it did not previously. Reports that thinks that he thinks he was running a fever but thinks only his knee was inflamed. Pain makes it hard for pt to sleep due to knee pain; best position is on his L side ( worst position for his shoulder d/t pain) Prior Treatments and Tests hx of PT for same condition L knee radiograph 07/2024, Impression: Moderate effusion . No visualized acute fracture or dislocation. However, if clinical concern and/or pain persist, short interval imaging follow up in 7-10 days is recommended, as occult injury cannot be definitively excluded. Treatment Goals Patient/Caregiver Goals walk without a limp, be more involved in [facility] weekly service committee (currently unable to sweep steps, move debris to bin) PT-OP-C Subjective Start: 08/19/24 12:59 Freq: Status: Active Protocol: Document 09/09/24 10:36 NBM (Rec: 09/09/24 11:40 NBM [id number]) OP-PT Subjective Patient Comments Patient Comments Blair reports L knee pain 2- 3/10 right now. It bothers him most going up and down the stairs at home, down more than up. Pt admits to not stretching consistently. Pt points to pictures of exercises which hurt when prompted: Seated Hamstring stretch and standing calf stretch on step. PT-OP-E Functional Tests Start: 08/19/24 12:59 Freq: Status: Active Protocol: Document 08/19/24 13:00 NM (Rec: 08/19/24 16:51 NM [id number]) Functional Tests Squat Test Score 1 Comments STS transfer, pain in L knee, needs UE assist PT-OP-F Manual Assessment Start: 08/19/24 12:59 Freq: Status: Active Protocol: Document 08/19/24 13:00 NM (Rec: 08/19/24 16:51 NM [id number]) Manual Assessments Soft Tissue Assessment Soft Tissue Mobility Assessment Tightness and restriction of L hamstring, L ankle and hip Joint Mobility Assessment Joint Mobility Assessment Empty end feel. No increased pain with L knee ext overpressure but mild pain with L knee flexion with overpressure Crepitus present, decreased L patellar mobility globally with lateral tracking present PT-OP-G Mobility & Gait Start: 08/19/24 12:59 Freq: Status: Active Protocol: Document 08/19/24 13:00 NM (Rec: 08/19/24 16:51 NM [id number]) OP Gait Assessment Gait Gait Assistance Required: Independent Distance (Feet) 150 Gait Deviations General Gait Pattern Antalgic,Flexed Trunk,Step-to Gait Factors Limiting Gait Function Factors Limiting Gait Function Decreased Activity Tolerance, Decreased Strength,Limited Range of Motion,Pain Comments Gait Comments Decreased L stance time, antalgic PT-OP-J Posture/Palpation/Skin Start: 08/19/24 12:59 Freq: Status: Active Protocol: Document 08/19/24 13:00 NM (Rec: 08/19/24 16:51 NM [id number]) Posture Evaluation Position Standing Head/C-Spine Posture Forward Head T-Spine Posture Increased Kyphosis Shoulder Posture (L) Rounded,(R) Rounded Weight Distribution Decreased Wt.Bear on (L) Hip Posture (L) Externally Rotated,(R) Externally Rotated Knee Posture (L) Genu Valgus,(R) Genu Valgus Patellar Posture (L) Superior,(L) Laterally Tilted Palpation Assessment Location L knee Palpation Findings Edema,Soft Tissue Tightness Palpation Details Swelling present compared to RLE Tenderness posterior knee at hamstring, lateral knee worse near joint line, patella Warmer temperature than RLE, no redness Skin Assessment Circumference Measurement L knee Location at patella Measurement (Centimeters) 42 Comments R at patella 41 cm PT-OP-K Range of Motion Start: 08/19/24 12:59 Freq: Status: Active Protocol: Document 08/19/24 13:00 NM (Rec: 08/19/24 13:48 NM [id number]) Knee Goniometric Range of Motion Knee Right Flexion Active (degrees) 129 Extension Active (degrees) 2 Left Flexion Active (degrees) 110 Extension Active (degrees) 5 PT-OP-L Special Tests Start: 08/19/24 12:59 Freq: Status: Active Protocol: Document 08/19/24 13:00 NM (Rec: 08/20/24 08:47 NM [id number]) Special Tests Knee Special Tests Varus- 0 Degrees Test Results - Comments and - 25 deg Valgus- 0 Degrees Test Results - Comments and - 25 deg Patellar Grind Test Test Results + Tamia Test Test Results - Anterior Draw Test Results - PT-OP-M Strength Start: 08/19/24 12:59 Freq: Status: Active Protocol: Document 08/19/24 13:00 NM (Rec: 08/19/24 13:48 NM [id number]) Hip Strength Hip Manual Muscle Testing Right Flexion (L2) 4- Good- Extension (S1) 4- Good- Abduction 4- Good- Adduction 4 Good Left Flexion (L2) 4 Good Extension (S1) 4- Good- Abduction 4 Good Adduction 4 Good External Rotation 4 Good Internal Rotation 4 Good Comments pain with abd lateral knee Knee Strength Knee Manual Muscle Testing Right Flexion (S2) 4+ Good+ Extension (L3) 4+ Good+ Left Flexion (S2) 4- Good- Extension (L3) 4- Good- Comments pain with ext, flex Ankle/Foot Strength Ankle and Foot Manual Muscle Testing Right Dorsiflexion (L4) 4 Good Plantarflexion (S1) 4 Good Comments tested in sitting Left Dorsiflexion (L4) 4 Good Plantarflexion (S1) 4 Good Comments tested in sitting PT-OP-Q Treatments Start: 08/19/24 12:59 Freq: Status: Active Protocol: Document 09/09/24 10:36 NBM (Rec: 09/09/24 11:40 NBM [id number]) Gym Equipment Shuttle Recovery Unilateral Squats Details R>L cues for LE alignment. L peripat pn reported after. Resistance 37 Shuttle Recovery Platform Stable Reps/Time x10 ea Bilateral Squats Details pain unchanged from baseline Resistance 62 Shuttle Recovery Platform Stable Reps/Time X5, x15 w/ ball squeeze at knees for R>L LE alignment Therapeutic Exercises Supine Exercises calf stretch Supine Exercise Name heels off of stable platform Side bilateral Resistance 37# Equipment Used Shuttle Recovery Reps/Minutes 60 Comments painfree hamstring stretch Supine Exercise Name w/ ankle pumps Side bilateral Equipment Used on Shuttle Recovery platform Reps/Minutes x60 ea Comments cues for painfree range Sitting Exercises STS Sitting Exercise Name sit to stand Equipment Used standard mesh chair Reps/Minutes x5 Comments LLE fwd, pt cued for feet alignment, painfree throughout Standing Exercises hip flexor stretch Standing Exercise Name staggered stance hip flexor w/ calf stretch (gastroc and soleus) Side bilateral Equipment Used handrail, visual aid for gastroc vs soleus anatomy Reps/Minutes x30 ea Comments cues for R neutral foot. L>R tightness. TKE Standing Exercise Name HEP Side left Resistance level 2 band Equipment Used with UE support, band anchored at training stairs Reps/Minutes 15x Comments pain free, cues for full ext, knee ROM only; form improves side steps Standing Exercise Name HEP progression Side bilateral Resistance level 2 band at thighs>ankles Equipment Used handrail - B Reps/Minutes 3x10 ft ea direction, 1x10ft ea looking up Comments no pain; cued neutral foot position, tall posture Gait Training Gait Activity stairs Description reciprocal ascending/ descending 6 steps Distance/Duration 4 x 4 6 steps ascend/descend Treatment Focus hip hinge, heels down, neutral foot R>L Comments pain descend more than ascend, both improve with cueing and repetition Self-Care/Home Management Treatment Education Patient Education Body Mechanics,Home Exercise Program PT-OP-T Assessment and Plan Start: 08/19/24 12:59 Freq: Status: Active Protocol: Document 09/09/24 10:36 NBM (Rec: 09/09/24 11:40 NBM [id number]) Physical Therapy Assessment Goals Two Impairment L knee strength limited Short Term Goal (STG) Pt will increase L knee flex and ext strength to at least 4 +/5 STG Duration 10/09/24 Toolroom Keeper Goal (LTG) Pt will be able to perform at least 8 stairs reciprocally with or without rails and knee pain <2/10 in order to improve household mobility LTG Duration 10/16/24 One Impairment L knee ROM limited (lack 5 deg ext, 110 deg flex) Toolroom Keeper Goal (LTG) Pt will increase L knee flexion AROM to at least 120 deg and L knee ext AROM to lacking 2 deg of ext or less in order to improve ability to perform stairs and dressing ADLs 08/24/24: lacking 3 deg ext LTG Duration 10/16/24 Three Impairment LEFS 23/80; pain and limp with ambulation Impairment ... 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 Pt's L knee pain with ascending and descending stairs improves w/ cues for neutral foot position, upright posture, keeping heel down, and hip hinge w/ descent. Pt progresses HEP resisted sidesteps from Lvl 2 Tb above knees to ankles. Physical Therapy Plan Frequency and Duration Frequency of Treatment 2x/Week Duration of treatment (weeks) 8 Plan of Care Start Date 08/19/24 Plan of Care End Date 10/16/24 Therapeutic Interventions Therapeutic Interventions Balance Training,Gait Training ,Home Exercise Program,Joint Mobilizations,Manual Therapy, Neuromuscular Re-education, Orthotic/Prosthetic Management ,Patient/Caregiver Education, Self-Care/Home Management, Sensory Integration,Soft Tissue Mobilization,Taping, Therapeutic Activities, Therapeutic Exercises Modalities Cold Pack/Ice Massage,Electric Stimulation,Hot Packs, Ultrasound,Vasopneumatic Devices Next Visit Focus/Plan Next Note Type Treatment Note Next Visit Plan Update HEP as needed. Progress from bridge to leg press vs elevated STS vs mini squat or wall squat to limit knee flexion ROM. Knee flex and ext joint mobilizations, improve HS length. Functional HS lengthening with bottoms up and deadlift. seated knee flex c/ HSC. glute and quad strength. Progress to LAQ, minisquat. Add quad, HS, hip strengthening.
--- NOTE | 2024-09-11 12:08 | PT.OTN ---
Current Diagnoses Pain in left knee (09/11/24) Stiffness of left knee, not elsewhere classified (09/11/24) Stiffness of left ankle, not elsewhere classified (09/11/24) Difficulty in walking, not elsewhere classified (09/11/24) Unsteadiness on feet (09/11/24) Weakness (09/11/24) Physical Therapy Treatment Note PT-OP-A Visit Information Start: 08/19/24 12:59 Freq: Status: Active Protocol: Document 09/11/24 10:47 NM (Rec: 09/11/24 12:08 NM [id number]) Out-Patient Physical Therapy Visit Information Visit Information Visit Type Treatment Note Visit Start Time 10:49 Visit Stop Time 11:30 Visit Number 01/26 Evaluation Information Evaluation Date 08/19/24 Precautions Precautions essential tremor PT-OP-B Current Condition Start: 08/19/24 12:59 Freq: Status: Active Protocol: Document 08/19/24 13:00 NM (Rec: 08/19/24 13:48 NM [id number]) Current Condition History of Current Condition Onset Date 07/08/24 History of Current Condition Pt presents with L knee pain. He reports that he went to bed on laura, which was fine; but woke up on morning with pain which has gotten progressively worse. Denies any specific WINNIE. Pt reports a little swelling in his L knee, states has not really resolved; swelling is more recent. Had xray on his knee about 2 weeks later in July, reports are clear and no indication of arthritis . Pt reports that he gets painful clicking in his L knee intermittently when he is trying to extend his knee. Has not noticed his knee giving out on him but states that he has wondered if it would. He states that he has to wait a few seconds before taking off to make sure his knee is under him. He reports minimal changes to balance or strenth . Worse with standing, walking , extension, stairs in home, knee flexion. Pt is seeing a neurologist for an essential tremor; taking 2 medications for tremors; being assessed for possible parkinson's but not formally diagnosed with anything. He reports that with limping, the muscles in his thighs are getting sore and it 's causing his L hip to also hurt when it did not previously. Reports that thinks that he thinks he was running a fever but thinks only his knee was inflamed. Pain makes it hard for pt to sleep due to knee pain; best position is on his L side ( worst position for his shoulder d/t pain) Prior Treatments and Tests hx of PT for same condition L knee radiograph 07/2024, Impression: Moderate effusion . No visualized acute fracture or dislocation. However, if clinical concern and/or pain persist, short interval imaging follow up in 7-10 days is recommended, as occult injury cannot be definitively excluded. Treatment Goals Patient/Caregiver Goals walk without a limp, be more involved in [employer] weekly service committee (currently unable to sweep steps, move debris to bin) PT-OP-C Subjective Start: 08/19/24 12:59 Freq: Status: Active Protocol: Document 09/11/24 10:47 NM (Rec: 09/11/24 12:08 NM [id number]) OP-PT Subjective Patient Comments Patient Comments Pt reports 1-2/10 L knee pain today. reports feeling better but still bothering him. States unable to kneel due to pain, states does his first two exercises (quad sets and SAQ) on floor; going up and down stairs is still challenging. Tried to recall what [employer] DISPATCHER told him last session when doing stairs but forgot so unable to carry over at home PT-OP-E Functional Tests Start: 08/19/24 12:59 Freq: Status: Active Protocol: Document 08/19/24 13:00 NM (Rec: 08/19/24 16:51 NM [id number]) Functional Tests Squat Test Score 1 Comments STS transfer, pain in L knee, needs UE assist PT-OP-F Manual Assessment Start: 08/19/24 12:59 Freq: Status: Active Protocol: Document 08/19/24 13:00 NM (Rec: 08/19/24 16:51 NM [id number]) Manual Assessments Soft Tissue Assessment Soft Tissue Mobility Assessment Tightness and restriction of L hamstring, L ankle and hip Joint Mobility Assessment Joint Mobility Assessment Empty end feel. No increased pain with L knee ext overpressure but mild pain with L knee flexion with overpressure Crepitus present, decreased L patellar mobility globally with lateral tracking present PT-OP-G Mobility & Gait Start: 08/19/24 12:59 Freq: Status: Active Protocol: Document 08/19/24 13:00 NM (Rec: 08/19/24 16:51 NM [id number]) OP Gait Assessment Gait Gait Assistance Required: Independent Distance (Feet) 150 Gait Deviations General Gait Pattern Antalgic,Flexed Trunk,Step-to Gait Factors Limiting Gait Function Factors Limiting Gait Function Decreased Activity Tolerance, Decreased Strength,Limited Range of Motion,Pain Comments Gait Comments Decreased L stance time, antalgic PT-OP-J Posture/Palpation/Skin Start: 08/19/24 12:59 Freq: Status: Active Protocol: Document 08/19/24 13:00 NM (Rec: 08/19/24 16:51 NM [id number]) Posture Evaluation Position Standing Head/C-Spine Posture Forward Head T-Spine Posture Increased Kyphosis Shoulder Posture (L) Rounded,(R) Rounded Weight Distribution Decreased Wt.Bear on (L) Hip Posture (L) Externally Rotated,(R) Externally Rotated Knee Posture (L) Genu Valgus,(R) Genu Valgus Patellar Posture (L) Superior,(L) Laterally Tilted Palpation Assessment Location L knee Palpation Findings Edema,Soft Tissue Tightness Palpation Details Swelling present compared to RLE Tenderness posterior knee at hamstring, lateral knee worse near joint line, patella Warmer temperature than RLE, no redness Skin Assessment Circumference Measurement L knee Location at patella Measurement (Centimeters) 42 Comments R at patella 41 cm PT-OP-K Range of Motion Start: 08/19/24 12:59 Freq: Status: Active Protocol: Document 08/19/24 13:00 NM (Rec: 08/19/24 13:48 NM [id number]) Knee Goniometric Range of Motion Knee Right Flexion Active (degrees) 129 Extension Active (degrees) 2 Left Flexion Active (degrees) 110 Extension Active (degrees) 5 PT-OP-L Special Tests Start: 08/19/24 12:59 Freq: Status: Active Protocol: Document 08/19/24 13:00 NM (Rec: 08/20/24 08:47 NM [id number]) Special Tests Knee Special Tests Varus- 0 Degrees Test Results - Comments and - 25 deg Valgus- 0 Degrees Test Results - Comments and - 25 deg Patellar Grind Test Test Results + Tamia Test Test Results - Anterior Draw Test Results - PT-OP-M Strength Start: 08/19/24 12:59 Freq: Status: Active Protocol: Document 08/19/24 13:00 NM (Rec: 08/19/24 13:48 NM [id number]) Hip Strength Hip Manual Muscle Testing Right Flexion (L2) 4- Good- Extension (S1) 4- Good- Abduction 4- Good- Adduction 4 Good Left Flexion (L2) 4 Good Extension (S1) 4- Good- Abduction 4 Good Adduction 4 Good External Rotation 4 Good Internal Rotation 4 Good Comments pain with abd lateral knee Knee Strength Knee Manual Muscle Testing Right Flexion (S2) 4+ Good+ Extension (L3) 4+ Good+ Left Flexion (S2) 4- Good- Extension (L3) 4- Good- Comments pain with ext, flex Ankle/Foot Strength Ankle and Foot Manual Muscle Testing Right Dorsiflexion (L4) 4 Good Plantarflexion (S1) 4 Good Comments tested in sitting Left Dorsiflexion (L4) 4 Good Plantarflexion (S1) 4 Good Comments tested in sitting PT-OP-Q Treatments Start: 08/19/24 12:59 Freq: Status: Active Protocol: Document 09/11/24 10:47 NM (Rec: 09/11/24 12:08 NM [id number]) Cardio Equipment Recumbent Bicycle Duration (Minutes) 4 Resistance 0 Seat Position 5 Other warm up; feels posterior knee Therapeutic Exercises Sitting Exercises STS Sitting Exercise Name sit to stand from chair- HEP Side bilateral Equipment Used standard chair Reps/Minutes 10 Comments cued LLE forward; reports 0-1 knee pain Standing Exercises supported squats Resistance AROM Equipment Used B hand support on plinth Reps/Minutes 10 Comments cueing for hip hinge hamstring curl Side bilateral Resistance 1. AROM, 2. 2# ankle weights Reps/Minutes 10 ea leg, ea resistance Comments cued form step up Standing Exercise Name 4; trialed 6 but too challenging Side bilateral Equipment Used B hand rail assist- flat hand Reps/Minutes 15 ea Comments does rely on UE partially d/t habit Other Exercises quad stretch Other Exercise Name trialed in PT Side bilateral Equipment Used strap assist; in standing; able to self don/doff Reps/Minutes 30 ea Comments reports bothering L shoulder Gait Training Gait Activity stairs Description reciprocal ascending/ descending 6 steps Distance/Duration 2 sets x 4 6 steps ascend/ descend Treatment Focus hip hinge, heels down, neutral foot R>L Comments Pain still present descent > ascent but lessened with hip hinge and cueing for alignment Needs increased time and cueing PT-OP-T Assessment and Plan Start: 08/19/24 12:59 Freq: Status: Active Protocol: Document 09/11/24 10:47 NM (Rec: 09/11/24 12:08 NM [id number]) Physical Therapy Assessment Goals Two Impairment L knee strength limited Short Term Goal (STG) Pt will increase L knee flex and ext strength to at least 4 +/5 STG Duration 10/09/24 Shaper Hand Goal (LTG) Pt will be able to perform at least 8 stairs reciprocally with or without rails and knee pain <2/10 in order to improve household mobility 09/11/24: trialed with 6 steps , B rail use; still pain but less than previously LTG Duration 10/16/24 One Impairment L knee ROM limited (lack 5 deg ext, 110 deg flex) [facility] Goal (LTG) Pt will increase L knee flexion AROM to at least 120 deg and L knee ext AROM to lacking 2 deg of ext or less in order to improve ability to perform stairs and dressing ADLs 08/24/24: lacking 3 deg ext LTG Duration 10/16/24 Three Impairment LEFS 23/80; pain and limp with ambulation Impairment ... 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 Reports lessening of pain with exercises. Retrialed STS from chair, needs cueing for foot position neutrally and form but able to perform with 0-1 knee pain, not increased, good form. Better mechanics and form with STS than partial squat. Reviewed stair mechanics, emphasizing hip hinge for gluteal activation and LE alignment to avoid valgus and compensations. Less knee pain today with stairs than previously Physical Therapy Plan Frequency and Duration Frequency of Treatment 2x/Week Duration of treatment (weeks) 8 Plan of Care Start Date 08/19/24 Plan of Care End Date 10/16/24 Therapeutic Interventions Therapeutic Interventions Balance Training,Gait Training ,Home Exercise Program,Joint Mobilizations,Manual Therapy, Neuromuscular Re-education, Orthotic/Prosthetic Management ,Patient/Caregiver Education, Self-Care/Home Management, Sensory Integration,Soft Tissue Mobilization,Taping, Therapeutic Activities, Therapeutic Exercises Modalities Cold Pack/Ice Massage,Electric Stimulation,Hot Packs, Ultrasound,Vasopneumatic Devices Next Visit Focus/Plan Next Note Type Progress Note Next Visit Plan STS review> leg press, trial LAQ and HSC with machines if merline well. step ups and down. Knee flex and ext joint mobilizations, improve HS length. Functional HS lengthening with bottoms up and deadlift. seated knee flex c/ HSC. glute and quad strength. Progress to LAQ, minisquat. Add quad, HS, hip strengthening.
--- NOTE | 2024-09-15 15:11 | PT.OTN ---
Current Diagnoses Pain in left knee (09/15/24) Stiffness of left knee, not elsewhere classified (09/15/24) Stiffness of left ankle, not elsewhere classified (09/15/24) Difficulty in walking, not elsewhere classified (09/15/24) Unsteadiness on feet (09/15/24) Weakness (09/15/24) Physical Therapy Treatment Note PT-OP-A Visit Information Start: 08/19/24 12:59 Freq: Status: Active Protocol: Document 09/15/24 10:42 NM (Rec: 09/15/24 11:29 NM [id number]) Out-Patient Physical Therapy Visit Information Visit Information Visit Type Progress Note Visit Start Time 10:45 Visit Stop Time 11:30 Visit Number 02/26 Evaluation Information Evaluation Date 08/19/24 Precautions Precautions essential tremor PT-OP-B Current Condition Start: 08/19/24 12:59 Freq: Status: Active Protocol: Document 08/19/24 13:00 NM (Rec: 08/19/24 13:48 NM [id number]) Current Condition History of Current Condition Onset Date 07/08/24 History of Current Condition Pt presents with L knee pain. He reports that he went to bed on laura, which was fine; but woke up on morning with pain which has gotten progressively worse. Denies any specific WINNIE. Pt reports a little swelling in his L knee, states has not really resolved; swelling is more recent. Had xray on his knee about 2 weeks later in July, reports are clear and no indication of arthritis . Pt reports that he gets painful clicking in his L knee intermittently when he is trying to extend his knee. Has not noticed his knee giving out on him but states that he has wondered if it would. He states that he has to wait a few seconds before taking off to make sure his knee is under him. He reports minimal changes to balance or strenth . Worse with standing, walking , extension, stairs in home, knee flexion. Pt is seeing a neurologist for an essential tremor; taking 2 medications for tremors; being assessed for possible parkinson's but not formally diagnosed with anything. He reports that with limping, the muscles in his thighs are getting sore and it 's causing his L hip to also hurt when it did not previously. Reports that thinks that he thinks he was running a fever but thinks only his knee was inflamed. Pain makes it hard for pt to sleep due to knee pain; best position is on his L side ( worst position for his shoulder d/t pain) Prior Treatments and Tests hx of PT for same condition L knee radiograph 07/2024, Impression: Moderate effusion . No visualized acute fracture or dislocation. However, if clinical concern and/or pain persist, short interval imaging follow up in 7-10 days is recommended, as occult injury cannot be definitively excluded. Treatment Goals Patient/Caregiver Goals walk without a limp, be more involved in [employer] weekly service committee (currently unable to sweep steps, move debris to bin) PT-OP-C Subjective Start: 08/19/24 12:59 Freq: Status: Active Protocol: Document 09/15/24 10:42 NM (Rec: 09/15/24 11:29 NM [id number]) OP-PT Subjective Patient Comments Patient Comments Pt reports that he is doing better going up stairs, but does not have the courage to go step over step downstairs, reports less knee pain going up stairs. He reports that he is having medial knee pain, reports improving overall. He reports that he is having less intense pain, 0-2/10, also less frequently with ADLs, walking, stairs. Has less pain in the morning. Currently has a rash on his ankle, reports crossing legs still bothers him. Still wants to work on stairs, stretching hamstrings. PT-OP-E Functional Tests Start: 08/19/24 12:59 Freq: Status: Active Protocol: Document 08/19/24 13:00 NM (Rec: 08/19/24 16:51 NM [id number]) Functional Tests Squat Test Score 1 Comments STS transfer, pain in L knee, needs UE assist PT-OP-F Manual Assessment Start: 08/19/24 12:59 Freq: Status: Active Protocol: Document 08/19/24 13:00 NM (Rec: 08/19/24 16:51 NM [id number]) Manual Assessments Soft Tissue Assessment Soft Tissue Mobility Assessment Tightness and restriction of L hamstring, L ankle and hip Joint Mobility Assessment Joint Mobility Assessment Empty end feel. No increased pain with L knee ext overpressure but mild pain with L knee flexion with overpressure Crepitus present, decreased L patellar mobility globally with lateral tracking present PT-OP-G Mobility & Gait Start: 08/19/24 12:59 Freq: Status: Active Protocol: Document 08/19/24 13:00 NM (Rec: 08/19/24 16:51 NM [id number]) OP Gait Assessment Gait Gait Assistance Required: Independent Distance (Feet) 150 Gait Deviations General Gait Pattern Antalgic,Flexed Trunk,Step-to Gait Factors Limiting Gait Function Factors Limiting Gait Function Decreased Activity Tolerance, Decreased Strength,Limited Range of Motion,Pain Comments Gait Comments Decreased L stance time, antalgic PT-OP-J Posture/Palpation/Skin Start: 08/19/24 12:59 Freq: Status: Active Protocol: Document 08/19/24 13:00 NM (Rec: 08/19/24 16:51 NM [id number]) Posture Evaluation Position Standing Head/C-Spine Posture Forward Head T-Spine Posture Increased Kyphosis Shoulder Posture (L) Rounded,(R) Rounded Weight Distribution Decreased Wt.Bear on (L) Hip Posture (L) Externally Rotated,(R) Externally Rotated Knee Posture (L) Genu Valgus,(R) Genu Valgus Patellar Posture (L) Superior,(L) Laterally Tilted Palpation Assessment Location L knee Palpation Findings Edema,Soft Tissue Tightness Palpation Details Swelling present compared to RLE Tenderness posterior knee at hamstring, lateral knee worse near joint line, patella Warmer temperature than RLE, no redness Skin Assessment Circumference Measurement L knee Location at patella Measurement (Centimeters) 42 Comments R at patella 41 cm PT-OP-K Range of Motion Start: 08/19/24 12:59 Freq: Status: Active Protocol: Document 09/15/24 10:42 NM (Rec: 09/15/24 11:29 NM [id number]) Knee Goniometric Range of Motion Knee Right Flexion Active (degrees) 129 Extension Active (degrees) 2 Left Flexion Active (degrees) 110 Extension Active (degrees) 5 Comments 09/15/24: 130 deg, lacking 4 deg PT-OP-L Special Tests Start: 08/19/24 12:59 Freq: Status: Active Protocol: Document 08/19/24 13:00 NM (Rec: 08/20/24 08:47 NM [id number]) Special Tests Knee Special Tests Varus- 0 Degrees Test Results - Comments and - 25 deg Valgus- 0 Degrees Test Results - Comments and - 25 deg Patellar Grind Test Test Results + Tamia Test Test Results - Anterior Draw Test Results - PT-OP-M Strength Start: 08/19/24 12:59 Freq: Status: Active Protocol: Document 09/15/24 10:42 NM (Rec: 09/15/24 11:29 NM [id number]) Knee Strength Knee Manual Muscle Testing Right Flexion (S2) 4+ Good+ Extension (L3) 4+ Good+ Left Flexion (S2) 4 Good Extension (L3) 4 Good Comments 09/15/24: 4/5, no pain for both IE: pain with ext, flex PT-OP-Q Treatments Start: 08/19/24 12:59 Freq: Status: Active Protocol: Document 09/15/24 10:42 NM (Rec: 09/15/24 11:29 NM [id number]) Therapeutic Exercises Sitting Exercises STS Sitting Exercise Name sit to stand from chair- HEP review Side bilateral Equipment Used standard chair, no UE assist Reps/Minutes 10 Comments cued neutral foot position vs toe out; 1/10 knee pain at quad Standing Exercises slider squat Standing Exercise Name abduction slider c/ squat hold Side bilateral Equipment Used slider under foot, 1 hand support on bar for balance Reps/Minutes 2x8 ea (cued to act like sitting in chair) Comments pt unsure if caused knee pain; harder to wb on, 2nd set better knee flexion mobilization Standing Exercise Name on stairs 4 Side left Reps/Minutes 10x3 Gait Training Gait Activity stairs Description reciprocal ascending/ descending 6 steps Distance/Duration 16 stairs, 6 ascend and descend Treatment Focus hip hinge, alignment Comments reports max 2/10 R knee pain with descent Manual Therapy Treatment Consent Patient gave verbal consent for manual Yes treatment Soft Tissue Mobilization L knee Body Location adductors, hip flexors, quad, hamstring, calf, pes anserine, MCL Mobilization Type Rolling,Sustained Pressure, Other Intensity/Depth Moderate Body Position Supine Joint Mobilizations L knee Joint patellar, tibiofemoral Direction sup/inf/med/lat, PA and AP c/ slight distraction Grade III Reps/Duration 2x10 patellar, 2x30 ea Comments Sitting and hooklying. monitored for pain, increased discomfort at posterior knee with knee flexion PT-OP-T Assessment and Plan Start: 08/19/24 12:59 Freq: Status: Active Protocol: Document 09/15/24 10:42 NM (Rec: 09/15/24 11:29 NM [id number]) Physical Therapy Assessment Goals Two Impairment L knee strength limited Short Term Goal (STG) Pt will increase L knee flex and ext strength to at least 4 +/5 09/15/24: 4/5 MMT STG Duration 10/09/24 PROGRESSING 3/4 Reconciliation Accountant Goal (LTG) Pt will be able to perform at least 8 stairs reciprocally with or without rails and knee pain <2/10 in order to improve household mobility 09/11/24: trialed with 6 steps , B rail use; still pain but less than previously 09/15/24: 12 steps (6) 1 rail assist to simulate home, 2/10 L knee pain LTG Duration 10/16/24 MET One Impairment L knee ROM limited (lack 5 deg ext, 110 deg flex) Reconciliation Accountant Goal (LTG) Pt will increase L knee flexion AROM to at least 120 deg and L knee ext AROM to lacking 2 deg of ext or less in order to improve ability to perform stairs and dressing ADLs 08/24/24: lacking 3 deg ext 09/15/24: lacking 4 deg ext start of session; has 130 deg flexion LTG Duration 10/16/24 PROGRESSING 3/4 Three Impairment LEFS 23/80; pain and limp with ambulation Impairment ... Short Term Goal (STG) Pt will report that he is able to perform his service tasks for [employer] with <2/10 L knee pain 09/15/24: pt has not returned to service activities at [employer] due to knee pain STG Duration 10/09/24 Reconciliation Accountant Goal (LTG) Pt will demonstrate gait without limping and <2/10 pain to demo improved ADL tolerance 09/15/24: decreased limping/ antalgic gait LTG Duration 10/16/24 PROGRESSING 3/4 Progress Towards Goals Progress Towards Goals Progressing Toward Goals Assessment Summary Assessment Pt has mild increase in L knee pain with knee flexion mobilization performed before stairs to address knee over toe ROM. However, pt demos improved hip hinge, control, and reports decreased pain with stairs compared to at evaluation. Pt needs fewer cues for form on stairs, able to transition from 2 rails to 1 rail use. Cueing needed for hip hinge vs quad dominant pattern when performing slider squat in order to improve quad/glute strengthening for descending stairs. Pt improves with reps but is not independent enough for carryover at home. Physical Therapy Plan Frequency and Duration Frequency of Treatment 2x/Week Duration of treatment (weeks) 8 Plan of Care Start Date 08/19/24 Plan of Care End Date 10/16/24 Therapeutic Interventions Therapeutic Interventions Balance Training,Gait Training ,Home Exercise Program,Joint Mobilizations,Manual Therapy, Neuromuscular Re-education, Orthotic/Prosthetic Management ,Patient/Caregiver Education, Self-Care/Home Management, Sensory Integration,Soft Tissue Mobilization,Taping, Therapeutic Activities, Therapeutic Exercises Modalities Cold Pack/Ice Massage,Electric Stimulation,Hot Packs, Ultrasound,Vasopneumatic Devices Next Visit Focus/Plan Next Note Type Treatment Note Next Visit Plan Review slider squat, add HEP if merline well. STS review> leg press, trial LAQ and HSC with machines if merline well. step ups and down. Knee flex and ext joint mobilizations, improve HS length. Functional HS lengthening with bottoms up and deadlift. seated knee flex c/ HSC. glute and quad strength. Progress to LAQ, minisquat. Add quad, HS, hip strengthening.
--- NOTE | 2024-09-22 15:49 | PT.OTN ---
Current Diagnoses Pain in left knee (09/22/24) Stiffness of left knee, not elsewhere classified (09/22/24) Stiffness of left ankle, not elsewhere classified (09/22/24) Difficulty in walking, not elsewhere classified (09/22/24) Unsteadiness on feet (09/22/24) Weakness (09/22/24) Physical Therapy Treatment Note PT-OP-A Visit Information Start: 08/19/24 12:59 Freq: Status: Active Protocol: Document 09/22/24 13:01 NM (Rec: 09/22/24 13:48 NM [id number]) Out-Patient Physical Therapy Visit Information Visit Information Visit Type Treatment Note Visit Start Time 13:03 Visit Stop Time 13:45 Visit Number 03/29 (2/10 PN) Evaluation Information Evaluation Date 08/19/24 Precautions Precautions essential tremor PT-OP-B Current Condition Start: 08/19/24 12:59 Freq: Status: Active Protocol: Document 08/19/24 13:00 NM (Rec: 08/19/24 13:48 NM [id number]) Current Condition History of Current Condition Onset Date 07/08/24 History of Current Condition Pt presents with L knee pain. He reports that he went to bed on laura, which was fine; but woke up on morning with pain which has gotten progressively worse. Denies any specific WINNIE. Pt reports a little swelling in his L knee, states has not really resolved; swelling is more recent. Had xray on his knee about 2 weeks later in July, reports are clear and no indication of arthritis . Pt reports that he gets painful clicking in his L knee intermittently when he is trying to extend his knee. Has not noticed his knee giving out on him but states that he has wondered if it would. He states that he has to wait a few seconds before taking off to make sure his knee is under him. He reports minimal changes to balance or strenth . Worse with standing, walking , extension, stairs in home, knee flexion. Pt is seeing a neurologist for an essential tremor; taking 2 medications for tremors; being assessed for possible parkinson's but not formally diagnosed with anything. He reports that with limping, the muscles in his thighs are getting sore and it 's causing his L hip to also hurt when it did not previously. Reports that thinks that he thinks he was running a fever but thinks only his knee was inflamed. Pain makes it hard for pt to sleep due to knee pain; best position is on his L side ( worst position for his shoulder d/t pain) Prior Treatments and Tests hx of PT for same condition L knee radiograph 07/2024, Impression: Moderate effusion . No visualized acute fracture or dislocation. However, if clinical concern and/or pain persist, short interval imaging follow up in 7-10 days is recommended, as occult injury cannot be definitively excluded. Treatment Goals Patient/Caregiver Goals walk without a limp, be more involved in [facility] weekly service committee (currently unable to sweep steps, move debris to bin) PT-OP-C Subjective Start: 08/19/24 12:59 Freq: Status: Active Protocol: Document 09/22/24 13:01 NM (Rec: 09/22/24 13:48 NM [id number]) OP-PT Subjective Patient Comments Patient Comments Pt reports that his knee would be doing better if he was doing his exercises. Did exercises this morning. Gait is antalgic today. He reports that he has missed doing HEP 3 days in a row; states that did them one day but he has missed most days. Overall he feels better when he does them . Has been focusing on quad set in bed, which he states has been helping him straighten his knee more. PT-OP-E Functional Tests Start: 08/19/24 12:59 Freq: Status: Active Protocol: Document 08/19/24 13:00 NM (Rec: 08/19/24 16:51 NM [id number]) Functional Tests Squat Test Score 1 Comments STS transfer, pain in L knee, needs UE assist PT-OP-F Manual Assessment Start: 08/19/24 12:59 Freq: Status: Active Protocol: Document 08/19/24 13:00 NM (Rec: 08/19/24 16:51 NM [id number]) Manual Assessments Soft Tissue Assessment Soft Tissue Mobility Assessment Tightness and restriction of L hamstring, L ankle and hip Joint Mobility Assessment Joint Mobility Assessment Empty end feel. No increased pain with L knee ext overpressure but mild pain with L knee flexion with overpressure Crepitus present, decreased L patellar mobility globally with lateral tracking present PT-OP-G Mobility & Gait Start: 08/19/24 12:59 Freq: Status: Active Protocol: Document 08/19/24 13:00 NM (Rec: 08/19/24 16:51 NM [id number]) OP Gait Assessment Gait Gait Assistance Required: Independent Distance (Feet) 150 Gait Deviations General Gait Pattern Antalgic,Flexed Trunk,Step-to Gait Factors Limiting Gait Function Factors Limiting Gait Function Decreased Activity Tolerance, Decreased Strength,Limited Range of Motion,Pain Comments Gait Comments Decreased L stance time, antalgic PT-OP-J Posture/Palpation/Skin Start: 08/19/24 12:59 Freq: Status: Active Protocol: Document 08/19/24 13:00 NM (Rec: 08/19/24 16:51 NM [id number]) Posture Evaluation Position Standing Head/C-Spine Posture Forward Head T-Spine Posture Increased Kyphosis Shoulder Posture (L) Rounded,(R) Rounded Weight Distribution Decreased Wt.Bear on (L) Hip Posture (L) Externally Rotated,(R) Externally Rotated Knee Posture (L) Genu Valgus,(R) Genu Valgus Patellar Posture (L) Superior,(L) Laterally Tilted Palpation Assessment Location L knee Palpation Findings Edema,Soft Tissue Tightness Palpation Details Swelling present compared to RLE Tenderness posterior knee at hamstring, lateral knee worse near joint line, patella Warmer temperature than RLE, no redness Skin Assessment Circumference Measurement L knee Location at patella Measurement (Centimeters) 42 Comments R at patella 41 cm PT-OP-K Range of Motion Start: 08/19/24 12:59 Freq: Status: Active Protocol: Document 09/15/24 10:42 NM (Rec: 09/15/24 11:29 NM [id number]) Knee Goniometric Range of Motion Knee Right Flexion Active (degrees) 129 Extension Active (degrees) 2 Left Flexion Active (degrees) 110 Extension Active (degrees) 5 Comments 09/15/24: 130 deg, lacking 4 deg PT-OP-L Special Tests Start: 08/19/24 12:59 Freq: Status: Active Protocol: Document 08/19/24 13:00 NM (Rec: 08/20/24 08:47 NM [id number]) Special Tests Knee Special Tests Varus- 0 Degrees Test Results - Comments and - 25 deg Valgus- 0 Degrees Test Results - Comments and - 25 deg Patellar Grind Test Test Results + Tamia Test Test Results - Anterior Draw Test Results - PT-OP-M Strength Start: 08/19/24 12:59 Freq: Status: Active Protocol: Document 09/15/24 10:42 NM (Rec: 09/15/24 11:29 NM [id number]) Knee Strength Knee Manual Muscle Testing Right Flexion (S2) 4+ Good+ Extension (L3) 4+ Good+ Left Flexion (S2) 4 Good Extension (L3) 4 Good Comments 09/15/24: 4/5, no pain for both IE: pain with ext, flex PT-OP-Q Treatments Start: 08/19/24 12:59 Freq: Status: Active Protocol: Document 09/22/24 13:01 NM (Rec: 09/22/24 13:48 NM [id number]) Gym Equipment Shuttle Recovery Unilateral Squats Details no pain, only reports stiffness; hard intensity Resistance 37# Reps/Time 10 Therapeutic Exercises Sitting Exercises LAQ Sitting Exercise Name trialed in PT- HEP Side bilateral Resistance AROM 1st set then level 1 band at ankles Reps/Minutes 2 sets x 8x2 hold Comments cued form; needs increased time, able to self/don and doff band Standing Exercises calf stretch Standing Exercise Name 1. gastrocnemius, 2. soleus Side bilateral Reps/Minutes 30 ea position, ea foot Comments verbal cues to avoid toeing out, cued set up Neuro Re-Education Treatment Balance Activities balance board Surface unstable Equipment small rockerboard Reps/Duration 2 min Comments 1. A/P stance- cueing to maintain stable board Demos strong posterior lean, cueing to push toes into board for more anterior WS. Improved with reps 2. A/P rocking- cueing to gently rock board fwd/bwd for more progressive WS Tendency for heavy heel pressure and post lean. Close SBA with prn CGA to steady stepping Details fwd, lateral, retro stepping Surface stable Reps/Duration 10 cones x 20 ft, Comments 1. no band 2. with level 2 band at thighs cued wider DAVID, taller posture . CGA <> SBA hurdles Details close SBA Reps/Duration 6 hurdles x 2 sets (10 ft ea) Comments 1. fwd c/ reciprocal pattern cueing for wider DAVID, TKE with stepping, slight fwd lean to prevent post trunk shift tendency c/ stepping 2. lateral cueing for neutral foot position, no turning to side PT-OP-T Assessment and Plan Start: 08/19/24 12:59 Freq: Status: Active Protocol: Document 09/22/24 13:01 NM (Rec: 09/22/24 13:48 NM [id number]) Physical Therapy Assessment Goals Two Impairment L knee strength limited Short Term Goal (STG) Pt will increase L knee flex and ext strength to at least 4 +/5 09/15/24: 4/5 MMT STG Duration 10/09/24 PROGRESSING 3/4 Nursing Home Goal (LTG) Pt will be able to perform at least 8 stairs reciprocally with or without rails and knee pain <2/10 in order to improve household mobility 09/11/24: trialed with 6 steps , B rail use; still pain but less than previously 09/15/24: 12 steps (6) 1 rail assist to simulate home, 2/10 L knee pain LTG Duration 10/16/24 MET One Impairment L knee ROM limited (lack 5 deg ext, 110 deg flex) Nursing Home Goal (LTG) Pt will increase L knee flexion AROM to at least 120 deg and L knee ext AROM to lacking 2 deg of ext or less in order to improve ability to perform stairs and dressing ADLs 08/24/24: lacking 3 deg ext 09/15/24: lacking 4 deg ext start of session; has 130 deg flexion 09/22/24: lacking 2 deg of ext, start of session LTG Duration 10/16/24 MET Three Impairment LEFS 23/80; pain and limp with ambulation Impairment ... Short Term Goal (STG) Pt will report that he is able to perform his service tasks for [employer] with <2/10 L knee pain 09/15/24: pt has not returned to service activities at [employer] due to knee pain STG Duration 10/09/24 Boilermaking Supervisor Goal (LTG) Pt will demonstrate gait without limping and <2/10 pain to demo improved ADL tolerance 09/15/24: decreased limping/ antalgic gait LTG Duration 10/16/24 PROGRESSING 3/4 Assessment Summary Assessment Pt met ROM goals for L knee today, starting session with lacking 2 deg of extension. Progressed quad strengthening with LAQ for full range of motion on knee extension; added to HEP for carryover outside of session. Initiated balance training to promote more functional hip/quad strength and for improved carryover with ROM. Tendency for posterior trunk lean with balance activities, especially when stepping outside DAVID. Trialed weight shifting to address anterior/posterior limitations. Pt would benefit from further skilled PT for further functional mobility training, pain management, and balance training. Physical Therapy Plan Frequency and Duration Frequency of Treatment 2x/Week Duration of treatment (weeks) 8 Plan of Care Start Date 08/19/24 Plan of Care End Date 10/16/24 Therapeutic Interventions Therapeutic Interventions Balance Training,Gait Training ,Home Exercise Program,Joint Mobilizations,Manual Therapy, Neuromuscular Re-education, Orthotic/Prosthetic Management ,Patient/Caregiver Education, Self-Care/Home Management, Sensory Integration,Soft Tissue Mobilization,Taping, Therapeutic Activities, Therapeutic Exercises Modalities Cold Pack/Ice Massage,Electric Stimulation,Hot Packs, Ultrasound,Vasopneumatic Devices Next Visit Focus/Plan Next Note Type Treatment Note Next Visit Plan Review slider squat. STS review> leg press. stairs. continue with quad and glute strength. Recommend cont with balance training jose luis with larger movements, dec post lean. Maybe trial bungee stepping for trunk control, multi direction stepping, working on unstable surfaces. Address ADL limitations in goals- assess readiness for d/ c with HEP compliance Knee flex and ext joint mobilizations, improve HS length. Functional HS lengthening with bottoms up and deadlift.
--- NOTE | 2024-09-29 15:08 | PT.OTN ---
Current Diagnoses Pain in left knee (09/29/24) Stiffness of left knee, not elsewhere classified (09/29/24) Stiffness of left ankle, not elsewhere classified (09/29/24) Difficulty in walking, not elsewhere classified (09/29/24) Unsteadiness on feet (09/29/24) Weakness (09/29/24) Physical Therapy Treatment Note PT-OP-A Visit Information Start: 08/19/24 12:59 Freq: Status: Active Protocol: Document 09/29/24 14:29 MB (Rec: 09/29/24 15:08 MB [id number]) Out-Patient Physical Therapy Visit Information Visit Information Visit Type Treatment Note Visit Note 5 more treatments after today Visit Start Time 14:29 Visit Stop Time 15:09 Visit Number 04/28 (/10 PN) Evaluation Information Evaluation Date 08/19/24 Precautions Precautions essential tremor PT-OP-B Current Condition Start: 08/19/24 12:59 Freq: Status: Active Protocol: Document 08/19/24 13:00 NM (Rec: 08/19/24 13:48 NM [id number]) Current Condition History of Current Condition Onset Date 07/08/24 History of Current Condition Pt presents with L knee pain. He reports that he went to bed on laura, which was fine; but woke up on morning with pain which has gotten progressively worse. Denies any specific WINNIE. Pt reports a little swelling in his L knee, states has not really resolved; swelling is more recent. Had xray on his knee about 2 weeks later in July, reports are clear and no indication of arthritis . Pt reports that he gets painful clicking in his L knee intermittently when he is trying to extend his knee. Has not noticed his knee giving out on him but states that he has wondered if it would. He states that he has to wait a few seconds before taking off to make sure his knee is under him. He reports minimal changes to balance or strenth . Worse with standing, walking , extension, stairs in home, knee flexion. Pt is seeing a neurologist for an essential tremor; taking 2 medications for tremors; being assessed for possible parkinson's but not formally diagnosed with anything. He reports that with limping, the muscles in his thighs are getting sore and it 's causing his L hip to also hurt when it did not previously. Reports that thinks that he thinks he was running a fever but thinks only his knee was inflamed. Pain makes it hard for pt to sleep due to knee pain; best position is on his L side ( worst position for his shoulder d/t pain) Prior Treatments and Tests hx of PT for same condition L knee radiograph 07/2024, Impression: Moderate effusion . No visualized acute fracture or dislocation. However, if clinical concern and/or pain persist, short interval imaging follow up in 7-10 days is recommended, as occult injury cannot be definitively excluded. Treatment Goals Patient/Caregiver Goals walk without a limp, be more involved in [facility] weekly service committee (currently unable to sweep steps, move debris to bin) PT-OP-C Subjective Start: 08/19/24 12:59 Freq: Status: Active Protocol: Document 09/29/24 14:29 MB (Rec: 09/29/24 15:08 MB [id number]) OP-PT Subjective Patient Comments Patient Comments Pt states that his anterior medial left knee has been hurting more in the past week. His exercises are going reasonably well. PT-OP-E Functional Tests Start: 08/19/24 12:59 Freq: Status: Active Protocol: Document 08/19/24 13:00 NM (Rec: 08/19/24 16:51 NM [id number]) Functional Tests Squat Test Score 1 Comments STS transfer, pain in L knee, needs UE assist PT-OP-F Manual Assessment Start: 08/19/24 12:59 Freq: Status: Active Protocol: Document 08/19/24 13:00 NM (Rec: 08/19/24 16:51 NM [id number]) Manual Assessments Soft Tissue Assessment Soft Tissue Mobility Assessment Tightness and restriction of L hamstring, L ankle and hip Joint Mobility Assessment Joint Mobility Assessment Empty end feel. No increased pain with L knee ext overpressure but mild pain with L knee flexion with overpressure Crepitus present, decreased L patellar mobility globally with lateral tracking present PT-OP-G Mobility & Gait Start: 08/19/24 12:59 Freq: Status: Active Protocol: Document 08/19/24 13:00 NM (Rec: 08/19/24 16:51 NM [id number]) OP Gait Assessment Gait Gait Assistance Required: Independent Distance (Feet) 150 Gait Deviations General Gait Pattern Antalgic,Flexed Trunk,Step-to Gait Factors Limiting Gait Function Factors Limiting Gait Function Decreased Activity Tolerance, Decreased Strength,Limited Range of Motion,Pain Comments Gait Comments Decreased L stance time, antalgic PT-OP-J Posture/Palpation/Skin Start: 08/19/24 12:59 Freq: Status: Active Protocol: Document 08/19/24 13:00 NM (Rec: 08/19/24 16:51 NM [id number]) Posture Evaluation Position Standing Head/C-Spine Posture Forward Head T-Spine Posture Increased Kyphosis Shoulder Posture (L) Rounded,(R) Rounded Weight Distribution Decreased Wt.Bear on (L) Hip Posture (L) Externally Rotated,(R) Externally Rotated Knee Posture (L) Genu Valgus,(R) Genu Valgus Patellar Posture (L) Superior,(L) Laterally Tilted Palpation Assessment Location L knee Palpation Findings Edema,Soft Tissue Tightness Palpation Details Swelling present compared to RLE Tenderness posterior knee at hamstring, lateral knee worse near joint line, patella Warmer temperature than RLE, no redness Skin Assessment Circumference Measurement L knee Location at patella Measurement (Centimeters) 42 Comments R at patella 41 cm PT-OP-K Range of Motion Start: 08/19/24 12:59 Freq: Status: Active Protocol: Document 09/15/24 10:42 NM (Rec: 09/15/24 11:29 NM [id number]) Knee Goniometric Range of Motion Knee Right Flexion Active (degrees) 129 Extension Active (degrees) 2 Left Flexion Active (degrees) 110 Extension Active (degrees) 5 Comments 09/15/24: 130 deg, lacking 4 deg PT-OP-L Special Tests Start: 08/19/24 12:59 Freq: Status: Active Protocol: Document 08/19/24 13:00 NM (Rec: 08/20/24 08:47 NM [id number]) Special Tests Knee Special Tests Varus- 0 Degrees Test Results - Comments and - 25 deg Valgus- 0 Degrees Test Results - Comments and - 25 deg Patellar Grind Test Test Results + Tamia Test Test Results - Anterior Draw Test Results - PT-OP-M Strength Start: 08/19/24 12:59 Freq: Status: Active Protocol: Document 09/15/24 10:42 NM (Rec: 09/15/24 11:29 NM [id number]) Knee Strength Knee Manual Muscle Testing Right Flexion (S2) 4+ Good+ Extension (L3) 4+ Good+ Left Flexion (S2) 4 Good Extension (L3) 4 Good Comments 09/15/24: 4/5, no pain for both IE: pain with ext, flex PT-OP-Q Treatments Start: 08/19/24 12:59 Freq: Status: Active Protocol: Document 09/29/24 14:29 MB (Rec: 09/29/24 15:08 MB [id number]) Therapeutic Exercises Supine Exercises hamstring stretch Supine Exercise Name Reviewed from [facility] Equipment Used Pt is using level 2 band at home so practiced this Reps/Minutes 60 sec hold Comments Performed on both legs Sitting Exercises LAQ Sitting Exercise Name Reviewed from [facility] Side bilateral Resistance Level 1 band Reps/Minutes 2 sets alternating 10 reps Comments Cued for quad engagement, will d/c exercise STS Sitting Exercise Name sit to stand from chair- HEP review Side bilateral Equipment Used standard chair, no UE assist Reps/Minutes 10 Comments Feet in neutral position Standing Exercises calf stretch Standing Exercise Name 1. gastrocnemius, 2. soleus HEP review Side bilateral Equipment Used Steps Reps/Minutes 30 ea position, ea foot Comments verbal cues to avoid toeing out, cued set up hip flexor stretch Standing Exercise Name Reviewed from [facility], used doorway Side bilateral Reps/Minutes 1 rep each leg with hands in doorway Comments Lots of cues for this today side steps Standing Exercise Name Reviewed from [facility] Side bilateral Equipment Used Teal band looped around ankles Reps/Minutes Several steps right and left, several times Comments cued toes slightly out PT-OP-T Assessment and Plan Start: 08/19/24 12:59 Freq: Status: Active Protocol: Document 09/29/24 14:29 MB (Rec: 09/29/24 15:08 [id number]) Physical Therapy Assessment Goals Two Impairment L knee strength limited Short Term Goal (STG) Pt will increase L knee flex and ext strength to at least 4 +/5 09/15/24: 4/5 MMT STG Duration 10/09/24 PROGRESSING 3/4 Custodial Goal (LTG) Pt will be able to perform at least 8 stairs reciprocally with or without rails and knee pain <2/10 in order to improve household mobility 09/11/24: trialed with 6 steps , B rail use; still pain but less than previously 09/15/24: 12 steps (6) 1 rail assist to simulate home, 2/10 L knee pain LTG Duration 10/16/24 MET One Impairment L knee ROM limited (lack 5 deg ext, 110 deg flex) Slot Router Goal (LTG) Pt will increase L knee flexion AROM to at least 120 deg and L knee ext AROM to lacking 2 deg of ext or less in order to improve ability to perform stairs and dressing ADLs 08/24/24: lacking 3 deg ext 09/15/24: lacking 4 deg ext start of session; has 130 deg flexion 09/22/24: lacking 2 deg of ext, start of session LTG Duration 10/16/24 MET Three Impairment LEFS 23/80; pain and limp with ambulation Impairment ... Short Term Goal (STG) Pt will report that he is able to perform his service tasks for [employer] with <2/10 L knee pain 09/15/24: pt has not returned to service activities at [employer] due to knee pain STG Duration 10/09/24 Custodial Goal (LTG) Pt will demonstrate gait without limping and <2/10 pain to demo improved ADL tolerance 09/15/24: decreased limping/ antalgic gait LTG Duration 11/11/24 PROGRESSING / Assessment Summary Assessment Pt is new to this PT and has moved to this PT's caseload after his primary PT moved. Pt reports increased pain over the past week and so will schedule out for three more visits after current visits and extended plan to the end of October to accommodate. Pt has a lot of trouble with all HEP exercises and so reviewed all today and removed several. Pt's left knee appears arthritic and terminal knee extension in standing and with LAQ may flare up his pain and so d/cd these exercises. Physical Therapy Plan Frequency and Duration Frequency of Treatment 2x/Week Duration of treatment (weeks) 5 Plan of Care Start Date 09/29/24 Plan of Care End Date 11/11/24 Therapeutic Interventions Therapeutic Interventions Balance Training,Gait Training ,Home Exercise Program,Joint Mobilizations,Manual Therapy, Neuromuscular Re-education, Orthotic/Prosthetic Management ,Patient/Caregiver Education, Self-Care/Home Management, Sensory Integration,Soft Tissue Mobilization,Taping, Therapeutic Activities, Therapeutic Exercises Modalities Cold Pack/Ice Massage,Electric Stimulation,Hot Packs, Ultrasound,Vasopneumatic Devices Next Visit Focus/Plan Next Note Type Treatment Note Next Visit Plan Review exercises as needed Check out hip and knee muscles manually and manual work Add a few balance exercises and try backwards walking with band since he is already doing side stepping 5 more treatments only
--- NOTE | 2024-09-29 15:09 | PT.OPPOC ---
Physical, Occupational & Speech Therapy At [facility] Current Diagnoses Pain in left knee (09/29/24) Stiffness of left knee, not elsewhere classified (09/29/24) Stiffness of left ankle, not elsewhere classified (09/29/24) Difficulty in walking, not elsewhere classified (09/29/24) Unsteadiness on feet (09/29/24) Weakness (09/29/24) Visit Care Team Role Provider Type David Saucedo MD Family Provider Physician Primary Care Provider Referring Provider Specialty: Family Practice Address: [address] [place] [address] Email: [email or web address] BETY LeeP- Attending Provider [employer] Manager Specialty: Family Practice Address: [address] [place] [address], [facility] Phone: Fax: Email: [email or web address] Plan Of Care PT-OP-B Current Condition Start: 08/19/24 12:59 Freq: Status: Active Protocol: Document 08/19/24 13:00 NM (Rec: 08/19/24 13:48 NM [id number]) Current Condition History of Current Condition Onset Date 07/08/24 History of Current Condition Pt presents with L knee pain. He reports that he went to bed on [place] laura, which was fine; but woke up on morning with pain which has gotten progressively worse. Denies any specific WINNIE. Pt reports a little swelling in his L knee, states has not really resolved; swelling is more recent. Had xray on his knee about 2 weeks later in July, reports are clear and no indication of arthritis . Pt reports that he gets painful clicking in his L knee intermittently when he is trying to extend his knee. Has not noticed his knee giving out on him but states that he has wondered if it would. He states that he has to wait a few seconds before taking off to make sure his knee is under him. He reports minimal changes to balance or strenth . Worse with standing, walking , extension, stairs in home, knee flexion. Pt is seeing a neurologist for an essential tremor; taking 2 medications for tremors; being assessed for possible parkinson's but not formally diagnosed with anything. He reports that with limping, the muscles in his thighs are getting sore and it 's causing his L hip to also hurt when it did not previously. Reports that thinks that he thinks he was running a fever but thinks only his knee was inflamed. Pain makes it hard for pt to sleep due to knee pain; best position is on his L side ( worst position for his shoulder d/t pain) Prior Treatments and Tests hx of PT for same condition L knee radiograph 07/2024, Impression: Moderate effusion . No visualized acute fracture or dislocation. However, if clinical concern and/or pain persist, short interval imaging follow up in 7-10 days is recommended, as occult injury cannot be definitively excluded. Treatment Goals Patient/Caregiver Goals walk without a limp, be more involved in [employer] weekly service committee (currently unable to sweep steps, move debris to bin) PT-OP-T Assessment and Plan Start: 08/19/24 12:59 Freq: Status: Active Protocol: Document 09/29/24 14:29 MB (Rec: 09/29/24 15:08 MB [id number]) Physical Therapy Assessment Goals Two Impairment L knee strength limited Short Term Goal (STG) Pt will increase L knee flex and ext strength to at least 4 +/5 09/15/24: 4/5 MMT STG Duration 10/09/24 PROGRESSING 3/4 [employer] Specialist Goal (LTG) Pt will be able to perform at least 8 stairs reciprocally with or without rails and knee pain <2/10 in order to improve household mobility 09/11/24: trialed with 6 steps , B rail use; still pain but less than previously 09/15/24: 12 steps (6) 1 rail assist to simulate home, 2/10 L knee pain LTG Duration 10/16/24 MET One Impairment L knee ROM limited (lack 5 deg ext, 110 deg flex) Cash [employer] Specialist Goal (LTG) Pt will increase L knee flexion AROM to at least 120 deg and L knee ext AROM to lacking 2 deg of ext or less in order to improve ability to perform stairs and dressing ADLs 08/24/24: lacking 3 deg ext 09/15/24: lacking 4 deg ext start of session; has 130 deg flexion 09/22/24: lacking 2 deg of ext, start of session LTG Duration 10/16/24 MET Three Impairment LEFS 23/80; pain and limp with ambulation Impairment ... Short Term Goal (STG) Pt will report that he is able to perform his service tasks for [employer] with <2/10 L knee pain 09/15/24: pt has not returned to service activities at [employer] due to knee pain STG Duration 10/09/24 Cash Applications Specialist Goal (LTG) Pt will demonstrate gait without limping and <2/10 pain to demo improved ADL tolerance 09/15/24: decreased limping/ antalgic gait LTG Duration 11/11/24 PROGRESSING 09/15 Assessment Summary Assessment Pt is new to this PT and has moved to this PT's caseload after his primary PT moved. Pt reports increased pain over the past week and so will schedule out for three more visits after current visits and extended plan to the end of October to accommodate. Pt has a lot of trouble with all HEP exercises and so reviewed all today and removed several. Pt's left knee appears arthritic and terminal knee extension in standing and with LAQ may flare up his pain and so d/cd these exercises. Physical Therapy Plan Frequency and Duration Frequency of Treatment 2x/Week Duration of treatment (weeks) 5 Plan of Care Start Date 09/29/24 Plan of Care End Date 11/11/24 Therapeutic Interventions Therapeutic Interventions Balance Training,Gait Training ,Home Exercise Program,Joint Mobilizations,Manual Therapy, Neuromuscular Re-education, Orthotic/Prosthetic Management ,Patient/Caregiver Education, Self-Care/Home Management, Sensory Integration,Soft Tissue Mobilization,Taping, Therapeutic Activities, Therapeutic Exercises Modalities Cold Pack/Ice Massage,Electric Stimulation,Hot Packs, Ultrasound,Vasopneumatic Devices Next Visit Focus/Plan Next Note Type Treatment Note Next Visit Plan Review exercises as needed Check out hip and knee muscles manually and manual work Add a few balance exercises and try backwards walking with band since he is already doing side stepping 5 more treatments only Plan of Care Dates Plan of Care Start Date 09/29/24 Plan of Care End Date 11/11/24 Electronically Signed by: Cathy Kelly, PT 09/29/24 [id number] If you are in agreement with this Plan of Care, please return a signed and dated copy. I have reviewed this Plan of Care and certify that the skilled therapy services above are required to meet the patient?s needs. Physician Signature Date Printed Name and Credentials Clinical Instructor Signature Printed Name and Credentials
--- NOTE | 2024-10-13 17:09 | PT.OTN ---
Current Diagnoses Pain in left knee (10/13/24) Stiffness of left knee, not elsewhere classified (10/13/24) Stiffness of left ankle, not elsewhere classified (10/13/24) Difficulty in walking, not elsewhere classified (10/13/24) Unsteadiness on feet (10/13/24) Weakness (10/13/24) Physical Therapy Treatment Note PT-OP-A Visit Information Start: 08/19/24 12:59 Freq: Status: Active Protocol: Document 10/13/24 13:45 NBM (Rec: 10/13/24 14:34 NBM [id number]) Out-Patient Physical Therapy Visit Information Visit Information Visit Type Treatment Note Visit Note 4 more treatments after today Visit Start Time 13:50 Visit Stop Time 14:32 Visit Number 05/29 (10/22 PN) 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 He reports that he went to bed on laura, which was fine; but woke up on morning with pain which has gotten progressively worse. Denies any specific WINNIE. Pt reports a little swelling in his L knee, states has not really resolved; swelling is more recent. Had xray on his knee about 2 weeks later in July, reports are clear and no indication of arthritis . Pt reports that he gets painful clicking in his L knee intermittently when he is trying to extend his knee. Has not noticed his knee giving out on him but states that he has wondered if it would. He states that he has to wait a few seconds before taking off to make sure his knee is under him. He reports minimal changes to balance or strenth . Worse with standing, walking , extension, stairs in home, knee flexion. Pt is seeing a neurologist for an essential tremor; taking 2 medications for tremors; being assessed for possible parkinson's but not formally diagnosed with anything. He reports that with limping, the muscles in his thighs are getting sore and it 's causing his L hip to also hurt when it did not previously. Reports that thinks that he thinks he was running a fever but thinks only his knee was inflamed. Pain makes it hard for pt to sleep due to knee pain; best position is on his L side ( worst position for his shoulder d/t pain) Prior Treatments and Tests hx of PT for same condition L knee radiograph 07/2024, Impression: Moderate effusion . No visualized acute fracture or dislocation. However, if clinical concern and/or pain persist, short interval imaging follow up in 7-10 days is recommended, as occult injury cannot be definitively excluded. 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 The L knee pain is mainly on the inside of the knee, and a few days ago it was even hurting to the touch. He keeps forgetting to put ice on it. PT-OP-E Functional Tests Start: 08/19/24 12:59 Freq: Status: Active Protocol: Document 08/19/24 13:00 NM (Rec: 08/19/24 16:51 NM [id number]) Functional Tests Squat Test Score 1 Comments STS transfer, pain in L knee, needs UE assist PT-OP-F Manual Assessment Start: 08/19/24 12:59 Freq: Status: Active Protocol: Document 08/19/24 13:00 NM (Rec: 08/19/24 16:51 NM [id number]) Manual Assessments Soft Tissue Assessment Soft Tissue Mobility Assessment Tightness and restriction of L hamstring, L ankle and hip Joint Mobility Assessment Joint Mobility Assessment Empty end feel. No increased pain with L knee ext overpressure but mild pain with L knee flexion with overpressure Crepitus present, decreased L patellar mobility globally with lateral tracking present PT-OP-G Mobility & Gait Start: 08/19/24 12:59 Freq: Status: Active Protocol: Document 08/19/24 13:00 NM (Rec: 08/19/24 16:51 NM [id number]) OP Gait Assessment Gait Gait Assistance Required: Independent Distance (Feet) 150 Gait Deviations General Gait Pattern Antalgic,Flexed Trunk,Step-to Gait Factors Limiting Gait Function Factors Limiting Gait Function Decreased Activity Tolerance, Decreased Strength,Limited Range of Motion,Pain Comments Gait Comments Decreased L stance time, antalgic PT-OP-J Posture/Palpation/Skin Start: 08/19/24 12:59 Freq: Status: Active Protocol: Document 08/19/24 13:00 NM (Rec: 08/19/24 16:51 NM [id number]) Posture Evaluation Position Standing Head/C-Spine Posture Forward Head T-Spine Posture Increased Kyphosis Shoulder Posture (L) Rounded,(R) Rounded Weight Distribution Decreased Wt.Bear on (L) Hip Posture (L) Externally Rotated,(R) Externally Rotated Knee Posture (L) Genu Valgus,(R) Genu Valgus Patellar Posture (L) Superior,(L) Laterally Tilted Palpation Assessment Location L knee Palpation Findings Edema,Soft Tissue Tightness Palpation Details Swelling present compared to RLE Tenderness posterior knee at hamstring, lateral knee worse near joint line, patella Warmer temperature than RLE, no redness Skin Assessment Circumference Measurement L knee Location at patella Measurement (Centimeters) 42 Comments R at patella 41 cm PT-OP-K Range of Motion Start: 08/19/24 12:59 Freq: Status: Active Protocol: Document 09/15/24 10:42 NM (Rec: 09/15/24 11:29 NM [id number]) Knee Goniometric Range of Motion Knee Right Flexion Active (degrees) 129 Extension Active (degrees) 2 Left Flexion Active (degrees) 110 Extension Active (degrees) 5 Comments 09/15/24: 130 deg, lacking 4 deg PT-OP-L Special Tests Start: 08/19/24 12:59 Freq: Status: Active Protocol: Document 08/19/24 13:00 NM (Rec: 08/20/24 08:47 NM [id number]) Special Tests Knee Special Tests Varus- 0 Degrees Test Results - Comments and - 25 deg Valgus- 0 Degrees Test Results - Comments and - 25 deg Patellar Grind Test Test Results + Tamia Test Test Results - Anterior Draw Test Results - PT-OP-M Strength Start: 08/19/24 12:59 Freq: Status: Active Protocol: Document 09/15/24 10:42 NM (Rec: 09/15/24 11:29 NM [id number]) Knee Strength Knee Manual Muscle Testing Right Flexion (S2) 4+ Good+ Extension (L3) 4+ Good+ Left Flexion (S2) 4 Good Extension (L3) 4 Good Comments 09/15/24: 4/5, no pain for both IE: pain with ext, flex PT-OP-Q Treatments Start: 08/19/24 12:59 Freq: Status: Active Protocol: Document 10/13/24 13:45 NBM (Rec: 10/13/24 14:34 NBM [id number]) Therapeutic Exercises Sitting Exercises STS Sitting Exercise Name sit to stand from chair- [facility] review Side bilateral Equipment Used standard chair, no UE assist Reps/Minutes x15 Comments Feet in neutral position hamstring stretch Side bilateral Equipment Used foot on stool Reps/Minutes 60 ea Comments c/ fwd lean; cued set up Standing Exercises bandwalks Standing Exercise Name fwd/bwd - added to HEP Side bilateral Equipment Used Lvl 2>Lvl 1 Tb Reps/Minutes Lvl 2x 10 ft ea, Lvl 1 3 x10ft ea. Comments lvl 2 too challenging, visual cue heels apart for neutral foot,keep tension calf stretch Standing Exercise Name 1. gastrocnemius, 2. soleus HEP review Side bilateral Equipment Used Steps Reps/Minutes 30 ea position, ea foot Comments verbal cues to avoid toeing out, cued set up hip flexor stretch Standing Exercise Name Reviewed from HEP Side bilateral Equipment Used handrail Reps/Minutes 1 rep each leg with hands on rail Comments one verbal cue for neutral foot positioning, pt reports feels in front hips side steps Standing Exercise Name Reviewed from [facility] Side bilateral Equipment Used Lvl 2 Tb looped around ankles Reps/Minutes 12 ft x3 ea Comments excessive hip ER, cued neutral foot and upright posture, improves Gait Training Gait Activity stairs Description reciprocal ascending/ descending 6 steps Distance/Duration 4 6 stairs x4 ascend and descend Treatment Focus neutral foot position w/ descent Neuro Re-Education Treatment Balance Activities SLS Details Single leg balance - added to HEP Equipment handrail for initial UE support then hands hovering Reps/Duration trials Comments RLE 4-5 sec until cued for neutral foot position, then 27 sec. LLE 30 sec, painfree. Self-Care/Home Management Treatment Education Patient Education Home Exercise Program,Joint Protection,Posture Other Education -Pt has left HEP handouts in [place] and struggles with recall and carryover. HEP handouts and Lvl 1 and 2 Therabands provided to pt. Discussion re: breaking ex's into alternate days for improving carryover and incorporating SL balance at sink when brushing teeth or at counter while waiting for coffee. -Added to HEP: SLS and Fwd/bwd walking w/ Lvl 1 tb. -Discussion reminding pt of use of ice for pain management . PT-OP-R Modalities Start: 08/19/24 12:59 Freq: Status: Active Protocol: Document 10/13/24 13:45 NBM (Rec: 10/13/24 14:34 [facility] [id number]) Hot Pack/Cold Pack Treatment Cold Pack Location left knee Patient Position Hooklying Patient Tolerance Good Comments 8 min LEs on bolster, lozano within reach. PT-OP-T Assessment and Plan Start: 08/19/24 12:59 Freq: Status: Active Protocol: Document 10/13/24 13:45 NBM (Rec: 10/13/24 14:34 [facility] [id number]) Physical Therapy Assessment Goals Three Impairment LEFS 23/80; pain and limp with ambulation Impairment ... Short Term Goal (STG) Pt will report that he is able to perform his service tasks for [employer] with <2/10 L knee pain 09/15/24: pt has not returned to service activities at [employer] due to knee pain STG Duration 10/09/24 Shelter Goal (LTG) Pt will demonstrate gait without limping and <2/10 pain to demo improved ADL tolerance 09/15/24: decreased limping/ antalgic gait LTG Duration 11/11/24 PROGRESSING 09/15 Assessment Summary Assessment Treatment focus on HEP review and strategies for improving HEP carryover. Pt given copy of full HEP and Lvl 1 and 2 resistance bands in large ziplo to keep together for easy reference, and to replace the ones left in [place]. He is encouraged to stretch and perform STS daily and alternate othe exercises over the week instead of saving them to complete all at once as he sometimes goes days between completing and has four scheduled visits. He requires cues for neutral foot positioning with stair descent. Pt joieos improved RLE balance from ~5 seconds to 27 seconds with cues for R neutral foot positioning. Added to HEP: Single leg balance and forward/backward ambulation w/ Lvl 1 theraband at ankles. Cryotherapy end of session. Physical Therapy Plan Frequency and Duration Frequency of Treatment 2x/Week Duration of treatment (weeks) 5 Plan of Care Start Date 09/29/24 Plan of Care End Date 11/11/24 Therapeutic Interventions Therapeutic Interventions Balance Training,Gait Training ,Home Exercise Program,Joint Mobilizations,Manual Therapy, Neuromuscular Re-education, Orthotic/Prosthetic Management ,Patient/Caregiver Education, Self-Care/Home Management, Sensory Integration,Soft Tissue Mobilization,Taping, Therapeutic Activities, Therapeutic Exercises Modalities Cold Pack/Ice Massage,Electric Stimulation,Hot Packs, Ultrasound,Vasopneumatic Devices Next Visit Focus/Plan Next Note Type Treatment Note Next Visit Plan Check for HEP compliance/ carryover and consider weekly exercise schedule (stretching/ STS daily, alternate remaining ex's). Review SL balance exercise and bandwalking (fwd/ bwd Lvl 1, lateral Lvl 2) and other exercises as needed. Consider additional balance ex or progress SLS to include EO /EC, head turns, change in DAVID . Check out hip and knee muscles manually and manual work. 4 more treatments only
--- NOTE | 2024-10-20 14:09 | PT.OTN ---
Current Diagnoses Pain in left knee (10/20/24) Stiffness of left knee, not elsewhere classified (10/20/24) Stiffness of left ankle, not elsewhere classified (10/20/24) Difficulty in walking, not elsewhere classified (10/20/24) Unsteadiness on feet (10/20/24) Weakness (10/20/24) Physical Therapy Treatment Note PT-OP-A Visit Information Start: 08/19/24 12:59 Freq: Status: Active Protocol: Document 10/20/24 13:46 MB (Rec: 10/20/24 14:02 MB Desktop) Out-Patient Physical Therapy Visit Information Visit Information Visit Type Discharge Summary Visit Start Time 13:46 Visit Stop Time 14:09 Visit Number 12 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 He reports that he went to bed on laura, which was fine; but woke up on morning with pain which has gotten progressively worse. Denies any specific WINNIE. Pt reports a little swelling in his L knee, states has not really resolved; swelling is more recent. Had xray on his knee about 2 weeks later in July, reports are clear and no indication of arthritis . Pt reports that he gets painful clicking in his L knee intermittently when he is trying to extend his knee. Has not noticed his knee giving out on him but states that he has wondered if it would. He states that he has to wait a few seconds before taking off to make sure his knee is under him. He reports minimal changes to balance or strenth . Worse with standing, walking , extension, stairs in home, knee flexion. Pt is seeing a neurologist for an essential tremor; taking 2 medications for tremors; being assessed for possible parkinson's but not formally diagnosed with anything. He reports that with limping, the muscles in his thighs are getting sore and it 's causing his L hip to also hurt when it did not previously. Reports that thinks that he thinks he was running a fever but thinks only his knee was inflamed. Pain makes it hard for pt to sleep due to knee pain; best position is on his L side ( worst position for his shoulder d/t pain) Prior Treatments and Tests hx of PT for same condition L knee radiograph 07/2024, Impression: Moderate effusion . No visualized acute fracture or dislocation. However, if clinical concern and/or pain persist, short interval imaging follow up in 7-10 days is recommended, as occult injury cannot be definitively excluded. 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 and walked around a little too much. Pt states that his exercises are going okay. After PT last week, his knee felt good into the evening and since then, his knee is feeling lousy. He points to medial left knee. PT-OP-E Functional Tests Start: 08/19/24 12:59 Freq: Status: Active Protocol: Document 08/19/24 13:00 NM (Rec: 08/19/24 16:51 NM [id number]) Functional Tests Squat Test Score 1 Comments STS transfer, pain in L knee, needs UE assist PT-OP-F Manual Assessment Start: 08/19/24 12:59 Freq: Status: Active Protocol: Document 08/19/24 13:00 NM (Rec: 08/19/24 16:51 NM [id number]) Manual Assessments Soft Tissue Assessment Soft Tissue Mobility Assessment Tightness and restriction of L hamstring, L ankle and hip Joint Mobility Assessment Joint Mobility Assessment Empty end feel. No increased pain with L knee ext overpressure but mild pain with L knee flexion with overpressure Crepitus present, decreased L patellar mobility globally with lateral tracking present PT-OP-G Mobility & Gait Start: 08/19/24 12:59 Freq: Status: Active Protocol: Document 08/19/24 13:00 NM (Rec: 08/19/24 16:51 NM [id number]) OP Gait Assessment Gait Gait Assistance Required: Independent Distance (Feet) 150 Gait Deviations General Gait Pattern Antalgic,Flexed Trunk,Step-to Gait Factors Limiting Gait Function Factors Limiting Gait Function Decreased Activity Tolerance, Decreased Strength,Limited Range of Motion,Pain Comments Gait Comments Decreased L stance time, antalgic PT-OP-J Posture/Palpation/Skin Start: 08/19/24 12:59 Freq: Status: Active Protocol: Document 08/19/24 13:00 NM (Rec: 08/19/24 16:51 NM [id number]) Posture Evaluation Position Standing Head/C-Spine Posture Forward Head T-Spine Posture Increased Kyphosis Shoulder Posture (L) Rounded,(R) Rounded Weight Distribution Decreased Wt.Bear on (L) Hip Posture (L) Externally Rotated,(R) Externally Rotated Knee Posture (L) Genu Valgus,(R) Genu Valgus Patellar Posture (L) Superior,(L) Laterally Tilted Palpation Assessment Location L knee Palpation Findings Edema,Soft Tissue Tightness Palpation Details Swelling present compared to RLE Tenderness posterior knee at hamstring, lateral knee worse near joint line, patella Warmer temperature than RLE, no redness Skin Assessment Circumference Measurement L knee Location at patella Measurement (Centimeters) 42 Comments R at patella 41 cm PT-OP-K Range of Motion Start: 08/19/24 12:59 Freq: Status: Active Protocol: Document 09/15/24 10:42 NM (Rec: 09/15/24 11:29 NM [id number]) Knee Goniometric Range of Motion Knee Right Flexion Active (degrees) 129 Extension Active (degrees) 2 Left Flexion Active (degrees) 110 Extension Active (degrees) 5 Comments 09/15/24: 130 deg, lacking 4 deg PT-OP-L Special Tests Start: 08/19/24 12:59 Freq: Status: Active Protocol: Document 08/19/24 13:00 NM (Rec: 08/20/24 08:47 NM [id number]) Special Tests Knee Special Tests Varus- 0 Degrees Test Results - Comments and - 25 deg Valgus- 0 Degrees Test Results - Comments and - 25 deg Patellar Grind Test Test Results + Tamia Test Test Results - Anterior Draw Test Results - PT-OP-M Strength Start: 08/19/24 12:59 Freq: Status: Active Protocol: Document 09/15/24 10:42 NM (Rec: 09/15/24 11:29 NM [id number]) Knee Strength Knee Manual Muscle Testing Right Flexion (S2) 4+ Good+ Extension (L3) 4+ Good+ Left Flexion (S2) 4 Good Extension (L3) 4 Good Comments 09/15/24: 4/5, no pain for both IE: pain with ext, flex PT-OP-Q Treatments Start: 08/19/24 12:59 Freq: Status: Active Protocol: Document 10/20/24 13:46 MB (Rec: 10/20/24 14:02 MB Desktop) Gait Training Gait Activity Gait with and without SPC Comments Slower and antaglic gait without AD and he tends to keep left knee stiff and extended, SPC training today with cane in right hand and advancing with left foot and pt has better candence and balance, though he con't with left knee stiffness/guarded posture, gait training at least 50' Self-Care/Home Management Treatment Education Patient Education Body Mechanics,Fall Risk,Home Exercise Program,Joint Protection,Pain Management, Posture,Safety Other Education Gait today con't to be slow and antaglic and ed pt in benefits of cane and he will consider getting, ed in not performing heavy activities that provoke pain (he reports digging with kicking through bottom of shovel), ed pt on benefits of icing, unsure how compliant pt is with HEP and so re-ed pt to perform the ones that do not cause pain, benefits of following up with doctor about orthopedic consult/pain management PT-OP-R Modalities Start: 08/19/24 12:59 Freq: Status: Active Protocol: Document 10/13/24 13:45 NBM (Rec: 10/13/24 14:34 NBM [id number]) Hot Pack/Cold Pack Treatment Cold Pack Location left knee Patient Position Hooklying Patient Tolerance Good Comments 8 min LEs on bolster, lozano within reach. PT-OP-T Assessment and Plan Start: 08/19/24 12:59 Freq: Status: Active Protocol: Document 10/20/24 13:46 MB (Rec: 10/20/24 14:02 MB Desktop) Physical Therapy Assessment Goals Three Impairment LEFS 23/80; pain and limp with ambulation Impairment ... 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 He has not facilities/cleaning up. STG Duration 10/09/24 Half-Way Goal (LTG) Pt will demonstrate gait without limping and <2/10 pain to demo improved ADL tolerance 09/15/24: decreased limping/ antalgic gait 10/20/24: Pt con't with mildly antalgic gait and slow suzie LTG Duration 11/11/24 PROGRESSING 09/15 Assessment Summary Assessment Pt has now completed 12 PT treatments over two months and he states that his left knee is not better, it has just changed. He has some pain around the knee cap and he did not have that before. He is agreeable to follow-up with doctor and to d/c PT given little progress towards goals. He has also had challenges performing HEP d/t cognition/ recall. This has been a barrier to progression and seeing what helps and what does not help as far as progression. Provided extensive education today. Will d/c PT. Physical Therapy Plan Frequency and Duration Frequency of Treatment 2x/Week Duration of treatment (weeks) 5 Plan of Care Start Date 09/29/24 Plan of Care End Date 11/11/24 Therapeutic Interventions Therapeutic Interventions Balance Training,Gait Training ,Home Exercise Program,Joint Mobilizations,Manual Therapy, Neuromuscular Re-education, Orthotic/Prosthetic Management ,Patient/Caregiver Education, Self-Care/Home Management, Sensory Integration,Soft Tissue Mobilization,Taping, Therapeutic Activities, Therapeutic Exercises Modalities Cold Pack/Ice Massage,Electric Stimulation,Hot Packs, Ultrasound,Vasopneumatic Devices Next Visit Focus/Plan Next Note Type Treatment Note
== END 2024-10-23 14:29 | disposition home or self-care (01) ==
LOC: PHYS 13:45
PROVIDERS: Family Provider Family Medicine; PCP Family Medicine; Referring Provider Family Medicine; Visit Provider Nurse Practitioner Family
DX: M25.562 Pain in left knee (principal); M25.662 Stiffness of left knee, not elsewhere classified; M25.672 Stiffness of left ankle, not elsewhere classified; R53.1 Weakness; R26.81 Unsteadiness on feet
CPT/HCPCS: 97110; 97112; 97116; 97140; 97161; 97535

== ENCOUNTER → 2024-10-26 11:37 | Outpatient (CLI) | payer OTHER, SELFPAY ==
[2024-10-26 12:50] LABS: Add Manual Diff / Slide Review NO; Basophils Absolute Auto 0 /uL (0-100); Basophils Percent Auto 0.6 % (0-2); Eosinophils Absolute Auto 100 /uL (0-450); Eosinophils Percent Auto 3.2 % (2-4); Hematocrit 38.5 % (41-53); Lymphocytes Absolute Auto 1100 /uL (1100-4500); Lymphocytes Percent Auto 27.6 % (25-40); Mean Corpuscular HGB Conc 33.7 % (30-36); Monocytes Absolute Auto 300 /uL (0-900); Monocytes Percent Auto 8.7 % (3-14); Neutrophils Absolute Auto 2400 /uL (1500-7000); Neutrophils Percent Auto 59.9 % (50-75); Platelet Count 235 X10^3/uL (150-400); Red Blood Cell Count 4.19 X10^6/uL (4.5-5.9); Red Cell Distribution Width 12.8 % (11.6-14.8)
[2024-10-26 13:11] LABS: HEMOLYSIS < 15 (0-50); Iron 89 ug/dL (49-181)
[2024-10-26 13:21] LABS: Percent Iron Saturation 42 % (20-50); Total Iron Binding Capacity 213 ug/dL (261-462); Transferrin 169 mg/dL (206-381)
[2024-10-26 13:44] LABS: Ferritin 71 ng/mL (18-464)
[2024-10-26 13:51] LABS: Creatinine Urine Random 66.39 mg/dL
[2024-10-26 13:55] LABS: Microalbumin Urine Random < 0.6 mg/dL (0-1.6)
[2024-10-26 13:58] LABS: Vitamin B12 456 pg/mL (239-931)
== END ==
PROVIDERS: Family Provider Family Medicine; PCP Family Medicine; Referring Provider Family Medicine; Visit Provider Family Medicine
DX: Z00.00 Encounter for general adult medical examination without abnormal findings (principal); D64.9 Anemia, unspecified; R00.1 Bradycardia, unspecified; G25.0 Essential tremor; M25.561 Pain in right knee; M25.562 Pain in left knee; G89.29 Other chronic pain; M25.511 Pain in right shoulder; M25.512 Pain in left shoulder
CPT/HCPCS: 36415; 82043; 82570; 82607; 82728; 83540; 83550; 85025

== ENCOUNTER → 2025-01-04 12:39 | Outpatient (CLI) | payer OTHER, SELFPAY ==
--- NOTE | 2025-01-04 12:41 | DI.ECHO.S_ITS ---
[facility] : : [address] : : [place] : : [address] : : Phone: [phone] Echocardiogram Report + + :Name: DELON GARNETT Study Date: 01/04/2025 Height: 69 in : :Hospital ReadingLocation: Weight: 177 lb : : Gender: Male BSA: 2.0 m2 : :: 1940 Age: 84 yrs BP: 137/73 mmHg: :Reason For Study: ASCENDING AORTIC ANEURYSM : :Ordering Physician: DOT, : :EUGENIO Performed By: Xin Milligan : :Referring: EUGENIO CHRIS : + + Interpretation Summary Moderate asymmetric left ventricular hypertrophy with ejection fraction 60- 65%. No significant valvular abnormality. The ascending aorta is mildly enlarged (4.1 cm). Procedure: A two-dimensional transthoracic echocardiogram with color flow and Doppler was performed. The study quality was technically adequate. There is no prior echocardiogram noted for this patient. The patient was in sinus bradycardia with heart rates between 54-60 bpm during the exam. Left Ventricle: The left ventricle is normal in size. There is moderate asymmetric left ventricular hypertrophy. The ejection fraction is estimated to be 60-65%. There are no focal wall motion abnormalities. Diastolic parameters suggest probable normal left ventricular diastolic function and normal filling pressures. Right Ventricle: The right ventricle is normal in size and function. Atria: The left atrial size is normal. Right atrial size is normal. There is no Doppler evidence for an interatrial shunt. Mitral Valve: The mitral valve leaflets appear to open well. There is trace mitral regurgitation. Aortic Valve: The aortic valve is trileaflet. The aortic valve opens well. There is no aortic valve stenosis. No aortic regurgitation is present. Tricuspid Valve: The tricuspid valve leaflets are thin and pliable. There is trace tricuspid regurgitation. Pulmonary artery pressures cannot be estimated because of the lack of a measurable TR jet velocity but the IVC suggests a CVP of around 3 mmHg. Pulmonic Valve: The pulmonic valve leaflets are thin and pliable; valve motion is normal. There is mild pulmonic regurgitation. Great Vessels: The aortic root is normal size. The ascending aorta is mildly enlarged. The IVC is of normal diameter and collapses greater than 50% with a sniff. This suggests a low right atrial pressure of 3 mm Hg. Pericardium/ Pleura There is no pericardial effusion. There is no pleural effusion. MMode/2D Measurements & Calculations LVIDd: 4.1 cm LVOT diam: 2.0 cm LVIDs: 2.8 cm Ao root diam: 3.4 cm FS: 31.7 % asc Aorta Diam: 4.1 cm IVSd: 1.5 cm Ao Arch Diam (Prox Trans): 2.0 cm LVPWd: 0.80 cm LV calix. diameter/BSA (cm/m^2): 2.1 LV sys. diameter/BSA (cm/m^2): 1.4 LA A2 area: 22.2 cm2 RA long axis: 4.4 cm LA A4 area: 15.7 cm2 RA area: 14.8 cm2 LA length (vol): 5.0 cm RA vol: 41.9 ml LA vol: 59.0 ml RA : 21.4 ml/m2 LA vol index: 30.1 ml/m2 IVC diam: 0.79 cm RVD1 (basal): 3.2 cm RVD2 (mid): 3.2 cm TAPSE: 2.8 cm Doppler Measurements & Calculations Ao V2 max: 100.7 cm/sec LVOT Max Chalo: 90.1 cm/sec Ao V2 mean: 73.6 cm/sec LV V1 max P.2 mmHg Ao max P.1 mmHg LV V1 VTI: 21.4 cm Ao mean P.3 mmHg DAMION(I,D): 2.6 cm2 Ao V2 VTI: 24.6 cm DAMION(V,D): 2.7 cm2 sev ratio: 0.87 DAMION indexed to BSA (cm^2/m^2): 1.3 MV E max chalo: 54.8 cm/sec PA V2 max: 115.0 cm/sec MV A max chalo: 56.7 cm/sec PA V2 mean: 73.6 cm/sec MV E/A: 0.97 PA mean P.5 mmHg Med Peak E' Chalo: 9.2 cm/sec PA pr(Accel): 25.7 mmHg E/E' med: 6.0 Lat Peak E' Chalo: 8.0 cm/sec E/E' lat: 6.8 E/e' average: 6.4 MV dec time: 0.23 sec SV(LVOT): 64.5 ml Electronically signed by: Marissa Oconnor on Reading Physician:01/04/2025 10:06 PM
== END ==
PROVIDERS: Family Provider Family Medicine; PCP Family Medicine; Referring Provider Family Medicine; Visit Provider Family Medicine
DX: I71.21 Aneurysm of the ascending aorta, without rupture (principal); I37.1 Nonrheumatic pulmonary valve insufficiency; I77.89 Other specified disorders of arteries and arterioles
CPT/HCPCS: 93306

== ENCOUNTER → 2025-03-25 14:41 | Outpatient (CLI) | payer OTHER, SELFPAY ==
--- NOTE | 2025-03-25 14:43 | DI.RAD.S_ITS ---
PROCEDURE: XR SHOULDER LT MIN 2V INDICATIONS: bilateral shoulder pain TECHNIQUE: 3 views of the shoulder were acquired. COMPARISON: [facility], CR, XR SHOULDER RT MIN 2V, 06/25/2024, 10:22. FINDINGS: Bones: No fractures or dislocations. The humeral head is mildly high-riding and there is moderate glenohumeral joint space narrowing and marginal osteophytosis. Moderate hypertrophic acromioclavicular arthropathy. No suspicious bony lesions. Visualized ribs appear intact. Soft tissues: No suspicious soft tissue calcifications. IMPRESSION: Degenerative change of the glenohumeral and acromioclavicular joints without evidence of acute bony abnormality. Dictated by: Carlos Alberto Jose M.D. on 03/29/2025 at 4:38 Approved by: Carlos Alberto Jose M.D. on 03/29/2025 at 4:40
--- NOTE | 2025-03-25 14:43 | DI.RAD.S_ITS ---
PROCEDURE: XR SHOULDER RT MIN 2V INDICATIONS: bilateral shoulder pain TECHNIQUE: 3 views of the shoulder were acquired. COMPARISON: [facility], CR, XR SHOULDER RT MIN 2V, 06/25/2024, 10:22. FINDINGS: Bones: No fractures or dislocations. The humeral head is moderately high- riding and there is mild to moderate glenohumeral joint space narrowing and marginal osteophytosis. Moderate hypertrophic acromioclavicular arthropathy. No suspicious bony lesions. Visualized ribs appear intact. Soft tissues: No suspicious soft tissue calcifications. IMPRESSION: Degenerative change of the glenohumeral and acromioclavicular joints without evidence of acute bony abnormality. Dictated by: Carlos Alberto Jose M.D. on 03/29/2025 at 4:37 Approved by: Carlos Alberto Jose M.D. on 03/29/2025 at 4:38
== END ==
PROVIDERS: PCP Family Medicine; Referring Provider Family Medicine; Visit Provider Family Medicine
DX: M19.011 Primary osteoarthritis, right shoulder (principal); M19.012 Primary osteoarthritis, left shoulder
CPT/HCPCS: 73030

== ENCOUNTER 2025-06-17 09:45 | Outpatient (RCR) | payer OTHER, SELFPAY ==
--- NOTE | 2025-04-21 14:33 | PT.OPPOC ---
Physical, Occupational & Speech Therapy At [facility] Current Diagnoses Primary osteoarthritis, right shoulder (04/21/25) Primary osteoarthritis, left shoulder (04/21/25) Pain in right shoulder (04/21/25) Pain in left shoulder (04/21/25) Visit Care Team Role Provider Type David Saucedo MD Attending Provider Physician Family Provider Other Providers Primary Care Provider Referring Provider Specialty: Family Practice Address: [address] [place] [address], [facility] Email: [email or web address] Plan Of Care PT OP: Cervical/Upper Extremity Start: 04/21/25 11:42 Freq: Status: Active Protocol: Document 04/21/25 11:43 RUBEN (Rec: 04/21/25 14:32 RUBEN [id number]) Out-Patient Physical Therapy Visit Information Visit Information Visit Type Initial Evaluation Visit Start Time 11:40 Visit Stop Time 12:15 Visit Number 1 Number of MONEY EXAMINER Visits 0 Progress Note Due 05/21/25 OP-PT Subjective Patient Comments Patient Comments History of current diagnosis: Patient reports bilateral shoulder pain (L>R) that has been chronic and got significantly worse in January 2025. Patient reports insideous onset. He reports he did a few PT visits for this issue in July 2024 but switched the focus to his knee shortly after starting due to his knee being his primary concern. Occupation: Retired Physical activities/ hobbies: Working at [employer] once per week. Pain location: Lateral L shoulder Pain description: Sharp Pain 0-10/10 (current): 1/10 Pain 0-10/10 (worst): 9/10 Pain 0-10/10 (best): 9/10 Aggravating: Lifting items with L shoulder, raising arm overhead Alleviating: Rest Function prior to injury: Independent with all ADLs Function current: Independent with all ADLs - limited with reaching, lifting, cleaning around his home with L arm Patient goals: Improve function with L arm Patient Questionnaires Quick Dash- Upper Extremity Quick Dash UE Score 29.5 Quick Dash UE 20 to 39% Impaired (Score 20-39) Impairment Palpation Assessment Location L shoulder Palpation Findings Tenderness Palpation Details TTP lesser and greater tubercle of L humerus Shoulder Goniometric Range of Motion Shoulder Measured in Degrees Right Active Shoulder ROM WFL Yes Testing Position Sitting Flexion 175 Abduction 175 External Rotation at 85 90 degrees Abduction Internal Rotation 30 Left Active Shoulder ROM WFL No Testing Position Sitting Flexion 160 Abduction 170 External Rotation at 75 90 degrees Abduction Internal Rotation 30 Comments PROM: Flexion: 170 175 Abduction: Special Tests Shoulder Special Tests Speed's Biceps Test Results + L Moraes Marquis Impingement Test Results + L Empty Can Test Results + L Shoulder Strength Shoulder Manual Muscle Testing Right Flexion 4 Good Abduction (C5) 4 Good External Rotation 5 Normal Internal Rotation 5 Normal Left Flexion 3+ Fair+ Abduction (C5) 3+ Fair+ External Rotation 4 Good Internal Rotation 5 Normal Comments Pain reproduction with resisted ER, abduction, flexion Therapeutic Exercises Standing Exercises Band IR Side left Resistance level 1 resistance Reps/Minutes 2x10 Band ER Side left Resistance Level 1 resistance Reps/Minutes 2x10 Dowel flexion Side bilateral Reps/Minutes x20 Physical Therapy Assessment Goals Three Impairment L shoulder general function Short Term Goal (STG Patient will demonstrate a reduction in quickDASH score ) to 22 in order to show an increase in self-perceived function. STG Duration 3 weeks Venture Capitalist Goal (LTG) Patient will demonstrate a reduction in quickDASH score to 14 in order to show an increase in self-perceived function. LTG Duration 6 weeks Two Impairment L shoulder strength Short Term Goal (STG Patient will demonstrate an increase in L shoulder ) strength MMT to 4/5 in order to better function with lifting things around his home. STG Duration 3 weeks Venture Capitalist Goal (LTG) Patient will demonstrate an increase in L shoulder strength MMT to 5/5 in order to better function with lifting things around his home. LTG Duration 6 weeks One Impairment L shoulder ROM Short Term Goal (STG Patient will demonstrate an increase in pain-free L ) shoulder flexion AROM to 165 degrees in order to better function with reaching overhead. STG Duration 3 weeks Venture Capitalist Goal (LTG) Patient will demonstrate an increase in pain-free L shoulder flexion AROM to 170 degrees in order to better function with reaching overhead. LTG Duration 6 weeks Assessment Summary Assessment Patient presenting to PT with complaints of chronic L shoulder pain that is limiting function with reaching and lifting. Objective investigation revealed deficits in L shoulder strength (see objective measures: flexion , abduction, ER MMTs), L shoulder ROM (See objective measures: flexion, abduction AROM), tenderness to palpation of RTC tendon insertion regions, pain reproduction with resisted strength testing and positive special tests for RTC pathology. 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 Physical Therapy Plan Frequency and Duration Frequency of 2x/Week Treatment Duration of 12 treatment (weeks) Plan of Care Start 04/21/25 Date Plan of Care End 07/20/25 Date Therapeutic Interventions Therapeutic Balance Training,Coordination Training,Home Exercise Interventions Program,Joint Mobilizations,Manual Therapy, Neuromuscular Re-education,Patient/Caregiver Education, Self-Care/Home Management,Soft Tissue Mobilization, Taping,Therapeutic Activities,Therapeutic Exercises Modalities Biofeedback,Cold Pack/Ice Massage,Electric Stimulation, Hot Packs,Infrared Therapy,Iontophoresis,Traction- Mechanical,Ultrasound,Vasopneumatic Devices Next Visit Focus/Plan Next Note Type Treatment Note Plan of Care Dates Plan of Care Start Date 04/21/25 Plan of Care End Date 07/20/25 Electronically Signed by: Estephania Hussein, PT 04/21/25 [id number] If you are in agreement with this Plan of Care, please return a signed and dated copy. I have reviewed this Plan of Care and certify that the skilled therapy services above are required to meet the patient?s needs. Physician Signature Date Printed Name and Credentials Clinical Instructor Signature Printed Name and Credentials
--- NOTE | 2025-04-23 14:36 | PT.OTN ---
Current Diagnoses Primary osteoarthritis, right shoulder (04/23/25) Primary osteoarthritis, left shoulder (04/23/25) Pain in right shoulder (04/23/25) Pain in left shoulder (04/23/25) Physical Therapy Treatment Note PT OP: Cervical/Upper Extremity Start: 04/21/25 11:42 Freq: Status: Active Protocol: Document 04/23/25 13:56 JZ (Rec: 04/23/25 14:36 JZ [id number]) Out-Patient Physical Therapy Visit Information Visit Information Visit Type Treatment Note Visit Start Time 13:55 Visit Stop Time 14:35 Visit Number 2 Number of BOIL OFF MACHINE OPERATOR CLOTH Visits 0 Progress Note Due 05/21/25 OP-PT Subjective Patient Comments Patient Comments Patient reports no changes in presentation. He is ready to start PT today. Therapeutic Exercises Standing Exercises Flexion AROM Reps/Minutes 2x10 Comments in pain free ranges in ~80 degrees Face pulls Side bilateral Resistance pink band Reps/Minutes 2x10 Railing incline table slides Equipment Used 2x10 each side Band IR Side bilateral Resistance level 3 resistance Reps/Minutes 3x10 Band ER Side bilateral Resistance Level 3 resistance Reps/Minutes 3x10 Dowel flexion Side bilateral Reps/Minutes 2x10 each side Comments cues for staying in frontal plane Physical Therapy Assessment Goals Three Impairment L shoulder general function Short Term Goal (STG Patient will demonstrate a reduction in quickDASH score ) to 22 in order to show an increase in self-perceived function. STG Duration 3 weeks Motor And Generator Brush Maker Goal (LTG) Patient will demonstrate a reduction in quickDASH score to 14 in order to show an increase in self-perceived function. LTG Duration 6 weeks Two Impairment L shoulder strength Short Term Goal (STG Patient will demonstrate an increase in L shoulder ) strength MMT to 4/5 in order to better function with lifting things around his home. STG Duration 3 weeks Retirement Goal (LTG) Patient will demonstrate an increase in L shoulder strength MMT to 5/5 in order to better function with lifting things around his home. LTG Duration 6 weeks One Impairment L shoulder ROM Short Term Goal (STG Patient will demonstrate an increase in pain-free L ) shoulder flexion AROM to 165 degrees in order to better function with reaching overhead. STG Duration 3 weeks Motor And Generator Brush Maker Goal (LTG) Patient will demonstrate an increase in pain-free L shoulder flexion AROM to 170 degrees in order to better function with reaching overhead. LTG Duration 6 weeks Assessment Summary Assessment Treatment focused on gentle RTC and gross shoulder strengthening in pain free ranges. Patient tolerated treatment well with no large increases in pain levels. Plan next session to follow up on home exercises and continue with plan of care. Physical Therapy Plan Frequency and Duration Frequency of 2x/Week Treatment Duration of 12 treatment (weeks) Plan of Care Start 04/21/25 Date Plan of Care End 07/20/25 Date Next Visit Focus/Plan Next Note Type Treatment Note Next Visit Plan Continue with plan of care focused on progressive bilateral shoulder strengthening and ROM in pain-free ranges.
--- NOTE | 2025-04-27 15:37 | PT.OTN ---
Current Diagnoses Primary osteoarthritis, right shoulder (04/27/25) Primary osteoarthritis, left shoulder (04/27/25) Pain in right shoulder (04/27/25) Pain in left shoulder (04/27/25) Physical Therapy Treatment Note PT OP: Cervical/Upper Extremity Start: 04/21/25 11:42 Freq: Status: Active Protocol: Document 04/27/25 14:49 JZ (Rec: 04/27/25 15:37 JZ [id number]) Out-Patient Physical Therapy Visit Information Visit Information Visit Type Treatment Note Visit Start Time 14:45 Visit Stop Time 15:25 Visit Number 3 Progress Note Due 05/21/25 OP-PT Subjective Patient Comments Patient Comments Patient reports he has been doing his home exercises. No changes in presentation. Therapeutic Exercises Standing Exercises Plank position shoulder taps Reps/Minutes 2x10 each side Ball on wall circles Resistance 3.3# Reps/Minutes 2x10 cw, ccw on R side Comments Held on L due to pain Band pull down Resistance purple band Reps/Minutes 2x15 Flexion AROM Reps/Minutes 2x10 Comments in pain free ranges up to ~80 degrees Face pulls Side bilateral Resistance pink band Reps/Minutes 3x10 Railing incline table slides Equipment Used 2x10 each side Band IR Side bilateral Resistance level 3 resistance Reps/Minutes 3x10 Band ER Side bilateral Resistance Level 3 resistance Reps/Minutes 3x10 Dowel flexion Side bilateral Reps/Minutes 2x10 each side Comments cues for staying in frontal plane Physical Therapy Assessment Goals Three Impairment L shoulder general function Short Term Goal (STG Patient will demonstrate a reduction in quickDASH score ) to 22 in order to show an increase in self-perceived function. STG Duration 3 weeks Intervention Teacher Goal (LTG) Patient will demonstrate a reduction in quickDASH score to 14 in order to show an increase in self-perceived function. LTG Duration 6 weeks Two Impairment L shoulder strength Short Term Goal (STG Patient will demonstrate an increase in L shoulder ) strength MMT to 4/5 in order to better function with lifting things around his home. STG Duration 3 weeks Intervention Teacher Goal (LTG) Patient will demonstrate an increase in L shoulder strength MMT to 5/5 in order to better function with lifting things around his home. LTG Duration 6 weeks One Impairment L shoulder ROM Short Term Goal (STG Patient will demonstrate an increase in pain-free L ) shoulder flexion AROM to 165 degrees in order to better function with reaching overhead. STG Duration 3 weeks Alf Goal (LTG) Patient will demonstrate an increase in pain-free L shoulder flexion AROM to 170 degrees in order to better function with reaching overhead. LTG Duration 6 weeks Assessment Summary Assessment Treatment focused on progressing shoulder loading as tolerated. Patient tolerated treatment well with no lasting increases in pain levels. Plan next session to follow up on home exercises and progress as appropriate . Physical Therapy Plan Frequency and Duration Frequency of 2x/Week Treatment Duration of 12 treatment (weeks) Plan of Care Start 04/21/25 Date Plan of Care End 07/20/25 Date Next Visit Focus/Plan Next Note Type Treatment Note Next Visit Plan Continue with plan of care focused on progressive bilateral shoulder strengthening and ROM in pain-free ranges.
--- NOTE | 2025-04-30 15:22 | PT.OTN ---
Current Diagnoses Primary osteoarthritis, right shoulder (04/30/25) Primary osteoarthritis, left shoulder (04/30/25) Pain in right shoulder (04/30/25) Pain in left shoulder (04/30/25) Physical Therapy Treatment Note PT OP: Cervical/Upper Extremity Start: 04/21/25 11:42 Freq: Status: Active Protocol: Document 04/30/25 14:38 JZ (Rec: 04/30/25 15:22 JZ [id number]) Out-Patient Physical Therapy Visit Information Visit Information Visit Type Treatment Note Visit Start Time 14:40 Visit Stop Time 15:20 Visit Number 4 Progress Note Due 05/21/25 OP-PT Subjective Patient Comments Patient Comments Patient reports his shoulders felt good after last session. No increased pain or soreness. Therapeutic Exercises Standing Exercises Plank position shoulder taps Reps/Minutes 2x10 each side Ball on wall circles Resistance 2.2# Reps/Minutes 2x10 cw, ccw on R side, 2x5 cw, ccw on L side Comments Held on L due to pain Band pull down Resistance purple band Reps/Minutes 2x10 Flexion AROM Reps/Minutes 2x10 Comments in pain free ranges up to ~80 degrees Face pulls Side bilateral Resistance pink band Reps/Minutes 3x10 Railing incline table slides Equipment Used x15 each side Band IR Side bilateral Resistance level 3 resistance Reps/Minutes 3x10 Band ER Side bilateral Resistance Level 3 resistance Reps/Minutes 3x10 Dowel flexion Side bilateral Reps/Minutes 2x10 each side Comments cues for staying in frontal plane Physical Therapy Assessment Goals Three Impairment L shoulder general function Short Term Goal (STG Patient will demonstrate a reduction in quickDASH score ) to 22 in order to show an increase in self-perceived function. STG Duration 3 weeks Snf Goal (LTG) Patient will demonstrate a reduction in quickDASH score to 14 in order to show an increase in self-perceived function. LTG Duration 6 weeks Two Impairment L shoulder strength Short Term Goal (STG Patient will demonstrate an increase in L shoulder ) strength MMT to 4/5 in order to better function with lifting things around his home. STG Duration 3 weeks Racker Octave Board Goal (LTG) Patient will demonstrate an increase in L shoulder strength MMT to 5/5 in order to better function with lifting things around his home. LTG Duration 6 weeks One Impairment L shoulder ROM Short Term Goal (STG Patient will demonstrate an increase in pain-free L ) shoulder flexion AROM to 165 degrees in order to better function with reaching overhead. STG Duration 3 weeks Snf Goal (LTG) Patient will demonstrate an increase in pain-free L shoulder flexion AROM to 170 degrees in order to better function with reaching overhead. LTG Duration 6 weeks Assessment Summary Assessment Treatment focused on continued shoulder strengthening in pain free ranges. Patient tolerated treatment well with no lasting increases in pain levels. Plan next session to progress loading as tolerated. Physical Therapy Plan Frequency and Duration Frequency of 2x/Week Treatment Duration of 12 treatment (weeks) Plan of Care Start 04/21/25 Date Plan of Care End 07/20/25 Date Next Visit Focus/Plan Next Note Type Treatment Note Next Visit Plan Continue with plan of care focused on progressive bilateral shoulder strengthening and ROM in pain-free ranges. Current HEP: - Band IR - Band ER - Dowel flexion - Incline table slides on banalexa
--- NOTE | 2025-05-04 12:16 | PT.OTN ---
Current Diagnoses Primary osteoarthritis, right shoulder (05/04/25) Primary osteoarthritis, left shoulder (05/04/25) Pain in right shoulder (05/04/25) Pain in left shoulder (05/04/25) Physical Therapy Treatment Note PT OP: Cervical/Upper Extremity Start: 04/21/25 11:42 Freq: Status: Active Protocol: Document 05/04/25 11:36 JZ (Rec: 05/04/25 12:16 JZ [id number]) Out-Patient Physical Therapy Visit Information Visit Information Visit Type Treatment Note Visit Start Time 11:35 Visit Stop Time 15:15 Visit Number 5 Progress Note Due 05/21/25 OP-PT Subjective Patient Comments Patient Comments Patient reports no changes in presentation. Therapeutic Exercises Standing Exercises Plank position to overhead position Reps/Minutes 2x10 Comments On elevated plinth, cues for scapular upward rotation+ protraction Plank position shoulder taps Reps/Minutes 2x10 each side Ball on wall circles Resistance 2.2# for R, 0# for L Reps/Minutes 2x10 cw, ccw on each side Band pull down Resistance purple band Reps/Minutes 3x10 Flexion AROM Reps/Minutes 2x10 Comments in pain free ranges up to ~80 degrees Railing incline table slides Equipment Used 2x15 each side Band IR Side bilateral Resistance level 3 resistance Reps/Minutes 3x10 Band ER Side bilateral Resistance Level 3 resistance Reps/Minutes 3x10 Dowel flexion Side bilateral Reps/Minutes 2x10 each side Comments cues for staying in frontal plane Physical Therapy Assessment Goals Three Impairment L shoulder general function Short Term Goal (STG Patient will demonstrate a reduction in quickDASH score ) to 22 in order to show an increase in self-perceived function. STG Duration 3 weeks Chief Librarian Branch Or Department Goal (LTG) Patient will demonstrate a reduction in quickDASH score to 14 in order to show an increase in self-perceived function. LTG Duration 6 weeks Two Impairment L shoulder strength Short Term Goal (STG Patient will demonstrate an increase in L shoulder ) strength MMT to 4/5 in order to better function with lifting things around his home. STG Duration 3 weeks Chief Librarian Branch Or Department Goal (LTG) Patient will demonstrate an increase in L shoulder strength MMT to 5/5 in order to better function with lifting things around his home. LTG Duration 6 weeks One Impairment L shoulder ROM Short Term Goal (STG Patient will demonstrate an increase in pain-free L ) shoulder flexion AROM to 165 degrees in order to better function with reaching overhead. STG Duration 3 weeks Care Home Goal (LTG) Patient will demonstrate an increase in pain-free L shoulder flexion AROM to 170 degrees in order to better function with reaching overhead. LTG Duration 6 weeks Assessment Summary Assessment Treatment focused on continued shoulder AROM and strengthening in symptom-free ranges. Patient tolerated treatment well with no lasting increases in pain levels. Plan next session to follow up on response to today's session and consider adding Band A's and cable column rows. Physical Therapy Plan Frequency and Duration Frequency of 2x/Week Treatment Duration of 12 treatment (weeks) Plan of Care Start 04/21/25 Date Plan of Care End 07/20/25 Date Next Visit Focus/Plan Next Note Type Treatment Note Next Visit Plan Continue with plan of care focused on progressive bilateral shoulder strengthening and ROM in pain-free ranges. Current HEP: - Band IR - Band ER - Dowel flexion - Incline table slides on lc
--- NOTE | 2025-05-06 15:42 | PT.OTN ---
Current Diagnoses Primary osteoarthritis, right shoulder (05/06/25) Primary osteoarthritis, left shoulder (05/06/25) Pain in right shoulder (05/06/25) Pain in left shoulder (05/06/25) Physical Therapy Treatment Note PT OP: Cervical/Upper Extremity Start: 04/21/25 11:42 Freq: Status: Active Protocol: Document 05/06/25 13:56 JZ (Rec: 05/06/25 15:42 JZ [id number]) Out-Patient Physical Therapy Visit Information Visit Information Visit Type Treatment Note Visit Start Time 13:50 Visit Stop Time 14:30 Visit Number 6 Progress Note Due 05/21/25 OP-PT Subjective Patient Comments Patient Comments Patient reports no changes in symptoms. Therapeutic Exercises Supine Exercises Supine dowel flexion Reps/Minutes x15 Standing Exercises Plank position to overhead position Reps/Minutes 2x10 Comments On elevated plinth, cues for scapular upward rotation+ protraction Plank position shoulder taps Reps/Minutes 2x10 each side Ball on wall circles Resistance 2.2# for R, 0# for L Reps/Minutes 2x10 cw, ccw on each side Band pull down Resistance purple band Reps/Minutes 3x10 Flexion AROM Reps/Minutes 2x10 Comments in pain free ranges up to ~80 degrees Railing incline table slides Equipment Used 2x15 each side Band IR Side bilateral Resistance level 3 resistance Reps/Minutes 3x10 Band ER Side bilateral Resistance Level 3 resistance Reps/Minutes 3x10 Physical Therapy Assessment Goals Three Impairment L shoulder general function Short Term Goal (STG Patient will demonstrate a reduction in quickDASH score ) to 22 in order to show an increase in self-perceived function. STG Duration 3 weeks Senior Care Goal (LTG) Patient will demonstrate a reduction in quickDASH score to 14 in order to show an increase in self-perceived function. LTG Duration 6 weeks Two Impairment L shoulder strength Short Term Goal (STG Patient will demonstrate an increase in L shoulder ) strength MMT to 4/5 in order to better function with lifting things around his home. STG Duration 3 weeks Senior Care Goal (LTG) Patient will demonstrate an increase in L shoulder strength MMT to 5/5 in order to better function with lifting things around his home. LTG Duration 6 weeks One Impairment L shoulder ROM Short Term Goal (STG Patient will demonstrate an increase in pain-free L ) shoulder flexion AROM to 165 degrees in order to better function with reaching overhead. STG Duration 3 weeks Glass Frame Fitter Goal (LTG) Patient will demonstrate an increase in pain-free L shoulder flexion AROM to 170 degrees in order to better function with reaching overhead. LTG Duration 6 weeks Assessment Summary Assessment Treatment focused on continued shoulder AROM and strengthening in symptom-free ranges. Patient tolerated treatment well with no lasting increases in pain levels. Plan next session to follow up on response to today's session and consider adding Band A's and cable column rows. Physical Therapy Plan Frequency and Duration Frequency of 2x/Week Treatment Duration of 12 treatment (weeks) Plan of Care Start 04/21/25 Date Plan of Care End 07/20/25 Date Next Visit Focus/Plan Next Note Type Treatment Note Next Visit Plan Continue with plan of care focused on progressive bilateral shoulder strengthening and ROM in pain-free ranges. Current HEP: - Band IR - Band ER - Dowel flexion - Incline table slides on lc
--- NOTE | 2025-05-19 09:44 | PT.OTN ---
Current Diagnoses Primary osteoarthritis, right shoulder (05/19/25) Primary osteoarthritis, left shoulder (05/19/25) Pain in right shoulder (05/19/25) Pain in left shoulder (05/19/25) Physical Therapy Treatment Note PT OP: Cervical/Upper Extremity Start: 04/21/25 11:42 Freq: Status: Active Protocol: Document 05/19/25 09:04 SP (Rec: 05/19/25 09:51 SP [id number]) Out-Patient Physical Therapy Visit Information Visit Information Visit Type Treatment Note Visit Start Time 09:04 Visit Stop Time 09:44 Visit Number 7 Number of CHARGE WEIGHER Visits 1 Progress Note Due 05/21/25 OP-PT Subjective Patient Comments Patient Comments Pt reports is compliant with HEP, not doing as many times a day as should. He states is a R side sleeper and finds his L shld is bothersome when wakes up and unsure why due to didn't lay on it. Therapeutic Exercises Standing Exercises Ys off Wall Standing Exercise added to HEP (declined HO) Name Side bilateral Resistance AROM and added TB #2 teal (level 1 home for now) Equipment Used wall slide up wall then lift off wall LT fac Reps/Minutes 5 reps AROM, 10 reps Tb #2 Comments cued body close facing wall, head nod neutral looking forward, R>L elbow ex Corner Wall Slide OH Stretch Standing Exercise added to HEP (progressed from rail slide) Name Resistance L>R AROM and pec stretch (declined HO) Reps/Minutes 20 sec hold x5 reps Comments cued opp LE forward walk into doorway (neutral spine) Plank position to overhead position Equipment Used elevated plinth Reps/Minutes 2x10 Comments cues for scap and arm push back then WB into UEs ( better UE effort) Plank position shoulder taps Standing Exercise In PT only Name Side bilateral Resistance AROM Equipment Used hands on plinth Reps/Minutes 2x10 each side Comments cued buttocks more forward Railing incline table slides Standing Exercise DC after today 05/19/25 tx, updated wall slide at home Name forward Side bilateral Resistance AAROM Equipment Used slide up stair railing Reps/Minutes 2x15 each side Comments states easy range now Band IR Side bilateral Resistance level 3 resistance Reps/Minutes 2x20 Band ER Side bilateral Resistance Level 3 resistance Reps/Minutes 2x20 Self-Care/Home Management Treatment Education Patient Education Body Mechanics,Home Exercise Program,Joint Protection, Pain Management,Posture,Safety Other Education Ed use pillow under R arm and behind back to lean into L SL for comfort sleeping. ALso added Over head motions . Physical Therapy Assessment Goals Three Impairment L shoulder general function Short Term Goal (STG Patient will demonstrate a reduction in quickDASH score ) to 22 in order to show an increase in self-perceived function. STG Duration 3 weeks Drug Abuse Worker Goal (LTG) Patient will demonstrate a reduction in quickDASH score to 14 in order to show an increase in self-perceived function. LTG Duration 6 weeks Two Impairment L shoulder strength Short Term Goal (STG Patient will demonstrate an increase in L shoulder ) strength MMT to 4/5 in order to better function with lifting things around his home. STG Duration 3 weeks Drug Abuse Worker Goal (LTG) Patient will demonstrate an increase in L shoulder strength MMT to 5/5 in order to better function with lifting things around his home. LTG Duration 6 weeks One Impairment L shoulder ROM Short Term Goal (STG Patient will demonstrate an increase in pain-free L ) shoulder flexion AROM to 165 degrees in order to better function with reaching overhead. STG Duration 3 weeks Drug Abuse Worker Goal (LTG) Patient will demonstrate an increase in pain-free L shoulder flexion AROM to 170 degrees in order to better function with reaching overhead. LTG Duration 6 weeks Assessment Summary Assessment Pt improved over head AAROM wall slide and stretch at corner and wall slides up wall and Ys lift off wall AROM and use resistance band for home carryover. Education use pillow propping SL for comfort L shld. Physical Therapy Plan Frequency and Duration Frequency of 2x/Week Treatment Duration of 12 treatment (weeks) Plan of Care Start 04/21/25 Date Plan of Care End 07/20/25 Date Therapeutic Interventions Therapeutic Balance Training,Coordination Training,Home Exercise Interventions Program,Joint Mobilizations,Manual Therapy, Neuromuscular Re-education,Patient/Caregiver Education, Self-Care/Home Management,Soft Tissue Mobilization, Taping,Therapeutic Activities,Therapeutic Exercises Modalities Biofeedback,Cold Pack/Ice Massage,Electric Stimulation, Hot Packs,Infrared Therapy,Iontophoresis,Traction- Mechanical,Ultrasound,Vasopneumatic Devices Next Visit Focus/Plan Next Note Type Progress Note Next Visit Plan PN next tx. Continue with plan of care focused on progressive bilateral shoulder strengthening and ROM in pain-free ranges. Current HEP: - Band IR - Band ER - Dowel flexion - Incline table slides on baniste- updated corner wall slides -Ys off wall AROM and TB
--- NOTE | 2025-05-21 10:37 | PT.OPPN ---
Current Diagnoses Primary osteoarthritis, right shoulder (05/21/25) Primary osteoarthritis, left shoulder (05/21/25) Pain in right shoulder (05/21/25) Pain in left shoulder (05/21/25) Physical Therapy Progress Note PT OP: Cervical/Upper Extremity Start: 04/21/25 11:42 Freq: Status: Active Protocol: Document 05/21/25 09:48 RUBEN (Rec: 05/21/25 10:36 JOle [id number]) Out-Patient Physical Therapy Visit Information Visit Information Visit Type Progress Note Visit Start Time 09:48 Visit Stop Time 10:28 Visit Number 8 Number of MATCHER Visits 0 Progress Note Due 06/20/25 OP-PT Subjective Patient Comments Patient Comments Patient reports his shoulders are doing a little better overall. He reports his GROC is 30%. He notes improvement in his tolerance with activities during the day. He notes the remaining 70% is made up of continued high pain levels in the morning. Patient Questionnaires Quick Dash- Upper Extremity Quick Dash UE Score 34.1 (L shoulder) Quick Dash UE 20 to 39% Impaired (Score 20-39) Impairment Shoulder Goniometric Range of Motion Shoulder Measured in Degrees Right Active Shoulder ROM WFL Yes Testing Position Sitting Flexion 175 Abduction 175 External Rotation at 85 90 degrees Abduction Internal Rotation 30 Left Active Shoulder ROM WFL No Testing Position Sitting Flexion 160 Abduction 170 External Rotation at 75 90 degrees Abduction Internal Rotation 30 Comments PROM: Flexion: 165 Abduction: Shoulder Strength Shoulder Manual Muscle Testing Right Flexion 4 Good Abduction (C5) 4 Good External Rotation 5 Normal Internal Rotation 5 Normal Left Flexion 4 Good Abduction (C5) 3+ Fair+ External Rotation 4 Good Internal Rotation 5 Normal Comments Pain reproduction with resisted abduction. No pain with flexion or ER. Therapeutic Exercises Supine Exercises Supine dowel flexion Reps/Minutes x15 Standing Exercises Flexion isotonics Resistance up to 3# each arm Reps/Minutes 3x10 Plank position shoulder taps Side bilateral Equipment Used hands on plinth Reps/Minutes 2x10 each side Band IR Side bilateral Resistance level 4 resistance Reps/Minutes 2x20 Band ER Side bilateral Resistance Level 4 resistance Reps/Minutes 2x20 Dowel flexion Standing Exercise horizontal dowel (3.5#) Name Side bilateral Reps/Minutes 2x10 each side Comments cues for staying in frontal plane Physical Therapy Assessment Goals Three Impairment L shoulder general function Short Term Goal (STG Patient will demonstrate a reduction in quickDASH score ) to 22 in order to show an increase in self-perceived function. In - 05/21/2025 STG Duration 3 weeks Fitting Supervisor Goal (LTG) Patient will demonstrate a reduction in quickDASH score to 14 in order to show an increase in self-perceived function. In 05/21/2025 LTG Duration 6 weeks Two Impairment L shoulder strength Short Term Goal (STG Patient will demonstrate an increase in L shoulder ) flexion strength MMT to 4/5 in order to better function with lifting things around his home. In 05/21/2025 STG Duration 3 weeks Fpc Goal (LTG) Patient will demonstrate an increase in L shoulder flexion strength MMT to 5/5 in order to better function with lifting things around his home. In 05/21/2025 LTG Duration 6 weeks One Impairment L shoulder ROM Short Term Goal (STG Patient will demonstrate an increase in pain-free L ) shoulder flexion AROM to 165 degrees in order to better function with reaching overhead. In 05/21/2025 STG Duration 3 weeks Fitting Supervisor Goal (LTG) Patient will demonstrate an increase in pain-free L shoulder flexion AROM to 170 degrees in order to better function with reaching overhead. In 05/21/2025 LTG Duration 6 weeks Assessment Summary Assessment Patient presenting to PT after 7 visits for bilateral shoulder pain (L>R). He has noted improvement with symptoms and function (see subjective section). Further investigation revealed no significant changes in shoulder ROM or strength levels but better reduced pain levels (no pain) with strength testing, indicating progress with load tolerance. Patient will continue to benefit from PT to address deficits and improve function with shoulders. Plan for next four weeks is to progress strengthening exercises as tolerated. Physical Therapy Plan Frequency and Duration Frequency of 2x/Week Treatment Duration of 12 treatment (weeks) Plan of Care Start 04/21/25 Date Plan of Care End 07/20/25 Date Next Visit Focus/Plan Next Note Type Progress Note Next Visit Plan Continue with plan of care focused on progressive bilateral shoulder strengthening and ROM in pain-free ranges. Current HEP: - Band IR - Band ER - Dowel flexion - Incline table slides on baniste- updated corner wall slides - Ys off wall AROM and TB
--- NOTE | 2025-05-25 15:21 | PT.OTN ---
Current Diagnoses Primary osteoarthritis, right shoulder (05/25/25) Primary osteoarthritis, left shoulder (05/25/25) Pain in right shoulder (05/25/25) Pain in left shoulder (05/25/25) Physical Therapy Treatment Note PT OP: Cervical/Upper Extremity Start: 04/21/25 11:42 Freq: Status: Active Protocol: Document 05/25/25 14:34 JZ (Rec: 05/25/25 15:21 JZ [id number]) Out-Patient Physical Therapy Visit Information Visit Information Visit Type Treatment Note Visit Start Time 14:35 Visit Stop Time 15:20 Visit Number 9 Number of FAMILY AND DIVORCE LEGAL ASSISTANT Visits 0 Progress Note Due 06/20/25 OP-PT Subjective Patient Comments Patient Comments Patient reports his shoulders are feeling good today. Therapeutic Exercises Sitting Exercises Seated overhead press Sitting Exercise Reclined in chair Name Resistance 4# Reps/Minutes 2x10 Comments Manual assistance for motor control, one arm at a time Standing Exercises Cable column rows Resistance 20# Reps/Minutes 2x10 each side Comments Cues for scapular retraction prior to GH extension Band pull apart Resistance level 2 Reps/Minutes 2x10 Flexion isotonics Resistance up to 4# each arm Reps/Minutes 3x10 Ys off Wall Standing Exercise added to HEP (declined HO) Name Side bilateral Resistance AROM and added TB #2 teal (level 1 home for now) Equipment Used lift off wall Reps/Minutes x10 Comments cued body close facing wall, head nod neutral looking forward, R>L elbow ex Plank position shoulder taps Side bilateral Equipment Used hands on plinth Reps/Minutes 2x10 each side Ball on wall circles Resistance 2.2# for R, 0# for L Reps/Minutes 2x10 cw, ccw on each side Band pull down Resistance purple band Reps/Minutes 3x10 Band IR Side bilateral Resistance level 4 resistance Reps/Minutes 2x20 Band ER Side bilateral Resistance Level 4 resistance, level 3 on L Reps/Minutes 2x20 Physical Therapy Assessment Goals Three Impairment L shoulder general function Short Term Goal (STG Patient will demonstrate a reduction in quickDASH score ) to 22 in order to show an increase in self-perceived function. In progress - 05/21/2025 STG Duration 3 weeks Trimmer Sawyer Goal (LTG) Patient will demonstrate a reduction in quickDASH score to 14 in order to show an increase in self-perceived function. In progress - 05/21/2025 LTG Duration 6 weeks Two Impairment L shoulder strength Short Term Goal (STG Patient will demonstrate an increase in L shoulder ) flexion strength MMT to 4/5 in order to better function with lifting things around his home. In progress 05/21/2025 STG Duration 3 weeks Trimmer Sawyer Goal (LTG) Patient will demonstrate an increase in L shoulder flexion strength MMT to 5/5 in order to better function with lifting things around his home. In 05/21/2025 LTG Duration 6 weeks One Impairment L shoulder ROM Short Term Goal (STG Patient will demonstrate an increase in pain-free L ) shoulder flexion AROM to 165 degrees in order to better function with reaching overhead. In 05/21/2025 STG Duration 3 weeks Trimmer Sawyer Goal (LTG) Patient will demonstrate an increase in pain-free L shoulder flexion AROM to 170 degrees in order to better function with reaching overhead. In 05/21/2025 LTG Duration 6 weeks Assessment Summary Assessment Treatment focused on progressing shoulder strengthening . Patient tolerated increased loading well with no lasting increases in pain levels. Plan next session to follow up on response to today's session and continue to progress strengthening exercises and move away from ROM-only exercises. Physical Therapy Plan Frequency and Duration Frequency of 2x/Week Treatment Duration of 12 treatment (weeks) Plan of Care Start 04/21/25 Date Plan of Care End 07/20/25 Date Next Visit Focus/Plan Next Note Type Progress Note Next Visit Plan Continue with plan of care focused on progressive bilateral shoulder strengthening and ROM in pain-free ranges. Current HEP: - Band IR - Band ER - Dowel flexion - Incline table slides on baniste- updated corner wall slides - Ys off wall AROM and TB
--- NOTE | 2025-05-27 15:16 | PT.OTN ---
Current Diagnoses Primary osteoarthritis, right shoulder (05/27/25) Primary osteoarthritis, left shoulder (05/27/25) Pain in right shoulder (05/27/25) Pain in left shoulder (05/27/25) Physical Therapy Treatment Note PT OP: Cervical/Upper Extremity Start: 04/21/25 11:42 Freq: Status: Active Protocol: Document 05/27/25 14:34 SP (Rec: 05/27/25 15:38 SP [id number]) Out-Patient Physical Therapy Visit Information Visit Information Visit Type Treatment Note Visit Start Time 14:34 Visit Stop Time 15:16 Visit Number 10 Number of CYLINDER CHECKER Visits 1 Progress Note Due 06/20/25 OP-PT Subjective Patient Comments Patient Comments Pt feels good, little tired after last tx but feel doing better. R shld pretty much back to normal, occasional twinge but L can reach up but strain still over deltoid. Therapeutic Exercises Sitting Exercises Seated overhead press Sitting Exercise Reclined in chair Name Resistance 4# DB Reps/Minutes 2x10 Comments Manual assistance for motor control, one arm at a time Standing Exercises Plank incline Table to Side plank Side bilateral Equipment Used Incline plank on table Reps/Minutes 10 reps alternating sides Abduction Isotonics Side bilateral Resistance 2# DB Equipment Used front of mirror for postural corrections level shld & head midline Reps/Minutes 10 reps Cable column rows Standing Exercise single arm pull Name Resistance 20# Reps/Minutes 2x12 each side alternate sets Comments Cues for scapular retraction prior to GH extension Flexion isotonics Side bilateral Resistance up to 4# DB each arm Equipment Used facing mirror for self feedback level shld Reps/Minutes 3x10 Ys off Wall Standing Exercise reviewed Name Side bilateral Resistance AROM and added TB #2 teal Equipment Used lift off wall Reps/Minutes x10 Comments cued body close facing wall, head nod neutral looking forward, R>L elbow ex Ball on wall circles Resistance 3.3# for R, 2.2# for L Reps/Minutes Set 1: 10 reps cw, ccw on each side, 2nd set: a-z each side Comments occ cues reposition ball back up little higher on wall Band pull down Resistance cable 20# (overhand catering driver) Reps/Minutes 20 reps Comments reports medium resistance Band IR Side bilateral Reps/Minutes 2x10 Band ER Side bilateral Resistance level 4 resistance (dark blue) Reps/Minutes 2x10 Physical Therapy Assessment Goals Three Impairment L shoulder general function Short Term Goal (STG Patient will demonstrate a reduction in quickDASH score ) to 22 in order to show an increase in self-perceived function. In - 05/21/2025 STG Duration 3 weeks Skilled Nursing Goal (LTG) Patient will demonstrate a reduction in quickDASH score to 14 in order to show an increase in self-perceived function. In 05/21/2025 LTG Duration 6 weeks Two Impairment L shoulder strength Short Term Goal (STG Patient will demonstrate an increase in L shoulder ) flexion strength MMT to 4/5 in order to better function with lifting things around his home. In 05/21/2025 STG Duration 3 weeks Skilled Nursing Goal (LTG) Patient will demonstrate an increase in L shoulder flexion strength MMT to 5/5 in order to better function with lifting things around his home. In 05/21/2025 LTG Duration 6 weeks One Impairment L shoulder ROM Short Term Goal (STG Patient will demonstrate an increase in pain-free L ) shoulder flexion AROM to 165 degrees in order to better function with reaching overhead. In 05/21/2025 STG Duration 3 weeks Electroplater Helper Goal (LTG) Patient will demonstrate an increase in pain-free L shoulder flexion AROM to 170 degrees in order to better function with reaching overhead. In 05/21/2025 LTG Duration 6 weeks Assessment Summary Assessment Pt responded well to progression strengthening with resistance bands, dumbells and weighted therapy balls this tx. Verbal and tactile cues during ER and IR CYLINDER CHECKER hand target to move to for increased range. Discussed continue resisted HEP home for carryover. Physical Therapy Plan Frequency and Duration Frequency of 2x/Week Treatment Duration of 12 treatment (weeks) Plan of Care Start 04/21/25 Date Plan of Care End 07/20/25 Date Therapeutic Interventions Therapeutic Balance Training,Coordination Training,Home Exercise Interventions Program,Joint Mobilizations,Manual Therapy, Neuromuscular Re-education,Patient/Caregiver Education, Self-Care/Home Management,Soft Tissue Mobilization, Taping,Therapeutic Activities,Therapeutic Exercises Modalities Biofeedback,Cold Pack/Ice Massage,Electric Stimulation, Hot Packs,Infrared Therapy,Iontophoresis,Traction- Mechanical,Ultrasound,Vasopneumatic Devices Next Visit Focus/Plan Next Note Type Progress Note Next Visit Plan Continue with plan of care focused on progressive bilateral shoulder strengthening and ROM in pain-free ranges. Current HEP: - Band IR - Band ER - Band HABD - Incline table slides on banister- updated corner wall slides - Ys off wall AROM and TB - Flexion and ABD DBs
--- NOTE | 2025-05-31 15:17 | PT.OTN ---
Current Diagnoses Primary osteoarthritis, right shoulder (05/31/25) Primary osteoarthritis, left shoulder (05/31/25) Pain in right shoulder (05/31/25) Pain in left shoulder (05/31/25) Physical Therapy Treatment Note PT OP: Cervical/Upper Extremity Start: 04/21/25 11:42 Freq: Status: Active Protocol: Document 05/31/25 14:33 JZ (Rec: 05/31/25 15:17 JZ [id number]) Out-Patient Physical Therapy Visit Information Visit Information Visit Type Treatment Note Visit Start Time 14:33 Visit Stop Time 15:13 Visit Number 11 Number of INSPECTOR BALANCE TRUING Visits 0 Progress Note Due 06/20/25 OP-PT Subjective Patient Comments Patient Comments Patient reports his shoulder are feeling good. No changes in symptoms. Therapeutic Exercises Sitting Exercises Seated overhead press Sitting Exercise Reclined in chair Name Resistance 4# DB on L, 8# DB on L Reps/Minutes 2x10 Comments Manual assistance for motor control, one arm at a time Standing Exercises Abduction Isotonics Side bilateral Resistance 2# DB Reps/Minutes 3x10 Comments Partial range 0-70 without pain on L Cable column rows Standing Exercise single arm pull Name Resistance 20# Reps/Minutes 2x12 each side alternate sets Comments Cues for scapular retraction prior to GH extension Flexion isotonics Side bilateral Resistance up to 4# DB each arm Reps/Minutes 3x10 Plank position shoulder taps Side bilateral Equipment Used hands on plinth Reps/Minutes 2x10 each side Ball on wall circles Resistance 3.3# for R, 2.2# for L Reps/Minutes 2x10 cw, ccw on each side Band pull down Resistance purple Reps/Minutes 2x15 Comments reports medium resistance Band IR Side bilateral Resistance level 4 resistance (dark blue) Reps/Minutes 2x10 Band ER Side bilateral Resistance level 4 resistance (dark blue) Reps/Minutes 2x10 Physical Therapy Assessment Goals Three Impairment L shoulder general function Short Term Goal (STG Patient will demonstrate a reduction in quickDASH score ) to 22 in order to show an increase in self-perceived function. In progress - 05/21/2025 STG Duration 3 weeks Refractory Specialist Goal (LTG) Patient will demonstrate a reduction in quickDASH score to 14 in order to show an increase in self-perceived function. In progress - 05/21/2025 LTG Duration 6 weeks Two Impairment L shoulder strength Short Term Goal (STG Patient will demonstrate an increase in L shoulder ) flexion strength MMT to 4/5 in order to better function with lifting things around his home. In progress - 05/21/2025 STG Duration 3 weeks Halfway Goal (LTG) Patient will demonstrate an increase in L shoulder flexion strength MMT to 5/5 in order to better function with lifting things around his home. In 05/21/2025 LTG Duration 6 weeks One Impairment L shoulder ROM Short Term Goal (STG Patient will demonstrate an increase in pain-free L ) shoulder flexion AROM to 165 degrees in order to better function with reaching overhead. In progress - 05/21/2025 STG Duration 3 weeks Halfway Goal (LTG) Patient will demonstrate an increase in pain-free L shoulder flexion AROM to 170 degrees in order to better function with reaching overhead. In progress - 05/21/2025 LTG Duration 6 weeks Assessment Summary Assessment Treatment focused on progressing loads with shoulder strengthening. Patient tolerated treatment well with no lasting increases in pain levels. He was able to tolerate increased loads with strength exercises today, indicating progress. Plan next session to follow up on response to today's session and continue with plan of care. Physical Therapy Plan Frequency and Duration Frequency of 2x/Week Treatment Duration of 12 treatment (weeks) Plan of Care Start 04/21/25 Date Plan of Care End 07/20/25 Date Next Visit Focus/Plan Next Note Type Progress Note Next Visit Plan Continue with plan of care focused on progressive bilateral shoulder strengthening and ROM in pain-free ranges. Current HEP: - Band IR - Band ER - Band HABD - Incline table slides on banister- updated corner wall slides - Ys off wall AROM and TB - Flexion and ABD DBs
--- NOTE | 2025-06-02 15:15 | PT.OTN ---
Current Diagnoses Primary osteoarthritis, right shoulder (06/02/25) Primary osteoarthritis, left shoulder (06/02/25) Pain in right shoulder (06/02/25) Pain in left shoulder (06/02/25) Physical Therapy Treatment Note PT OP: Cervical/Upper Extremity Start: 04/21/25 11:42 Freq: Status: Active Protocol: Document 06/02/25 14:35 SP (Rec: 06/02/25 15:26 SP [id number]) Out-Patient Physical Therapy Visit Information Visit Information Visit Type Treatment Note Visit Start Time 14:35 Visit Stop Time 15:15 Visit Number 12 Number of RETAIL BRANCH MANAGER Visits 1 Progress Note Due 06/20/25 OP-PT Subjective Patient Comments Patient Comments Pt reports hasn't been as good about doing HEP as should. His L UE little tight and sore reaching over head. Therapeutic Exercises Sitting Exercises UBE Sitting Exercise warm up Name Resistance 50 RPM resistance Equipment Used seat 11, height 2.5 Reps/Minutes 1 min f/b alternating for 6 min Comments reports little tension near collar bone but feels ok Seated overhead press Sitting Exercise Reclined in chair Name Resistance 4# DB on L, 8# DB on L Reps/Minutes 2x10 Comments Manual assistance for motor control, one arm at a time Standing Exercises D2 flexion Side bilateral Resistance 2.2 med ball LUE, 3.3 med ball RUE Equipment Used front of mirror Reps/Minutes 8 reps Comments cued posture, try not compensate UT body blade Standing Exercise (90/90) Forward punch & IR/ER elbow at side, over head Name punch Side bilateral Resistance yellow Equipment Used front of mirror Reps/Minutes 30s ec each UE, each direction Comments cued posture, try not compensate UT Plank incline Table to Side plank Side bilateral Equipment Used counter Reps/Minutes 10 reps alternating sides Comments cued not allowing buttocks back to far Abduction Isotonics Side bilateral Resistance 2# DB Equipment Used front mirror Reps/Minutes 2x10 Comments Partial range without pain on L Cable column rows Standing Exercise single arm pull Name Side bilateral Resistance 20# Reps/Minutes 2x15 each side alternate sets Comments Cues for scapular retraction prior to GH extension Flexion isotonics Side bilateral Resistance up to 4#> 3# 2-3rd set DB Equipment Used front mirror Reps/Minutes [id number] arm alternating Comments cued level shld Ys off Wall Standing Exercise reviewed Name Side bilateral Resistance TB #3 [place] green Equipment Used lift off wall Reps/Minutes x10 Comments little discomfort coming down (abd/ER not used to)c Band pull down Resistance purple> 4# dark blue (for home) Reps/Minutes 2x15 Comments reports hard resistance Band IR Side bilateral Resistance level 4 resistance (dark blue) Reps/Minutes 2x10 Band ER Side bilateral Resistance level 4 resistance (dark blue) Reps/Minutes 2x12 Comments good form Physical Therapy Assessment Goals Three Impairment L shoulder general function Short Term Goal (STG Patient will demonstrate a reduction in quickDASH score ) to 22 in order to show an increase in self-perceived function. In - 05/21/2025 STG Duration 3 weeks Shelter Goal (LTG) Patient will demonstrate a reduction in quickDASH score to 14 in order to show an increase in self-perceived function. In 05/21/2025 LTG Duration 6 weeks Two Impairment L shoulder strength Short Term Goal (STG Patient will demonstrate an increase in L shoulder ) flexion strength MMT to 4/5 in order to better function with lifting things around his home. In 05/21/2025 STG Duration 3 weeks Fine Artist Goal (LTG) Patient will demonstrate an increase in L shoulder flexion strength MMT to 5/5 in order to better function with lifting things around his home. In 05/21/2025 LTG Duration 6 weeks One Impairment L shoulder ROM Short Term Goal (STG Patient will demonstrate an increase in pain-free L ) shoulder flexion AROM to 165 degrees in order to better function with reaching overhead. In 05/21/2025 STG Duration 3 weeks Fine Artist Goal (LTG) Patient will demonstrate an increase in pain-free L shoulder flexion AROM to 170 degrees in order to better function with reaching overhead. In 05/21/2025 LTG Duration 6 weeks Assessment Summary Assessment Pt responded well to progressing loads to shoulder strengthenign. He required decrease to 3# DB during isotonic FF to allow improved form and level shld alignment. Reports no lasting discomfort into end feel L shld range. Physical Therapy Plan Frequency and Duration Frequency of 2x/Week Treatment Duration of 12 treatment (weeks) Plan of Care Start 04/21/25 Date Plan of Care End 07/20/25 Date Therapeutic Interventions Therapeutic Balance Training,Coordination Training,Home Exercise Interventions Program,Joint Mobilizations,Manual Therapy, Neuromuscular Re-education,Patient/Caregiver Education, Self-Care/Home Management,Soft Tissue Mobilization, Taping,Therapeutic Activities,Therapeutic Exercises Modalities Biofeedback,Cold Pack/Ice Massage,Electric Stimulation, Hot Packs,Infrared Therapy,Iontophoresis,Traction- Mechanical,Ultrasound,Vasopneumatic Devices Next Visit Focus/Plan Next Note Type Treatment Note Next Visit Plan Continue with plan of care focused on progressive bilateral shoulder strengthening and ROM in pain-free ranges. Current HEP: - Band IR - Band ER - Band HABD - Incline table slides on banister- updated corner wall slides - Ys off wall AROM and TB - Flexion and ABD DBs
--- NOTE | 2025-06-07 14:39 | PT.OTN ---
Current Diagnoses Primary osteoarthritis, right shoulder (06/07/25) Primary osteoarthritis, left shoulder (06/07/25) Pain in right shoulder (06/07/25) Pain in left shoulder (06/07/25) Physical Therapy Treatment Note PT OP: Cervical/Upper Extremity Start: 04/21/25 11:42 Freq: Status: Active Protocol: Document 06/07/25 13:48 JZ (Rec: 06/07/25 14:38 JZ [id number]) Out-Patient Physical Therapy Visit Information Visit Information Visit Type Treatment Note Visit Start Time 13:48 Visit Stop Time 14:28 Visit Number 13 Number of DIRECTOR OF SOCIAL MEDIA MARKETING Visits 0 Progress Note Due 06/20/25 OP-PT Subjective Patient Comments Patient Comments Patient reports his shoulders have been feeling good recently. He has not had pain when reaching into his hip pocket. Therapeutic Exercises Supine Exercises Supine DB press Resistance 8# DBs Reps/Minutes 3x10 Sitting Exercises Seated overhead press Sitting Exercise Reclined in chair Name Resistance 8# each side Reps/Minutes 2x10 Comments Manual assistance for motor control, one arm at a time Standing Exercises Plank incline Table to Side plank Side bilateral Equipment Used counter Reps/Minutes 10 reps alternating sides Comments cued not allowing buttocks back to far Abduction Isotonics Standing Exercise Cable column with kendell at waist height. Name Reps/Minutes 2x8 each side Cable column rows Standing Exercise single arm pull Name Side bilateral Resistance 20# Reps/Minutes 3x10 each side Flexion isotonics Standing Exercise Cable column with kendell at waist height. Name Resistance 10# Reps/Minutes 3x10 each side Plank position shoulder taps Side bilateral Equipment Used hands on plinth Reps/Minutes 2x10 each side Band IR Side bilateral Resistance level 4 resistance (dark blue) Reps/Minutes 2x10 Band ER Side bilateral Resistance level 4 resistance (dark blue) Reps/Minutes 2x12 Comments good form Physical Therapy Assessment Goals Three Impairment L shoulder general function Short Term Goal (STG Patient will demonstrate a reduction in quickDASH score ) to 22 in order to show an increase in self-perceived function. In progress - 05/21/2025 STG Duration 3 weeks [facility] Goal (LTG) Patient will demonstrate a reduction in quickDASH score to 14 in order to show an increase in self-perceived function. In progress - 05/21/2025 LTG Duration 6 weeks Two Impairment L shoulder strength Short Term Goal (STG Patient will demonstrate an increase in L shoulder ) flexion strength MMT to 4/5 in order to better function with lifting things around his home. In progress - 05/21/2025 STG Duration 3 weeks [facility] Goal (LTG) Patient will demonstrate an increase in L shoulder flexion strength MMT to 5/5 in order to better function with lifting things around his home. In 05/21/2025 LTG Duration 6 weeks One Impairment L shoulder ROM Short Term Goal (STG Patient will demonstrate an increase in pain-free L ) shoulder flexion AROM to 165 degrees in order to better function with reaching overhead. In progress - 05/21/2025 STG Duration 3 weeks Membership Director Goal (LTG) Patient will demonstrate an increase in pain-free L shoulder flexion AROM to 170 degrees in order to better function with reaching overhead. In progress 05/21/2025 LTG Duration 6 weeks Assessment Summary Assessment Treatment focused on progressing shoulder strengthening exercises. Patient tolerated progressions well with no lasting increases in symptoms and reported muscular fatigue near end of sets. Plan next session to complete progress note and discuss plan of care moving forward. Physical Therapy Plan Frequency and Duration Frequency of 2x/Week Treatment Duration of 12 treatment (weeks) Plan of Care Start 04/21/25 Date Plan of Care End 07/20/25 Date Next Visit Focus/Plan Next Note Type Treatment Note Next Visit Plan Continue with plan of care focused on progressive bilateral shoulder strengthening and ROM in pain-free ranges. Current HEP: - Band IR - Band ER - Band HABD - Incline table slides on banister- updated corner wall slides - Ys off wall AROM and TB - Flexion and ABD DBs
--- NOTE | 2025-06-09 14:28 | PT.OTN ---
Current Diagnoses Primary osteoarthritis, right shoulder (06/09/25) Primary osteoarthritis, left shoulder (06/09/25) Pain in right shoulder (06/09/25) Pain in left shoulder (06/09/25) Physical Therapy Treatment Note PT OP: Cervical/Upper Extremity Start: 04/21/25 11:42 Freq: Status: Active Protocol: Document 06/09/25 13:52 JZ (Rec: 06/09/25 14:28 JZ [id number]) Out-Patient Physical Therapy Visit Information Visit Information Visit Type Treatment Note Visit Start Time 13:50 Visit Stop Time 14:30 Visit Number 14 Number of FISHER TRAWL LINE Visits 0 Progress Note Due 06/20/25 OP-PT Subjective Patient Comments Patient Comments Patient reports his shoulders felt fine after last session. No lingering pain or soreness. Therapeutic Exercises Supine Exercises Supine DB press Resistance 10# DBs Reps/Minutes 3x10 Sitting Exercises Seated overhead press Sitting Exercise Reclined in chair Name Resistance 8# each side Reps/Minutes 2x10 Comments Manual assistance for motor control, one arm at a time Standing Exercises Abduction Isotonics Standing Exercise Cable column with kendell at waist height. Name Resistance 10# Reps/Minutes 2x8 each side Cable column rows Standing Exercise single arm pull Name Side bilateral Resistance 30# Reps/Minutes 3x10 each side Flexion isotonics Standing Exercise Cable column with kendell at waist height. Name Resistance 10# Reps/Minutes 3x10 each side Plank position shoulder taps Side bilateral Equipment Used hands on plinth Reps/Minutes 2x10 each side Band IR Side bilateral Resistance level 4 resistance (dark blue) Reps/Minutes 2x10 Band ER Side bilateral Resistance level 4 resistance (dark blue) Reps/Minutes 2x12 Comments good form Physical Therapy Assessment Goals Three Impairment L shoulder general function Short Term Goal (STG Patient will demonstrate a reduction in quickDASH score ) to 22 in order to show an increase in self-perceived function. In progress - 05/21/2025 STG Duration 3 weeks [facility] Goal (LTG) Patient will demonstrate a reduction in quickDASH score to 14 in order to show an increase in self-perceived function. In progress - 05/21/2025 LTG Duration 6 weeks Two Impairment L shoulder strength Short Term Goal (STG Patient will demonstrate an increase in L shoulder ) flexion strength MMT to 4/5 in order to better function with lifting things around his home. In progress - 05/21/2025 STG Duration 3 weeks Car Unloader Goal (LTG) Patient will demonstrate an increase in L shoulder flexion strength MMT to 5/5 in order to better function with lifting things around his home. In 05/21/2025 LTG Duration 6 weeks One Impairment L shoulder ROM Short Term Goal (STG Patient will demonstrate an increase in pain-free L ) shoulder flexion AROM to 165 degrees in order to better function with reaching overhead. In progress 05/21/2025 STG Duration 3 weeks Car Unloader Goal (LTG) Patient will demonstrate an increase in pain-free L shoulder flexion AROM to 170 degrees in order to better function with reaching overhead. In 05/21/2025 LTG Duration 6 weeks Assessment Summary Assessment Treatment focused on progressing bilateral shoulder strengthening. Patient tolerated treatment well with no lasting increases in pain levels. Plan next session to follow up on response to today's session and continue with plan of care. Physical Therapy Plan Frequency and Duration Frequency of 2x/Week Treatment Duration of 12 treatment (weeks) Plan of Care Start 04/21/25 Date Plan of Care End 07/20/25 Date Next Visit Focus/Plan Next Note Type Treatment Note Next Visit Plan Continue with plan of care focused on progressive bilateral shoulder strengthening and ROM in pain-free ranges. Current HEP: - Band IR - Band ER - Band HABD - Incline table slides on banister- updated corner wall slides - Ys off wall AROM and TB - Flexion and ABD DBs
--- NOTE | 2025-06-17 10:35 | PT.OTN ---
Current Diagnoses Primary osteoarthritis, right shoulder (06/17/25) Primary osteoarthritis, left shoulder (06/17/25) Pain in right shoulder (06/17/25) Pain in left shoulder (06/17/25) Physical Therapy Treatment Note PT OP: Cervical/Upper Extremity Start: 04/21/25 11:42 Freq: Status: Active Protocol: Document 06/17/25 09:55 SP (Rec: 06/17/25 10:41 SP [id number]) Out-Patient Physical Therapy Visit Information Visit Information Visit Type Treatment Note Visit Start Time 09:55 Visit Stop Time 10:35 Visit Number 15 Number of [employer]TRY [employer] Visits 1 Progress Note Due 06/20/25 OP-PT Subjective Patient Comments Patient Comments Pt reports still soreness when wakes up but eases throughout day. Pt requested today is his last approved appt and scheduled, feels confident continue on his own with HEP known to finish gain range and strength. Shoulder Goniometric Range of Motion Shoulder Right Active Shoulder ROM WFL Yes Testing Position Sitting Flexion 175 Abduction 125 External Rotation at 85 90 degrees Abduction Internal Rotation T9 Behind Back (text) Comments AROM Left Active Shoulder ROM WFL No Testing Position Sitting Flexion 165 Abduction 115 External Rotation at 76 90 degrees Abduction Internal Rotation T11 Behind Back (text) Shoulder Strength Shoulder Manual Muscle Testing Right Flexion 4+ Good+ Abduction (C5) 4+ Good+ External Rotation 5 Normal Internal Rotation 5 Normal Comments sitting Left Flexion 4 Good Abduction (C5) 4 Good External Rotation 4+ Good+ Internal Rotation 5 Normal Comments Pain reproduction with resisted abduction on L. No pain with flexion or ER. Therapeutic Exercises Standing Exercises IR Stretch Standing Exercise added to HEP after measured IR behind back limited (T9 Name on R, T11 on L) Side bilateral Equipment Used towel support Reps/Minutes 15 sec hold x3 reps Comments cued not push into pain but good benefits to dry off back/don shirt/jacket Cable column rows Standing Exercise single arm pull- modified TB under foot for home Name Side bilateral Resistance Tb #5 dark blue, anchored under foot Reps/Minutes 20 Comments cued back straight, slight bent over lawnmower pull, elbow back, pull Self-Care/Home Management Treatment Education Patient Education Body Mechanics,Home Exercise Program,Safety Other Education education give every opportunity to have L UE don shirt /jacket 2nd UE for progression AROM. Added IR towel stretch Physical Therapy Assessment Goals Three Impairment L shoulder general function Short Term Goal (STG Patient will demonstrate a reduction in quickDASH score ) to 22 in order to show an increase in self-perceived function. In progress - 05/21/2025 06/17/25: score 34.09 STG Duration 3 weeks Rn Pediatric Goal (LTG) Patient will demonstrate a reduction in quickDASH score to 14 in order to show an increase in self-perceived function. In - 05/21/2025 06/17/25: score 34.09 LTG Duration 6 weeks Two Impairment L shoulder strength Short Term Goal (STG Patient will demonstrate an increase in L shoulder ) flexion strength MMT to 4/5 in order to better function with lifting things around his home. In - 05/21/2025 06/17/25: GOal MET 4/5 STG Duration 3 weeks GOAL MET 06/17/25 Rn Pediatric Goal (LTG) Patient will demonstrate an increase in L shoulder flexion strength MMT to 5/5 in order to better function with lifting things around his home. In 05/21/2025 06/17/25: GOal MET 4/5 LTG Duration 6 weeks GOAL MET 06/17/25 One Impairment L shoulder ROM Short Term Goal (STG Patient will demonstrate an increase in pain-free L ) shoulder flexion AROM to 165 degrees in order to better function with reaching overhead. In - 05/21/2025 06/17/25: GOAL MET AROM 165 deg STG Duration 3 weeks GOAL MET 06/17/25 Rn Pediatric Goal (LTG) Patient will demonstrate an increase in pain-free L shoulder flexion AROM to 170 degrees in order to better function with reaching overhead. In - 05/21/2025 06/17/25: progressing 165 deg FF LTG Duration 6 weeks progressing 06/17/25 Assessment Summary Assessment Pt states has improved in shoulder strength 4 to 4+/5 and ability to return to his daily activities with almost return to range needed for reaching overhead but feels can continue on his own to complete. [employer] discussed if finds needs to come back, can ask physician for a new referral. Initiated IR stretch for improvement in ability to reach behind his back better with use of towel and discussed continue actively reach behind back to improve putting LE in shirt/jacket as 2nd UE, not to self limit this activity. Verbalized understanding. Physical Therapy Plan Frequency and Duration Frequency of 2x/Week Treatment Duration of 12 treatment (weeks) Plan of Care Start 04/21/25 Date Plan of Care End 07/20/25 Date Therapeutic Interventions Therapeutic Balance Training,Coordination Training,Home Exercise Interventions Program,Joint Mobilizations,Manual Therapy, Neuromuscular Re-education,Patient/Caregiver Education, Self-Care/Home Management,Soft Tissue Mobilization, Taping,Therapeutic Activities,Therapeutic Exercises Modalities Biofeedback,Cold Pack/Ice Massage,Electric Stimulation, Hot Packs,Infrared Therapy,Iontophoresis,Traction- Mechanical,Ultrasound,Vasopneumatic Devices Discharge Physical Therapy Discharge Reasons Patient Request Discharge Comments Pt requested today is his last approved appt and feels can continue on his own with HEP known to finish gain range and strength. Next Visit Focus/Plan Next Note Type Discharge Summary Next Visit Plan PT to complete DC. Current HEP: - Band IR - Band ER - Band HABD - Incline table slides on banister- updated corner wall slides - Ys off wall AROM and TB - Flexion and ABD DBs
--- NOTE | 2025-06-17 13:04 | PT.OPDS ---
Current Diagnoses Primary osteoarthritis, right shoulder (06/17/25) Primary osteoarthritis, left shoulder (06/17/25) Pain in right shoulder (06/17/25) Pain in left shoulder (06/17/25) Visit Care Team Role Provider Type David Saucedo MD Attending Provider Physician Family Provider Other Providers Primary Care Provider Referring Provider Specialty: Family Practice Address: [address] [place] [address] Email: [email or web address] Visit Number Visit Number 15 Discharge Summary PT OP: Cervical/Upper Extremity Start: 04/21/25 11:42 Freq: Status: Active Protocol: Document 06/17/25 12:54 RUBEN (Rec: 06/17/25 13:04 RUBEN [id number]) Out-Patient Physical Therapy Visit Information Visit Information Visit Type Discharge Summary Visit Start Time 09:55 Visit Stop Time 10:35 Visit Number 15 Progress Note Due 06/20/25 OP-PT Subjective Patient Comments Patient Comments Patient reports he has made a good deal of improvement since starting PT and is comfortable continuing his exercises independently. Physical Therapy Assessment Goals Three Impairment L shoulder general function Short Term Goal (STG Patient will demonstrate a reduction in quickDASH score ) to 22 in order to show an increase in self-perceived function. In progress - 05/21/2025 06/17/25: score 34.09 STG Duration 3 weeks Usp Goal (LTG) Patient will demonstrate a reduction in quickDASH score to 14 in order to show an increase in self-perceived function. In progress - 05/21/2025 06/17/25: score 34.09 LTG Duration 6 weeks One Impairment L shoulder ROM Short Term Goal (STG Patient will demonstrate an increase in pain-free L ) shoulder flexion AROM to 165 degrees in order to better function with reaching overhead. In progress - 05/21/2025 06/17/25: GOAL MET AROM 165 deg STG Duration 3 weeks GOAL MET 06/17/25 Usp Goal (LTG) Patient will demonstrate an increase in pain-free L shoulder flexion AROM to 170 degrees in order to better function with reaching overhead. In progress - 05/21/2025 06/17/25: progressing 165 deg FF LTG Duration 6 weeks progressing 06/17/25 Assessment Summary Assessment Patient presenting to PT after 14 visits for bilateral shoulder pain. He has made improvements with symptoms and function (see subjective section). Further investigation revealed improvement in bilateral shoulder strength (see goal section: MMTs), and ROM ( see goal section). Because of progress noted above, and patient comfort with continuing progress independently , today will be his last formal PT session. Physical Therapy Plan Frequency and Duration Frequency of 2x/Week Treatment Duration of 12 treatment (weeks) Plan of Care Start 04/21/25 Date Plan of Care End 07/20/25 Date Next Visit Focus/Plan Next Visit Plan N/A - Discharge plan of care
== END 2025-06-21 12:51 | disposition home or self-care (01) ==
LOC: PHYS 09:45
PROVIDERS: Family Provider Family Medicine; PCP Family Medicine; Referring Provider Family Medicine; Visit Provider Family Medicine
DX: M25.512 Pain in left shoulder (principal); M25.511 Pain in right shoulder; M19.011 Primary osteoarthritis, right shoulder; M19.012 Primary osteoarthritis, left shoulder
CPT/HCPCS: 97110; 97161